=== PATIENT | female | born 1975 | race Caucasian/White ===

== ENCOUNTER 2019-11-24 16:35 | Outpatient (REF) | payer OTHER, SELFPAY ==
[2019-11-24 17:53] LABS: Anion Gap 13 (12-20); Blood Urea Nitrogen 17 mg/dL (9-16); Carbon Dioxide 22 mmol/L (22-29); Chloride 110 mmol/L (96-108); Estimated Glomerular Filt Rate 48; Potassium 3.9 mmol/l (3.3-5.1); Sodium 141 mmol/L (135-145)
== END 2019-11-24 16:36 | disposition home or self-care (01) ==
LOC: HO.LAB 16:35
PROVIDERS: PCP Internal Medicine; Visit Provider Internal Medicine Hypertension Specialist
DX: N20.0 Calculus of kidney (principal)
CPT/HCPCS: 36415; 80051; 82565; 84520

== ENCOUNTER 2019-11-30 04:43 | Emergency (ER) | payer OTHER, SELFPAY ==
--- NOTE | 2019-11-30 | XR_ITS ---
EXAMINATION: XR ABDOMEN KUB CLINICAL INDICATION: Question constipation COMPARISON: None TECHNIQUE: AP view of the abdomen. FINDINGS: Right upper quadrant surgical clips. No dilated loops of bowel. Gas and stool throughout the colon with moderate colonic stool burden. No suspicious calcification. The lung bases are clear. Mild degenerative changes of the hips. IMPRESSION: Moderate colonic stool burden.
[2019-11-30 04:47] VITALS: BP 122/83; PULSE 86; RESP 18; TEMP 37.1; O2SAT 99; BMI 27.3
--- NOTE | 2019-11-30 05:18 | PC.NURSE ---
AT BEDSIDE FOR EVALUATION.
[2019-11-30 05:22] VITALS: BP 117/80; PULSE 15; TEMP 37; O2SAT 98
--- NOTE | 2019-11-30 05:22 | ED.GENADULT ---
HPI - General Adult General Chief complaint: General Medical Stated complaint: Constipation Time Seen by Provider: 11/30/19 05:21 Source: patient Mode of arrival: ambulatory Limitations: no limitations History of Present Illness HPI narrative: This is a 44-year-old female who presents with inability to have a bowel movement for the past 4 days which she states she does not typically have an issue with. This is not been associated with fevers, chills, nausea, vomiting, urinary pain/ burning /frequency. In addition, patient has been able to continue tolerating p.o. intake and pass flatus. She states that she has not attempted any interventions over the past 4 days other than raisins. Related Data Home Medications Medication Instructions Recorded Confirmed bupropion HCl 100 mg tablet,12 hr 100 mg PO QAM 11/26/19 11/26/19 sustained-release bupropion HCl 150 mg 24 hr tablet, 0 mg PO 11/26/19 11/26/19 extended release bupropion HCl 200 mg tablet,12 hr 200 mg PO QAM 11/26/19 11/26/19 sustained-release bupropion HCl 300 mg 24 hr tablet, mg PO 11/26/19 11/26/19 extended release cephalexin 500 mg capsule 500 mg PO BID 11/26/19 11/26/19 ciprofloxacin HCl 500 mg tablet 500 mg PO BID 11/26/19 11/26/19 docusate sodium 100 mg capsule 100 mg PO DAILY 11/26/19 11/26/19 famotidine 40 mg tablet 40 mg PO BEDTIME 11/26/19 11/26/19 fexofenadine 180 mg tablet 180 mg PO DAILY 11/26/19 11/26/19 flu vacc [id number] 6mos up(PF) ml IM ONCE 11/26/19 11/26/19 fluticasone propionate 50 2 spray INTRANASAL BID 11/26/19 11/26/19 mcg/actuation nasal spray,suspension ipratropium bromide 42 mcg (0.06 2 spray INTRANASAL BID 11/26/19 11/26/19 %) nasal spray naproxen 500 mg tablet 500 mg PO Q12H PRN 11/26/19 11/26/19 naratriptan 2.5 mg tablet 2.5 mg PO DAILY PRN 11/26/19 11/26/19 nitrofurantoin macrocrystal 100 mg 100 mg PO DAILY 11/26/19 11/26/19 capsule nitrofurantoin 1 cap PO BID 11/26/19 11/26/19 monohydrate/macrocrystals 100 mg capsule omeprazole 20 mg capsule,delayed 20 mg PO DAILY 11/26/19 11/26/19 release potassium citrate 10 mEq (1,080 20 meq PO TID 11/26/19 11/26/19 mg) tablet,extended release pravastatin 20 mg tablet mg PO 11/26/19 11/26/19 pseudoephedrine HCl 30 mg tablet 0 mg PO 11/26/19 11/26/19 sumatriptan succinate 6 mg/0.5 mL mg SUBCUT 11/26/19 11/26/19 subcutaneous pen injector topiramate 100 mg tablet 0 mg PO 11/26/19 11/26/19 tramadol 50 mg tablet 0 mg PO 11/26/19 11/26/19 Allergies Allergy/AdvReac Type Severity Reaction Status Date / Time sulfamethoxazole Allergy Intermediate HIVES Unverified 11/10/19 17:26 [From BACTRIM] trimethoprim [From BACTRIM] Allergy Intermediate HIVES Unverified 11/10/19 17:26 Sulfa (Sulfonamide Allergy Unknown Heartburn Unverified 11/30/19 04:46 Antibiotics) Review of Systems Review of Systems: Pertinent positives and negatives as stated in the HPI. GEN: no fevers, chills, fatigue HEENT: no nasal congestion, sore throat, ear pain NEURO: no headache, dizziness, focal weakness PULM: no cough, shortness of breath CV: no chest pain, palpitations, LE edema ABD: no abdominal pain, nausea, vomiting, diarrhea : no dysuria, urgency, frequency SKIN: no rash ROS otherwise negative x 10 PMFSH Past Medical History Source: nursing notes reviewed Medical History Anxiety Depression Kidney stones Kidney stones Migraines Family History Family History Father Acute leukemia Mother FH: kidney cancer FH: pancreatic cancer Paternal Uncle Acute leukemia Social History Social History Alcohol intake: unknown Smoking Status: Unknown if ever smoked Use of substances other than those prescribed or required for medical reasons: Unknown Advance Directives: No Advance Directives Information Provided: No Physical Exam Vital Signs and I&O and Narrative: Vital Signs and I&O: Vital Signs Temp 98.6 F 11/30/19 05:22 Pulse 72 11/30/19 06:14 Resp 15 11/30/19 06:14 BP 119/79 11/30/19 06:14 Pulse Ox 98 11/30/19 06:14 Intake & Output 11/29/19 11/29/19 11/30/19 06:59 18:59 06:59 Weight 83.915 kg Body Mass Index 27.3 VITAL SIGNS: Reviewed. GENERAL: Well developed, well nourished, in no acute distress. HEAD: Normocephalic/atraumatic, EYES: PERRLA, EOMI intact without pain, no nystagmus/pallor/icterus noted EARS: Ext canals without abnormality, TMs non-bulging and non-erythematous NOSE: Nares patent bilateral OROPHARYNX: no oral lesions noted, posterior pharynx clear and non-erythematous without noted tonsillar enlargement/erythema/exudates NECK: Supple, no adenopathy LUNGS: Normal breath sounds. No adventitious sounds or accessory muscle use. SpO2<99%> CARDIOVASCULAR: Regular rate and rhythm without noted murmurs, no JVD or lower extremity edema. ABDOMEN: Soft, minimal tenderness to palpation at the left lower quadrant, non-distended with bowel sounds. No rigidity. No guarding. No palpable masses or hernias noted MUSCULOSKELETAL: No tenderness, deformities, or effusions noted on gross inspection. EXTREMITIES: No cyanosis, clubbing or edema. SKIN: Inspection of the skin reveals no rashes, ulcerations, jaundice, pallor, or petechiae. NEUROLOGIC: Alert and oriented x 4. Strength and sensation to light touch were grossly intact x 4. Course Course Course Narrative: This is a 44-year-old female with history and clinical presentation consistent with constipation without attempted aobb-mel-ljbaics interventions. Urine and urinalysis are negative for any acute findings of infection or . KUB significant for moderate colonic stool load. All results and findings were discussed with the patient at bedside and she was discharged to home in stable condition with a regimen that she could initiate today. Medical Decision Making Lab Data Labs: Lab Results 11/30/19 Range/Units 05:37 Urine Color YELLOW Urine Appearance CLEAR Urine pH 5.5 (5.0-8.0) Ur Specific [place] >= 1.030 H (1.005-1.025) Urine Protein NEG (NEG-TRACE) MG/DL Urine Glucose (UA) NEG (NEG) MG/DL Urine Ketones NEG (NEG) MG/DL Urine Blood NEG (NEG) Urine Nitrite NEG (NEG) Ur Leukocyte Esterase NEG (NEG) Urine Test NEGATIVE (NEGATIVE) Discharge Plan Discharge Clinical Impression: Constipation Qualifiers: Constipation type: unspecified constipation type Qualified Code(s): K59.00 - Constipation, unspecified Patient Disposition: Home, Self-Care Instructions: Constipation (ED), High Fiber Diet (ED), Fleet Enema (ED) Additional Instructions: 1. Increase your fluid intake, especially water as well as increasing fresh fruits and vegetables. 2. You may purchase MiraLax, [id number], and mix a packett with water twice a day. You should continue this until you start having bowel movements. 3. Consider using warm soapy enemas, only do this once. The patient and/or family acknowledge understanding of results (as applicable), diagnosis, treatment plan, need for follow up, and symptoms that should prompt a return to the emergency room. Prescriptions: No Action bupropion HCl 300 mg tablet extended release 24 hr PO RF: 0 naproxen 500 mg tablet 500 mg PO Q12H PRN (Reason: pain) RF: 0 tramadol 50 mg tablet 0 mg PO RF: 0 omeprazole 20 mg capsule,delayed release(DR/EC) 20 mg PO DAILY RF: 0 pseudoephedrine HCl 30 mg tablet 0 mg PO RF: 0 sumatriptan succinate 6 mg/0.5 mL pen injector subcut RF: 0 naratriptan 2.5 mg tablet 2.5 mg PO DAILY PRNRF: 0 pravastatin 20 mg tablet PO RF: 0 docusate sodium 100 mg capsule 100 mg PO DAILY RF: 0 famotidine 40 mg tablet 40 mg PO BEDTIME RF: 0 potassium citrate 10 mEq (1,080 mg) tablet extended release 20 meq PO TID RF: 0 Fluzone Quad [id number] (PF) 60 mcg (15 mcg x 4)/0.5 mL syringe IM ONCE RF: 0 nitrofurantoin macrocrystal 100 mg capsule 100 mg PO DAILY RF: 0 nitrofurantoin monohyd/m-cryst 100 mg capsule 1 cap PO BID RF: 0 bupropion HCl 150 mg tablet extended release 24 hr 0 mg PO RF: 0 fluticasone propionate 50 mcg/actuation spray,suspension 2 spray intranasal BID RF: 0 topiramate 100 mg tablet 0 mg PO RF: 0 ipratropium bromide 42 mcg (0.06 %) spray,non-aerosol 2 spray intranasal BID RF: 0 fexofenadine 180 mg tablet 180 mg PO DAILY RF: 0 bupropion HCl 200 mg tablet sustained-release 12 hr 200 mg PO QAM RF: 0 ciprofloxacin HCl 500 mg tablet 500 mg PO BID RF: 0 bupropion HCl 100 mg tablet sustained-release 12 hr 100 mg PO QAM RF: 0 cephalexin 500 mg capsule 500 mg PO BID RF: 0 Referrals: Hillary Ruiz MD [Primary Care Provider] - 2 days (For follow-up and management of constipation)
[2019-11-30 05:44] LABS: Glucose Urine UA NEG (NEG); Leukocyte Esterase Urine NEG (NEG); Nitrite Urine NEG (NEG); PH 5.5 (5.0-8.0); Specific Gravity - Urine >= 1.030 (1.005-1.025); Urine Blood NEG (NEG); Urine Ketones NEG (NEG); Urine Protein NEG (NEG-TRACE)
[2019-11-30 05:46] LABS: Appearance Urine CLEAR; Color Urine YELLOW; UACC CULT NO; UACC Culture Trigger NO; UPreg QC Valid YES; Urine Pregnancy NEGATIVE (NEGATIVE)
[2019-11-30 06:14] VITALS: BP 119/79; PULSE 72; RESP 15; O2SAT 98
== END 2019-11-30 06:46 | disposition home or self-care (01) ==
PROVIDERS: Emergency Provider Student in an Organized Health Care Education/Training Program; PCP Internal Medicine
DX: K59.00 Constipation, unspecified (principal); F41.9 Anxiety disorder, unspecified; Z87.442 Personal history of urinary calculi; Z79.899 Other long term (current) drug therapy
CPT/HCPCS: 74018; 81003; 81025; 99283; 99284

== ENCOUNTER 2020-01-17 16:14 | Emergency (ER) | payer OTHER, SELFPAY ==
[2020-01-17 16:33] VITALS: BP 136/82; PULSE 89; RESP 16; TEMP 36.9; O2SAT 99; BMI 27.3
--- NOTE | 2020-01-17 16:45 | ECG_ITS ---
Test Reason : OVERDOSE Blood Pressure : / mmHG Vent. Rate : 089 BPM Atrial Rate : 089 BPM P-R Int : 156 ms QRS Dur : 102 ms QT Int : 376 ms P-R-T Axes : 046 023 017 degrees QTc Int : 457 ms Normal sinus rhythm Nonspecific T wave abnormality Inferior leads Abnormal ECG When compared with ECG of 28-APR-2019 01:07, No significant change was found Referred By: Sun Bender Electronically Signed By:UMU ADAMS MD
--- NOTE | 2020-01-17 16:54 | ED.OVERDOSE ---
HPI - Overdose General Chief Complaint: Overdose Stated Complaint: OVERDOSE Time Seen by Provider: 01/17/20 16:44 Source: patient Mode of arrival: ambulatory Limitations: no limitations History of Present Illness complaint: accidental overdose Onset (ago): hour(s) (couple) Timing confirmed by: other (herself) Substance Ingested wellbutrin 200mg XL: Strength of Substance: 200 Number of Pills Ingested: 1 Total Dose: 200 Context: Accidental Overdose: medication error Associated symptoms: other (anxiety) Treatments Prior to Arrival: other (gave herself charcoal pills) Related Data Home Medications Medication Instructions Recorded Confirmed bupropion HCl 100 mg tablet,12 hr 100 mg PO QAM 11/26/19 11/26/19 sustained-release bupropion HCl 150 mg 24 hr tablet, 0 mg PO 11/26/19 11/26/19 extended release bupropion HCl 200 mg tablet,12 hr 200 mg PO QAM 11/26/19 11/26/19 sustained-release bupropion HCl 300 mg 24 hr tablet, mg PO 11/26/19 11/26/19 extended release cephalexin 500 mg capsule 500 mg PO BID 11/26/19 11/26/19 ciprofloxacin HCl 500 mg tablet 500 mg PO BID 11/26/19 11/26/19 docusate sodium 100 mg capsule 100 mg PO DAILY 11/26/19 11/26/19 famotidine 40 mg tablet 40 mg PO BEDTIME 11/26/19 11/26/19 fexofenadine 180 mg tablet 180 mg PO DAILY 11/26/19 11/26/19 flu vacc [id number] 6mos up(PF) ml IM ONCE 11/26/19 11/26/19 fluticasone propionate 50 2 spray INTRANASAL BID 11/26/19 11/26/19 mcg/actuation nasal spray,suspension ipratropium bromide 42 mcg (0.06 2 spray INTRANASAL BID 11/26/19 11/26/19 %) nasal spray naproxen 500 mg tablet 500 mg PO Q12H PRN 11/26/19 11/26/19 naratriptan 2.5 mg tablet 2.5 mg PO DAILY PRN 11/26/19 11/26/19 nitrofurantoin macrocrystal 100 mg 100 mg PO DAILY 11/26/19 11/26/19 capsule nitrofurantoin 1 cap PO BID 11/26/19 11/26/19 monohydrate/macrocrystals 100 mg capsule omeprazole 20 mg capsule,delayed 20 mg PO DAILY 11/26/19 11/26/19 release potassium citrate 10 mEq (1,080 20 meq PO TID 11/26/19 11/26/19 mg) tablet,extended release pravastatin 20 mg tablet mg PO 11/26/19 11/26/19 pseudoephedrine HCl 30 mg tablet 0 mg PO 11/26/19 11/26/19 sumatriptan succinate 6 mg/0.5 mL mg SUBCUT 11/26/19 11/26/19 subcutaneous pen injector topiramate 100 mg tablet 0 mg PO 11/26/19 11/26/19 tramadol 50 mg tablet 0 mg PO 11/26/19 11/26/19 Allergies Allergy/AdvReac Type Severity Reaction Status Date / Time sulfamethoxazole Allergy Intermediate HIVES Unverified 11/10/19 17:26 [From BACTRIM] trimethoprim [From BACTRIM] Allergy Intermediate HIVES Unverified 11/10/19 17:26 Sulfa (Sulfonamide Allergy Unknown Heartburn Unverified 11/30/19 04:46 Antibiotics) Review of Systems Review of Systems: Constitutional : No Weight loss, No Fever, No Chills, No Fatigue, No Malaise ENT/Mouth : No sore throat, pos nasal congestion Eyes: No Eye Pain, No Swelling, No Redness Cardiovascular : No Chest Pain, No SOB, No Dyspnea on Exertion, No Orthopnea, No Edema, No Palpitations Respiratory : No Cough, No Sputum, No Wheezing Gastrointestinal : No Nausea, No Vomiting, No Diarrhea, No Constipation, No abdominal Pain, No Hematochezia, No Melena Genitourinary : No Dysuria, No Urinary Frequency, No Hematuria, Musculoskeletal : No joint pain, No Myalgias, No Joint Swelling Skin : No Skin Lesions, No rash Neuro : No Weakness, No Numbness, No Dizziness, No Headache Psych : pos Anxiety/Panic, No Depression Heme/Lymph: No Bruising, No Bleeding,No Lymphadenopathy Endocrine : No Polyuria, No Polydipsia All other systems reviewed and are negative PMFSH Past Medical History Attestation statement: The following information was validated with the patient. Medical History Anxiety Depression Kidney stones Migraines Family History Family History Father Acute leukemia Mother FH: kidney cancer FH: pancreatic cancer Paternal Uncle Acute leukemia Social History Social History (Updated 01/17/20 @ 16:58 by Sun Bender DO) Alcohol intake: unknown Smoking Status: Never smoker Use of substances other than those prescribed or required for medical reasons: No Advance Directives: No Advance Directives Information Provided: Yes Physical Exam Vital Signs: Vital Signs: Last Vital Signs Temp 98.5 F 01/17/20 16:33 Pulse 89 01/17/20 16:33 Resp 16 01/17/20 16:33 BP 136/82 01/17/20 16:33 Pulse Ox 99 01/17/20 16:33 Body Mass Index 27.3 Appearance: Alert. Oriented X3. No acute distress. Flat affect Eyes: Pupils equal, round and reactive to light. ENT: Pharynx normal. Neck: Normal inspection. Neck supple. CVS: Normal heart rate and rhythm. Pulses normal. Respiratory: No respiratory distress. Breath sounds normal. Abdomen: Soft and nontender. Skin: Skin warm and dry. Normal skin color. Normal skin turgor. Extremities: No lower extremity edema. No calf ttp Neuro: Oriented X 3. No motor deficit. No sensory deficit. Course Course Course Narrative: if labs stable will DC home no sig ingestion at this time stable EKG MDM - Overdose MDM Narrative Medical decision making narrative: 44 yo female with PMH of mental health issues here with accidental ingestion of 200mg wellbutrin - last dose at 11pm last night, she thought this medication was an allergy pill, she denies SI, will obtain basic labs and EKG, suspect she will be fine given duration in between doses. Will discuss with poison control Lab Data Result diagrams: 01/17/20 17:15 01/17/20 17:15 ECG Data Attestation: I personally reviewed and interpreted this ECG as follows: ECG interpretation date: 01/17/20 ECG interpretation time: 17:12 Interpretation: Rate: 89 Rhythm: NSR Hyrum: normal Normal P waves. Normal JOEY. Normal QRS complex. ST T wave : nonspecific , inverted V3 qTC: normal prior studies: no change April 2019, no acute ischemia The study has been interpreted contemporaneously by me. . Discharge Plan Discharge Clinical Impression: Accidental drug ingestion Patient Disposition: Home, Self-Care Instructions: Bupropion (By mouth), Adult Overdose (ED) Additional Instructions: return to ED for any worsening symptoms or concerns DO NOT TAKE YOUR WELLBUTRIN DOSE TONIGHT Prescriptions: No Action bupropion HCl 300 mg tablet extended release 24 hr PO RF: 0 naproxen 500 mg tablet 500 mg PO Q12H PRN (Reason: pain) RF: 0 tramadol 50 mg tablet 0 mg PO RF: 0 omeprazole 20 mg capsule,delayed release(DR/EC) 20 mg PO DAILY RF: 0 pseudoephedrine HCl 30 mg tablet 0 mg PO RF: 0 sumatriptan succinate 6 mg/0.5 mL pen injector subcut RF: 0 naratriptan 2.5 mg tablet 2.5 mg PO DAILY PRNRF: 0 pravastatin 20 mg tablet PO RF: 0 docusate sodium 100 mg capsule 100 mg PO DAILY RF: 0 famotidine 40 mg tablet 40 mg PO BEDTIME RF: 0 potassium citrate 10 mEq (1,080 mg) tablet extended release 20 meq PO TID RF: 0 Fluzone Quad [id number] (PF) 60 mcg (15 mcg x 4)/0.5 mL syringe IM ONCE RF: 0 nitrofurantoin macrocrystal 100 mg capsule 100 mg PO DAILY RF: 0 nitrofurantoin monohyd/m-cryst 100 mg capsule 1 cap PO BID RF: 0 bupropion HCl 150 mg tablet extended release 24 hr 0 mg PO RF: 0 fluticasone propionate 50 mcg/actuation spray,suspension 2 spray intranasal BID RF: 0 topiramate 100 mg tablet 0 mg PO RF: 0 ipratropium bromide 42 mcg (0.06 %) spray,non-aerosol 2 spray intranasal BID RF: 0 fexofenadine 180 mg tablet 180 mg PO DAILY RF: 0 bupropion HCl 200 mg tablet sustained-release 12 hr 200 mg PO QAM RF: 0 ciprofloxacin HCl 500 mg tablet 500 mg PO BID RF: 0 bupropion HCl 100 mg tablet sustained-release 12 hr 100 mg PO QAM RF: 0 cephalexin 500 mg capsule 500 mg PO BID RF: 0 Referrals: Hillary Ruiz MD [Primary Care Provider] - 2 days (as needed)
[2020-01-17 17:20] LABS: MANUAL DIFF FLAG NO
[2020-01-17 17:21] LABS: Basophils Percent Auto 0.3 % (0-2); Eosinophils Absolute Auto 0.2 X10*3/uL (0.0-0.4); Eosinophils Percent Auto 1.7 % (0-4); Hematocrit 39.3 % (37-47); Hemoglobin 13.5 g/dl (12.0-16.0); Imm Gran Abs Auto 0.03 X10*3/uL (0.00-0.03); Imm Gran Pct Auto 0.3 % (0.0-0.4); Lymphocytes Absolute Auto 2.1 X10*3/uL (1.2-4.9); Lymphocytes Percent Auto 20.8 % (20-40); Mean Corpuscular HGB Conc 34.4 g/dl (31.0-35.0); Mean Corpuscular Volume 90.3 fL (80-98); Mean Platelet Volume 9.3 fL (9.4-12.3); Monocytes Absolute Auto 0.7 X10*3/uL (0.1-1.2); Monocytes Percent Auto 7.1 % (2-11); Neutrophils Percent Auto 69.8 % (45-73); Platelet Count 304 X10*3/uL (160-400); Red Blood Count 4.35 X10*6/uL (4.20-5.50); Red Cell Distribution Width 11.8 % (11.0-16.0); White Blood Count 10.1 X10*3/uL (4.8-10.8)
--- NOTE | 2020-01-17 17:29 | PC.NURSE ---
THIS RN SPOKE W/ POISON CONTROL, ONLY RECOMMENDATION CONSIDER MONITORING PT UNTIL 2300 D/T POTENTIAL RISK FOR DELAYED SX, DR HAMLIN AWARE. PT REFUSING REQUESTED COVID SWAB.
[2020-01-17 17:50] LABS: Ethanol < 10 mg/dL
[2020-01-17 17:57] LABS: Acetaminophen LAB < 1 mcg/mL (<30)
[2020-01-17 18:06] LABS: Alanine Aminotransferase 26 U/L (0-31); Albumin Level 4.2 g/dL (3.5-5.0); Alkaline Phosphatase 81 U/L (39-117); Anion Gap 12 (12-20); Aspartate Amino Transferase 16 U/L (5-31); Bilirubin Direct 0.2 mg/dL (0.0-0.5); Bilirubin Total 0.3 mg/dL (0.0-1.0); Blood Urea Nitrogen 16 mg/dL (9-16); Calcium 8.6 mg/dL (8.4-10.2); Carbon Dioxide 21 mmol/L (22-29); Chloride 107 mmol/L (96-108); Creatinine Clr Calc Pharmacy 73.9; Estimated Glomerular Filt Rate 53; Glucose Random 94 mg/dL (60-115); Potassium 3.4 mmol/l (3.3-5.1); Salicylate < 5.0 mg/dL (15-30); Sodium 137 mmol/L (135-145); Total Protein 7.1 g/dL (6.5-8.0)
[2020-01-17 18:36] VITALS: BP 139/89; PULSE 85; RESP 16; TEMP 36.6; O2SAT 98
== END 2020-01-17 18:52 | disposition home or self-care (01) ==
PROVIDERS: Emergency Provider Emergency Medicine; PCP Internal Medicine
DX: T43.291A Poisoning by other antidepressants, accidental (unintentional), initial encounter (principal); Y92.9 Unspecified place or not applicable; Z79.899 Other long term (current) drug therapy; F41.1 Generalized anxiety disorder; F43.0 Acute stress reaction; Z20.828 Contact with and (suspected) exposure to other viral communicable diseases
CPT/HCPCS: 36415; 80048; 80076; 80320; 85025; 93005; 99283; 99285; G0480; U0003

== ENCOUNTER → 2020-01-22 20:30 | Outpatient (REF) | payer OTHER, SELFPAY | LOC: HO.SL 20:30 | PROVIDERS: PCP Internal Medicine; Visit Provider Psychiatry & Neurology Neurology | DX: G47.33 Obstructive sleep apnea (adult) (pediatric) (principal) | CPT/HCPCS: 95810 ==

== ENCOUNTER 2020-02-25 13:04 | Emergency (ER) | payer OTHER, SELFPAY ==
[2020-02-25 14:13] VITALS: BP 129/75; PULSE 90; RESP 16; TEMP 37.1; O2SAT 98; BMI 27.3
--- NOTE | 2020-02-25 17:28 | ED_ITS ---
HPI - Abdominal Pain General Chief Complaint: Abdominal Pain Stated Complaint: blood in stool Time Seen by Provider: 02/25/20 16:43 Source: patient Mode of arrival: ambulatory History of Present Illness HPI narrative: 44-year-old female w/PMHx anxiety, migraines renal stones, depression, presenting to the ED c/o one episode of bright red blood stool this afternoon. Reports LLQ abdominal pain radiaiting to L flank yesterday, resolved today. Also admits to diarrhea and mild lightheadedness. Denies taking AC. Denies fever, chills, N/V/C, dysuria, hematuria, vaginal bleeding, suspicious food intake MD elicited complaint: abdominal pain Related Data Home Medications Medication Instructions Recorded Confirmed bupropion HCl 100 mg tablet,12 hr 100 mg PO QAM 11/26/19 11/26/19 sustained-release bupropion HCl 150 mg 24 hr tablet, 0 mg PO 11/26/19 11/26/19 extended release bupropion HCl 200 mg tablet,12 hr 200 mg PO QAM 11/26/19 11/26/19 sustained-release bupropion HCl 300 mg 24 hr tablet, mg PO 11/26/19 11/26/19 extended release cephalexin 500 mg capsule 500 mg PO BID 11/26/19 11/26/19 ciprofloxacin HCl 500 mg tablet 500 mg PO BID 11/26/19 11/26/19 docusate sodium 100 mg capsule 100 mg PO DAILY 11/26/19 11/26/19 famotidine 40 mg tablet 40 mg PO BEDTIME 11/26/19 11/26/19 fexofenadine 180 mg tablet 180 mg PO DAILY 11/26/19 11/26/19 flu vacc [id number] 6mos up(PF) ml IM ONCE 11/26/19 11/26/19 fluticasone propionate 50 2 spray INTRANASAL BID 11/26/19 11/26/19 mcg/actuation nasal spray,suspension ipratropium bromide 42 mcg (0.06 2 spray INTRANASAL BID 11/26/19 11/26/19 %) nasal spray naproxen 500 mg tablet 500 mg PO Q12H PRN 11/26/19 11/26/19 naratriptan 2.5 mg tablet 2.5 mg PO DAILY PRN 11/26/19 11/26/19 nitrofurantoin macrocrystal 100 mg 100 mg PO DAILY 11/26/19 11/26/19 capsule nitrofurantoin 1 cap PO BID 11/26/19 11/26/19 monohydrate/macrocrystals 100 mg capsule omeprazole 20 mg capsule,delayed 20 mg PO DAILY 11/26/19 11/26/19 release potassium citrate 10 mEq (1,080 20 meq PO TID 11/26/19 11/26/19 mg) tablet,extended release pravastatin 20 mg tablet mg PO 11/26/19 11/26/19 pseudoephedrine HCl 30 mg tablet 0 mg PO 11/26/19 11/26/19 sumatriptan succinate 6 mg/0.5 mL mg SUBCUT 11/26/19 11/26/19 subcutaneous pen injector topiramate 100 mg tablet 0 mg PO 11/26/19 11/26/19 tramadol 50 mg tablet 0 mg PO 11/26/19 11/26/19 Previous Rx's Medication Instructions Recorded ciprofloxacin HCl 500 mg PO Q12H 7 Days #14 tab 02/25/20 metronidazole [Flagyl] 500 mg PO Q8H 7 Days #21 tab 02/25/20 Allergies Allergy/AdvReac Type Severity Reaction Status Date / Time sulfamethoxazole Allergy Intermediate HIVES Verified 02/25/20 20:07 [From BACTRIM] trimethoprim [From BACTRIM] Allergy Intermediate HIVES Verified 02/25/20 20:07 Sulfa (Sulfonamide Allergy Unknown Heartburn Verified 02/25/20 20:07 Antibiotics) Review of Systems Review of Systems Constitutional: No Weight loss, No Fever, No Chills Cardiovascular: No Chest Pain, No SOB Respiratory: No Cough, No Sputum Gastrointestinal: No Nausea, No Vomiting, + Diarrhea, No Constipation, + Abdominal pain, +bloody stool Genitourinary: No irregular bleeding, No Dysuria, No Urinary Frequency, No Hematuria, + Flank Pain Musculoskeletal: No joint pain, No Myalgias, No Joint Swelling Skin: No Skin Lesions, No rash Neuro: No Weakness, No Numbness, +lightheadedness, No Headache Yes all other systems are reviewed and are negative Physical Exam Vital Signs: Vital Signs: Last Vital Signs Temp 97.5 F 02/25/20 17:45 Pulse 88 02/25/20 17:45 Resp 14 02/25/20 17:45 BP 132/78 02/25/20 17:45 Pulse Ox 98 02/25/20 17:45 Body Mass Index 27.3 Const: General: cooperative and healthy appearing Orientation/consciousness: patient oriented x3 Limitations: no limitations HENMT: Head: Yes normal to inspection Ears: hearing grossly normal bilate rally General nose exam: Normal external nose present Face and sinus: Yes normal facial exam Eyes: General: appearance normal, both eyes and all related structures EOM: EOMs intact bilaterally Neck: Neck: Yes normal visual inspection Resp: Effort & Inspection: normal respiratory effort Auscultation: clear to auscultation bilaterally, no rales, no rhonchi and no wheezes Cardio: Rate: regular rate Heart sounds: S1 normal heart sound present and S2 normal heart sound present GI: Inspection: Yes normal to inspection Palpation (GI): Soft to palpation, nontender, no guarding and not rigid : General: Yes no CVA tenderness Back/Spine/Pelvis: Back: no CVA tenderness Skin: Rashes: no rashes Wounds: no wounds Neuro: General: patient oriented x3 Gait exam (Neuro): Normal gait present Extrem: General: Yes normal to inspection Course Course Course Narrative: * Mild leukocytosis of 14.2, H&H stable, labs otherwise unremarkable, UA negative * Occult stool positive > will obtain CT abdomen pelvis for further evaluation * CT showing moderate descending colon diverticulitis without complication > will PO challenge and plan for outpatient tx and f/u with GI. First dose of metronidazole given in the ED. Worrisome signs and symptoms and strict return precautions discussed. Patient verbalized understanding feel safe for discharge * Patient is tolerating p.o. in the ED without difficulty MDM - Abdominal Pain MDM Narrative Medical decision making narrative: On exam VSS, NAD, well appearing, abd soft nontnender, no CVAT, no rebound or guarding. No hemorrhoids on rectal. Concern for GI bleed vs ?diverticulitis vs gastroenteritis. R/o other infectious etiology. Plan: Labs, UA, Occult stool, IVF/Sx Tx, Reassess Lab Data Result diagrams: 02/25/20 17:57 02/25/20 17:56 Labs: Lab Results 02/25/20 02/25/20 02/25/20 Range/Units 17:50 17:53 17:56 WBC (4.8-10.8) X10*3/uL RBC (4.20-5.50) X10*6/uL Hgb (12.0-16.0) g/dl Hct (37-47) % MCV (80-98) fL MCH (27.0-33.0) pg MCHC (31.0-35.0) g/dl RDW (11.0-16.0) % Plt Count (160-400) X10*3/uL MPV (9.4-12.3) fL Immature Gran % (Auto) (0.0-0.4) % Neut % (Auto) (45-73) % Lymph % (Auto) (20-40) % [place] % (Auto) (2-11) % Eos % (Auto) (0-4) % Baso % (Auto) (0-2) % Lymph # (Auto) (1.2-4.9) X10*3/uL [place] # (Auto) (0.1-1.2) X10*3/uL Eos # (Auto) (0.0-0.4) X10*3/uL Baso # (Auto) (0.0-0.2) X10*3/uL Abs Immat Gran (auto) (0.00-0.03) X10*3/uL Absolute Neuts (auto) (2.0-8.3) X10*3/uL Absolute Nucleated RBC (0.0-0.012) X10*3/uL Nucleated RBC % (auto) (0.0-0.2) /100WBC PT (10.8-13.0) SEC INR (0.9-1.1) APTT (24.1-38.0) SEC Sodium 141 (135-145) mmol/L Potassium 3.8 (3.3-5.1) mmol/l Chloride 106 (96-108) mmol/L Carbon Dioxide 25 (22-29) mmol/L Anion Gap 14 (12-20) BUN 13 (9-16) mg/dL Creatinine 1.20 (0.5-1.4) mg/dL Estim Creat Clear Calc 65.6 Estimated GFR 48 Random Glucose 92 (60-115) mg/dL Calcium 9.1 (8.4-10.2) mg/dL Magnesium 2.0 (1.6-2.6) mg/dL Total Bilirubin 0.2 (0.0-1.0) mg/dL Direct Bilirubin < 0.2 (0.0-0.5) mg/dL AST 21 (5-31) U/L ALT 28 (0-31) U/L Alkaline Phosphatase 97 (39-117) U/L Total Protein 7.4 (6.5-8.0) g/dL Albumin 4.4 (3.5-5.0) g/dL Lipase 21 (8-78) U/L Urine Color YELLOW Urine Appearance CLEAR Urine pH 8.5 H (5.0-8.0) Ur Specific [place] 1.010 (1.005-1.025) Urine Protein NEG (NEG-TRACE) MG/DL Urine Glucose (UA) NEG (NEG) MG/DL Urine Ketones NEG (NEG) MG/DL Urine Blood NEG (NEG) Urine Nitrite NEG (NEG) Ur Leukocyte Esterase NEG (NEG) Stool Occult Blood POS (NEG) 02/25/20 02/25/20 Range/Units 17:57 17:57 WBC 14.2 H (4.8-10.8) X10*3/uL RBC 4.38 (4.20-5.50) X10*6/uL Hgb 13.6 (12.0-16.0) g/dl Hct 40.6 (37-47) % MCV 92.7 (80-98) fL MCH 31.1 (27.0-33.0) pg MCHC 33.5 (31.0-35.0) g/dl RDW 11.9 (11.0-16.0) % Plt Count 337 (160-400) X10*3/uL MPV 9.5 (9.4-12.3) fL Immature Gran % (Auto) 0.4 (0.0-0.4) % Neut % (Auto) 69.9 (45-73) % Lymph % (Auto) 19.9 L (20-40) % [place] % (Auto) 7.8 (2-11) % Eos % (Auto) 1.8 (0-4) % Baso % (Auto) 0.2 (0-2) % Lymph # (Auto) 2.8 (1.2-4.9) X10*3/uL [place] # (Auto) 1.1 (0.1-1.2) X10*3/uL Eos # (Auto) 0.3 (0.0-0.4) X10*3/uL Baso # (Auto) 0.0 (0.0-0.2) X10*3/uL Abs Immat Gran (auto) 0.06 H (0.00-0.03) X10*3/uL Absolute Neuts (auto) 9.9 H (2.0-8.3) X10*3/uL Absolute Nucleated RBC 0.000 (0.0-0.012) X10*3/uL Nucleated RBC % (auto) 0.0 (0.0-0.2) /100WBC PT 12.2 (10.8-13.0) SEC INR 1.0 (0.9-1.1) APTT 34.9 (24.1-38.0) SEC Sodium (135-145) mmol/L Potassium (3.3-5.1) mmol/l Chloride (96-108) mmol/L Carbon Dioxide (22-29) mmol/L Anion Gap (12-20) BUN (9-16) mg/dL Creatinine (0.5-1.4) mg/dL Estim Creat Clear Calc Estimated GFR Random Glucose (60-115) mg/dL Calcium (8.4-10.2) mg/dL Magnesium (1.6-2.6) mg/dL Total Bilirubin (0.0-1.0) mg/dL Direct Bilirubin (0.0-0.5) mg/dL AST (5-31) U/L ALT (0-31) U/L Alkaline Phosphatase (39-117) U/L Total Protein (6.5-8.0) g/dL Albumin (3.5-5.0) g/dL Lipase (8-78) U/L Urine Color Urine Appearance Urine pH (5.0-8.0) Ur Specific [place] (1.005-1.025) Urine Protein (NEG-TRACE) MG/DL Urine Glucose (UA) (NEG) MG/DL Urine Ketones (NEG) MG/DL Urine Blood (NEG) Urine Nitrite (NEG) Ur Leukocyte Esterase (NEG) Stool Occult Blood (NEG) Discharge Plan Discharge Clinical Impression: Diverticulitis Patient Disposition: Home, Self-Care Instructions: Diverticulitis (ED) Additional Instructions: You have diverticulitis which is infection of your: Ciprofloxacin and Flagyl are antibiotics, take as prescribed Do not drink alcohol while taking Flagyl make you sick Make sure staying hydrated at home If you are unable to eat or drink, have fever, worsening persistent or unbearable abdominal pain return to the ED You should follow-up with GI and your doctor Prescriptions: New ciprofloxacin HCl 500 mg tablet 500 mg PO Q12H 7 Days Qty: 14 RF: 0 metronidazole [Flagyl] 500 mg tablet 500 mg PO Q8H 7 Days Qty: 21 RF: 0 No Action bupropion HCl 300 mg tablet extended release 24 hr PO RF: 0 naproxen 500 mg tablet 500 mg PO Q12H PRN (Reason: pain) RF: 0 tramadol 50 mg tablet 0 mg PO RF: 0 omeprazole 20 mg capsule,delayed release(DR/EC) 20 mg PO DAILY RF: 0 pseudoephedrine HCl 30 mg tablet 0 mg PO RF: 0 sumatriptan succinate 6 mg/0.5 mL pen injector subcut RF: 0 naratriptan 2.5 mg tablet 2.5 mg PO DAILY PRNRF: 0 pravastatin 20 mg tablet PO RF: 0 docusate sodium 100 mg capsule 100 mg PO DAILY RF: 0 famotidine 40 mg tablet 40 mg PO BEDTIME RF: 0 potassium citrate 10 mEq (1,080 mg) tablet extended release 20 meq PO TID RF: 0 Fluzone Quad [id number] (PF) 60 mcg (15 mcg x 4)/0.5 mL syringe IM ONCE RF: 0 nitrofurantoin macrocrystal 100 mg capsule 100 mg PO DAILY RF: 0 nitrofurantoin monohyd/m-cryst 100 mg capsule 1 cap PO BID RF: 0 bupropion HCl 150 mg tablet extended release 24 hr 0 mg PO RF: 0 fluticasone propionate 50 mcg/actuation spray,suspension 2 spray intranasal BID RF: 0 topiramate 100 mg tablet 0 mg PO RF: 0 ipratropium bromide 42 mcg (0.06 %) spray,non-aerosol 2 spray intranasal BID RF: 0 fexofenadine 180 mg tablet 180 mg PO DAILY RF: 0 bupropion HCl 200 mg tablet sustained-release 12 hr 200 mg PO QAM RF: 0 ciprofloxacin HCl 500 mg tablet 500 mg PO BID RF: 0 bupropion HCl 100 mg tablet sustained-release 12 hr 100 mg PO QAM RF: 0 cephalexin 500 mg capsule 500 mg PO BID RF: 0 Referrals: Joan Larson MD [Physician] - 1 week [facility] Past Medical History Attestation statement: The following information was validated with the patient. Medical History Anxiety Depression Kidney stones Migraines Family History Family History Father Acute leukemia Mother FH: kidney cancer FH: pancreatic cancer Paternal Uncle Acute leukemia Social History Social History (Updated 01/17/20 @ 16:58 by Sun Bender DO) Alcohol intake: never Smoking Status: Never smoker Advance Directives: No Advance Directives Information Provided: No
[2020-02-25 17:45] VITALS: BP 132/78; PULSE 88; RESP 14; TEMP 36.4; O2SAT 98
[2020-02-25 18:04] LABS: Basophils Percent Auto 0.2 % (0-2); Eosinophils Absolute Auto 0.3 X10*3/uL (0.0-0.4); Eosinophils Percent Auto 1.8 % (0-4); Hematocrit 40.6 % (37-47); Hemoglobin 13.6 g/dl (12.0-16.0); Imm Gran Abs Auto 0.06 X10*3/uL (0.00-0.03); Imm Gran Pct Auto 0.4 % (0.0-0.4); Lymphocytes Absolute Auto 2.8 X10*3/uL (1.2-4.9); Lymphocytes Percent Auto 19.9 % (20-40); Mean Corpuscular HGB Conc 33.5 g/dl (31.0-35.0); Mean Corpuscular Hemoglobin 31.1 pg (27.0-33.0); Mean Corpuscular Volume 92.7 fL (80-98); Mean Platelet Volume 9.5 fL (9.4-12.3); Monocytes Absolute Auto 1.1 X10*3/uL (0.1-1.2); Monocytes Percent Auto 7.8 % (2-11); Neutrophils Absolute Auto 9.9 X10*3/uL (2.0-8.3); Neutrophils Percent Auto 69.9 % (45-73); Platelet Count 337 X10*3/uL (160-400); Red Blood Count 4.38 X10*6/uL (4.20-5.50); Red Cell Distribution Width 11.9 % (11.0-16.0); White Blood Count 14.2 X10*3/uL (4.8-10.8)
[2020-02-25 18:06] LABS: MANUAL DIFF FLAG NO
[2020-02-25 18:17] LABS: OBS Int Ctl Valid YES; OBS1 POS (NEG)
[2020-02-25 18:19] LABS: Prothrombin Time 12.2 SEC (10.8-13.0)
[2020-02-25 18:22] LABS: Partial Thromboplastin Time 34.9 SEC (24.1-38.0)
[2020-02-25 18:23] LABS: Appearance Urine CLEAR; Color Urine YELLOW; Glucose Urine UA NEG (NEG); Leukocyte Esterase Urine NEG (NEG); Nitrite Urine NEG (NEG); PH 8.5 (5.0-8.0); Urine Blood NEG (NEG); Urine Ketones NEG (NEG); Urine Protein NEG (NEG-TRACE)
[2020-02-25 18:24] LABS: Alanine Aminotransferase 28 U/L (0-31); Albumin Level 4.4 g/dL (3.5-5.0); Alkaline Phosphatase 97 U/L (39-117); Anion Gap 14 (12-20); Aspartate Amino Transferase 21 U/L (5-31); Bilirubin Direct < 0.2 mg/dL (0.0-0.5); Bilirubin Total 0.2 mg/dL (0.0-1.0); Blood Urea Nitrogen 13 mg/dL (9-16); Calcium 9.1 mg/dL (8.4-10.2); Carbon Dioxide 25 mmol/L (22-29); Chloride 106 mmol/L (96-108); Creatinine Clr Calc Pharmacy 65.6; Estimated Glomerular Filt Rate 48; Glucose Random 92 mg/dL (60-115); Lipase 21 U/L (8-78); Potassium 3.8 mmol/l (3.3-5.1); Sodium 141 mmol/L (135-145); Total Protein 7.4 g/dL (6.5-8.0)
--- NOTE | 2020-02-25 18:34 | CT_ITS ---
EXAMINATION: CT ABDOMEN AND PELVIS WITH CONTRAST CLINICAL INFORMATION: Bloody bowel movement. Left lower quadrant abdominal pain. COMPARISON: Abdominal radiograph dated 11/30/2019. Renal ultrasound dated 09/27/2019. CT abdomen/pelvis dated 06/16/2018. TECHNIQUE: Multidetector volumetric images were obtained from the superior aspect of the liver through the pubic symphysis following administration 85 mL of Omnipaque 350 intravenous contrast. Sagittal and coronal reformatted images were obtained on the technologist's workstation. Oral contrast: No This CT examination was performed using dose optimization techniques as appropriate, variously including the following: *Automated exposure control *Adjustment of mA and/or kV according to patient size (this includes techniques or standardized protocols for targeted exams where dose is matched to indication/reason for exam; i.e. extremities or head) *Use of iterative reconstruction technique DLP: 652 mGy-cm FINDINGS: LUNG BASES: The visualized lung bases are unremarkable. LIVER, GALLBLADDER, AND BILIARY TREE: The liver is normal in size, shape, and attenuation. No focal hepatic lesion or biliary ductal dilatation is present. Status post cholecystectomy. PANCREAS: Unremarkable. SPLEEN: Unremarkable. ADRENAL GLANDS: Unremarkable. KIDNEYS AND URETERS: The kidneys are normal in size, shape, and attenuation. Previously seen right-sided renal stone is not appreciated on the current examination. Bilateral renal hypodensities, consistent with cysts. No perinephric stranding. BLADDER: Unremarkable. GASTROINTESTINAL TRACT: Descending colon diverticulosis with focal circumferential bowel wall thickening and adjacent inflammatory change centered on a large diverticulum, consistent with acute diverticulitis. No extraluminal air or organized fluid collection to suggest perforation or abscess. No small or large bowel obstruction. Unremarkable appendix. PERITONEAL CAVITY: No intra-abdominal free air or free fluid. No intra-abdominal mass or organized fluid collection/abscess. ABDOMINAL WALL: No significant hernia is appreciated. LYMPH NODES: Normal. VASCULAR: Unremarkable. PELVIC VISCERA: The uterus and adnexa are unremarkable. OSSEOUS STRUCTURES: Unremarkable. CT/CT abdomen pelvis w con IMPRESSION: 1. Moderate descending colon diverticulitis. No extraluminal air or organized fluid collection to suggest perforation or abscess. 2. Previously seen right renal stone is identified in the current examination. No hydronephrosis or hydroureter. Probable bilateral renal cysts.
[2020-02-25] MEDS: 0.9 % Sodium Chloride 1,000 ML 999 ML IVCONT (18:49)
[2020-02-25] MEDS: Magnesium Hydrox/Alum Hydrox 30 ML ORAL.SUSP PO (18:49)
[2020-02-25] MEDS: iohexoL 350 MG/ML 100 ML INFUS..BTL IV (19:29)
[2020-02-25 20:08] VITALS: BP 126/83; PULSE 81; RESP 16; O2SAT 100
[2020-02-25] MEDS: metroNIDAZOLE 500 MG TABLET PO (20:20)
== END 2020-02-25 21:20 | disposition home or self-care (01) ==
PROVIDERS: Physician Assistant; Emergency Provider Emergency Medicine; PCP Internal Medicine
DX: K57.32 Diverticulitis of large intestine without perforation or abscess without bleeding (principal)
CPT/HCPCS: 36415; 74177; 80048; 80076; 81003; 82272; 83690; 83735; 85025; 85610; 85730; 96361; 96374; 99283; 99284; Q9967

== ENCOUNTER 2020-03-06 06:55 | Emergency (ER) | payer OTHER, SELFPAY ==
[2020-03-06 08:41] VITALS: BP 120/67; PULSE 81; RESP 16; TEMP 36; O2SAT 100; BMI 27.3
--- NOTE | 2020-03-06 09:02 | CT_ITS ---
EXAMINATION: CT ABDOMEN AND PELVIS WITH CONTRAST CLINICAL INFORMATION: Left lower quadrant pain. Diverticulitis 1 week ago. Worsening pain. Evaluate for abscess. COMPARISON: CT abdomen/pelvis dated 02/24/2019. TECHNIQUE: Multidetector volumetric images were obtained from the superior aspect of the liver through the pubic symphysis following administration 85 mL of Omnipaque 350 intravenous contrast. Sagittal and coronal reformatted images were obtained on the technologist's workstation. Oral contrast: No. This CT examination was performed using dose optimization techniques as appropriate, variously including the following: *Automated exposure control. *Adjustment of mA and/or kV according to patient size (this includes techniques or standardized protocols for targeted exams where dose is matched to indication/reason for exam; i.e. extremities or head) *Use of iterative reconstruction technique. DLP: 672 mGy-cm. FINDINGS: LUNG BASES: The visualized lung bases are unremarkable. LIVER, GALLBLADDER, AND BILIARY TREE: The liver is normal in size, shape, and attenuation. No focal hepatic lesion or biliary ductal dilatation is present. Status post cholecystectomy. PANCREAS: Unremarkable. SPLEEN: Unremarkable. ADRENAL GLANDS: Unremarkable. KIDNEYS AND URETERS: The kidneys are normal in size, shape, and attenuation. No hydronephrosis, hydroureter, or calculi seen. Multiple stable bilateral renal hypodensities, likely representing cysts. No perinephric stranding. BLADDER: Nondistended and unremarkable. GASTROINTESTINAL TRACT: Redemonstration of diverticulosis with wall thickening and adjacent inflammatory change again noted associated with the descending colon. Findings have significantly decreased when compared to the prior examination. No evidence of perforation or abscess formation. No small or large bowel obstruction. Unremarkable appendix. PERITONEAL CAVITY: No intra-abdominal free air or free fluid. No intra-abdominal mass or organized fluid collection/abscess formation. ABDOMINAL WALL: No significant hernia is appreciated. LYMPH NODES: Normal. VASCULAR: Unremarkable. PELVIC VISCERA: The uterus and adnexa are unremarkable. OSSEOUS STRUCTURES: Unremarkable. CT/CT abdomen pelvis w con IMPRESSION: Redemonstration of descending colon diverticulitis. Wall thickening and adjacent inflammatory change have significantly decreased when compared to the most recent CT. No evidence of perforation or abscess formation.
--- NOTE | 2020-03-06 09:04 | ED_ITS ---
HPI - General Adult General Chief complaint: Abdominal Pain Stated complaint: back pain Time Seen by Provider: 03/06/20 08:43 Source: patient Mode of arrival: ambulatory Limitations: no limitations History of Present Illness HPI narrative: 44-year-old female who presents emergency department for evaluation of left lower quadrant abdominal pain radiating to her left flank and left buttocks. The patient was seen 1 week prior with similar pain and was diagnosed with diverticulitis. She was treated with ciprofloxacin 500 mg twice a day for 7 days and metronidazole 500 mg 3 times a day for 7 days. She states that while she was on the antibiotic she felt better however since stopping the antibiotics her pain has got worse. She states that the pain is a hard punching like sensation in her left lower quadrant area and left flank area. The pain is 8/10. She has associated chills and nausea with no vomiting. She states she has had a good appetite. She had a normal bowel movement today. She denied frequency urgency dysuria but states she gets frequent urinary tact infection and takes Macrobid for suppression of her urinary tract infection. Related Data Home Medications Medication Instructions Recorded Confirmed bupropion HCl 100 mg tablet,12 hr 100 mg PO QAM 11/26/19 11/26/19 sustained-release bupropion HCl 150 mg 24 hr tablet, 0 mg PO 11/26/19 11/26/19 extended release bupropion HCl 200 mg tablet,12 hr 200 mg PO QAM 11/26/19 11/26/19 sustained-release bupropion HCl 300 mg 24 hr tablet, mg PO 11/26/19 11/26/19 extended release cephalexin 500 mg capsule 500 mg PO BID 11/26/19 11/26/19 ciprofloxacin HCl 500 mg tablet 500 mg PO BID 11/26/19 11/26/19 docusate sodium 100 mg capsule 100 mg PO DAILY 11/26/19 11/26/19 famotidine 40 mg tablet 40 mg PO BEDTIME 11/26/19 11/26/19 fexofenadine 180 mg tablet 180 mg PO DAILY 11/26/19 11/26/19 flu vacc [id number] 6mos up(PF) ml IM ONCE 11/26/19 11/26/19 fluticasone propionate 50 2 spray INTRANASAL BID 11/26/19 11/26/19 mcg/actuation nasal spray,suspension ipratropium bromide 42 mcg (0.06 2 spray INTRANASAL BID 11/26/19 11/26/19 %) nasal spray naproxen 500 mg tablet 500 mg PO Q12H PRN 11/26/19 11/26/19 naratriptan 2.5 mg tablet 2.5 mg PO DAILY PRN 11/26/19 11/26/19 nitrofurantoin macrocrystal 100 mg 100 mg PO DAILY 11/26/19 11/26/19 capsule nitrofurantoin 1 cap PO BID 11/26/19 11/26/19 monohydrate/macrocrystals 100 mg capsule omeprazole 20 mg capsule,delayed 20 mg PO DAILY 11/26/19 11/26/19 release potassium citrate 10 mEq (1,080 20 meq PO TID 11/26/19 11/26/19 mg) tablet,extended release pravastatin 20 mg tablet mg PO 11/26/19 11/26/19 pseudoephedrine HCl 30 mg tablet 0 mg PO 11/26/19 11/26/19 sumatriptan succinate 6 mg/0.5 mL mg SUBCUT 11/26/19 11/26/19 subcutaneous pen injector topiramate 100 mg tablet 0 mg PO 11/26/19 11/26/19 tramadol 50 mg tablet 0 mg PO 11/26/19 11/26/19 Previous Rx's Medication Instructions Recorded ciprofloxacin HCl 500 mg PO Q12H 7 Days #14 tab 02/25/20 metronidazole [Flagyl] 500 mg PO Q8H 7 Days #21 tab 02/25/20 amoxicillin-pot clavulanate 1 tab PO BID 10 Days #20 tab 03/06/20 [Augmentin] Allergies Allergy/AdvReac Type Severity Reaction Status Date / Time sulfamethoxazole Allergy Intermediate HIVES Verified 02/25/20 20:07 [From BACTRIM] trimethoprim [From BACTRIM] Allergy Intermediate HIVES Verified 02/25/20 20:07 Sulfa (Sulfonamide Allergy Unknown Heartburn Verified 02/25/20 20:07 Antibiotics) Review of Systems Review of Systems: Yes all other systems are reviewed and are negative Neurologic: Reports Abnormal speech present [facility] Past Medical History Medical History Anxiety Depression Kidney stones Migraines Family History Family History Father Acute leukemia Mother FH: kidney cancer FH: pancreatic cancer Paternal Uncle Acute leukemia Social History Social History Alcohol intake: never Smoking Status: Never smoker Use of substances other than those prescribed or required for medical reasons: No Advance Directives: No Advance Directives Information Provided: Yes Physical Exam Vital Signs: Vital Signs: Last Vital Signs Temp 97.9 F 03/06/20 12:55 Pulse 75 03/06/20 12:55 Resp 15 03/06/20 12:55 BP 117/65 03/06/20 12:55 Pulse Ox 100 03/06/20 12:55 Body Mass Index 27.3 Const: General: cooperative Orientation/consciousness: oriented to person and oriented to place Limitations: no limitations HENMT: Head: Yes normal to inspection, Yes normocephalic and Yes atraumatic Ears: external ears normal General nose exam: Normal external nose present Face and sinus: Yes normal facial exam Mouth: Normal oral and palatal mucosa present Throat: Yes posterior oropharynx normal Eyes: Periorbital: periorbital findings normal Eyelids: Yes eyelids normal Conjunctivae: conjunctivae normal Sclerae: sclerae normal Corneas: corneas normal Pupils: Equal, round and reactive pupils present Direct Ophthalmoscopy: normal light reflex Neck: Neck: Yes full ROM, Yes no lymphadenopathy, Yes no meningeal signs, Yes trachea midline and Yes supple Chest: Chest palpation & inspection: normal inspection of the chest and normal palpation of entire chest wall Resp: Effort & Inspection: normal respiratory effort and able to speak in complete sentences Auscultation: clear to auscultation bilaterally Cardio: Rate: regular rate Rhythm: regular rhythm Heart sounds: S1 normal heart sound present, S2 normal heart sound present and no murmurs GI: Inspection: Yes normal to inspection Palpation (GI): Soft to palpation, Tenderness to palpation present (GI) in the LLQ (Moderate), no guarding, not rigid and No hepatosplenomegaly present : General: Yes CVA tenderness on the left (Moderate) Back/Spine/Pelvis: Cervical Spine: normal cervical lordosis Thoracic/Lumbar Spine: thoracic and lumbar spine normal to inspection Skin: Lesions: no lesions Rashes: no rashes Wounds: no wounds Neuro: General: oriented to person, oriented to place and no meningeal signs Cranial nerves: Yes CN's II-XII intact bilaterally and Yes Equal, round and reactive pupils present Cognition (Neuro): normal cognition Speech: Abnormal speech present Motor exam (neuro): 5/5 motor strength present throughout Extrem: General: Yes normal to inspection and Yes full ROM Psych: Appearance: well kempt Mental Status: mental status grossly normal Speech and movement: Normal speech and movement present Affect: normal affect Attitude: cooperative Thought process: Normal thought process present Thought content: Normal thought content present Course Course Course Narrative: 44-year-old female who was diagnosed with moderate diverticulitis 1 week prior completed a 7 day course of ciprofloxacin and Flagyl presenting with worsening left lower quadrant and left flank pain. Examination did reveal moderate tenderness in these areas. I will repeat the abdominal workup and CT scan on this patient to rule out possibility of perforation or abscess since the cause of her her pain. The patient does not want any pain medications at this time. She was ordered to get normal saline IV x1 L. 1343: The patient's pain improved with above treatment. The patient's laboratory evaluation was unremarkable. CT scan of the abdomen pelvis is consistent with right descending colon diverticulitis, slightly improved from the previous scan but the patient still has colon wall thickening with adjacent inflammatory changes. The patient will require another course of oral antibiotics, therefore she was given Augmentin 875 mg orally and started on Augmentin 875 b.i.d. times 10 days. She was given verbal and printed instructions and discharged home. Medical Decision Making Lab Data Result diagrams: 03/06/20 09:17 03/06/20 09:17 Labs: Lab Results 03/06/20 03/06/20 03/06/20 Range/Units 09:17 09:17 11:34 WBC 8.7 (4.8-10.8) X10*3/uL RBC 4.30 (4.20-5.50) X10*6/uL Hgb 13.3 (12.0-16.0) g/dl Hct 40.0 (37-47) % MCV 93.0 (80-98) fL MCH 30.9 (27.0-33.0) pg MCHC 33.3 (31.0-35.0) g/dl RDW 12.1 (11.0-16.0) % Plt Count 329 (160-400) X10*3/uL MPV 9.5 (9.4-12.3) fL Immature Gran % (Auto) 0.3 (0.0-0.4) % Neut % (Auto) 65.4 (45-73) % Lymph % (Auto) 23.8 (20-40) % [place] % (Auto) 7.7 (2-11) % Eos % (Auto) 2.5 (0-4) % Baso % (Auto) 0.3 (0-2) % Lymph # (Auto) 2.1 (1.2-4.9) X10*3/uL [place] # (Auto) 0.7 (0.1-1.2) X10*3/uL Eos # (Auto) 0.2 (0.0-0.4) X10*3/uL Baso # (Auto) 0.0 (0.0-0.2) X10*3/uL Abs Immat Gran (auto) 0.03 (0.00-0.03) X10*3/uL Absolute Neuts (auto) 5.7 (2.0-8.3) X10*3/uL Absolute Nucleated RBC 0.000 (0.0-0.012) X10*3/uL Nucleated RBC % (auto) 0.0 (0.0-0.2) /100WBC Sodium 141 (135-145) mmol/L Potassium 3.7 (3.3-5.1) mmol/l Chloride 108 (96-108) mmol/L Carbon Dioxide 24 (22-29) mmol/L Anion Gap 13 (12-20) BUN 21 H D (9-16) mg/dL Creatinine 1.34 (0.5-1.4) mg/dL Estim Creat Clear Calc 60.7 Estimated GFR 43 Random Glucose 128 H D (60-115) mg/dL Calcium 8.6 (8.4-10.2) mg/dL Total Bilirubin 0.2 (0.0-1.0) mg/dL AST 13 (5-31) U/L ALT 19 (0-31) U/L Alkaline Phosphatase 71 D (39-117) U/L Total Protein 7.0 (6.5-8.0) g/dL Albumin 4.2 (3.5-5.0) g/dL Lipase 27 (8-78) U/L Urine Color YELLOW Urine Appearance HAZY Urine pH 8.5 H (5.0-8.0) Ur Specific [place] 1.015 (1.005-1.025) Urine Protein NEG (NEG-TRACE) MG/DL Urine Glucose (UA) NEG (NEG) MG/DL Urine Ketones NEG (NEG) MG/DL Urine Blood NEG (NEG) Urine Nitrite NEG (NEG) Ur Leukocyte Esterase NEG (NEG) Discharge Plan Discharge Clinical Impression: Diverticulitis Patient Disposition: Home, Self-Care Instructions: Diverticulitis (ED) Additional Instructions: Your laboratory evaluation was normal. The CT scan did show improvement in your diverticulitis however you still have evidence of diverticulitis in the left descending colon there for and when to start you on Augmentin 875 mg twice a day for 10 days. Take ibuprofen 200 mg pills, 3 pills every 6 hours as needed for pain. Take Tylenol (acetaminophen) 500 mg pills, 2 pills every 4 to 6 hours as needed for pain. Follow-up with your doctor in 2 days. Please return to the emergency department if your symptoms get worse or if you develop any symptoms that are concerning to you. Prescriptions: New amoxicillin-pot clavulanate [Augmentin] 875-125 mg tablet 1 tab PO BID 10 Days Qty: 20 RF: 0 No Action ciprofloxacin HCl 500 mg tablet 500 mg PO Q12H 7 Days Qty: 14 RF: 0 metronidazole [Flagyl] 500 mg tablet 500 mg PO Q8H 7 Days Qty: 21 RF: 0 bupropion HCl 300 mg tablet extended release 24 hr PO RF: 0 naproxen 500 mg tablet 500 mg PO Q12H PRN (Reason: pain) RF: 0 tramadol 50 mg tablet 0 mg PO RF: 0 omeprazole 20 mg capsule,delayed release(DR/EC) 20 mg PO DAILY RF: 0 pseudoephedrine HCl 30 mg tablet 0 mg PO RF: 0 sumatriptan succinate 6 mg/0.5 mL pen injector subcut RF: 0 naratriptan 2.5 mg tablet 2.5 mg PO DAILY PRNRF: 0 pravastatin 20 mg tablet PO RF: 0 docusate sodium 100 mg capsule 100 mg PO DAILY RF: 0 famotidine 40 mg tablet 40 mg PO BEDTIME RF: 0 potassium citrate 10 mEq (1,080 mg) tablet extended release 20 meq PO TID RF: 0 Fluzone Quad [id number] (PF) 60 mcg (15 mcg x 4)/0.5 mL syringe IM ONCE RF: 0 nitrofurantoin macrocrystal 100 mg capsule 100 mg PO DAILY RF: 0 nitrofurantoin monohyd/m-cryst 100 mg capsule 1 cap PO BID RF: 0 bupropion HCl 150 mg tablet extended release 24 hr 0 mg PO RF: 0 fluticasone propionate 50 mcg/actuation spray,suspension 2 spray intranasal BID RF: 0 topiramate 100 mg tablet 0 mg PO RF: 0 ipratropium bromide 42 mcg (0.06 %) spray,non-aerosol 2 spray intranasal BID RF: 0 fexofenadine 180 mg tablet 180 mg PO DAILY RF: 0 bupropion HCl 200 mg tablet sustained-release 12 hr 200 mg PO QAM RF: 0 ciprofloxacin HCl 500 mg tablet 500 mg PO BID RF: 0 bupropion HCl 100 mg tablet sustained-release 12 hr 100 mg PO QAM RF: 0 cephalexin 500 mg capsule 500 mg PO BID RF: 0
[2020-03-06 09:21] LABS: MANUAL DIFF FLAG NO
[2020-03-06 09:23] LABS: Basophils Percent Auto 0.3 % (0-2); Eosinophils Absolute Auto 0.2 X10*3/uL (0.0-0.4); Eosinophils Percent Auto 2.5 % (0-4); Hemoglobin 13.3 g/dl (12.0-16.0); Imm Gran Abs Auto 0.03 X10*3/uL (0.00-0.03); Imm Gran Pct Auto 0.3 % (0.0-0.4); Lymphocytes Absolute Auto 2.1 X10*3/uL (1.2-4.9); Lymphocytes Percent Auto 23.8 % (20-40); Mean Corpuscular HGB Conc 33.3 g/dl (31.0-35.0); Mean Corpuscular Hemoglobin 30.9 pg (27.0-33.0); Mean Platelet Volume 9.5 fL (9.4-12.3); Monocytes Absolute Auto 0.7 X10*3/uL (0.1-1.2); Monocytes Percent Auto 7.7 % (2-11); Neutrophils Absolute Auto 5.7 X10*3/uL (2.0-8.3); Neutrophils Percent Auto 65.4 % (45-73); Platelet Count 329 X10*3/uL (160-400); Red Cell Distribution Width 12.1 % (11.0-16.0); White Blood Count 8.7 X10*3/uL (4.8-10.8)
[2020-03-06 10:08] LABS: Alanine Aminotransferase 19 U/L (0-31); Albumin Level 4.2 g/dL (3.5-5.0); Alkaline Phosphatase 71 U/L (39-117); Anion Gap 13 (12-20); Aspartate Amino Transferase 13 U/L (5-31); Bilirubin Total 0.2 mg/dL (0.0-1.0); Blood Urea Nitrogen 21 mg/dL (9-16); Calcium 8.6 mg/dL (8.4-10.2); Carbon Dioxide 24 mmol/L (22-29); Chloride 108 mmol/L (96-108); Creatinine Clr Calc Pharmacy 60.7; Estimated Glomerular Filt Rate 43; Glucose Random 128 mg/dL (60-115); Lipase 27 U/L (8-78); Potassium 3.7 mmol/l (3.3-5.1); Sodium 141 mmol/L (135-145)
[2020-03-06] MEDS: 0.9 % Sodium Chloride 1,000 ML 999 ML IV (10:34)
[2020-03-06 11:28] VITALS: BP 112/63; PULSE 78; RESP 16; O2SAT 100
[2020-03-06] MEDS: iohexoL 350 MG/ML 100 ML INFUS..BTL 85 ML IV (11:46)
[2020-03-06 11:59] LABS: Glucose Urine UA NEG (NEG); Leukocyte Esterase Urine NEG (NEG); Nitrite Urine NEG (NEG); PH 8.5 (5.0-8.0); Specific Gravity - Urine 1.015 (1.005-1.025); Urine Blood NEG (NEG); Urine Ketones NEG (NEG); Urine Protein NEG (NEG-TRACE)
[2020-03-06 12:01] LABS: Appearance Urine HAZY; Color Urine YELLOW
[2020-03-06 12:55] VITALS: BP 117/65; PULSE 75; RESP 15; TEMP 36.6; O2SAT 100
[2020-03-06 14:13] VITALS: BP 127/83; PULSE 79; RESP 16; O2SAT 100
[2020-03-06] MEDS: Amoxicillin/Potassium Clav 875 MG TABLET PO (14:15)
== END 2020-03-06 14:21 | disposition home or self-care (01) ==
PROVIDERS: Emergency Provider Emergency Medicine Emergency Medical Services; PCP Internal Medicine
DX: K57.32 Diverticulitis of large intestine without perforation or abscess without bleeding (principal); Z79.899 Other long term (current) drug therapy
CPT/HCPCS: 36415; 74177; 80053; 81003; 83690; 85025; 96360; 99284; 99285; Q9967

== ENCOUNTER 2020-03-09 19:15 | Emergency (ER) | payer OTHER, SELFPAY ==
[2020-03-09 19:29] VITALS: BP 138/85; PULSE 82; RESP 16; TEMP 36.6; O2SAT 99; BMI 27.3
--- NOTE | 2020-03-10 00:48 | ED.GENADULT ---
HPI - General Adult General Chief complaint: General Medical Stated complaint: MED REACTION Time Seen by Provider: 03/09/20 23:49 Source: patient Mode of arrival: ambulatory History of Present Illness HPI narrative: This is a 44-year-old female who presents with concerns regarding sore throat and itchy nose as a possible allergic reaction to the Augmentin that she was switched to from the Cipro/ Flagyl. A repeat CT scan at that time showed improvement. Patient denies any fevers, chills, diarrhea, urinary symptoms, rash, difficulty breathing, tongue/lip swelling. Related Data Home Medications Medication Instructions Recorded Confirmed bupropion HCl 100 mg tablet,12 hr 100 mg PO QAM 11/26/19 11/26/19 sustained-release bupropion HCl 150 mg 24 hr tablet, 0 mg PO 11/26/19 11/26/19 extended release bupropion HCl 200 mg tablet,12 hr 200 mg PO QAM 11/26/19 11/26/19 sustained-release bupropion HCl 300 mg 24 hr tablet, mg PO 11/26/19 11/26/19 extended release cephalexin 500 mg capsule 500 mg PO BID 11/26/19 11/26/19 ciprofloxacin HCl 500 mg tablet 500 mg PO BID 11/26/19 11/26/19 docusate sodium 100 mg capsule 100 mg PO DAILY 11/26/19 11/26/19 famotidine 40 mg tablet 40 mg PO BEDTIME 11/26/19 11/26/19 fexofenadine 180 mg tablet 180 mg PO DAILY 11/26/19 11/26/19 flu vacc [id number] 6mos up(PF) ml IM ONCE 11/26/19 11/26/19 fluticasone propionate 50 2 spray INTRANASAL BID 11/26/19 11/26/19 mcg/actuation nasal spray,suspension ipratropium bromide 42 mcg (0.06 2 spray INTRANASAL BID 11/26/19 11/26/19 %) nasal spray naproxen 500 mg tablet 500 mg PO Q12H PRN 11/26/19 11/26/19 naratriptan 2.5 mg tablet 2.5 mg PO DAILY PRN 11/26/19 11/26/19 nitrofurantoin macrocrystal 100 mg 100 mg PO DAILY 11/26/19 11/26/19 capsule nitrofurantoin 1 cap PO BID 11/26/19 11/26/19 monohydrate/macrocrystals 100 mg capsule omeprazole 20 mg capsule,delayed 20 mg PO DAILY 11/26/19 11/26/19 release potassium citrate 10 mEq (1,080 20 meq PO TID 11/26/19 11/26/19 mg) tablet,extended release pravastatin 20 mg tablet mg PO 11/26/19 11/26/19 pseudoephedrine HCl 30 mg tablet 0 mg PO 11/26/19 11/26/19 sumatriptan succinate 6 mg/0.5 mL mg SUBCUT 11/26/19 11/26/19 subcutaneous pen injector topiramate 100 mg tablet 0 mg PO 11/26/19 11/26/19 tramadol 50 mg tablet 0 mg PO 11/26/19 11/26/19 Previous Rx's Medication Instructions Recorded ciprofloxacin HCl 500 mg PO Q12H 7 Days #14 tab 02/25/20 metronidazole [Flagyl] 500 mg PO Q8H 7 Days #21 tab 02/25/20 amoxicillin-pot clavulanate 1 tab PO BID 10 Days #20 tab 03/06/20 [Augmentin] ciprofloxacin HCl [Cipro] 500 mg PO Q12H 10 Days #20 tab 03/10/20 metronidazole [Flagyl] 500 mg PO Q8H 10 Days #30 tab 03/10/20 Allergies Allergy/AdvReac Type Severity Reaction Status Date / Time sulfamethoxazole Allergy Intermediate HIVES Verified 03/09/20 19:28 [From BACTRIM] trimethoprim [From BACTRIM] Allergy Intermediate HIVES Verified 03/09/20 19:28 Sulfa (Sulfonamide Allergy Unknown Heartburn Verified 03/09/20 19:28 Antibiotics) Review of Systems Review of Systems: Pertinent positives and negatives as stated in HPI 10 point review systems otherwise negative. [facility] Past Medical History Source: nursing notes reviewed Medical History Anxiety Depression Kidney stones Migraines Family History Family History Father Acute leukemia Mother FH: kidney cancer FH: pancreatic cancer Paternal Uncle Acute leukemia Social History Social History Alcohol intake: never Smoking Status: Never smoker Advance Directives: No Advance Directives Information Provided: No Physical Exam Vital Signs: Vital Signs: Last Vital Signs Temp 98 F 03/09/20 19:29 Pulse 82 03/09/20 19:29 Resp 16 03/09/20 19:29 BP 138/85 03/09/20 19:29 Pulse Ox 99 03/09/20 19:29 Body Mass Index 27.3 VITAL SIGNS: Reviewed. GENERAL: Well developed, well nourished, in no acute distress. HEAD: Normocephalic/atraumatic, EYES: PERRLA, EOMI EARS: Ext canals without abnormality, TMs non-bulging and non-erythematous NOSE: Nares patent bilateral OROPHARYNX: no oral lesions noted, posterior pharynx clear NECK: Supple, no adenopathy LUNGS: Normal breath sounds. . SpO2<99> CARDIOVASCULAR: Regular rate and rhythm without noted murmurs, no JVD or lower extremity edema. ABDOMEN: Soft, non-tender, non-distended with bowel sounds. No rigidity. SKIN: Inspection of the skin reveals no rashes NEUROLOGIC: Alert and oriented x 4. Strength and sensation to light touch were grossly intact x 4. Course Course Course Narrative: This is a 44-year-old female with history and clinical presentation not suggestive of allergic reaction as there is no evidence of angioedema, anaphylaxis, urticaria, however despite being reassured patient still exhibited anxiety over continuing with the antibiotic. Patient was then reassured that we can switch back for another, longer course with the Cipro/ Flagyl but would need to follow up with her primary care provider by calling the office at her earliest convenience. Discharge Plan Discharge Clinical Impression: Medication reaction Qualifiers: Encounter type: initial encounter Qualified Code(s): T50.905A - Adverse effect of unspecified drugs, medicaments and biological substances, initial encounter Patient Disposition: Home, Self-Care Additional Instructions: 1. Your antibiotic has been switched back to the initial set of antibiotics, but the duration of this course will be lengthier. 2. Please stay well hydrated with water. 3. Please follow-up with your primary care provider by calling the office in the morning. 4. Do not hesitate to return to the emergency department should you experience any shortness of breath, rash/hives, lip/tongue swelling. Prescriptions: New ciprofloxacin HCl [Cipro] 500 mg tablet 500 mg PO Q12H 10 Days Qty: 20 RF: 0 metronidazole [Flagyl] 500 mg tablet 500 mg PO Q8H 10 Days Qty: 30 RF: 0 No Action amoxicillin-pot clavulanate [Augmentin] 875-125 mg tablet 1 tab PO BID 10 Days Qty: 20 RF: 0 ciprofloxacin HCl 500 mg tablet 500 mg PO Q12H 7 Days Qty: 14 RF: 0 metronidazole [Flagyl] 500 mg tablet 500 mg PO Q8H 7 Days Qty: 21 RF: 0 bupropion HCl 300 mg tablet extended release 24 hr PO RF: 0 naproxen 500 mg tablet 500 mg PO Q12H PRN (Reason: pain) RF: 0 tramadol 50 mg tablet 0 mg PO RF: 0 omeprazole 20 mg capsule,delayed release(DR/EC) 20 mg PO DAILY RF: 0 pseudoephedrine HCl 30 mg tablet 0 mg PO RF: 0 sumatriptan succinate 6 mg/0.5 mL pen injector subcut RF: 0 naratriptan 2.5 mg tablet 2.5 mg PO DAILY PRNRF: 0 pravastatin 20 mg tablet PO RF: 0 docusate sodium 100 mg capsule 100 mg PO DAILY RF: 0 famotidine 40 mg tablet 40 mg PO BEDTIME RF: 0 potassium citrate 10 mEq (1,080 mg) tablet extended release 20 meq PO TID RF: 0 Fluzone Quad (PF) 60 mcg (15 mcg x 4)/0.5 mL syringe IM ONCE RF: 0 nitrofurantoin macrocrystal 100 mg capsule 100 mg PO DAILY RF: 0 nitrofurantoin monohyd/m-cryst 100 mg capsule 1 cap PO BID RF: 0 bupropion HCl 150 mg tablet extended release 24 hr 0 mg PO RF: 0 fluticasone propionate 50 mcg/actuation spray,suspension 2 spray intranasal BID RF: 0 topiramate 100 mg tablet 0 mg PO RF: 0 ipratropium bromide 42 mcg (0.06 %) spray,non-aerosol 2 spray intranasal BID RF: 0 fexofenadine 180 mg tablet 180 mg PO DAILY RF: 0 bupropion HCl 200 mg tablet sustained-release 12 hr 200 mg PO QAM RF: 0 ciprofloxacin HCl 500 mg tablet 500 mg PO BID RF: 0 bupropion HCl 100 mg tablet sustained-release 12 hr 100 mg PO QAM RF: 0 cephalexin 500 mg capsule 500 mg PO BID RF: 0 Referrals: Hillary Ruiz MD [Primary Care Provider] - 2 days (Please re-evaluate this patient for resolution of her diverticulitis and assist in coordinating further follow-up with Gastroenterology.)
[2020-03-10] MEDS: levoFLOXacin 500 MG TABLET PO (01:09)
[2020-03-10] MEDS: metroNIDAZOLE 500 MG TABLET PO (01:09)
== END 2020-03-10 01:15 | disposition home or self-care (01) ==
PROVIDERS: Emergency Provider Student in an Organized Health Care Education/Training Program; PCP Internal Medicine
DX: J02.9 Acute pharyngitis, unspecified (principal); T36.0X5A Adverse effect of penicillins, initial encounter; X58.XXXA Exposure to other specified factors, initial encounter; Z79.899 Other long term (current) drug therapy
CPT/HCPCS: 99283

== ENCOUNTER 2020-03-29 20:32 | Emergency (ER) | payer OTHER, SELFPAY ==
[2020-03-29 20:39] VITALS: BP 128/72; PULSE 82; RESP 18; TEMP 36.8; O2SAT 99; BMI 26.6
[2020-03-29 21:07] LABS: Glucose Urine UA NEG (NEG); Leukocyte Esterase Urine 1+ (NEG); Nitrite Urine NEG (NEG); Specific Gravity - Urine 1.015 (1.005-1.025); Urine Blood TRACE (NEG); Urine Ketones NEG (NEG); Urine Protein NEG (NEG-TRACE)
[2020-03-29 21:08] LABS: Appearance Urine CLEAR; Color Urine YELLOW
[2020-03-29 21:13] LABS: Bacteria Urine 1+ /LPF; Squamous Epithelial Cell Urine 1+ /LPF
--- NOTE | 2020-03-29 22:11 | PC.NURSE ---
PT IS STATE SHE TAKE CIPRO A PERMANENT SCRIPT FROM HER DRDominique? PT ALSO VERY CONCERNED DO TO A CELEBRITY RECENTLY DYING OF A UTI INFECITON SHE MENTIONED IT MULTIPLE TIME WHEN SPEAKING TO NURSE. PT WAS CONCERNED THAT THE CELEBRITY HAD OF A UTI WITH OUT HAVING AND UTI SYMPTOMS AND FELT LIKE THAT COULD BE HER.
--- NOTE | 2020-03-29 22:18 | ED_ITS ---
HPI - Female Genitourinary General Chief complaint: Urogenital-Female Stated complaint: uti? Time Seen by Provider: 03/29/20 22:18 Source: patient Mode of arrival: ambulatory Limitations: no limitations History of Present Illness HPI Narrative: Patient history of recurrent UTI been on multiple antibiotics currently she is taking Cipro 500 mg daily comes here with dysuria without any urgency or frequency feels pain when she pees also complaining of low back pain no nausea no vomiting patient with vague symptoms MD elicited complaint: dysuria Pertinent past history: recurrent UTIs Severity: mild Vaginal discharge: none Related Data Home Medications Medication Instructions Recorded Confirmed bupropion HCl 100 mg tablet,12 hr 100 mg PO QAM 11/26/19 11/26/19 sustained-release bupropion HCl 150 mg 24 hr tablet, 0 mg PO 11/26/19 11/26/19 extended release bupropion HCl 200 mg tablet,12 hr 200 mg PO QAM 11/26/19 11/26/19 sustained-release bupropion HCl 300 mg 24 hr tablet, mg PO 11/26/19 11/26/19 extended release cephalexin 500 mg capsule 500 mg PO BID 11/26/19 11/26/19 ciprofloxacin HCl 500 mg tablet 500 mg PO BID 11/26/19 11/26/19 docusate sodium 100 mg capsule 100 mg PO DAILY 11/26/19 11/26/19 famotidine 40 mg tablet 40 mg PO BEDTIME 11/26/19 11/26/19 fexofenadine 180 mg tablet 180 mg PO DAILY 11/26/19 11/26/19 flu vacc [id number] 6mos up(PF) ml IM ONCE 11/26/19 11/26/19 fluticasone propionate 50 2 spray INTRANASAL BID 11/26/19 11/26/19 mcg/actuation nasal spray,suspension ipratropium bromide 42 mcg (0.06 2 spray INTRANASAL BID 11/26/19 11/26/19 %) nasal spray naproxen 500 mg tablet 500 mg PO Q12H PRN 11/26/19 11/26/19 naratriptan 2.5 mg tablet 2.5 mg PO DAILY PRN 11/26/19 11/26/19 nitrofurantoin macrocrystal 100 mg 100 mg PO DAILY 11/26/19 11/26/19 capsule nitrofurantoin 1 cap PO BID 11/26/19 11/26/19 monohydrate/macrocrystals 100 mg capsule omeprazole 20 mg capsule,delayed 20 mg PO DAILY 11/26/19 11/26/19 release potassium citrate 10 mEq (1,080 20 meq PO TID 11/26/19 11/26/19 mg) tablet,extended release pravastatin 20 mg tablet mg PO 11/26/19 11/26/19 pseudoephedrine HCl 30 mg tablet 0 mg PO 11/26/19 11/26/19 sumatriptan succinate 6 mg/0.5 mL mg SUBCUT 11/26/19 11/26/19 subcutaneous pen injector topiramate 100 mg tablet 0 mg PO 11/26/19 11/26/19 tramadol 50 mg tablet 0 mg PO 11/26/19 11/26/19 Previous Rx's Medication Instructions Recorded ciprofloxacin HCl 500 mg PO Q12H 7 Days #14 tab 02/25/20 metronidazole [Flagyl] 500 mg PO Q8H 7 Days #21 tab 02/25/20 amoxicillin-pot clavulanate 1 tab PO BID 10 Days #20 tab 03/06/20 [Augmentin] ciprofloxacin HCl [Cipro] 500 mg PO Q12H 10 Days #20 tab 03/10/20 metronidazole [Flagyl] 500 mg PO Q8H 10 Days #30 tab 03/10/20 phenazopyridine [Pyridium] 200 mg PO TID 2 Days #5 tab 03/29/20 Allergies Allergy/AdvReac Type Severity Reaction Status Date / Time sulfamethoxazole Allergy Intermediate HIVES Verified 03/29/20 20:48 [From BACTRIM] trimethoprim [From BACTRIM] Allergy Intermediate HIVES Verified 03/29/20 20:48 Sulfa (Sulfonamide Allergy Unknown Heartburn Verified 03/29/20 20:48 Antibiotics) Review of Systems Review of Systems: Constitutional : No Weight loss, No Fever, No Chills ENT/Mouth : No sore throat, No Rhinorrhea Eyes: No Eye Pain, No Swelling Cardiovascular : No Chest Pain, no palpitations Respiratory : No Cough, No Sputum, no shortness of breath Gastrointestinal : no Nausea, No Vomiting, No Diarrhea, No abdominal Pain, no black stools Genitourinary :+Dysuria, No Urinary Frequency Musculoskeletal : No joint pain, No Myalgias, No Joint Swelling Skin : No Skin Lesions, No rash Neuro : No Weakness, No Numbness, No Dizziness, No Headache Psych : No Anxiety/Panic, No Depression Heme/Lymph: No Bruising, No Lymphadenopathy Endocrine : No Polyuria, No Polydipsia All other systems reviewed and are negative [facility] Past Medical History Medical History Anxiety Depression Kidney stones Migraines Family History Family History Father Acute leukemia Mother FH: kidney cancer FH: pancreatic cancer Paternal Uncle Acute leukemia Social History Social History Alcohol intake: never Smoking Status: Never smoker Smoked in Last 30 Days: No Use of substances other than those prescribed or required for medical reasons: No Advance Directives: No Advance Directives Information Provided: No Physical Exam Vital Signs: Vital Signs: Last Vital Signs Temp 98.2 F 03/29/20 20:39 Pulse 82 03/29/20 20:39 Resp 18 03/29/20 20:39 BP 128/72 03/29/20 20:39 Pulse Ox 99 03/29/20 20:39 Body Mass Index 26.6 Appearance: Alert. Oriented X3. No acute distress. Eyes: Pupils equal, round and reactive to light. ENT: Pharynx normal. Neck: Normal inspection. Neck supple. CVS: Normal heart rate and rhythm. Pulses normal. Respiratory: No respiratory distress. Breath sounds normal. Abdomen: Soft and nontender. Bowel sounds are present, no mass palpable, no CVA tenderness Skin: Skin warm and dry. Normal skin color. Normal skin turgor. Extremities: No lower extremity edema. Neuro: Oriented X 3. No motor deficit. No sensory deficit. MDM - Female Genitourinary MDM Narrative Medical decision making narrative: Patient with mild dysuria urine showed 1+ leuko esterase with normal WBC and 1+ bacteria already on Cipro. Will give her Pyridium culture the urine at this time there is no indication to change antibiotic Differential Diagnosis Differential diagnosis: Likely urinary tract infection and cystitis Medical Records Attestation: I reviewed the patient's medical records. Lab Data Attestation: I reviewed the patient's lab results. Labs: Lab Results 03/29/20 Range/Units 20:59 Urine Color YELLOW Urine Appearance CLEAR Urine pH 6.0 (5.0-8.0) Ur Specific [place] 1.015 (1.005-1.025) Urine Protein NEG (NEG-TRACE) MG/DL Urine Glucose (UA) NEG (NEG) MG/DL Urine Ketones NEG (NEG) MG/DL Urine Blood TRACE (NEG) Urine Nitrite NEG (NEG) Ur Leukocyte Esterase 1+ H (NEG) Urine RBC 1-4 (0) /HPF Urine WBC 1-4 (0-4) /HPF Ur Squamous Epith Cells 1+ /LPF Urine Bacteria 1+ /LPF Discharge Plan Discharge Clinical Impression: Dysuria Patient Disposition: Home, Self-Care Instructions: Dysuria (ED) Additional Instructions: Drink plenty of fluids, continue medications will culture urine and follow and let you know if you have infection Prescriptions: New phenazopyridine [Pyridium] 200 mg tablet 200 mg PO TID 2 Days Qty: 5 RF: 0 No Action amoxicillin-pot clavulanate [Augmentin] 875-125 mg tablet 1 tab PO BID 10 Days Qty: 20 RF: 0 ciprofloxacin HCl 500 mg tablet 500 mg PO Q12H 7 Days Qty: 14 RF: 0 metronidazole [Flagyl] 500 mg tablet 500 mg PO Q8H 7 Days Qty: 21 RF: 0 ciprofloxacin HCl [Cipro] 500 mg tablet 500 mg PO Q12H 10 Days Qty: 20 RF: 0 metronidazole [Flagyl] 500 mg tablet 500 mg PO Q8H 10 Days Qty: 30 RF: 0 bupropion HCl 300 mg tablet extended release 24 hr PO RF: 0 naproxen 500 mg tablet 500 mg PO Q12H PRN (Reason: pain) RF: 0 tramadol 50 mg tablet 0 mg PO RF: 0 omeprazole 20 mg capsule,delayed release(DR/EC) 20 mg PO DAILY RF: 0 pseudoephedrine HCl 30 mg tablet 0 mg PO RF: 0 sumatriptan succinate 6 mg/0.5 mL pen injector subcut RF: 0 naratriptan 2.5 mg tablet 2.5 mg PO DAILY PRNRF: 0 pravastatin 20 mg tablet PO RF: 0 docusate sodium 100 mg capsule 100 mg PO DAILY RF: 0 famotidine 40 mg tablet 40 mg PO BEDTIME RF: 0 potassium citrate 10 mEq (1,080 mg) tablet extended release 20 meq PO TID RF: 0 Fluzone Quad (PF) 60 mcg (15 mcg x 4)/0.5 mL syringe IM ONCE RF: 0 nitrofurantoin macrocrystal 100 mg capsule 100 mg PO DAILY RF: 0 nitrofurantoin monohyd/m-cryst 100 mg capsule 1 cap PO BID RF: 0 bupropion HCl 150 mg tablet extended release 24 hr 0 mg PO RF: 0 fluticasone propionate 50 mcg/actuation spray,suspension 2 spray intranasal BID RF: 0 topiramate 100 mg tablet 0 mg PO RF: 0 ipratropium bromide 42 mcg (0.06 %) spray,non-aerosol 2 spray intranasal BID RF: 0 fexofenadine 180 mg tablet 180 mg PO DAILY RF: 0 bupropion HCl 200 mg tablet sustained-release 12 hr 200 mg PO QAM RF: 0 ciprofloxacin HCl 500 mg tablet 500 mg PO BID RF: 0 bupropion HCl 100 mg tablet sustained-release 12 hr 100 mg PO QAM RF: 0 cephalexin 500 mg capsule 500 mg PO BID RF: 0
[2020-03-29] MEDS: Phenazopyridine HCL 200 MG TABLET PO (23:12)
== END 2020-03-29 23:17 | disposition home or self-care (01) ==
PROVIDERS: Emergency Provider Internal Medicine; PCP Internal Medicine
DX: R30.0 Dysuria (principal); N39.0 Urinary tract infection, site not specified; Z79.899 Other long term (current) drug therapy
CPT/HCPCS: 81001; 99283; 99284

== ENCOUNTER 2020-05-28 11:58 | Outpatient (REF) | payer MEDICARE, SELFPAY ==
[2020-05-28 13:26] LABS: Estimated Average Glucose 100 mg/dL; Hemoglobin A1c % 5.1 %
[2020-05-28 13:39] LABS: Alanine Aminotransferase 17 U/L (0-31); Albumin Level 4.4 g/dL (3.5-5.0); Alkaline Phosphatase 69 U/L (39-117); Anion Gap 12 (12-20); Aspartate Amino Transferase 14 U/L (5-31); Bilirubin Total 0.3 mg/dL (0.0-1.0); Blood Urea Nitrogen 14 mg/dL (9-16); Calcium 9.1 mg/dL (8.4-10.2); Carbon Dioxide 25 mmol/L (22-29); Chloride 106 mmol/L (96-108); Estimated Glomerular Filt Rate 47; Glucose Random 94 mg/dL (60-115); Potassium 3.8 mmol/L (3.3-5.1); Sodium 139 mmol/L (135-145); Total Protein 7.3 g/dL (6.5-8.0)
== END 2020-05-28 11:59 | disposition home or self-care (01) ==
LOC: HO.LAB 11:58
PROVIDERS: PCP Internal Medicine; Visit Provider Internal Medicine
DX: H53.8 Other visual disturbances (principal); K92.1 Melena; N18.9 Chronic kidney disease, unspecified; R73.01 Impaired fasting glucose
CPT/HCPCS: 36415; 80053; 83036

== ENCOUNTER → 2020-05-30 15:59 | Outpatient (BNVA) | payer MEDICARE, MEDICAID, SELFPAY | PROVIDERS: PCP Internal Medicine; Visit Provider Surgery | DX: K62.5 Hemorrhage of anus and rectum (principal); Z87.19 Personal history of other diseases of the digestive system | CPT/HCPCS: 99202 ==

== ENCOUNTER 2020-07-03 09:41 | Outpatient (REF) | payer MEDICARE, MEDICAID, SELFPAY ==
[2020-07-03 13:19] LABS: MANUAL DIFF FLAG NO
[2020-07-03 13:32] LABS: Basophils Percent Auto 0.3 % (0-2); Eosinophils Absolute Auto 0.3 X10*3/uL (0.0-0.4); Eosinophils Percent Auto 2.7 % (0-4); Hematocrit 41.6 % (37-47); Hemoglobin 13.9 g/dl (12.0-16.0); Imm Gran Abs Auto 0.02 X10*3/uL (0.00-0.03); Imm Gran Pct Auto 0.2 % (0.0-0.4); Lymphocytes Absolute Auto 2.7 X10*3/uL (1.2-4.9); Lymphocytes Percent Auto 28.4 % (20-40); Mean Corpuscular HGB Conc 33.4 g/dl (31.0-35.0); Mean Corpuscular Volume 92.9 fL (80-98); Monocytes Absolute Auto 0.7 X10*3/uL (0.1-1.2); Monocytes Percent Auto 7.6 % (2-11); Neutrophils Absolute Auto 5.7 X10*3/uL (2.0-8.3); Neutrophils Percent Auto 60.8 % (45-73); Platelet Count 319 X10*3/uL (160-400); Red Blood Count 4.48 X10*6/uL (4.20-5.50); Red Cell Distribution Width 11.9 % (11.0-16.0); White Blood Count 9.3 X10*3/uL (4.8-10.8)
== END 2020-07-03 09:42 | disposition home or self-care (01) ==
LOC: HO.LAB 09:41
PROVIDERS: Absent Provider Internal Medicine; PCP Internal Medicine; Visit Provider Nurse Practitioner Family
DX: G47.9 Sleep disorder, unspecified (principal); Z79.899 Other long term (current) drug therapy
CPT/HCPCS: 36415; 85025; Q3014

== ENCOUNTER 2020-07-04 22:42 | Emergency (ER) | payer MEDICARE, MEDICAID, SELFPAY ==
--- NOTE | ~2020-07-04 | CT_ITS ---
EXAMINATION: CT ABDOMEN AND PELVIS WITH CONTRAST CLINICAL INFORMATION: Rectal bleeding. History of diverticulitis. COMPARISON: 03/06/2020 TECHNIQUE: Multidetector volumetric images were obtained from the superior aspect of the liver through the pubic symphysis following administration 85 mL of Omnipaque 350 intravenous contrast. Sagittal and coronal reformatted images were obtained on the technologist's workstation. Oral contrast: No This CT examination was performed using dose optimization techniques as appropriate, variously including the following: *Automated exposure control *Adjustment of mA and/or kV according to patient size (this includes techniques or standardized protocols for targeted exams where dose is matched to indication/reason for exam; i.e. extremities or head) *Use of iterative reconstruction technique DLP: 700 mGy-cm FINDINGS: LUNG BASES: The visualized lung bases are unremarkable. LIVER, GALLBLADDER, AND BILIARY TREE: The liver is normal in size, shape, and attenuation. No focal hepatic lesion or biliary ductal dilatation is present. Cholecystectomy. PANCREAS: Unremarkable. SPLEEN: Unremarkable. ADRENAL GLANDS: Unremarkable. KIDNEYS AND URETERS: The kidneys are normal in size, shape, and attenuation. No hydronephrosis, hydroureter, or calculi seen. No perinephric stranding. There are bilateral hypoattenuating renal lesions which are unchanged from prior. These measure higher than simple fluid attenuation. Left lower pole lesion measures 1.3 cm. Right lower pole lesion measures 1 cm. These are similar over multiple years, likely representing cysts. BLADDER: Unremarkable. GASTROINTESTINAL TRACT: The stomach is unremarkable. Normal caliber small bowel. No obstruction. Normal appendix. No colonic wall thickening or inflammatory change. Mild colonic stool burden. There is colonic diverticulosis. No diverticulitis. ABDOMINAL WALL: No significant hernia is appreciated. LYMPH NODES: Normal. VASCULAR: Unremarkable. PELVIC VISCERA: The uterus and adnexa are unremarkable. OSSEOUS STRUCTURES: No acute or suspicious osseous abnormality. Mild degenerative changes in the spine. CT/CT abdomen pelvis w con IMPRESSION: No acute findings in the abdomen or pelvis. Colonic diverticulosis without diverticulitis.
[2020-07-04 22:47] VITALS: BP 144/70; PULSE 83; RESP 18; TEMP 37.2; O2SAT 99; BMI 27.3
--- NOTE | 2020-07-04 23:08 | PC.NURSE ---
Labs obtained and sent. Pt unable to provide UA at this time.
[2020-07-04 23:13] LABS: MANUAL DIFF FLAG NO
[2020-07-04 23:14] LABS: Basophils Percent Auto 0.3 % (0-2); Eosinophils Absolute Auto 0.4 X10*3/uL (0.0-0.4); Eosinophils Percent Auto 3.1 % (0-4); Hematocrit 39.5 % (37-47); Hemoglobin 13.5 g/dl (12.0-16.0); Imm Gran Abs Auto 0.03 X10*3/uL (0.00-0.03); Imm Gran Pct Auto 0.3 % (0.0-0.4); Lymphocytes Absolute Auto 3.9 X10*3/uL (1.2-4.9); Mean Corpuscular HGB Conc 34.2 g/dl (31.0-35.0); Mean Corpuscular Hemoglobin 31.7 pg (27.0-33.0); Mean Corpuscular Volume 92.7 fL (80-98); Mean Platelet Volume 9.6 fL (9.4-12.3); Monocytes Percent Auto 8.1 % (2-11); Neutrophils Absolute Auto 6.5 X10*3/uL (2.0-8.3); Neutrophils Percent Auto 55.2 % (45-73); Platelet Count 315 X10*3/uL (160-400); Red Blood Count 4.26 X10*6/uL (4.20-5.50); Red Cell Distribution Width 11.9 % (11.0-16.0); White Blood Count 11.8 X10*3/uL (4.8-10.8)
[2020-07-04 23:53] LABS: Alanine Aminotransferase 23 U/L (0-31); Albumin Level 4.3 g/dL (3.5-5.0); Alkaline Phosphatase 79 U/L (39-117); Anion Gap 14 (12-20); Aspartate Amino Transferase 16 U/L (5-31); Bilirubin Total 0.2 mg/dL (0.0-1.0); Blood Urea Nitrogen 15 mg/dL (9-16); Calcium 8.6 mg/dL (8.4-10.2); Carbon Dioxide 20 mmol/L (22-29); Chloride 108 mmol/L (96-108); Creatinine Clr Calc Pharmacy 68.8; Estimated Glomerular Filt Rate 50; Glucose Random 108 mg/dL (60-115); Lipase 34 U/L (8-78); Potassium 3.3 mmol/L (3.3-5.1); Sodium 139 mmol/L (135-145); Total Protein 7.2 g/dL (6.5-8.0)
--- NOTE | 2020-07-05 00:44 | PC.NURSE ---
UA obtained and sent.
[2020-07-05 00:51] LABS: Appearance Urine CLEAR; Color Urine YELLOW; Glucose Urine UA NEG (NEG); Leukocyte Esterase Urine NEG (NEG); Nitrite Urine NEG (NEG); UACC Culture Trigger NO; UPreg QC Valid YES; Urine Blood NEG (NEG); Urine Ketones NEG (NEG); Urine Pregnancy NEGATIVE (NEGATIVE); Urine Protein NEG (NEG-TRACE)
[2020-07-05 02:02] VITALS: BP 126/79; PULSE 65; RESP 18; TEMP 36.8; O2SAT 100
--- NOTE | 2020-07-05 02:02 | ED_ITS ---
HPI - General Adult General Chief complaint: General Medical Stated complaint: Blood in Stool Time Seen by Provider: 07/05/20 01:48 Source: patient Mode of arrival: ambulatory Limitations: no limitations History of Present Illness HPI narrative: Patient comes emergency room complaining of rectal bleeding. Patient states she has been having multiple bowel movements with blood in his stool in the last 2 days. Denies abdominal pain. Patient states she has history of diverticulitis, states that the last time she had an episode of diverticulitis she had rectal bleeding 1st, and the abdominal pain started. Patient denies vomiting or diarrhea. Patient states she has been constipated for several days. Patient states she has a colonoscopy coming up in August. Related Data Home Medications Medication Instructions Recorded Confirmed docusate sodium 100 mg capsule 100 mg PO DAILY 11/26/19 07/03/20 famotidine 40 mg tablet 40 mg PO BEDTIME 11/26/19 07/03/20 fexofenadine 180 mg tablet 180 mg PO DAILY 11/26/19 05/30/20 flu vacc [id number] 6mos up(PF) ml IM ONCE 11/26/19 05/30/20 fluticasone propionate 50 2 spray INTRANASAL BID 11/26/19 07/03/20 mcg/actuation nasal spray,suspension ipratropium bromide 42 mcg (0.06 2 spray INTRANASAL BID 11/26/19 07/03/20 %) nasal spray naratriptan 2.5 mg tablet 2.5 mg PO DAILY PRN 11/26/19 07/03/20 nitrofurantoin 1 cap PO BID 11/26/19 07/03/20 monohydrate/macrocrystals 100 mg capsule omeprazole 20 mg capsule,delayed 20 mg PO DAILY 11/26/19 07/03/20 release potassium citrate 10 mEq (1,080 20 meq PO TID 11/26/19 07/03/20 mg) tablet,extended release pseudoephedrine HCl 30 mg tablet 0 mg PO 11/26/19 05/30/20 topiramate 100 mg tablet 0 mg PO 11/26/19 07/03/20 tramadol 50 mg tablet 0 mg PO 11/26/19 07/03/20 multivitamin 1 tab PO DAILY 05/30/20 07/03/20 amoxicillin 875 mg-potassium 1 tab PO BID tab 07/03/20 07/03/20 clavulanate 125 mg tablet bupropion HCl 300 mg 24 hr tablet, 300 mg PO DAILY tab 07/03/20 07/03/20 extended release pravastatin 20 mg tablet mg PO DAILY tab 07/03/20 07/03/20 sumatriptan succinate 6 mg/0.5 mL mg SUBCUT 07/03/20 07/03/20 subcutaneous pen injector Previous Rx's Medication Instructions Recorded levofloxacin 500 mg PO DAILY #9 tab 07/05/20 metronidazole [Flagyl] 500 mg PO BID #19 tab 07/05/20 Allergies Allergy/AdvReac Type Severity Reaction Status Date / Time sulfamethoxazole Allergy Intermediate HIVES Verified 05/30/20 16:05 [From BACTRIM] trimethoprim [From BACTRIM] Allergy Intermediate HIVES Verified 05/30/20 16:05 Sulfa (Sulfonamide Allergy Unknown Heartburn Verified 05/30/20 16:05 Antibiotics) Review of Systems Review of Systems: Constitutional : No Weight loss, No Fever, No Chills, No Night Sweats, No Fatigue, No Malaise ENT/Mouth : No Hearing loss, No Ear Pain, No Nasal Congestion, No Sinus Pain, No Hoarseness, No sore throat, No Rhinorrhea, No Swallowing Difficulty Eyes: No Eye Pain, No Swelling, No Redness, No Foreign Body, No Discharge, No Vision Changes Cardiovascular : No Chest Pain, No SOB, No Dyspnea on Exertion, No Orthopnea, No Edema, No Palpitations Respiratory : No Cough, No Sputum, No Wheezing, No Smoke Exposure, No Dyspnea Gastrointestinal : No Nausea, No Vomiting, No Diarrhea, No Constipation, No abdominal Pain, complaining of red blood per rectum for 2 days Genitourinary : no irregular bleeding, No Dysuria, No Urinary Frequency, No Hematuria, No Urinary Incontinence, No Urgency, No Flank Pain, No Urinary Flow Changes, No Hesitancy Musculoskeletal : No joint pain, No Myalgias, No Joint Swelling Skin : No Skin Lesions, No rash Neuro : No Weakness, No Numbness, No Paresthesias, No Loss of Consciousness, No Dizziness, No Headache Psych : No Anxiety/Panic, No Depression, No SI/HI/AH/VH, No Social Issues, Heme/Lymph: No Bruising, No Bleeding,No Lymphadenopathy Endocrine : No Polyuria, No Polydipsia, No Temperature Intolerance [facility] Past Medical History Medical History Anxiety Depression History of diverticulitis Kidney stones Migraines Rectal bleeding Family History Family History Father Acute leukemia Mother FH: kidney cancer FH: pancreatic cancer Paternal Uncle Acute leukemia Social History Social History Alcohol intake: never Smoking Status: Never smoker Advance Directives: No Advance Directives Information Provided: No Patient : No Physical Exam Vital Signs: Vital Signs: Last Vital Signs Temp 98.2 F 07/05/20 02:02 Pulse 65 07/05/20 02:02 Resp 18 07/05/20 02:02 BP 126/79 07/05/20 02:02 Pulse Ox 100 07/05/20 02:02 Body Mass Index 27.3 Appearance: Alert. Oriented X3. No acute distress. Eyes: Pupils equal, round and reactive to light. ENT: Pharynx normal. Neck: Normal inspection. Neck supple. No lymph nodes noted. No crepitus CVS: Normal heart rate and rhythm. Pulses normal. Normal S1 and S2 Respiratory: No respiratory distress. Breath sounds normal. No Wheezing. No rales Abdomen: Soft and nontender. No rigidity. No distention. good BS x4, rectal exam, anus within normal limits, CHERYL maroon colored stool Skin: Skin warm and dry. Normal skin color. Normal skin turgor. Extremities: No lower extremity edema. No lower extremity edema. No Lacerations. No Rash Neuro: Oriented X 3. No motor deficit. No sensory deficit. Moving all extermities. No slurred speech. Course Course Course Narrative: Patient does have an elevated white blood cell count which is not her baseline, given her history, we will go ahead and tried her for the diverticulitis Medical Decision Making Lab Data Result diagrams: 07/04/20 23:07 07/04/20 23:07 Labs: Lab Results 07/04/20 07/04/20 07/04/20 Range/Units 23:07 23:07 23:07 WBC 11.8 H (4.8-10.8) X10*3/uL RBC 4.26 (4.20-5.50) X10*6/uL Hgb 13.5 (12.0-16.0) g/dl Hct 39.5 (37-47) % MCV 92.7 (80-98) fL MCH 31.7 (27.0-33.0) pg MCHC 34.2 (31.0-35.0) g/dl RDW 11.9 (11.0-16.0) % Plt Count 315 (160-400) X10*3/uL MPV 9.6 (9.4-12.3) fL Immature Gran % (Auto) 0.3 (0.0-0.4) % Neut % (Auto) 55.2 (45-73) % Lymph % (Auto) 33.0 (20-40) % [place] % (Auto) 8.1 (2-11) % Eos % (Auto) 3.1 (0-4) % Baso % (Auto) 0.3 (0-2) % Lymph # (Auto) 3.9 (1.2-4.9) X10*3/uL [place] # (Auto) 1.0 (0.1-1.2) X10*3/uL Eos # (Auto) 0.4 (0.0-0.4) X10*3/uL Baso # (Auto) 0.0 (0.0-0.2) X10*3/uL Abs Immat Gran (auto) 0.03 (0.00-0.03) X10*3/uL Absolute Neuts (auto) 6.5 (2.0-8.3) X10*3/uL Absolute Nucleated RBC 0.000 (0.0-0.012) X10*3/uL Nucleated RBC % (auto) 0.0 (0.0-0.2) /100WBC Hold Blue Top SEE NOTE Sodium 139 (135-145) mmol/L Potassium 3.3 (3.3-5.1) mmol/L Chloride 108 (96-108) mmol/L Carbon Dioxide 20 L (22-29) mmol/L Anion Gap 14 (12-20) BUN 15 (9-16) mg/dL Creatinine 1.17 (0.5-1.4) mg/dL Estim Creat Clear Calc 68.8 Estimated GFR 50 Random Glucose 108 (60-115) mg/dL Calcium 8.6 (8.4-10.2) mg/dL Total Bilirubin 0.2 (0.0-1.0) mg/dL AST 16 (5-31) U/L ALT 23 (0-31) U/L Alkaline Phosphatase 79 (39-117) U/L Total Protein 7.2 (6.5-8.0) g/dL Albumin 4.3 (3.5-5.0) g/dL Lipase 34 (8-78) U/L Urine Color Urine Appearance Urine pH (5.0-8.0) Ur Specific [place] (1.005-1.025) Urine Protein (NEG-TRACE) MG/DL Urine Glucose (UA) (NEG) MG/DL Urine Ketones (NEG) MG/DL Urine Blood (NEG) Urine Nitrite (NEG) Ur Leukocyte Esterase (NEG) Urine Test (NEGATIVE) Stool Occult Blood (NEGATIVE) 07/05/20 07/05/20 07/05/20 Range/Units 00:44 00:44 02:05 WBC (4.8-10.8) X10*3/uL RBC (4.20-5.50) X10*6/uL Hgb (12.0-16.0) g/dl Hct (37-47) % MCV (80-98) fL MCH (27.0-33.0) pg MCHC (31.0-35.0) g/dl RDW (11.0-16.0) % Plt Count (160-400) X10*3/uL MPV (9.4-12.3) fL Immature Gran % (Auto) (0.0-0.4) % Neut % (Auto) (45-73) % Lymph % (Auto) (20-40) % [place] % (Auto) (2-11) % Eos % (Auto) (0-4) % Baso % (Auto) (0-2) % Lymph # (Auto) (1.2-4.9) X10*3/uL [place] # (Auto) (0.1-1.2) X10*3/uL Eos # (Auto) (0.0-0.4) X10*3/uL Baso # (Auto) (0.0-0.2) X10*3/uL Abs Immat Gran (auto) (0.00-0.03) X10*3/uL Absolute Neuts (auto) (2.0-8.3) X10*3/uL Absolute Nucleated RBC (0.0-0.012) X10*3/uL Nucleated RBC % (auto) (0.0-0.2) /100WBC Hold Blue Top Sodium (135-145) mmol/L Potassium (3.3-5.1) mmol/L Chloride (96-108) mmol/L Carbon Dioxide (22-29) mmol/L Anion Gap (12-20) BUN (9-16) mg/dL Creatinine (0.5-1.4) mg/dL Estim Creat Clear Calc Estimated GFR Random Glucose (60-115) mg/dL Calcium (8.4-10.2) mg/dL Total Bilirubin (0.0-1.0) mg/dL AST (5-31) U/L ALT (0-31) U/L Alkaline Phosphatase (39-117) U/L Total Protein (6.5-8.0) g/dL Albumin (3.5-5.0) g/dL Lipase (8-78) U/L Urine Color YELLOW Urine Appearance CLEAR Urine pH 7.0 (5.0-8.0) Ur Specific [place] 1.020 (1.005-1.025) Urine Protein NEG (NEG-TRACE) MG/DL Urine Glucose (UA) NEG (NEG) MG/DL Urine Ketones NEG (NEG) MG/DL Urine Blood NEG (NEG) Urine Nitrite NEG (NEG) Ur Leukocyte Esterase NEG (NEG) Urine Test NEGATIVE (NEGATIVE) Stool Occult Blood POSITIVE (NEGATIVE) Imaging Data CT scan - abdomen: Radiologist's impression: LUNG BASES: The visualized lung bases are unremarkable. LIVER, GALLBLADDER, AND BILIARY TREE: The liver is normal in size, shape, and attenuation. No focal hepatic lesion or biliary ductal dilatation is present. Cholecystectomy. PANCREAS: Unremarkable. SPLEEN: Unremarkable. ADRENAL GLANDS: Unremarkable. KIDNEYS AND URETERS: The kidneys are normal in size, shape, and attenuation. No hydronephrosis, hydroureter, or calculi seen. No perinephric stranding. There are bilateral hypoattenuating renal lesions which are unchanged from prior. These measure higher than simple fluid attenuation. Left lower pole lesion measures 1.3 cm. Right lower pole lesion measures 1 cm. These are similar over multiple years, likely representing cysts. BLADDER: Unremarkable. GASTROINTESTINAL TRACT: The stomach is unremarkable. Normal caliber small bowel. No obstruction. Normal appendix. No colonic wall thickening or inflammatory change. Mild colonic stool burden. There is colonic diverticulosis. No diverticulitis. ABDOMINAL WALL: No significant hernia is appreciated. LYMPH NODES: Normal. VASCULAR: Unremarkable. PELVIC VISCERA: The uterus and adnexa are unremarkable. OSSEOUS STRUCTURES: No acute or suspicious osseous abnormality. Mild degenerative changes in the spine. CT/CT abdomen pelvis w con IMPRESSION: No acute findings in the abdomen or pelvis. Colonic diverticulosis without diverticulitis. Discharge Plan Discharge Clinical Impression: Rectal bleeding Patient Disposition: Home, Self-Care Instructions: Rectal Bleeding (ED) Additional Instructions: Please follow-up with your primary care physician tomorrow. If you have any worsening or new symptoms, please return to the emergency room or call 911 Prescriptions: New levofloxacin 500 mg tablet 500 mg PO DAILY Qty: 9 RF: 0 metronidazole [Flagyl] 500 mg tablet 500 mg PO BID Qty: 19 RF: 0 No Action tramadol 50 mg tablet 0 mg PO RF: 0 omeprazole 20 mg capsule,delayed release(DR/EC) 20 mg PO DAILY RF: 0 pseudoephedrine HCl 30 mg tablet 0 mg PO RF: 0 naratriptan 2.5 mg tablet 2.5 mg PO DAILY PRNRF: 0 docusate sodium 100 mg capsule 100 mg PO DAILY RF: 0 famotidine 40 mg tablet 40 mg PO BEDTIME RF: 0 potassium citrate 10 mEq (1,080 mg) tablet extended release 20 meq PO TID RF: 0 Fluzone Quad [id number] (PF) 60 mcg (15 mcg x 4)/0.5 mL syringe IM ONCE RF: 0 nitrofurantoin monohyd/m-cryst 100 mg capsule 1 cap PO BID RF: 0 fluticasone propionate 50 mcg/actuation spray,suspension 2 spray intranasal BID RF: 0 topiramate 100 mg tablet 0 mg PO RF: 0 ipratropium bromide 42 mcg (0.06 %) spray,non-aerosol 2 spray intranasal BID RF: 0 fexofenadine 180 mg tablet 180 mg PO DAILY RF: 0 bupropion HCl 300 mg tablet extended release 24 hr 300 mg PO DAILY RF: 0 pravastatin 20 mg tablet PO DAILY RF: 0 sumatriptan succinate 6 mg/0.5 mL pen injector subcut RF: 0 multivitamin Tablet 1 tab PO DAILY RF: 0 amoxicillin-pot clavulanate [Augmentin] 875-125 mg tablet 1 tab PO BID RF: 0
[2020-07-05 02:08] LABS: OBS1 POSITIVE (NEGATIVE)
--- NOTE | 2020-07-05 02:08 | PC.NURSE ---
Pt aaox4, ambulatory with steady gait. This RN chaperoned with Dr Patel for rectal exam, occult stool sample sent to lab for processing. Pt resting on stretcher in NAD, breathing with ease on RA, VSS. Stretcher in low locked position, rail raised, call [place] within reach. Awaiting lab results.
[2020-07-05 02:09] LABS: OBS Int Ctl Valid YES
[2020-07-05] MEDS: iohexoL 350 MG/ML 100 ML INFUS..BTL 85 ML IV (03:24)
[2020-07-05 04:13] VITALS: BP 121/69; PULSE 77; RESP 18; O2SAT 100
[2020-07-05] MEDS: levoFLOXacin 500 MG TABLET PO (04:14)
[2020-07-05] MEDS: metroNIDAZOLE 500 MG TABLET PO (04:14)
== END 2020-07-05 04:24 | disposition home or self-care (01) ==
PROVIDERS: Emergency Provider Emergency Medicine; PCP Internal Medicine
DX: K62.5 Hemorrhage of anus and rectum (principal); K57.30 Diverticulosis of large intestine without perforation or abscess without bleeding
CPT/HCPCS: 36415; 74177; 80053; 81003; 81025; 82272; 83690; 85025; 99284; Q9967

== ENCOUNTER 2020-08-01 08:05 | Outpatient (REF) | payer MEDICARE, MEDICAID, SELFPAY | END 2020-08-01 08:06 | disposition home or self-care (01) | LOC: HO.MAMMO 08:05 | PROVIDERS: Visit Provider Internal Medicine | DX: Z13.89 Encounter for screening for other disorder (principal) ==

== ENCOUNTER 2020-08-02 17:17 | Outpatient (REF) | payer MEDICARE, MEDICAID, SELFPAY ==
[2020-08-02 17:41] LABS: MANUAL DIFF FLAG NO
[2020-08-02 17:51] LABS: Basophils Percent Auto 0.2 % (0-2); Eosinophils Absolute Auto 0.3 X10*3/uL (0.0-0.4); Eosinophils Percent Auto 2.3 % (0-4); Hematocrit 40.4 % (37-47); Hemoglobin 13.5 g/dl (12.0-16.0); Imm Gran Abs Auto 0.05 X10*3/uL (0.00-0.03); Imm Gran Pct Auto 0.4 % (0.0-0.4); Lymphocytes Absolute Auto 3.1 X10*3/uL (1.2-4.9); Lymphocytes Percent Auto 26.6 % (20-40); Mean Corpuscular HGB Conc 33.4 g/dl (31.0-35.0); Mean Corpuscular Volume 92.7 fL (80-98); Mean Platelet Volume 9.5 fL (9.4-12.3); Monocytes Absolute Auto 0.9 X10*3/uL (0.1-1.2); Monocytes Percent Auto 7.5 % (2-11); Neutrophils Absolute Auto 7.4 X10*3/uL (2.0-8.3); Platelet Count 349 X10*3/uL (160-400); Red Blood Count 4.36 X10*6/uL (4.20-5.50); Red Cell Distribution Width 12.4 % (11.0-16.0); White Blood Count 11.7 X10*3/uL (4.8-10.8)
== END 2020-08-02 17:18 | disposition home or self-care (01) ==
LOC: HO.LAB 17:17
PROVIDERS: PCP Internal Medicine; Visit Provider Internal Medicine
DX: N92.4 Excessive bleeding in the premenopausal period (principal); R53.83 Other fatigue
CPT/HCPCS: 36415; 85025

== ENCOUNTER 2020-08-06 07:58 | Outpatient (REF) | payer MEDICARE, MEDICAID, SELFPAY ==
--- NOTE | ~2020-08-06 | MM_ITS ---
EXAMINATION: MM SCREENING DIGITAL BREAST TOMOSYNTHESIS, BILATERAL CLINICAL INFORMATION: Screening. Asymptomatic. The lifetime risk of breast cancer based on the Tyrer-Cuzick Model is 13%. COMPARISON: Mammography: 08/05/2019, 10/11/2018, 10/08/2017 TECHNIQUE: Digital breast tomosynthesis is performed in both the craniocaudal and mediolateral oblique views along with computer-aided detection (CAD). Synthesized 2D images are generated from the tomosynthesis. FINDINGS: The breasts are heterogeneously dense, which may obscure small masses (ACR BI-RADS breast composition Category c). There are no significant masses, abnormal calcifications, or other abnormalities. Parenchymal pattern is similar to prior exams. No developing density. No significant changes. MM/MM tomosynthesis screening BI IMPRESSION: No mammographic evidence of malignancy. ASSESSMENT: BI-RADS 1: Negative RECOMMENDATION: Routine annual mammography screening. This patient's information was entered into a reminder system with a target due date for their next mammogram.
== END 2020-08-06 07:59 | disposition home or self-care (01) ==
LOC: HO.MAMMO 07:58
PROVIDERS: Visit Provider Internal Medicine
DX: Z12.31 Encounter for screening mammogram for malignant neoplasm of breast (principal)
CPT/HCPCS: 77063; 77067

== ENCOUNTER 2020-09-26 03:47 | Emergency (ER) | payer OTHER, SELFPAY ==
[2020-09-26 03:56] VITALS: BP 136/80; PULSE 71; RESP 18; TEMP 36.6; O2SAT 98; BMI 27.3
--- NOTE | 2020-09-26 04:48 | ED.SKABFB ---
HPI - Skin/Abscess/Foreign Bdy General Chief complaint: Skin/Abscess/Foreign Body Stated complaint: Bug bite Time Seen by Provider: 09/26/20 04:46 Source: patient Mode of arrival: ambulatory Limitations: no limitations History of Present Illness HPI narrative: Patient came for insect bite by horse fly on her right chest on 09/23 with small bumps at 3 location no fever no other rash Related Data Home Medications Medication Instructions Recorded Confirmed docusate sodium 100 mg capsule 100 mg PO DAILY 11/26/19 07/03/20 famotidine 40 mg tablet 40 mg PO BEDTIME 11/26/19 07/03/20 fexofenadine 180 mg tablet 180 mg PO DAILY 11/26/19 05/30/20 flu vacc [id number] 6mos up(PF) ml IM ONCE 11/26/19 05/30/20 fluticasone propionate 50 2 spray INTRANASAL BID 11/26/19 07/03/20 mcg/actuation nasal spray,suspension ipratropium bromide 42 mcg (0.06 2 spray INTRANASAL BID 11/26/19 07/03/20 %) nasal spray naratriptan 2.5 mg tablet 2.5 mg PO DAILY PRN 11/26/19 07/03/20 nitrofurantoin 1 cap PO BID 11/26/19 07/03/20 monohydrate/macrocrystals 100 mg capsule omeprazole 20 mg capsule,delayed 20 mg PO DAILY 11/26/19 07/03/20 release potassium citrate 10 mEq (1,080 20 meq PO TID 11/26/19 07/03/20 mg) tablet,extended release pseudoephedrine HCl 30 mg tablet 0 mg PO 11/26/19 05/30/20 topiramate 100 mg tablet 0 mg PO 11/26/19 07/03/20 tramadol 50 mg tablet 0 mg PO 11/26/19 07/03/20 multivitamin 1 tab PO DAILY 05/30/20 07/03/20 amoxicillin 875 mg-potassium 1 tab PO BID tab 07/03/20 07/03/20 clavulanate 125 mg tablet (Augmentin) bupropion HCl 300 mg 24 hr tablet, 300 mg PO DAILY tab 07/03/20 07/03/20 extended release pravastatin 20 mg tablet mg PO DAILY tab 07/03/20 07/03/20 sumatriptan succinate 6 mg/0.5 mL mg SUBCUT 07/03/20 07/03/20 subcutaneous pen injector Previous Rx's Medication Instructions Recorded levofloxacin 500 mg tablet 500 mg PO DAILY #9 tab 07/05/20 metronidazole 500 mg tablet 500 mg PO BID #19 tab 07/05/20 (Flagyl) diphenhydramine HCl 25 mg capsule 25 mg PO Q6H PRN #14 cap 09/26/20 (Benadryl) doxycycline hyclate 100 mg tablet 100 mg PO BID #20 tab 09/26/20 Allergies Allergy/AdvReac Type Severity Reaction Status Date / Time sulfamethoxazole Allergy Intermediate HIVES Verified 05/30/20 16:05 [From BACTRIM] trimethoprim [From BACTRIM] Allergy Intermediate HIVES Verified 05/30/20 16:05 Sulfa (Sulfonamide Allergy Unknown Heartburn Verified 05/30/20 16:05 Antibiotics) Review of Systems Review of Systems: Yes all other systems are reviewed and are negative PMFSH Past Medical History Medical History Anxiety Depression History of diverticulitis Kidney stones Migraines Rectal bleeding Family History Family History Father Acute leukemia Mother FH: kidney cancer FH: pancreatic cancer Paternal Uncle Acute leukemia Social History Social History Alcohol intake: never Advance Directives: No Advance Directives Information Provided: No Patient : No Physical Exam Vital Signs: Vital Signs: Last Vital Signs Temp 98 F 09/26/20 03:56 Pulse 71 09/26/20 03:56 Resp 18 09/26/20 03:56 BP 136/80 09/26/20 03:56 Pulse Ox 98 09/26/20 03:56 Body Mass Index 27.3 Const: General: no acute distress and well developed Orientation/consciousness: patient oriented x3 Chest: Chest/axillae images: 1. Three small areas of erythema/insect bite no abscess Neuro: General: patient oriented x3 Discharge Plan Discharge Clinical Impression: Infected insect bite of chest Qualifiers: Encounter type: initial encounter Laterality: right Qualified Code(s): S20.361A - Insect bite (nonvenomous) of right front wall of thorax, initial encounter Patient Disposition: Home, Self-Care Instructions: Insect Bite or Sting (ED) Additional Instructions: Take antibiotic as prescribed. Benadryl for itching Prescriptions: New diphenhydramine HCl [Benadryl] 25 mg capsule 25 mg PO Q6H PRN (Reason: itching) Qty: 14 RF: 0 doxycycline hyclate 100 mg tablet 100 mg PO BID Qty: 20 RF: 0 No Action levofloxacin 500 mg tablet 500 mg PO DAILY Qty: 9 RF: 0 metronidazole [Flagyl] 500 mg tablet 500 mg PO BID Qty: 19 RF: 0 tramadol 50 mg tablet 0 mg PO RF: 0 omeprazole 20 mg capsule,delayed release(DR/EC) 20 mg PO DAILY RF: 0 pseudoephedrine HCl 30 mg tablet 0 mg PO RF: 0 naratriptan 2.5 mg tablet 2.5 mg PO DAILY PRNRF: 0 docusate sodium 100 mg capsule 100 mg PO DAILY RF: 0 famotidine 40 mg tablet 40 mg PO BEDTIME RF: 0 potassium citrate 10 mEq (1,080 mg) tablet extended release 20 meq PO TID RF: 0 Fluzone Quad [id number] (PF) 60 mcg (15 mcg x 4)/0.5 mL syringe IM ONCE RF: 0 nitrofurantoin monohyd/m-cryst 100 mg capsule 1 cap PO BID RF: 0 fluticasone propionate 50 mcg/actuation spray,suspension 2 spray intranasal BID RF: 0 topiramate 100 mg tablet 0 mg PO RF: 0 ipratropium bromide 42 mcg (0.06 %) spray,non-aerosol 2 spray intranasal BID RF: 0 fexofenadine 180 mg tablet 180 mg PO DAILY RF: 0 bupropion HCl 300 mg tablet extended release 24 hr 300 mg PO DAILY RF: 0 pravastatin 20 mg tablet PO DAILY RF: 0 sumatriptan succinate 6 mg/0.5 mL pen injector subcut RF: 0 multivitamin Tablet 1 tab PO DAILY RF: 0 amoxicillin-pot clavulanate [Augmentin] 875-125 mg tablet 1 tab PO BID RF: 0 Interventions: ED Discharge Assessment Last Done: 09/26/20 05:22 Discharge Date/Time: 09/26/20 05:15
== END 2020-09-26 05:15 | disposition home or self-care (01) ==
PROVIDERS: Emergency Provider Internal Medicine; PCP Internal Medicine
DX: S20.361A Insect bite (nonvenomous) of right front wall of thorax, initial encounter (principal); W57.XXXA Bitten or stung by nonvenomous insect and other nonvenomous arthropods, initial encounter; Y93.9 Activity, unspecified; Y92.096 Garden or yard of other non-institutional residence as the place of occurrence of the external cause; Y99.9 Unspecified external cause status
CPT/HCPCS: 99283

== ENCOUNTER 2020-10-31 08:04 | Outpatient (REF) | payer OTHER, SELFPAY ==
[2020-10-31 08:39] LABS: MANUAL DIFF FLAG NO
[2020-10-31 08:43] LABS: Basophils Percent Auto 0.2 % (0-2); Eosinophils Absolute Auto 0.4 X10*3/uL (0.0-0.4); Hematocrit 43.1 % (37-47); Hemoglobin 14.3 g/dl (12.0-16.0); Imm Gran Abs Auto 0.09 X10*3/uL (0.00-0.03); Imm Gran Pct Auto 0.7 % (0.0-0.4); Lymphocytes Absolute Auto 2.2 X10*3/uL (1.2-4.9); Lymphocytes Percent Auto 17.6 % (20-40); Mean Corpuscular HGB Conc 33.2 g/dl (31.0-35.0); Mean Corpuscular Hemoglobin 30.8 pg (27.0-33.0); Mean Corpuscular Volume 92.9 fL (80-98); Mean Platelet Volume 9.5 fL (9.4-12.3); Monocytes Absolute Auto 0.8 X10*3/uL (0.1-1.2); Monocytes Percent Auto 6.5 % (2-11); Neutrophils Absolute Auto 8.9 X10*3/uL (2.0-8.3); Platelet Count 345 X10*3/uL (160-400); Red Blood Count 4.64 X10*6/uL (4.20-5.50); Red Cell Distribution Width 12.4 % (11.0-16.0); White Blood Count 12.4 X10*3/uL (4.8-10.8)
[2020-10-31 09:09] LABS: Alanine Aminotransferase 22 U/L (0-31); Albumin Level 4.6 g/dL (3.5-5.0); Alkaline Phosphatase 78 U/L (39-117); Anion Gap 12 (12-20); Aspartate Amino Transferase 17 U/L (5-31); Bilirubin Total 0.5 mg/dL (0.0-1.0); Blood Urea Nitrogen 14 mg/dL (9-16); Calcium 9.6 mg/dL (8.4-10.2); Carbon Dioxide 21 mmol/L (22-29); Chloride 111 mmol/L (96-108); Cholesterol 187 mg/dL; Estimated Glomerular Filt Rate 51; Glucose Random 108 mg/dL (60-115); HDL Cholesterol 48 mg/dL; LDL Cholesterol Calculated 101 mg/dl; Sodium 140 mmol/L (135-145); Total Protein 7.8 g/dL (6.5-8.0); Triglycerides 192 mg/dL
== END 2020-10-31 08:05 | disposition home or self-care (01) ==
LOC: HO.LAB 08:04
PROVIDERS: PCP Internal Medicine; Visit Provider Internal Medicine
DX: Z00.00 Encounter for general adult medical examination without abnormal findings (principal); E78.00 Pure hypercholesterolemia, unspecified; F25.9 Schizoaffective disorder, unspecified; F45.21 Hypochondriasis; N18.30 Chronic kidney disease, stage 3 unspecified
CPT/HCPCS: 36415; 80053; 80061; 85025

== ENCOUNTER 2020-11-16 09:34 | Outpatient (REF) | payer OTHER, SELFPAY | END 2020-11-16 09:35 | disposition home or self-care (01) | LOC: HO.LAB 09:34 | PROVIDERS: PCP Internal Medicine | DX: N39.0 Urinary tract infection, site not specified (principal) | CPT/HCPCS: 81002; 87086; 87088; 87186; 99212 ==

== ENCOUNTER 2020-12-11 22:17 | Emergency (ER) | payer OTHER, SELFPAY ==
[2020-12-11 22:19] VITALS: BP 136/95; PULSE 82; RESP 17; TEMP 36.8; O2SAT 100; BMI 28.0
[2020-12-11 22:42] LABS: Appearance Urine HAZY; Color Urine YELLOW; Glucose Urine UA NEG (NEG); Leukocyte Esterase Urine 2+ (NEG); Nitrite Urine NEG (NEG); Specific Gravity - Urine 1.025 (1.005-1.025); UACC Culture Trigger YES; Urine Blood 1+ (NEG); Urine Ketones NEG (NEG); Urine Protein NEG (NEG-TRACE)
[2020-12-11 23:05] LABS: WBC Urine 30-49 /HPF (0-4)
[2020-12-11 23:06] LABS: Squamous Epithelial Cell Urine TRACE /LPF
[2020-12-11 23:07] LABS: Bacteria Urine TRACE /LPF
--- NOTE | 2020-12-11 23:13 | ED_ITS ---
HPI - Female Genitourinary General Chief complaint: Urogenital-Female Stated complaint: Uti Time Seen by Provider: 12/11/20 22:45 Source: patient Mode of arrival: ambulatory History of Present Illness HPI Narrative: 45-year-old female with a past medical history of anxiety, depression, diverticulitis, renal stones, migraines, recurrent UTIs on prophylactic Macrobid presenting to the ED complaining of dysuria, urinary urgency, frequency, and suprapubic abdominal pain x today. Reports associated nausea. Admits was recently treated for UTI, unclear if patient was compliant with antibiotics, patient is poor historian, also reports ran out of Macrobid a few days ago. Denies fever, chills, vomiting, flank pain MD elicited complaint: dysuria and UTI Related Data Home Medications Medication Instructions Recorded Confirmed docusate sodium 100 mg capsule 100 mg PO DAILY 11/26/19 07/03/20 famotidine 40 mg tablet 40 mg PO BEDTIME 11/26/19 07/03/20 fexofenadine 180 mg tablet 180 mg PO DAILY 11/26/19 05/30/20 flu vacc [id number] 6mos up(PF) ml IM ONCE 11/26/19 05/30/20 fluticasone propionate 50 2 spray INTRANASAL BID 11/26/19 07/03/20 mcg/actuation nasal spray,suspension ipratropium bromide 42 mcg (0.06 2 spray INTRANASAL BID 11/26/19 07/03/20 %) nasal spray naratriptan 2.5 mg tablet 2.5 mg PO DAILY PRN 11/26/19 07/03/20 nitrofurantoin 1 cap PO BID 11/26/19 07/03/20 monohydrate/macrocrystals 100 mg capsule omeprazole 20 mg capsule,delayed 20 mg PO DAILY 11/26/19 07/03/20 release potassium citrate 10 mEq (1,080 20 meq PO TID 11/26/19 07/03/20 mg) tablet,extended release pseudoephedrine HCl 30 mg tablet 0 mg PO 11/26/19 05/30/20 topiramate 100 mg tablet 0 mg PO 11/26/19 07/03/20 tramadol 50 mg tablet 0 mg PO 11/26/19 07/03/20 multivitamin 1 tab PO DAILY 05/30/20 07/03/20 amoxicillin 875 mg-potassium 1 tab PO BID tab 07/03/20 07/03/20 clavulanate 125 mg tablet (Augmentin) bupropion HCl 300 mg 24 hr tablet, 300 mg PO DAILY tab 07/03/20 07/03/20 extended release pravastatin 20 mg tablet mg PO DAILY tab 07/03/20 07/03/20 sumatriptan succinate 6 mg/0.5 mL mg SUBCUT 07/03/20 07/03/20 subcutaneous pen injector Previous Rx's Medication Instructions Recorded levofloxacin 500 mg tablet 500 mg PO DAILY #9 tab 07/05/20 metronidazole 500 mg tablet 500 mg PO BID #19 tab 07/05/20 (Flagyl) diphenhydramine HCl 25 mg capsule 25 mg PO Q6H PRN #14 cap 09/26/20 (Benadryl) doxycycline hyclate 100 mg tablet 100 mg PO BID #20 tab 09/26/20 levofloxacin 500 mg tablet 500 mg PO Q24H 5 Days #5 tab 11/22/20 cefuroxime axetil 250 mg tablet 250 mg PO BID 7 Days #14 tab 12/11/20 Allergies Allergy/AdvReac Type Severity Reaction Status Date / Time sulfamethoxazole Allergy Intermediate HIVES Verified 12/11/20 22:19 [From BACTRIM] trimethoprim [From BACTRIM] Allergy Intermediate HIVES Verified 12/11/20 22:19 Sulfa (Sulfonamide Allergy Unknown Heartburn Verified 12/11/20 22:19 Antibiotics) Review of Systems Review of Systems: Constitutional: No Fever, No Chills ENT/Mouth: No Ear Pain, No Nasal Congestion, No Hoarseness, No sore throat, No Rhinorrhea Cardiovascular: No Chest Pain, No SOB Respiratory: No Cough, No Sputum, No Wheezing Gastrointestinal: No Nausea, No Vomiting, No Diarrhea, No Constipation, + Abdominal pain Genitourinary:+ Dysuria, + Urinary Frequency, No Hematuria, No Urinary Incontinence, + Urgency, No Flank Pain Musculoskeletal: No joint pain, No Myalgias, No Joint Swelling Skin: No Skin Lesions, No rash Neuro: No Weakness, No Numbness, No Paresthesias Yes all other systems are reviewed and are negative [facility] Past Medical History Attestation statement: The following information was validated with the patient. Medical History Anxiety Depression History of diverticulitis Kidney stones Migraines Rectal bleeding UTI (urinary tract infection) Family History Family History Father Acute leukemia Mother FH: kidney cancer FH: pancreatic cancer Paternal Uncle Acute leukemia Social History Social History Alcohol intake: never Advance Directives: No Advance Directives Information Provided: No Patient : No Physical Exam Vital Signs: Vital Signs: Last Vital Signs Temp 98.3 F 12/11/20 22:19 Pulse 82 12/11/20 22:19 Resp 17 12/11/20 22:19 BP 136/95 H 12/11/20 22:19 Pulse Ox 100 12/11/20 22:19 Body Mass Index 28.0 Const: General: cooperative, healthy appearing and no acute distress Orientation/consciousness: patient oriented x3 Limitations: no limitations HENMT: Head: Yes normal to inspection Ears: hearing grossly normal bilaterally General nose exam: Normal external nose present Face and sinus: Yes normal facial exam Eyes: General: appearance normal, both eyes and all related structures EOM: EOMs intact bilaterally Neck: Neck: Yes normal visual inspection and Yes no meningeal signs Resp: Effort & Inspection: normal respiratory effort and no respiratory distress Cardio: Rate: regular rate GI: Inspection: Yes normal to inspection Palpation (GI): Soft to palpation, nontender, no guarding and not rigid : General: Yes no CVA tenderness Back/Spine/Pelvis: Back: no CVA tenderness Skin: Rashes: no rashes Wounds: no wounds Neuro: General: patient oriented x3 and no meningeal signs Gait exam (Neuro): Normal gait present Extrem: General: Yes normal to inspection Course Course Course Narrative: -UA infected with 30-49 wbc's and 2+ leuk esterase > based on prior urine cultures will treat with Ceftin 250 b.i.d. MDM - Female Genitourinary MDM Narrative Medical decision making narrative: 45-year-old female with a past medical history of anxiety, depression, diverticulitis, renal stones, migraines, recurrent UTIs on prophylactic Macrobid presenting to the ED complaining of dysuria, urinary urgency, frequency, and suprapubic abdominal pain x today. On exam vital signs stable, NAD/well-appearing, abdomen soft/nontender, no CVAT. Concern for UTI. Lower concern for pyelo, renal stone Plan: UA Medical Records Attestation: I reviewed the patient's medical records. Lab Data Attestation: I reviewed the patient's lab results. Labs: Lab Results 12/11/20 Range/Units 22:30 Urine Color YELLOW Urine Appearance HAZY Urine pH 6.0 (5.0-8.0) Ur Specific [place] 1.025 (1.005-1.025) Urine Protein NEG (NEG-TRACE) MG/DL Urine Glucose (UA) NEG (NEG) MG/DL Urine Ketones NEG (NEG) MG/DL Urine Blood 1+ H (NEG) Urine Nitrite NEG (NEG) Ur Leukocyte Esterase 2+ H (NEG) Urine RBC 1-4 (0) /HPF Urine WBC 30-49 H (0-4) /HPF Ur Squamous Epith Cells TRACE /LPF Urine Bacteria TRACE /LPF Discharge Plan Discharge Clinical Impression: UTI (urinary tract infection) Qualifiers: Urinary tract infection type: acute cystitis Hematuria presence: without hematuria Qualified Code(s): N30.00 - Acute cystitis without hematuria Patient Disposition: Home, Self-Care Instructions: Urinary Tract Infection in Women (ED) Additional Instructions: You have a urinary tract infection. Ceftin as an antibiotic, please take as prescribed Please follow-up with your urologist. Continue to take your daily Macrobid as prophylaxis for UTIs If her symptoms persist or worsen, you have fever, back pain, nausea or vomiting return to the ED Prescriptions: New cefuroxime axetil 250 mg tablet 250 mg PO BID 7 Days Qty: 14 RF: 0 No Action levofloxacin 500 mg tablet 500 mg PO Q24H 5 Days Qty: 5 RF: 0 levofloxacin 500 mg tablet 500 mg PO DAILY Qty: 9 RF: 0 metronidazole [Flagyl] 500 mg tablet 500 mg PO BID Qty: 19 RF: 0 diphenhydramine HCl [Benadryl] 25 mg capsule 25 mg PO Q6H PRN (Reason: itching) Qty: 14 RF: 0 doxycycline hyclate 100 mg tablet 100 mg PO BID Qty: 20 RF: 0 tramadol 50 mg tablet 0 mg PO RF: 0 omeprazole 20 mg capsule,delayed release(DR/EC) 20 mg PO DAILY RF: 0 pseudoephedrine HCl 30 mg tablet 0 mg PO RF: 0 naratriptan 2.5 mg tablet 2.5 mg PO DAILY PRNRF: 0 docusate sodium 100 mg capsule 100 mg PO DAILY RF: 0 famotidine 40 mg tablet 40 mg PO BEDTIME RF: 0 potassium citrate 10 mEq (1,080 mg) tablet extended release 20 meq PO TID RF: 0 Fluzone Quad (PF) 60 mcg (15 mcg x 4)/0.5 mL syringe IM ONCE RF: 0 nitrofurantoin monohyd/m-cryst 100 mg capsule 1 cap PO BID RF: 0 fluticasone propionate 50 mcg/actuation spray,suspension 2 spray intranasal BID RF: 0 topiramate 100 mg tablet 0 mg PO RF: 0 ipratropium bromide 42 mcg (0.06 %) spray,non-aerosol 2 spray intranasal BID RF: 0 fexofenadine 180 mg tablet 180 mg PO DAILY RF: 0 bupropion HCl 300 mg tablet extended release 24 hr 300 mg PO DAILY RF: 0 pravastatin 20 mg tablet PO DAILY RF: 0 sumatriptan succinate 6 mg/0.5 mL pen injector subcut RF: 0 multivitamin Tablet 1 tab PO DAILY RF: 0 amoxicillin-pot clavulanate [Augmentin] 875-125 mg tablet 1 tab PO BID RF: 0 Referrals: Hillary Ruiz MD [Primary Care Provider] - 2 days Arabella Moise FNP [Nurse Practitioner] - 2 days
== END 2020-12-11 23:28 | disposition home or self-care (01) ==
PROVIDERS: Emergency Provider Emergency Medicine; PCP Internal Medicine
DX: N30.00 Acute cystitis without hematuria (principal)
CPT/HCPCS: 81001; 87086; 99283; 99284

== ENCOUNTER 2020-12-14 05:48 | Emergency (ER) | payer OTHER, SELFPAY ==
[2020-12-14 05:51] VITALS: BP 129/83; PULSE 82; RESP 16; TEMP 37; O2SAT 98; BMI 28.0
--- NOTE | 2020-12-14 06:35 | ED.FEMALEGU ---
HPI - Female Genitourinary General Chief complaint: Urogenital-Female Stated complaint: UTI Time Seen by Provider: 12/14/20 06:35 Source: patient Mode of arrival: ambulatory Limitations: no limitations History of Present Illness HPI Narrative: patient with a long history of UTI. Seen the other day given abx but was told by pharmacist that there was a concern over a drug interaction. Patient has not been taking her prophylactic macrobid or the ceftin that she was prescribed Patient states that her urine is dark MD elicited complaint: UTI Pertinent past history: recurrent UTIs Onset (ago): day(s) Severity: mild Related Data Home Medications Medication Instructions Recorded Confirmed docusate sodium 100 mg capsule 100 mg PO DAILY 11/26/19 07/03/20 famotidine 40 mg tablet 40 mg PO BEDTIME 11/26/19 07/03/20 fexofenadine 180 mg tablet 180 mg PO DAILY 11/26/19 05/30/20 flu vacc [id number] 6mos up(PF) ml IM ONCE 11/26/19 05/30/20 fluticasone propionate 50 2 spray INTRANASAL BID 11/26/19 07/03/20 mcg/actuation nasal spray,suspension ipratropium bromide 42 mcg (0.06 2 spray INTRANASAL BID 11/26/19 07/03/20 %) nasal spray naratriptan 2.5 mg tablet 2.5 mg PO DAILY PRN 11/26/19 07/03/20 nitrofurantoin 1 cap PO BID 11/26/19 07/03/20 monohydrate/macrocrystals 100 mg capsule omeprazole 20 mg capsule,delayed 20 mg PO DAILY 11/26/19 07/03/20 release potassium citrate 10 mEq (1,080 20 meq PO TID 11/26/19 07/03/20 mg) tablet,extended release pseudoephedrine HCl 30 mg tablet 0 mg PO 11/26/19 05/30/20 topiramate 100 mg tablet 0 mg PO 11/26/19 07/03/20 tramadol 50 mg tablet 0 mg PO 11/26/19 07/03/20 multivitamin 1 tab PO DAILY 05/30/20 07/03/20 amoxicillin 875 mg-potassium 1 tab PO BID tab 07/03/20 07/03/20 clavulanate 125 mg tablet (Augmentin) bupropion HCl 300 mg 24 hr tablet, 300 mg PO DAILY tab 07/03/20 07/03/20 extended release pravastatin 20 mg tablet mg PO DAILY tab 07/03/20 07/03/20 sumatriptan succinate 6 mg/0.5 mL mg SUBCUT 07/03/20 07/03/20 subcutaneous pen injector Previous Rx's Medication Instructions Recorded levofloxacin 500 mg tablet 500 mg PO DAILY #9 tab 07/05/20 metronidazole 500 mg tablet 500 mg PO BID #19 tab 07/05/20 (Flagyl) diphenhydramine HCl 25 mg capsule 25 mg PO Q6H PRN #14 cap 09/26/20 (Benadryl) doxycycline hyclate 100 mg tablet 100 mg PO BID #20 tab 09/26/20 levofloxacin 500 mg tablet 500 mg PO Q24H 5 Days #5 tab 11/22/20 cefuroxime axetil 250 mg tablet 250 mg PO BID 7 Days #14 tab 12/11/20 Allergies Allergy/AdvReac Type Severity Reaction Status Date / Time sulfamethoxazole Allergy Intermediate HIVES Verified 12/11/20 22:19 [From BACTRIM] trimethoprim [From BACTRIM] Allergy Intermediate HIVES Verified 12/11/20 22:19 Sulfa (Sulfonamide Allergy Unknown Heartburn Verified 12/11/20 22:19 Antibiotics) Review of Systems Constitutional: Constitutional: Reports no additional constitutional complaints Eyes: Eyes: Reports no additional eye complaints ENT: Denies dizziness Cardiovascular: Cardiovascular: Reports no additional cardiovascular complaints Respiratory: Respiratory: Reports as per HPI Gastrointestinal: Gastrointestinal: Reports no additional gastrointestinal complaints Genitourinary: Genitourinary: Reports no additional female genitourinary complaints Musculoskeletal: Musculoskeletal: Reports no additional musculoskeletal complaints Integumentary/Breasts: Skin/Breast: Denies rash Neurologic: Reports system reviewed and no additional complaints, except as documented, Denies dizziness and Denies Sensory deficit (Neuro) Psychiatric: Psychiatric: Denies anxiety PMFSH Past Medical History Medical History Anxiety Depression History of diverticulitis Kidney stones Migraines Rectal bleeding UTI (urinary tract infection) Family History Family History Father Acute leukemia Mother FH: kidney cancer FH: pancreatic cancer Paternal Uncle Acute leukemia Social History Social History Alcohol intake: never Patient Tobacco Use Status: Never used Tobacco Use of substances other than those prescribed or required for medical reasons: No Advance Directives: No Patient : No Physical Exam Vital Signs: Vital Signs: Last Vital Signs Temp 98.6 F 12/14/20 05:51 Pulse 82 12/14/20 05:51 Resp 16 12/14/20 05:51 BP 129/83 12/14/20 05:51 Pulse Ox 98 12/14/20 05:51 Body Mass Index 28.0 Const: General: healthy appearing Nutritional Appearance: average body habitus Orientation/consciousness: oriented to person and patient oriented x3 Limitations: no limitations HENMT: Head: Yes normal to inspection Ears: external ears normal General nose exam: Normal external nose present Mouth: Normal oral and palatal mucosa present and oropharynx normal Throat: Yes posterior oropharynx normal Eyes: General: appearance normal, both eyes and all related structures Neck: Other: supple Neck: Yes normal visual inspection Chest: Chest palpation & inspection: normal inspection of the chest Resp: Auscultation: clear to auscultation bilaterally Cardio: Jugular venous distension: no JVD Rate: regular rate Rhythm: regular rhythm Heart sounds: S1 normal heart sound present and S2 normal heart sound present GI: Inspection: Yes normal to inspection Palpation (GI): Soft to palpation, nontender and No hepatosplenomegaly present Auscultation: normal bowel sounds : General: Yes no CVA tenderness Back/Spine/Pelvis: Back: no CVA tenderness Skin: General skin exam: no rashes or lesions noted Neuro: General: oriented to person and patient oriented x3 Cranial nerves: Yes CN's II-XII intact bilaterally Motor exam (neuro): 5/5 motor strength present throughout Sensory Exam: No Sensory deficit (Neuro) Extrem: General: Yes normal to inspection Psych: Appearance: grossly normal Course Reevaluation(s) Reevaluation #1: Patient with no UTI, will start on prophylaxis macrobid daily for 10 days which will allow her to follow up with pmd Time: 07:15 MDM - Female Genitourinary Lab Data Labs: Lab Results 12/14/20 Range/Units 06:39 Urine Color [place] YELLOW Urine Appearance HAZY Urine pH 6.0 (5.0-8.0) Ur Specific [place] 1.025 (1.005-1.025) Urine Protein NEG (NEG-TRACE) MG/DL Urine Glucose (UA) NEG (NEG) MG/DL Urine Ketones 5 (NEG) MG/DL Urine Blood NEG (NEG) Urine Nitrite NEG (NEG) Ur Leukocyte Esterase NEG (NEG) Urine RBC 1-4 (0) /HPF Urine WBC 1-4 (0-4) /HPF Ur Squamous Epith Cells 2+ /LPF Calcium Oxalate Crystal 3+ /LPF Urine Bacteria NONE /LPF Hyaline Casts 0-2 /LPF Urine Mucus 3+ /LPF Discharge Plan Discharge Clinical Impression: Dysuria Patient Disposition: Home, Self-Care Prescriptions: No Action levofloxacin 500 mg tablet 500 mg PO Q24H 5 Days Qty: 5 RF: 0 levofloxacin 500 mg tablet 500 mg PO DAILY Qty: 9 RF: 0 metronidazole [Flagyl] 500 mg tablet 500 mg PO BID Qty: 19 RF: 0 diphenhydramine HCl [Benadryl] 25 mg capsule 25 mg PO Q6H PRN (Reason: itching) Qty: 14 RF: 0 doxycycline hyclate 100 mg tablet 100 mg PO BID Qty: 20 RF: 0 cefuroxime axetil 250 mg tablet 250 mg PO BID 7 Days Qty: 14 RF: 0 tramadol 50 mg tablet 0 mg PO RF: 0 omeprazole 20 mg capsule,delayed release(DR/EC) 20 mg PO DAILY RF: 0 pseudoephedrine HCl 30 mg tablet 0 mg PO RF: 0 naratriptan 2.5 mg tablet 2.5 mg PO DAILY PRNRF: 0 docusate sodium 100 mg capsule 100 mg PO DAILY RF: 0 famotidine 40 mg tablet 40 mg PO BEDTIME RF: 0 potassium citrate 10 mEq (1,080 mg) tablet extended release 20 meq PO TID RF: 0 Fluzone Quad [id number] (PF) 60 mcg (15 mcg x 4)/0.5 mL syringe IM ONCE RF: 0 nitrofurantoin monohyd/m-cryst 100 mg capsule 1 cap PO BID RF: 0 fluticasone propionate 50 mcg/actuation spray,suspension 2 spray intranasal BID RF: 0 topiramate 100 mg tablet 0 mg PO RF: 0 ipratropium bromide 42 mcg (0.06 %) spray,non-aerosol 2 spray intranasal BID RF: 0 fexofenadine 180 mg tablet 180 mg PO DAILY RF: 0 bupropion HCl 300 mg tablet extended release 24 hr 300 mg PO DAILY RF: 0 pravastatin 20 mg tablet PO DAILY RF: 0 sumatriptan succinate 6 mg/0.5 mL pen injector subcut RF: 0 multivitamin Tablet 1 tab PO DAILY RF: 0 amoxicillin-pot clavulanate [Augmentin] 875-125 mg tablet 1 tab PO BID RF: 0 Referrals: Hillary Ruiz MD [Primary Care Provider] - 5 days
--- NOTE | 2020-12-14 06:39 | PC.NURSE ---
pt a&O, no sob or chest pain, pt been seen here last week for similar symptoms. provider in to assess , UA collected and sent.
[2020-12-14 06:44] LABS: Appearance Urine HAZY; Color Urine DK YELLOW; Glucose Urine UA NEG (NEG); Leukocyte Esterase Urine NEG (NEG); Nitrite Urine NEG (NEG); Specific Gravity - Urine 1.025 (1.005-1.025); Urine Blood NEG (NEG); Urine Ketones 5 MG/DL (NEG); Urine Protein NEG (NEG-TRACE)
[2020-12-14 06:53] LABS: Calcium Oxalate Crystals Urine 3+ /LPF; Hyaline Casts Urine 0-2 /LPF; Mucus Urine 3+ /LPF; Squamous Epithelial Cell Urine 2+ /LPF
== END 2020-12-14 07:47 | disposition home or self-care (01) ==
PROVIDERS: Emergency Provider Emergency Medicine; PCP Internal Medicine
DX: R30.0 Dysuria (principal); Z79.899 Other long term (current) drug therapy
CPT/HCPCS: 81001; 99283; 99284

== ENCOUNTER → 2020-12-28 08:43 | Outpatient (BNVA) | payer OTHER, SELFPAY | PROVIDERS: PCP Internal Medicine ==

== ENCOUNTER 2021-01-03 21:04 | Emergency (ER) | payer OTHER, SELFPAY ==
--- NOTE | ~2021-01-03 | XR_ITS ---
EXAMINATION: XR ABDOMEN KUB CLINICAL INDICATION: Bloating. Discomfort. COMPARISON: CT abdomen/pelvis dated from 07/05/2020. TECHNIQUE: AP view of the abdomen. FINDINGS: The bowel gas pattern is normal with no evidence of ileus or obstruction. No unusual soft tissue calcifications are noted. The bones are unremarkable. Right upper quadrant surgical clips. XR/XR KUB IMPRESSION: Nonobstructive bowel gas pattern. Mild stool burden.
[2021-01-03 21:09] VITALS: BP 147/68; PULSE 61; RESP 19; TEMP 36.6; O2SAT 97; BMI 27.3
--- NOTE | 2021-01-03 23:35 | ED_ITS ---
HPI - General Adult General Chief complaint: General Medical Stated complaint: multiple complaints Time Seen by Provider: 01/03/21 23:30 Source: patient Mode of arrival: ambulatory History of Present Illness HPI narrative: 45-year-old female with history depression and recent change in medications to Luvox who presents with mild headache without dizziness, denies fevers but states having some mild chills as well as nausea but otherwise denies shortness of breath/chest pain/palpitations in states she has had ?floating stools that are light in color? with some associated abdominal distension and she feels she may have constipation. She is also chronically on antibiotics for UTI prophylaxis. Related Data Home Medications Medication Instructions Recorded Confirmed docusate sodium 100 mg capsule 100 mg PO DAILY 11/26/19 07/03/20 famotidine 40 mg tablet 40 mg PO BEDTIME 11/26/19 07/03/20 fexofenadine 180 mg tablet 180 mg PO DAILY 11/26/19 05/30/20 flu vacc [id number] 6mos up(PF) ml IM ONCE 11/26/19 05/30/20 fluticasone propionate 50 2 spray INTRANASAL BID 11/26/19 07/03/20 mcg/actuation nasal spray,suspension ipratropium bromide 42 mcg (0.06 2 spray INTRANASAL BID 11/26/19 07/03/20 %) nasal spray naratriptan 2.5 mg tablet 2.5 mg PO DAILY PRN 11/26/19 07/03/20 nitrofurantoin 1 cap PO BID 11/26/19 07/03/20 monohydrate/macrocrystals 100 mg capsule omeprazole 20 mg capsule,delayed 20 mg PO DAILY 11/26/19 07/03/20 release potassium citrate 10 mEq (1,080 20 meq PO TID 11/26/19 07/03/20 mg) tablet,extended release pseudoephedrine HCl 30 mg tablet 0 mg PO 11/26/19 05/30/20 topiramate 100 mg tablet 0 mg PO 11/26/19 07/03/20 tramadol 50 mg tablet 0 mg PO 11/26/19 07/03/20 multivitamin 1 tab PO DAILY 05/30/20 07/03/20 amoxicillin 875 mg-potassium 1 tab PO BID tab 07/03/20 07/03/20 clavulanate 125 mg tablet (Augmentin) bupropion HCl 300 mg 24 hr tablet, 300 mg PO DAILY tab 07/03/20 07/03/20 extended release pravastatin 20 mg tablet mg PO DAILY tab 07/03/20 07/03/20 sumatriptan succinate 6 mg/0.5 mL mg SUBCUT 07/03/20 07/03/20 subcutaneous pen injector Previous Rx's Medication Instructions Recorded levofloxacin 500 mg tablet 500 mg PO DAILY #9 tab 07/05/20 metronidazole 500 mg tablet 500 mg PO BID #19 tab 07/05/20 (Flagyl) diphenhydramine HCl 25 mg capsule 25 mg PO Q6H PRN #14 cap 09/26/20 (Benadryl) doxycycline hyclate 100 mg tablet 100 mg PO BID #20 tab 09/26/20 levofloxacin 500 mg tablet 500 mg PO Q24H 5 Days #5 tab 11/22/20 cefuroxime axetil 250 mg tablet 250 mg PO BID 7 Days #14 tab 12/11/20 nitrofurantoin 100 mg PO DAILY #10 cap 12/14/20 monohydrate/macrocrystals 100 mg capsule (Macrobid) nitrofurantoin macrocrystal 100 mg 100 mg PO DAILY 90 Days #90 cap 12/28/20 capsule Allergies Allergy/AdvReac Type Severity Reaction Status Date / Time sulfamethoxazole Allergy Intermediate HIVES Verified 01/03/21 21:09 [From BACTRIM] trimethoprim [From BACTRIM] Allergy Intermediate HIVES Verified 01/03/21 21:09 Sulfa (Sulfonamide Allergy Unknown Heartburn Verified 01/03/21 21:09 Antibiotics) Review of Systems Review of Systems: Pertinent positives and negatives as stated in HPI and 10 point review of systems is otherwise negative. [facility]LY [facility] Past Medical History Source: nursing notes reviewed Medical History Anxiety Depression History of diverticulitis Kidney stones Migraines Rectal bleeding UTI (urinary tract infection) Family History Family History Father Acute leukemia Mother FH: kidney cancer FH: pancreatic cancer Paternal Uncle Acute leukemia Social History Social History Alcohol intake: never Patient Tobacco Use Status: Never used Tobacco Advance Directives: No Advance Directives Information Provided: Yes Patient : No Physical Exam Vital Signs: Vital Signs: Last Vital Signs Temp 97.9 F 01/03/21 21:09 Pulse 61 01/03/21 21:09 Resp 19 01/03/21 21:09 BP 147/68 H 01/03/21 21:09 Pulse Ox 97 01/03/21 21:09 Body Mass Index 27.3 VITAL SIGNS: Reviewed. GENERAL: Well developed, well nourished, in no acute distress. HEAD: Normocephalic/atraumatic EYES: PERRLA, EOMI OROPHARYNX: no oral lesions noted, posterior pharynx clear NECK: Supple, no adenopathy LUNGS: Normal breath sounds. No adventitious sounds or accessory muscle use. SpO2<97> CARDIOVASCULAR: Regular rate and rhythm without noted murmurs ABDOMEN: Soft, non-tender, non-distended with bowel sounds. SKIN: Inspection of the skin reveals no rashes NEUROLOGIC: Alert and oriented x 4. Strength and sensation to light touch were grossly intact x 4. PSYCH: flat affect, logical thought process. Course Course Course Narrative: 45-year-old female history and clinical presentation suspicious for medication side effect, however will rule out less likely diverticulitis and provide Tylenol for headache as well as obtaining a urinalysis. Review of all investigations negative for acute findings and on re-evaluation patient states her headache has completely resolved. All results findings discussed her bedside and she was discharged in stable condition. Medical Decision Making Lab Data Result diagrams: 01/04/21 00:13 01/04/21 00:13 Labs: Lab Results 01/04/21 01/04/21 01/04/21 Range/Units 00:04 00:05 00:13 WBC 10.5 (4.8-10.8) X10*3/uL RBC 4.41 (4.20-5.50) X10*6/uL Hgb 13.8 (12.0-16.0) g/dl Hct 40.2 (37.0-47.0) % MCV 91.2 (80.0-98.0) fL MCH 31.3 (27.0-33.0) pg MCHC 34.3 (31.0-35.0) g/dl RDW 12.0 (11.0-16.0) % Plt Count 336 (160-400) X10*3/uL MPV 9.4 (9.4-12.3) fL Immature Gran % (Auto) 0.3 (0.0-0.4) % Neut % (Auto) 56.6 (45-73) % Lymph % (Auto) 32.5 (20-40) % [place] % (Auto) 7.5 (2-11) % Eos % (Auto) 2.7 (0-4) % Baso % (Auto) 0.4 (0-2) % Lymph # (Auto) 3.4 (1.2-4.9) X10*3/uL [place] # (Auto) 0.8 (0.1-1.2) X10*3/uL Eos # (Auto) 0.3 (0.0-0.4) X10*3/uL Baso # (Auto) 0.0 (0.0-0.2) X10*3/uL Abs Immat Gran (auto) 0.03 (0.00-0.03) X10*3/uL Absolute Neuts (auto) 6.0 (2.0-8.3) x10*3/uL Absolute Nucleated RBC 0.000 (0.0-0.012) X10*3/uL Nucleated RBC % (auto) 0.0 (0.0-0.2) /100WBC Sodium (135-145) mmol/L Potassium (3.3-5.1) mmol/L Chloride (96-108) mmol/L Carbon Dioxide (22-29) mmol/L Anion Gap (12-20) BUN (9-16) mg/dL Creatinine (0.5-1.4) mg/dL Estim Creat Clear Calc Estimated GFR Random Glucose (60-115) mg/dL Calcium (8.4-10.2) mg/dL Total Bilirubin (0.0-1.0) mg/dL AST (5-31) U/L ALT (0-31) U/L Alkaline Phosphatase (39-117) U/L Total Protein (6.5-8.0) g/dL Albumin (3.5-5.0) g/dL Urine Color YELLOW Urine Appearance CLEAR Urine pH 7.0 (5.0-8.0) Ur Specific [place] 1.010 (1.005-1.025) Urine Protein NEG (NEG-TRACE) MG/DL Urine Glucose (UA) NEG (NEG) MG/DL Urine Ketones NEG (NEG) MG/DL Urine Blood NEG (NEG) Urine Nitrite NEG (NEG) Ur Leukocyte Esterase NEG (NEG) Urine Test NEGATIVE (NEGATIVE) 01/04/21 Range/Units 00:13 WBC (4.8-10.8) X10*3/uL RBC (4.20-5.50) X10*6/uL Hgb (12.0-16.0) g/dl Hct (37.0-47.0) % MCV (80.0-98.0) fL MCH (27.0-33.0) pg MCHC (31.0-35.0) g/dl RDW (11.0-16.0) % Plt Count (160-400) X10*3/uL MPV (9.4-12.3) fL Immature Gran % (Auto) (0.0-0.4) % Neut % (Auto) (45-73) % Lymph % (Auto) (20-40) % [place] % (Auto) (2-11) % Eos % (Auto) (0-4) % Baso % (Auto) (0-2) % Lymph # (Auto) (1.2-4.9) X10*3/uL [place] # (Auto) (0.1-1.2) X10*3/uL Eos # (Auto) (0.0-0.4) X10*3/uL Baso # (Auto) (0.0-0.2) X10*3/uL Abs Immat Gran (auto) (0.00-0.03) X10*3/uL Absolute Neuts (auto) (2.0-8.3) x10*3/uL Absolute Nucleated RBC (0.0-0.012) X10*3/uL Nucleated RBC % (auto) (0.0-0.2) /100WBC Sodium 138 (135-145) mmol/L Potassium 3.6 (3.3-5.1) mmol/L Chloride 110 H (96-108) mmol/L Carbon Dioxide 19 L (22-29) mmol/L Anion Gap 13 (12-20) BUN 11 (9-16) mg/dL Creatinine 1.23 (0.5-1.4) mg/dL Estim Creat Clear Calc 65.4 Estimated GFR 47 Random Glucose 109 (60-115) mg/dL Calcium 8.9 D (8.4-10.2) mg/dL Total Bilirubin 0.4 (0.0-1.0) mg/dL AST 27 D (5-31) U/L ALT 34 H (0-31) U/L Alkaline Phosphatase 72 (39-117) U/L Total Protein 7.1 (6.5-8.0) g/dL Albumin 4.2 (3.5-5.0) g/dL Urine Color Urine Appearance Urine pH (5.0-8.0) Ur Specific [place] (1.005-1.025) Urine Protein (NEG-TRACE) MG/DL Urine Glucose (UA) (NEG) MG/DL Urine Ketones (NEG) MG/DL Urine Blood (NEG) Urine Nitrite (NEG) Ur Leukocyte Esterase (NEG) Urine Test (NEGATIVE) Discharge Plan Discharge Clinical Impression: Medication side effects Patient Disposition: Home, Self-Care Additional Instructions: 1. Recommend you discuss these side effects with your prescribing physician. 2. For concerns regarding constipation recommendations are for increased fluid hydration especially with water and the use of [id number] MiraLax. 3. Follow-up with your primary care provider for re-evaluation in 2-3 days. Return to the ER for acute worsening of symptoms. Prescriptions: No Action levofloxacin 500 mg tablet 500 mg PO Q24H 5 Days Qty: 5 RF: 0 levofloxacin 500 mg tablet 500 mg PO DAILY Qty: 9 RF: 0 metronidazole [Flagyl] 500 mg tablet 500 mg PO BID Qty: 19 RF: 0 diphenhydramine HCl [Benadryl] 25 mg capsule 25 mg PO Q6H PRN (Reason: itching) Qty: 14 RF: 0 doxycycline hyclate 100 mg tablet 100 mg PO BID Qty: 20 RF: 0 cefuroxime axetil 250 mg tablet 250 mg PO BID 7 Days Qty: 14 RF: 0 nitrofurantoin monohyd/m-cryst [Macrobid] 100 mg capsule 100 mg PO DAILY Qty: 10 RF: 0 tramadol 50 mg tablet 0 mg PO RF: 0 omeprazole 20 mg capsule,delayed release(DR/EC) 20 mg PO DAILY RF: 0 pseudoephedrine HCl 30 mg tablet 0 mg PO RF: 0 naratriptan 2.5 mg tablet 2.5 mg PO DAILY PRNRF: 0 docusate sodium 100 mg capsule 100 mg PO DAILY RF: 0 famotidine 40 mg tablet 40 mg PO BEDTIME RF: 0 potassium citrate 10 mEq (1,080 mg) tablet extended release 20 meq PO TID RF: 0 Fluzone Quad (PF) 60 mcg (15 mcg x 4)/0.5 mL syringe IM ONCE RF: 0 nitrofurantoin monohyd/m-cryst 100 mg capsule 1 cap PO BID RF: 0 fluticasone propionate 50 mcg/actuation spray,suspension 2 spray intranasal BID RF: 0 topiramate 100 mg tablet 0 mg PO RF: 0 ipratropium bromide 42 mcg (0.06 %) spray,non-aerosol 2 spray intranasal BID RF: 0 fexofenadine 180 mg tablet 180 mg PO DAILY RF: 0 bupropion HCl 300 mg tablet extended release 24 hr 300 mg PO DAILY RF: 0 pravastatin 20 mg tablet PO DAILY RF: 0 sumatriptan succinate 6 mg/0.5 mL pen injector subcut RF: 0 multivitamin Tablet 1 tab PO DAILY RF: 0 amoxicillin-pot clavulanate [Augmentin] 875-125 mg tablet 1 tab PO BID RF: 0 nitrofurantoin macrocrystal 100 mg capsule 100 mg PO DAILY 90 Days Qty: 90 RF: 0 Referrals: Hillary Ruiz MD [Primary Care Provider] - 2 days Stand Alone Forms: Work/School Release
[2021-01-04 00:19] LABS: Basophils Percent Auto 0.4 % (0-2); Eosinophils Absolute Auto 0.3 X10*3/uL (0.0-0.4); Eosinophils Percent Auto 2.7 % (0-4); Hematocrit 40.2 % (37.0-47.0); Hemoglobin 13.8 g/dl (12.0-16.0); Imm Gran Abs Auto 0.03 X10*3/uL (0.00-0.03); Imm Gran Pct Auto 0.3 % (0.0-0.4); Lymphocytes Absolute Auto 3.4 X10*3/uL (1.2-4.9); Lymphocytes Percent Auto 32.5 % (20-40); MANUAL DIFF FLAG NO; Mean Corpuscular HGB Conc 34.3 g/dl (31.0-35.0); Mean Corpuscular Hemoglobin 31.3 pg (27.0-33.0); Mean Corpuscular Volume 91.2 fL (80.0-98.0); Mean Platelet Volume 9.4 fL (9.4-12.3); Monocytes Absolute Auto 0.8 X10*3/uL (0.1-1.2); Monocytes Percent Auto 7.5 % (2-11); Neutrophils Percent Auto 56.6 % (45-73); Platelet Count 336 X10*3/uL (160-400); Red Blood Count 4.41 X10*6/uL (4.20-5.50); White Blood Count 10.5 X10*3/uL (4.8-10.8)
[2021-01-04 00:19] LABS: Appearance Urine CLEAR; Color Urine YELLOW; Glucose Urine UA NEG (NEG); Leukocyte Esterase Urine NEG (NEG); Nitrite Urine NEG (NEG); Urine Blood NEG (NEG); Urine Ketones NEG (NEG); Urine Protein NEG (NEG-TRACE)
[2021-01-04 00:23] LABS: UPreg QC Valid YES; Urine Pregnancy NEGATIVE (NEGATIVE)
[2021-01-04 00:38] LABS: Alanine Aminotransferase 34 U/L (0-31); Albumin Level 4.2 g/dL (3.5-5.0); Alkaline Phosphatase 72 U/L (39-117); Anion Gap 13 (12-20); Aspartate Amino Transferase 27 U/L (5-31); Bilirubin Total 0.4 mg/dL (0.0-1.0); Blood Urea Nitrogen 11 mg/dL (9-16); Calcium 8.9 mg/dL (8.4-10.2); Chloride 110 mmol/L (96-108); Creatinine Clr Calc Pharmacy 65.4; Estimated Glomerular Filt Rate 47; Glucose Random 109 mg/dL (60-115); Potassium 3.6 mmol/L (3.3-5.1); Sodium 138 mmol/L (135-145); Total Protein 7.1 g/dL (6.5-8.0)
[2021-01-04 00:44] LABS: Carbon Dioxide 19 mmol/L (22-29)
== END 2021-01-04 02:07 | disposition home or self-care (01) ==
PROVIDERS: Emergency Provider Student in an Organized Health Care Education/Training Program; PCP Internal Medicine
DX: G44.40 Drug-induced headache, not elsewhere classified, not intractable (principal); T43.225A Adverse effect of selective serotonin reuptake inhibitors, initial encounter; Y92.9 Unspecified place or not applicable
CPT/HCPCS: 36415; 74018; 80053; 81003; 81025; 85025; 99283

== ENCOUNTER → 2021-01-28 10:36 | Outpatient (BNVA) | payer OTHER, SELFPAY | PROVIDERS: PCP Internal Medicine | DX: N30.00 Acute cystitis without hematuria (principal) | CPT/HCPCS: 99212 ==

== ENCOUNTER 2021-02-20 14:58 | Outpatient (REF) | payer OTHER, SELFPAY ==
[2021-02-20 15:57] LABS: Alanine Aminotransferase 25 U/L (0-31); Albumin Level 4.4 g/dL (3.5-5.0); Alkaline Phosphatase 73 U/L (39-117); Anion Gap 11 (12-20); Aspartate Amino Transferase 22 U/L (5-31); Bilirubin Total 0.4 mg/dL (0.0-1.0); Blood Urea Nitrogen 11 mg/dL (9-16); Calcium 9.9 mg/dL (8.4-10.2); Carbon Dioxide 22 mmol/L (22-29); Chloride 109 mmol/L (96-108); Estimated Glomerular Filt Rate 58; Glucose Random 103 mg/dL (60-115); Potassium 4.2 mmol/L (3.3-5.1); Sodium 138 mmol/L (135-145); Total Protein 7.9 g/dL (6.5-8.0)
== END 2021-02-20 14:59 | disposition home or self-care (01) ==
LOC: HO.LAB 14:58
PROVIDERS: PCP Internal Medicine; Visit Provider Internal Medicine
DX: E78.00 Pure hypercholesterolemia, unspecified (principal); N18.30 Chronic kidney disease, stage 3 unspecified; R21 Rash and other nonspecific skin eruption
CPT/HCPCS: 36415; 80053

== ENCOUNTER 2021-03-12 14:02 | Outpatient (REF) | payer MEDICARE, SELFPAY ==
[2021-03-12 14:50] LABS: Appearance Urine CLEAR; Color Urine YELLOW; Glucose Urine UA NEG (NEG); Leukocyte Esterase Urine NEG (NEG); Nitrite Urine NEG (NEG); Specific Gravity - Urine 1.015 (1.005-1.025); Urine Blood NEG (NEG); Urine Ketones NEG (NEG); Urine Protein NEG (NEG-TRACE)
[2021-03-12 15:02] LABS: Amorphous Sediment Urine 1+ /LPF; RBC Urine 0 /HPF (0); Squamous Epithelial Cell Urine TRACE /LPF; WBC Urine 0 /HPF (0-4)
== END 2021-03-12 14:03 | disposition home or self-care (01) ==
LOC: HO.LAB 14:02
PROVIDERS: PCP Internal Medicine
DX: N30.00 Acute cystitis without hematuria (principal)
CPT/HCPCS: 81001; 87086

== ENCOUNTER → 2021-06-04 13:58 | Outpatient (BNVA) | payer MEDICARE, MEDICAID, SELFPAY | PROVIDERS: PCP Internal Medicine | DX: N30.00 Acute cystitis without hematuria (principal) | CPT/HCPCS: 99212 ==

== ENCOUNTER 2021-06-14 08:08 | Emergency (ER) | payer MEDICARE, MEDICAID, SELFPAY ==
--- NOTE | ~2021-06-14 | XR_ITS ---
EXAMINATION: XR CHEST CLINICAL INFORMATION: Chest pain, shortness of breath. COMPARISON: 04/28/2019 chest radiograph. TECHNIQUE: 2 views of the chest were obtained. FINDINGS: No significant abnormality is noted involving the heart, lungs, mediastinum, bony thorax or soft tissues. XR/XR chest 2V IMPRESSION: No acute cardiopulmonary process.
--- NOTE | ~2021-06-14 | CT_ITS ---
EXAMINATION: CT HEAD WITHOUT CONTRAST CLINICAL INFORMATION: Right facial numbness, headache. COMPARISON: PET/CT scan dated 04/29/2019. TECHNIQUE: Contiguous axial imaging was performed from the skull base to vertex without intravenous administration of contrast. Coronal and sagittal reformatted images were obtained. This CT examination was performed using dose optimization techniques as appropriate, variously including the following: *Automated exposure control *Adjustment of mA and/or kV according to patient size (this includes techniques or standardized protocols for targeted exams where dose is matched to indication/reason for exam; i.e. extremities or head) *Use of iterative reconstruction technique DLP: 652 mGy-cm FINDINGS: There is no evidence of acute intracranial hemorrhage or territorial infarction. No abnormal mass effect or midline shift is seen. Montes to white matter differentiation is well preserved. No extra-axial fluid collections are identified. The ventricles are normal in size. There is no abnormal attenuation within the brain parenchyma. The osseous structures and soft tissues are normal. The mastoid air cells and visualized portions of the paranasal sinuses are well aerated. CT/CT head/brain wo con IMPRESSION: No acute intracranial pathology.
[2021-06-14 08:11] VITALS: BP 112/75; PULSE 68; RESP 16; TEMP 36.2; O2SAT 98; BMI 27.3
[2021-06-14 08:26] LABS: MANUAL DIFF FLAG NO
[2021-06-14 08:49] LABS: Basophils Percent Auto 0.3 % (0-2); Eosinophils Absolute Auto 0.3 X10*3/uL (0.0-0.4); Eosinophils Percent Auto 2.5 % (0-4); Hematocrit 44.6 % (37.0-47.0); Hemoglobin 15.2 g/dl (12.0-16.0); Imm Gran Abs Auto 0.05 X10*3/uL (0.00-0.03); Imm Gran Pct Auto 0.5 % (0.0-0.4); Lymphocytes Absolute Auto 2.8 X10*3/uL (1.2-4.9); Lymphocytes Percent Auto 24.8 % (20-40); Mean Corpuscular HGB Conc 34.1 g/dl (31.0-35.0); Mean Corpuscular Hemoglobin 31.1 pg (27.0-33.0); Mean Corpuscular Volume 91.2 fL (80.0-98.0); Mean Platelet Volume 10.1 fL (9.4-12.3); Monocytes Absolute Auto 0.8 X10*3/uL (0.1-1.2); Monocytes Percent Auto 7.2 % (2-11); Neutrophils Absolute Auto 7.2 x10*3/uL (2.0-8.3); Neutrophils Percent Auto 64.7 % (45-73); Platelet Count 278 X10*3/uL (160-400); Red Blood Count 4.89 X10*6/uL (4.20-5.50); Red Cell Distribution Width 12.9 % (11.0-16.0); White Blood Count 11.1 X10*3/uL (4.8-10.8)
[2021-06-14 08:51] LABS: Alanine Aminotransferase 22 U/L (0-31); Albumin Level 4.4 g/dL (3.5-5.0); Alkaline Phosphatase 79 U/L (39-117); Anion Gap 12 (12-20); Aspartate Amino Transferase 15 U/L (5-31); Bilirubin Total 0.4 mg/dL (0.0-1.0); Blood Urea Nitrogen 16 mg/dL (9-16); Calcium 9.4 mg/dL (8.4-10.2); Carbon Dioxide 21 mmol/L (22-29); Chloride 110 mmol/L (96-108); Creatinine Clr Calc Pharmacy 67.6; Estimated Glomerular Filt Rate 49; Glucose Random 113 mg/dL (60-115); Potassium 3.9 mmol/L (3.3-5.1); Sodium 139 mmol/L (135-145); Total Protein 7.5 g/dL (6.5-8.0)
[2021-06-14 08:58] VITALS: BP 120/78; PULSE 67; RESP 14; TEMP 36.7; O2SAT 98
--- NOTE | 2021-06-14 10:44 | ED_ITS ---
HPI - General Adult General Chief complaint: General Medical Stated complaint: Face numbness/Eye twitching Time Seen by Provider: 06/14/21 10:44 Source: patient Mode of arrival: ambulatory Limitations: no limitations History of Present Illness HPI narrative: 45-year-old female who presents emergency department for evaluation of headache, chest pain, right-sided facial numbness, burn to right middle finger. The p atient states that she has been having symptoms for approximately 3 days. She states the symptoms started after she accidentally burned her right middle finger on a hot stove. She states that the right side of her face feels numb. This is intermittent and goes away completely. She is vague in describing how long the numbness last. She states that when her face feels numb her right eye twitches. She is also complaining of a headache. The headache is located diffusely throughout her head, the headache is intermittent, throbbing and [id number] in intensity. She states that she feels short of breath but denies dyspnea on exertion, cough, fever or chills. She states that several mo nths ago a glass object fell on her head and since then she has been having intermittent headaches. She told me that cancer runs in her family and she is concerned the chin and had cancer. Related Data Home Medications Medication Instructions Recorded Confirmed docusate sodium 100 mg capsule 100 mg PO DAILY 11/26/19 01/28/21 famotidine 40 mg tablet 40 mg PO BEDTIME 11/26/19 01/28/21 fexofenadine 180 mg tablet 180 mg PO DAILY 11/26/19 01/28/21 flu vacc [id number] 6mos up(PF) ml IM ONCE 11/26/19 01/28/21 fluticasone propionate 50 2 spray INTRANASAL BID 11/26/19 01/28/21 mcg/actuation nasal spray,suspension ipratropium bromide 42 mcg (0.06 2 spray INTRANASAL BID 11/26/19 01/28/21 %) nasal spray naratriptan 2.5 mg tablet 2.5 mg PO DAILY PRN 11/26/19 01/28/21 nitrofurantoin 1 cap PO BID 11/26/19 01/28/21 monohydrate/macrocrystals 100 mg capsule omeprazole 20 mg capsule,delayed 20 mg PO DAILY 11/26/19 01/28/21 release potassium citrate 10 mEq (1,080 20 meq PO TID 11/26/19 01/28/21 mg) tablet,extended release pseudoephedrine HCl 30 mg tablet 0 mg PO 11/26/19 01/28/21 topiramate 100 mg tablet 0 mg PO 11/26/19 01/28/21 tramadol 50 mg tablet 0 mg PO 11/26/19 01/28/21 multivitamin 1 tab PO DAILY 05/30/20 01/28/21 bupropion HCl 300 mg 24 hr tablet, 300 mg PO DAILY tab 07/03/20 01/28/21 extended release pravastatin 20 mg tablet mg PO DAILY tab 07/03/20 01/28/21 sumatriptan succinate 6 mg/0.5 mL mg SUBCUT 07/03/20 01/28/21 subcutaneous pen injector fluoride (sodium) 1.1 % dental appl PO 01/28/21 01/28/21 cream (Denta 5000 Plus) fluoride (sodium) 1.1 % dental PO 01/28/21 01/28/21 paste fluvoxamine 50 mg tablet 50 mg PO BEDTIME 01/28/21 01/28/21 loratadine 10 mg tablet 10 mg PO DAILY 01/28/21 01/28/21 omega-3 fatty acids 1,000 mg 0 mg PO BEDTIME 01/28/21 01/28/21 capsule omega-3 fatty acids-fish oil 300 0 cap PO BEDTIME 01/28/21 01/28/21 mg-1,000 mg capsule albuterol sulfate 90 mcg/actuation 2 puff INHALATION Q2-4H PRN 06/04/21 aerosol inhaler calcium polycarbophil 625 mg 625 mg PO BID 06/04/21 tablet (Fiber Laxative (calcium polycarbophil)) fluvoxamine 100 mg tablet 100 mg PO DAILY 06/04/21 montelukast 10 mg tablet 10 mg PO BEDTIME 06/04/21 Previous Rx's Medication Instructions Recorded diphenhydramine HCl 25 mg capsule 25 mg PO Q6H PRN #14 cap 09/26/20 (Benadryl) doxycycline hyclate 100 mg tablet 100 mg PO BID #20 tab 09/26/20 cefuroxime axetil 250 mg tablet 250 mg PO BID 7 Days #14 tab 12/11/20 ciprofloxacin HCl 500 mg tablet 500 mg PO Q12H 5 Days #10 tab 01/28/21 (Cipro) estradiol 0.25 appful VAGINAL DAILY #42.5 g 05/27/21 nitrofurantoin macrocrystal 100 mg 100 mg PO DAILY 90 Days #90 cap 06/04/21 capsule solifenacin 10 mg tablet (Vesicare) 10 mg PO DAILY 30 Days #30 tab 06/04/21 Allergies Allergy/AdvReac Type Severity Reaction Status Date / Time sulfamethoxazole Allergy Intermediate HIVES Verified 06/04/21 14:05 [From BACTRIM] trimethoprim [From BACTRIM] Allergy Intermediate HIVES Verified 06/04/21 14:05 Sulfa (Sulfonamide Allergy Unknown Heartburn Verified 06/04/21 14:05 Antibiotics) Review of Systems Review of Systems: Yes all other systems are reviewed and are negative [facility]LY [facility] Past Medical History [facility] Narrative: Social history: She denies tobacco, alcohol and drug use. Medical History Anxiety Depression History of diverticulitis Kidney stones Migraines Rectal bleeding UTI (urinary tract infection) Family History Family History Father Acute leukemia Mother FH: kidney cancer FH: pancreatic cancer Paternal Uncle Acute leukemia Social History Social History Alcohol intake: never Patient Tobacco Use Status: Never used Tobacco Advance Directives: No Advance Directives Information Provided: No Patient : Yes Physical Exam ED Vital Signs: Vital Signs - 24 hr 06/14/21 08:11 06/14/21 08:58 06/14/21 11:31 Temperature 97.2 F 98.1 F Pulse Rate 68 67 71 Respiratory Rate 16 14 16 Blood Pressure 112/75 120/78 118/75 Pulse Oximetry 98 98 98 BMI result Body Mass Index 27.3 Const Other: Awake, alert, female patient, she does appear to be anxious, she does not appear to be in distress. Orientation/consciousness: oriented to person and oriented to place [facility] Head: Yes normal to inspection, Yes normocephalic and Yes atraumatic Ears: external ears normal General nose exam: Normal external nose present Face and sinus: Yes normal facial exam Mouth: Normal oral and palatal mucosa present Throat: Yes posterior oropharynx normal Eyes General: appearance normal, both eyes and all related structures Pupils: Equal, round and reactive pupils present Neck Neck: Yes normal visual inspection, Yes no lymphadenopathy, Yes trachea midline and Yes supple Chest Chest palpation & inspection: normal inspection of the chest and normal palpation of entire chest wall Resp Effort & Inspection: normal respiratory effort and able to speak in complete sentences Auscultation: clear to auscultation bilaterally Cardio Rate: regular rate Rhythm: regular rhythm Heart sounds: S1 normal heart sound present, S2 normal heart sound present and no murmurs GI Inspection: Yes normal to inspection Palpation (GI): Soft to palpation, nontender and no guarding Auscultation: normal bowel sounds General: Yes no CVA tenderness Back/Spine/Pelvis Back: no CVA tenderness Skin General skin exam: no rashes or lesions noted Neuro Other: Patient has normal light touch to both sides her face and neck, both arms and legs. General: oriented to person and oriented to place Cranial nerves: Yes CN's II-XII intact bilaterally and Yes Equal, round and reactive pupils present Cognition (Neuro): normal cognition Motor exam (neuro): 5/5 motor strength present throughout Coordination: [id number] test normal and [id number] test normal Extrem General: Yes normal to inspection Psych Appearance: grossly normal Speech and movement: Normal speech and movement present Affect: normal affect Attitude: cooperative Thought process: Normal thought process present Thought content: Normal thought content present Course Course Course Narrative: 45-year-old female who presents emergency department for evaluation of headache, intermittent right-sided facial numbness, right eye twitching, burn to her right middle finger. Patient's vital signs were normal patient's examination was unremarkable except for a small burn to her right middle finger. I did order laboratory evaluation CT scan of the head and chest x-ray 1428: Patient's laboratory evaluation was unremarkable. Chest x-ray revealed no acute disease. Head CT revealed no acute disease. This time I do not have a clear etiology for the patient's symptoms. I did discuss this with her. She was advised to follow-up with her PCP for re-evaluation. Medical Decision Making Lab Data Result diagrams: 06/14/21 08:21 06/14/21 08:21 Labs: Lab Results 06/14/21 06/14/21 Range/Units 08:21 08:21 WBC 11.1 H (4.8-10.8) X10*3/uL RBC 4.89 (4.20-5.50) X10*6/uL Hgb 15.2 (12.0-16.0) g/dl Hct 44.6 (37.0-47.0) % MCV 91.2 (80.0-98.0) fL MCH 31.1 (27.0-33.0) pg MCHC 34.1 (31.0-35.0) g/dl RDW 12.9 (11.0-16.0) % Plt Count 278 (160-400) X10*3/uL MPV 10.1 (9.4-12.3) fL Immature Gran % (Auto) 0.5 H (0.0-0.4) % Neut % (Auto) 64.7 (45-73) % Lymph % (Auto) 24.8 (20-40) % [place] % (Auto) 7.2 (2-11) % Eos % (Auto) 2.5 (0-4) % Baso % (Auto) 0.3 (0-2) % Lymph # (Auto) 2.8 (1.2-4.9) X10*3/uL [place] # (Auto) 0.8 (0.1-1.2) X10*3/uL Eos # (Auto) 0.3 (0.0-0.4) X10*3/uL Baso # (Auto) 0.0 (0.0-0.2) X10*3/uL Abs Immat Gran (auto) 0.05 H (0.00-0.03) X10*3/uL Absolute Neuts (auto) 7.2 (2.0-8.3) x10*3/uL Absolute Nucleated RBC 0.000 (0.0-0.012) X10*3/uL Nucleated RBC % (auto) 0.0 (0.0-0.2) /100WBC Sodium 139 (135-145) mmol/L Potassium 3.9 (3.3-5.1) mmol/L Chloride 110 H (96-108) mmol/L Carbon Dioxide 21 L (22-29) mmol/L Anion Gap 12 (12-20) BUN 16 (9-16) mg/dL Creatinine 1.19 (0.5-1.4) mg/dL Estim Creat Clear Calc 67.6 Estimated GFR 49 Random Glucose 113 (60-115) mg/dL Calcium 9.4 (8.4-10.2) mg/dL Total Bilirubin 0.4 (0.0-1.0) mg/dL AST 15 (5-31) U/L ALT 22 (0-31) U/L Alkaline Phosphatase 79 (39-117) U/L Total Protein 7.5 (6.5-8.0) g/dL Albumin 4.4 (3.5-5.0) g/dL Discharge Plan Discharge Clinical Impression: Facial numbness Patient Disposition: Home, Self-Care Instructions: Paresthesia (ED) Additional Instructions: Your blood work was normal. The CT scan of your brain was normal as well. Your chest x-ray was unremarkable. At this time, I do not have a clear cause for the numbness that your experiencing however I do not think that this is caused by anything bad such as stroke. Follow-up with your doctor in 2 days. Please return to the emergency department if your symptoms get worse or if you develop any symptoms that are concerning to you. Prescriptions: No Action estradiol 0.01 % (0.1 mg/gram) cream 0.25 appful vaginal DAILY Qty: 42.5 2RF Rx Instructions: Pea size amount on urethra diphenhydramine HCl [Benadryl] 25 mg capsule 25 mg PO Q6H PRN (Reason: itching) Qty: 14 0RF doxycycline hyclate 100 mg tablet 100 mg PO BID Qty: 20 0RF cefuroxime axetil 250 mg tablet 250 mg PO BID 7 Days Qty: 14 0RF tramadol 50 mg tablet 0 mg PO 0RF omeprazole 20 mg capsule,delayed release(DR/EC) 20 mg PO DAILY 0RF pseudoephedrine HCl 30 mg tablet 0 mg PO 0RF naratriptan 2.5 mg tablet 2.5 mg PO DAILY PRN0RF docusate sodium 100 mg capsule 100 mg PO DAILY 0RF famotidine 40 mg tablet 40 mg PO BEDTIME 0RF potassium citrate 10 mEq (1,080 mg) tablet extended release 20 meq PO TID 0RF Fluzone Quad [id number] (PF) 60 mcg (15 mcg x 4)/0.5 mL syringe IM ONCE 0RF nitrofurantoin monohyd/m-cryst 100 mg capsule 1 cap PO BID 0RF fluticasone propionate 50 mcg/actuation spray,suspension 2 spray intranasal BID 0RF topiramate 100 mg tablet 0 mg PO 0RF ipratropium bromide 42 mcg (0.06 %) spray,non-aerosol 2 spray intranasal BID 0RF fexofenadine 180 mg tablet 180 mg PO DAILY 0RF bupropion HCl 300 mg tablet extended release 24 hr 300 mg PO DAILY 0RF pravastatin 20 mg tablet PO DAILY 0RF sumatriptan succinate 6 mg/0.5 mL pen injector subcut 0RF multivitamin Tablet 1 tab PO DAILY 0RF montelukast 10 mg tablet 10 mg PO BEDTIME 0RF albuterol sulfate 90 mcg/actuation HFA aerosol inhaler 2 puff inhalation Q2-4H PRN0RF calcium polycarbophil [Fiber Laxative (ca polycarbo)] 625 mg tablet 625 mg PO BID 0RF fluvoxamine 100 mg tablet 100 mg PO DAILY 0RF nitrofurantoin macrocrystal 100 mg capsule 100 mg PO DAILY 90 Days Qty: 90 2RF Rx Instructions: must administer with a meal/food solifenacin [Vesicare] 10 mg tablet 10 mg PO DAILY 30 Days Qty: 30 3RF fluoride (sodium) 1.1 % paste PO 0RF fluvoxamine 50 mg tablet 50 mg PO BEDTIME 0RF omega-3 fatty acids-fish oil 300-1,000 mg capsule 0 cap PO BEDTIME 0RF loratadine 10 mg tablet 10 mg PO DAILY 0RF fluoride (sodium) [Denta 5000 Plus] 1.1 % cream PO 0RF omega-3 fatty acids 1,000 mg capsule 0 mg PO BEDTIME 0RF ciprofloxacin HCl [Cipro] 500 mg tablet 500 mg PO Q12H 5 Days Qty: 10 0RF
[2021-06-14 11:31] VITALS: BP 118/75; PULSE 71; RESP 16; O2SAT 98
== END 2021-06-14 14:50 | disposition home or self-care (01) ==
PROVIDERS: Emergency Provider Emergency Medicine Emergency Medical Services; PCP Internal Medicine
DX: R20.0 Anesthesia of skin (principal); R25.3 Fasciculation; R51.9 Headache, unspecified; R07.89 Other chest pain; Z79.899 Other long term (current) drug therapy
CPT/HCPCS: 36415; 70450; 71046; 80053; 85025; 99284

== ENCOUNTER 2021-07-15 09:14 | Outpatient (REF) | payer OTHER, SELFPAY | END 2021-07-15 09:15 | disposition home or self-care (01) | LOC: HO.LAB 09:14 | PROVIDERS: PCP Internal Medicine; Visit Provider Internal Medicine Hypertension Specialist | DX: Z13.89 Encounter for screening for other disorder (principal) ==

== ENCOUNTER 2021-07-16 15:35 | Outpatient (REF) | payer OTHER, SELFPAY ==
[2021-07-16 16:47] LABS: Estimated Glomerular Filt Rate 48
[2021-07-16 17:26] LABS: Creatinine, mg/dL 72.74
[2021-07-16 17:34] LABS: Creatinine Clearance 71.5 mL/min (85-125); Creatinine, 24Hr Urine 1.2 G/Day (1.0-2.0); Total Volume 24 Hour Urine 1700 mL
[2021-07-21 00:21] LABS: 24hr Urine Total Volume 1700 mL/24 h; Oxalic Acid 24 Urine 20.4 mg/24 h (3.6-38.0)
== END 2021-07-16 15:36 | disposition home or self-care (01) ==
LOC: HO.LAB 15:35
PROVIDERS: PCP Internal Medicine; Visit Provider Internal Medicine Hypertension Specialist
DX: N20.0 Calculus of kidney (principal)
CPT/HCPCS: 36415; 82565; 82575; 83945

== ENCOUNTER 2021-08-09 08:21 | Outpatient (REF) | payer OTHER, SELFPAY ==
--- NOTE | ~2021-08-09 | MM_ITS ---
EXAMINATION: MM SCREENING DIGITAL BREAST TOMOSYNTHESIS, BILATERAL CLINICAL INFORMATION: Screening. Asymptomatic. The lifetime risk of breast cancer based on the Tyrer-Cuzick Model is 13%. COMPARISON: Mammography: 08/06/2020, 08/05/2019, 10/11/2018 TECHNIQUE: Digital breast tomosynthesis is performed in both the craniocaudal and mediolateral oblique views along with computer-aided detection (CAD). Synthesized 2D images are generated from the tomosynthesis. FINDINGS: There are scattered areas of fibroglandular density (ACR BI-RADS breast composition Category b). There are no significant masses, abnormal calcifications, or other abnormalities. Breast tissue composition borders on heterogeneously dense. No developing density or architectural changes from prior studies. MM/MM tomosynthesis screening BI IMPRESSION: No mammographic evidence of malignancy. ASSESSMENT: BI-RADS 1: Negative RECOMMENDATION: Routine annual mammography screening. This patient's information was entered into a reminder system with a target due date for their next mammogram.
== END 2021-08-09 08:22 | disposition home or self-care (01) ==
LOC: HO.MAMMO 08:21
PROVIDERS: PCP Internal Medicine; Visit Provider Internal Medicine
DX: Z12.31 Encounter for screening mammogram for malignant neoplasm of breast (principal)
CPT/HCPCS: 77063; 77067

== ENCOUNTER 2021-10-17 09:28 | Outpatient (REF) | payer OTHER, SELFPAY ==
[2021-10-17 09:43] LABS: MANUAL DIFF FLAG NO
[2021-10-17 10:16] LABS: Basophils Absolute Auto 0.1 X10*3/uL (0.0-0.2); Basophils Percent Auto 0.6 % (0-2); Eosinophils Absolute Auto 0.5 X10*3/uL (0.0-0.4); Eosinophils Percent Auto 5.1 % (0-4); Hematocrit 42.1 % (37.0-47.0); Hemoglobin 14.3 g/dl (12.0-16.0); Imm Gran Abs Auto 0.03 X10*3/uL (0.00-0.03); Imm Gran Pct Auto 0.3 % (0.0-0.4); Lymphocytes Absolute Auto 2.4 X10*3/uL (1.2-4.9); Lymphocytes Percent Auto 27.3 % (20-40); Mean Corpuscular Hemoglobin 30.8 pg (27.0-33.0); Mean Corpuscular Volume 90.5 fL (80.0-98.0); Monocytes Absolute Auto 0.8 X10*3/uL (0.1-1.2); Monocytes Percent Auto 9.3 % (2-11); Neutrophils Absolute Auto 5.1 x10*3/uL (2.0-8.3); Neutrophils Percent Auto 57.4 % (45-73); Platelet Count 302 X10*3/uL (160-400); Red Blood Count 4.65 X10*6/uL (4.20-5.50); Red Cell Distribution Width 12.2 % (11.0-16.0)
[2021-10-17 10:48] LABS: Alanine Aminotransferase 25 U/L (0-31); Albumin Level 4.3 g/dL (3.5-5.0); Alkaline Phosphatase 82 U/L (39-117); Anion Gap 14 (12-20); Aspartate Amino Transferase 22 U/L (5-31); Bilirubin Total 0.4 mg/dL (0.0-1.0); Blood Urea Nitrogen 17 mg/dL (9-16); Calcium 9.2 mg/dL (8.4-10.2); Carbon Dioxide 19 mmol/L (22-29); Chloride 110 mmol/L (96-108); Cholesterol 150 mg/dL; Estimated Glomerular Filt Rate 56; Glucose Random 104 mg/dL (60-115); HDL Cholesterol 38 mg/dL; LDL Cholesterol Calculated 89 mg/dl; Sodium 139 mmol/L (135-145); Total Protein 9.1 g/dL (6.5-8.0); Triglycerides 115 mg/dL
[2021-10-17 10:57] LABS: Thyroid Stimulating Hormone 1.85 uIU/mL (0.32-4.0)
== END 2021-10-17 09:29 | disposition home or self-care (01) ==
LOC: HO.LAB 09:28
PROVIDERS: Visit Provider Internal Medicine
DX: E78.00 Pure hypercholesterolemia, unspecified (principal); F25.9 Schizoaffective disorder, unspecified; G43.909 Migraine, unspecified, not intractable, without status migrainosus; N18.30 Chronic kidney disease, stage 3 unspecified
CPT/HCPCS: 36415; 80053; 80061; 84443; 85025

== ENCOUNTER 2022-01-15 13:48 | Outpatient (REF) | payer OTHER, SELFPAY ==
[2022-01-15 17:17] LABS: Urine Cytology See Pathology rpt
== END 2022-01-15 13:49 | disposition home or self-care (01) ==
LOC: HO.LAB 13:48
PROVIDERS: PCP Internal Medicine; Visit Provider Urology
DX: N30.00 Acute cystitis without hematuria (principal); R35.0 Frequency of micturition
CPT/HCPCS: 51798; 87086; 88112; 99212

== ENCOUNTER 2022-03-01 21:55 | Emergency (ER) | payer OTHER, SELFPAY ==
--- NOTE | ~2022-03-01 | CT_ITS ---
EXAMINATION: CT ABDOMEN AND PELVIS WITHOUT CONTRAST CLINICAL INFORMATION: Abdominal pain COMPARISON: 07/23/2020 TECHNIQUE: Multidetector volumetric imaging was performed from the superior aspect of the liver through the pubic symphysis. Sagittal and coronal reformatted images were obtained on the technologist's workstation. This CT examination was performed using dose optimization techniques as appropriate, variously including the following: *Automated exposure control *Adjustment of mA and/or kV according to patient size (this includes techniques or standardized protocols for targeted exams where dose is matched to indication/reason for exam; i.e. extremities or head) *Use of iterative reconstruction technique DLP: 706 mGy-cm FINDINGS: LUNG BASES: The visualized lung bases are unremarkable. LIVER, GALLBLADDER, AND BILIARY TREE: The liver is normal in size, shape, and attenuation. No focal hepatic lesion or biliary ductal dilatation is present. Cholecystectomy. PANCREAS: Unremarkable. SPLEEN: Unremarkable. ADRENAL GLANDS: Unremarkable. KIDNEYS AND URETERS: The kidneys are normal in size, shape, and attenuation. No hydronephrosis, hydroureter, or calculi seen. No perinephric stranding. BLADDER: Unremarkable. GASTROINTESTINAL TRACT: Scattered colonic diverticula most concentrated within the left colon. There is focal wall thickening in pericolic fat stranding associated with an inflamed diverticulum within the distal descending/proximal sigmoid colon. No evidence of abscess or intraperitoneal free air. Normal appendix. Stomach and small bowel unremarkable. ABDOMINAL WALL: No significant hernia is appreciated. LYMPH NODES: Normal. VASCULAR: Unremarkable. PELVIC VISCERA: Uterus and ovaries unremarkable. OSSEOUS STRUCTURES: Unremarkable. CT/CT abdomen pelvis wo IV con IMPRESSION: Acute uncomplicated distal descending/proximal sigmoid diverticulitis.
[2022-03-01 22:02] VITALS: BP 155/86; PULSE 73; RESP 20; TEMP 36.4; O2SAT 97; BMI 27.3
[2022-03-01 22:41] LABS: MANUAL DIFF FLAG NO
[2022-03-01 22:50] LABS: Basophils Absolute Auto 0.1 X10*3/uL (0.0-0.2); Basophils Percent Auto 0.4 % (0-2); Eosinophils Absolute Auto 0.3 X10*3/uL (0.0-0.4); Hematocrit 43.6 % (37.0-47.0); Hemoglobin 14.9 g/dl (12.0-16.0); Imm Gran Abs Auto 0.03 X10*3/uL (0.00-0.03); Imm Gran Pct Auto 0.3 % (0.0-0.4); Lymphocytes Absolute Auto 4.1 X10*3/uL (1.2-4.9); Mean Corpuscular HGB Conc 34.2 g/dl (31.0-35.0); Mean Corpuscular Hemoglobin 30.7 pg (27.0-33.0); Mean Corpuscular Volume 89.9 fL (80.0-98.0); Mean Platelet Volume 9.4 fL (9.4-12.3); Monocytes Absolute Auto 0.9 X10*3/uL (0.1-1.2); Monocytes Percent Auto 7.8 % (2-11); Neutrophils Absolute Auto 5.8 x10*3/uL (2.0-8.3); Neutrophils Percent Auto 51.5 % (45-73); Platelet Count 342 X10*3/uL (160-400); Red Blood Count 4.85 X10*6/uL (4.20-5.50); Red Cell Distribution Width 12.3 % (11.0-16.0); White Blood Count 11.2 X10*3/uL (4.8-10.8)
[2022-03-01 22:52] LABS: Appearance Urine Clear; Color Urine Yellow; Glucose Urine UA Negative (Negative); Leukocyte Esterase Urine Negative (Negative); Nitrite Urine Negative (Negative); Specific Gravity - Urine 1.015 (1.005-1.025); Urine Blood Negative (Negative); Urine Ketones Negative (Negative); Urine Protein Negative (Neg-Trace)
[2022-03-01 22:55] LABS: Anion Gap 15 (12-20); Blood Urea Nitrogen 21 mg/dL (9-16); Calcium 9.5 mg/dL (8.4-10.2); Carbon Dioxide 21 mmol/L (22-29); Chloride 110 mmol/L (96-108); Estimated Glomerular Filt Rate 49; Glucose Random 112 mg/dL (60-115); Sodium 142 mmol/L (135-145)
[2022-03-01 22:57] LABS: Bacteria Urine None Seen (None Seen); Hyaline Casts Urine 0-2 /LPF (0-2); RBC Urine 0-2 /HPF (0-2); Squamous Epithelial Cell Urine 0-2 /HPF (0-2); WBC Urine 0-5 /HPF (0-5)
[2022-03-01 23:59] VITALS: BP 132/84; PULSE 67; RESP 16; TEMP 36.8; O2SAT 96
--- NOTE | 2022-03-02 00:09 | ED.ABDPAIN ---
HPI - Abdominal Pain General Chief Complaint: Abdominal Pain Stated Complaint: lefted lower abd pain, acid reflux Time Seen by Provider: 03/01/22 23:51 Source: patient Mode of arrival: ambulatory Limitations: no limitations History of Present Illness HPI narrative: 46-year-old female came in for evaluation of multiple symptoms started about a week ago with sore throat and coughing then followed by left lower abdominal pain, no nausea, no vomiting, normal bowel movement with no diarrhea. No fever, no chills. No sick contact. Past surgical history significant for cholecystectomy. Related Data Home Medications Medication Instructions Recorded Confirmed docusate sodium 100 mg capsule 100 mg PO DAILY 11/26/19 01/28/21 famotidine 40 mg tablet 40 mg PO BEDTIME 11/26/19 01/28/21 fexofenadine 180 mg tablet 180 mg PO DAILY 11/26/19 01/28/21 flu vacc [id number] 6mos up(PF) 60 ml IM ONCE 11/26/19 01/28/21 mcg(15 mcgx4)/0.5 mL IM syringe fluticasone propionate 50 2 spray intranasal BID 11/26/19 01/28/21 mcg/actuation nasal spray,suspension ipratropium bromide 42 mcg (0.06 2 spray intranasal BID 11/26/19 01/28/21 %) nasal spray naratriptan 2.5 mg tablet 2.5 mg PO DAILY PRN 11/26/19 01/28/21 nitrofurantoin 1 cap PO BID 11/26/19 01/28/21 monohydrate/macrocrystals 100 mg capsule omeprazole 20 mg capsule,delayed 20 mg PO DAILY 11/26/19 01/28/21 release potassium citrate 10 mEq (1,080 20 meq PO TID 11/26/19 01/28/21 mg) tablet,extended release pseudoephedrine HCl 30 mg tablet 0 mg PO 11/26/19 01/28/21 topiramate 100 mg tablet 0 mg PO 11/26/19 01/28/21 tramadol 50 mg tablet 0 mg PO 11/26/19 01/28/21 multivitamin 1 tab PO DAILY 05/30/20 01/28/21 bupropion HCl 300 mg 24 hr tablet, 300 mg PO DAILY 07/03/20 01/28/21 extended release pravastatin 20 mg tablet mg PO DAILY 07/03/20 01/28/21 sumatriptan succinate 6 mg/0.5 mL mg subcut 07/03/20 01/28/21 subcutaneous pen injector fluoride (sodium) 1.1 % dental appl PO 01/28/21 01/28/21 cream (Denta 5000 Plus) fluoride (sodium) 1.1 % dental PO 01/28/21 01/28/21 paste fluvoxamine 50 mg tablet 50 mg PO BEDTIME 01/28/21 01/28/21 loratadine 10 mg tablet 10 mg PO DAILY 01/28/21 01/28/21 omega-3 fatty acids 1,000 mg 0 mg PO BEDTIME 01/28/21 01/28/21 capsule omega-3 fatty acids-fish oil 300 0 cap PO BEDTIME 01/28/21 01/28/21 mg-1,000 mg capsule albuterol sulfate 90 mcg/actuation 2 puff inhalation Q2-4H PRN 06/04/21 aerosol inhaler calcium polycarbophil 625 mg 625 mg PO BID 06/04/21 tablet (Fiber Laxative (calcium polycarbophil)) fluvoxamine 100 mg tablet 100 mg PO DAILY 06/04/21 montelukast 10 mg tablet 10 mg PO BEDTIME 06/04/21 Previous Rx's Medication Instructions Recorded diphenhydramine HCl 25 mg capsule 25 mg PO Q6H PRN itching #14 caps 09/26/20 (Benadryl) doxycycline hyclate 100 mg tablet 100 mg PO BID #20 tabs 09/26/20 cefuroxime axetil 250 mg tablet 250 mg PO BID 7 days #14 tabs 12/11/20 ciprofloxacin HCl 500 mg tablet 500 mg PO Q12H Patient to start 01/28/21 (Cipro) medication if she is symptomatic 5 days #10 tabs estradiol 0.01% (0.1 mg/gram) 0.25 appful vaginal DAILY #42.5 05/27/21 vaginal cream grams nitrofurantoin macrocrystal 100 mg 100 mg PO DAILY 90 days #90 caps 06/04/21 capsule solifenacin 10 mg tablet (Vesicare) 10 mg PO DAILY OAB 30 days #90 tabs 06/25/21 ciprofloxacin HCl 500 mg tablet 500 mg PO BID #20 tabs 03/02/22 (Cipro) ibuprofen 400 mg tablet 400 mg PO TID PRN pain #20 tabs 03/02/22 metronidazole 500 mg tablet 500 mg PO BID 14 days #28 tabs 03/02/22 Allergies Allergy/AdvReac Type Severity Reaction Status Date / Time sulfamethoxazole Allergy Intermediate HIVES Verified 03/01/22 22:07 [From BACTRIM] trimethoprim [From BACTRIM] Allergy Intermediate HIVES Verified 03/01/22 22:07 Sulfa (Sulfonamide Allergy Unknown Heartburn Verified 03/01/22 22:07 Antibiotics) Review of Systems Review of Systems All other systems are reviewed and are negative Constitutional: Reports as per HPI and Reports no additional constitutional complaints Eyes: Reports as per HPI and Reports no additional eye complaints Reports system reviewed and no additional complaints, except as documented Cardiovascular: Reports as per HPI and Reports no additional cardiovascular complaints Respiratory: Reports as per HPI and Reports no additional respiratory complaints Gastrointestinal: Reports as per HPI and Reports no additional gastrointestinal complaints Genitourinary: Reports no additional female genitourinary complaints Musculoskeletal: Reports no additional musculoskeletal complaints Skin/Breast: Reports system reviewed and no additional complaints, except as docu Psychiatric: Reports no additional psychiatric complaints Endocrine: Reports no additional endocrine complaints Hematologic/Lymphatic: Reports no additional hematologic/lymphatic complaints Allergic/Immunologic: Reports no additional allergic/immunologic complaints Reports system reviewed and no additional complaints, except as documented and Reports Abnormal speech present [facility] Past Medical History Medical History Anxiety Depression History of diverticulitis Kidney stones Migraines Rectal bleeding UTI (urinary tract infection) Family History Family History Father Acute leukemia Mother FH: kidney cancer FH: pancreatic cancer Paternal Uncle Acute leukemia Social History Social History Alcohol intake: never Patient Tobacco Use Status: Never used Tobacco Advance Directives: No Physical Exam ED Vital Signs: Vital Signs - 24 hr 03/01/22 22:02 03/01/22 23:59 Temperature 97.6 F 98.2 F Pulse Rate 73 67 Respiratory Rate 20 16 Blood Pressure 155/86 H 132/84 Pulse Oximetry 97 96 Oxygen Delivery Method Room Air Room Air BMI result Body Mass Index 27.3 Vital signs have been reviewed as appeared to be correct. Blood pressure normal. Heart rate normal. Respiration rate normal. Temperature normal. Oxygen saturation normal. Appearance: Alert. Oriented X3. No acute distress. Head: Normal external exam. Normocephalic. Atraumatic. No Lester signs noted. No raccoon eyes noted Eyes: PERRLA. EOMI. Conjunctiva and sclera normal. Eyelids normal. ENT: TM's Normal. Pharynx normal. Uvula midline. Moist mucous membranes. No trismus noted. No drooling noted. No muffled voice noted. Neck: Normal inspection. Neck supple. FROM. No adenopathy. Thyroid Normal. No meningeal signs. No neck mass noted. CVS: Normal heart rate and rhythm. Heart sound normal. No murmurs noted. Pulses normal throughout. Respiratory: No respiratory distress. Painless inspiration. Breath sounds normal. No wheezes/rales/rhonchi noted. Chest nontender. No accessory muscle usage noted or decreased air movement noted. Abdomen: Soft, left lower quadrant tenderness, no rebound tenderness, no guarding. Bowel sounds normal in all 4 quadrants. No distention noted. No organomegaly noted. No visible injury noted. Back: No CVA tenderness. Full range of motion noted. Skin: Skin warm and dry. Normal skin color. Normal skin turgor. No rashes/lesions/lacerations noted. Extremities: No lower extremity edema. Extremities exhibit normal range of motion. Extremities nontender. Neuro: Oriented X 3. Cranial nerve exam: II-XII are grossly intact No motor deficit. No sensory deficit. Reflexes normal. Course Course Course Narrative: 46-year-old female came in for evaluation of left-sided abdominal pain. Slight leukocytosis with mild left abdominal tenderness with no guarding or rebound tenderness consider CT for rule out diverticular versus colitis disease Medical Decision Making Differential Diagnosis Differential Diagnoses: The differential diagnosis associated with the presentation includes (Diverticulitis, UTI, colitis, kidney stones, UTI, pyelonephritis.) Lab Data MDM Lab Attestation statement: I reviewed the patient's lab results. 03/01/22 22:36 03/01/22 22:36 Labs: Lab Results 03/01/22 03/01/22 03/01/22 Range/Units 22:36 22:36 22:36 WBC 11.2 H (4.8-10.8) X10*3/uL RBC 4.85 (4.20-5.50) X10*6/uL Hgb 14.9 (12.0-16.0) g/dl Hct 43.6 (37.0-47.0) % MCV 89.9 (80.0-98.0) fL MCH 30.7 (27.0-33.0) pg MCHC 34.2 (31.0-35.0) g/dl RDW 12.3 (11.0-16.0) % Plt Count 342 (160-400) X10*3/uL MPV 9.4 (9.4-12.3) fL Immature Gran % (Auto) 0.3 (0.0-0.4) % Neut % (Auto) 51.5 (45-73) % Lymph % (Auto) 37.0 (20-40) % [place] % (Auto) 7.8 (2-11) % Eos % (Auto) 3.0 (0-4) % Baso % (Auto) 0.4 (0-2) % Lymph # (Auto) 4.1 (1.2-4.9) X10*3/uL [place] # (Auto) 0.9 (0.1-1.2) X10*3/uL Eos # (Auto) 0.3 (0.0-0.4) X10*3/uL Baso # (Auto) 0.1 (0.0-0.2) X10*3/uL Abs Immat Gran (auto) 0.03 (0.00-0.03) X10*3/uL Absolute Neuts (auto) 5.8 (2.0-8.3) x10*3/uL Absolute Nucleated RBC 0.000 (0.0-0.012) X10*3/uL Nucleated RBC % (auto) 0.0 (0.0-0.2) /100WBC Sodium 142 (135-145) mmol/L Potassium 4.0 (3.3-5.1) mmol/L Chloride 110 H (96-108) mmol/L Carbon Dioxide 21 L (22-29) mmol/L Anion Gap 15 (12-20) BUN 21 H (9-16) mg/dL Creatinine 1.17 (0.5-1.4) mg/dL Estim Creat Clear Calc 68.0 Estimated GFR 49 Random Glucose 112 (60-115) mg/dL Calcium 9.5 (8.4-10.2) mg/dL Total Bilirubin 0.2 (0.0-1.0) mg/dL Direct Bilirubin < 0.2 (0.0-0.5) mg/dL AST 20 (5-31) U/L ALT 23 (0-31) U/L Alkaline Phosphatase 87 (39-117) U/L Total Protein 7.8 (6.5-8.0) g/dL Albumin 4.5 (3.5-5.0) g/dL Lipase 47 (8-78) U/L Beta HCG, Quant < 2 mIU/mL Urine Color Yellow Urine Appearance Clear Urine pH 7.0 (5.0-9.0) Ur Specific [place] 1.015 (1.005-1.025) Urine Protein Negative (Neg-Trace) mg/dL Urine Glucose (UA) Negative (Negative) mg/dL Urine Ketones Negative (Negative) mg/dL Urine Blood Negative (Negative) Urine Nitrite Negative (Negative) Ur Leukocyte Esterase Negative (Negative) Urine RBC 0-2 (0-2) /HPF Urine WBC 0-5 (0-5) /HPF Ur Squamous Epith Cells 0-2 (0-2) /HPF Urine Bacteria None Seen (None Seen) Hyaline Casts 0-2 (0-2) /LPF Influenza Type A (PCR) (Negative) Influenza Type B (PCR) (Negative) RSV RNA Qual (PCR) (Negative) SARS-CoV-2 RNA (RT-PCR) (Negative) 03/02/22 Range/Units 00:18 WBC (4.8-10.8) X10*3/uL RBC (4.20-5.50) X10*6/uL Hgb (12.0-16.0) g/dl Hct (37.0-47.0) % MCV (80.0-98.0) fL MCH (27.0-33.0) pg MCHC (31.0-35.0) g/dl RDW (11.0-16.0) % Plt Count (160-400) X10*3/uL MPV (9.4-12.3) fL Immature Gran % (Auto) (0.0-0.4) % Neut % (Auto) (45-73) % Lymph % (Auto) (20-40) % [place] % (Auto) (2-11) % Eos % (Auto) (0-4) % Baso % (Auto) (0-2) % Lymph # (Auto) (1.2-4.9) X10*3/uL [place] # (Auto) (0.1-1.2) X10*3/uL Eos # (Auto) (0.0-0.4) X10*3/uL Baso # (Auto) (0.0-0.2) X10*3/uL Abs Immat Gran (auto) (0.00-0.03) X10*3/uL Absolute Neuts (auto) (2.0-8.3) x10*3/uL Absolute Nucleated RBC (0.0-0.012) X10*3/uL Nucleated RBC % (auto) (0.0-0.2) /100WBC Sodium (135-145) mmol/L Potassium (3.3-5.1) mmol/L Chloride (96-108) mmol/L Carbon Dioxide (22-29) mmol/L Anion Gap (12-20) BUN (9-16) mg/dL Creatinine (0.5-1.4) mg/dL Estim Creat Clear Calc Estimated GFR Random Glucose (60-115) mg/dL Calcium (8.4-10.2) mg/dL Total Bilirubin (0.0-1.0) mg/dL Direct Bilirubin (0.0-0.5) mg/dL AST (5-31) U/L ALT (0-31) U/L Alkaline Phosphatase (39-117) U/L Total Protein (6.5-8.0) g/dL Albumin (3.5-5.0) g/dL Lipase (8-78) U/L Beta HCG, Quant mIU/mL Urine Color Urine Appearance Urine pH (5.0-9.0) Ur Specific [place] (1.005-1.025) Urine Protein (Neg-Trace) mg/dL Urine Glucose (UA) (Negative) mg/dL Urine Ketones (Negative) mg/dL Urine Blood (Negative) Urine Nitrite (Negative) Ur Leukocyte Esterase (Negative) Urine RBC (0-2) /HPF Urine WBC (0-5) /HPF Ur Squamous Epith Cells (0-2) /HPF Urine Bacteria (None Seen) Hyaline Casts (0-2) /LPF Influenza Type A (PCR) NEGATIVE (Negative) Influenza Type B (PCR) NEGATIVE (Negative) RSV RNA Qual (PCR) NEGATIVE (Negative) SARS-CoV-2 RNA (RT-PCR) NEGATIVE (Negative) Independent Interpretation I performed an independent interpretation of an: CT Scan (Acute uncomplicated distal descending/proximal sigmoid diverticulitis. ) Radiology Impression Discussion of test interpretation with radiology: I have reviewed the radiologist's reading. (Acute uncomplicated distal descending/proximal sigmoid diverticulitis. ) Discharge Plan Discharge Clinical Impression: Diverticulitis, Abdominal pain Patient Disposition: Home, Self-Care Instructions: Diverticulitis (ED), Diverticulitis Diet (ED) Prescriptions: New metronidazole 500 mg tablet 500 mg PO BID 14 Days Qty: 28 0RF ciprofloxacin HCl [Cipro] 500 mg tablet 500 mg PO BID Qty: 20 0RF ibuprofen 400 mg tablet 400 mg PO TID PRN (Reason: pain) Qty: 20 0RF No Action estradiol 0.01 % (0.1 mg/gram) cream 0.25 appful vaginal DAILY Qty: 42.5 2RF Rx Instructions: Pea size amount on urethra solifenacin [Vesicare] 10 mg tablet 10 mg PO DAILY 30 Days Qty: 90 1RF diphenhydramine HCl [Benadryl] 25 mg capsule 25 mg PO Q6H PRN (Reason: itching) Qty: 14 0RF doxycycline hyclate 100 mg tablet 100 mg PO BID Qty: 20 0RF cefuroxime axetil 250 mg tablet 250 mg PO BID 7 Days Qty: 14 0RF tramadol 50 mg tablet 0 mg PO omeprazole 20 mg capsule,delayed release(DR/EC) 20 mg PO DAILY pseudoephedrine HCl 30 mg tablet 0 mg PO naratriptan 2.5 mg tablet 2.5 mg PO DAILY PRN docusate sodium 100 mg capsule 100 mg PO DAILY famotidine 40 mg tablet 40 mg PO BEDTIME potassium citrate 10 mEq (1,080 mg) tablet extended release 20 meq PO TID Fluzone Quad (PF) 60 mcg (15 mcg x 4)/0.5 mL syringe IM ONCE nitrofurantoin monohyd/m-cryst 100 mg capsule 1 cap PO BID fluticasone propionate 50 mcg/actuation spray,suspension 2 spray intranasal BID topiramate 100 mg tablet 0 mg PO ipratropium bromide 42 mcg (0.06 %) spray,non-aerosol 2 spray intranasal BID fexofenadine 180 mg tablet 180 mg PO DAILY bupropion HCl 300 mg tablet extended release 24 hr 300 mg PO DAILY pravastatin 20 mg tablet PO DAILY sumatriptan succinate 6 mg/0.5 mL pen injector subcut multivitamin Tablet 1 tab PO DAILY montelukast 10 mg tablet 10 mg PO BEDTIME albuterol sulfate 90 mcg/actuation HFA aerosol inhaler 2 puff inhalation Q2-4H PRN calcium polycarbophil [Fiber Laxative (ca polycarbo)] 625 mg tablet 625 mg PO BID fluvoxamine 100 mg tablet 100 mg PO DAILY nitrofurantoin macrocrystal 100 mg capsule 100 mg PO DAILY 90 Days Qty: 90 2RF Rx Instructions: must administer with a meal/food fluoride (sodium) 1.1 % paste PO fluvoxamine 50 mg tablet 50 mg PO BEDTIME omega-3 fatty acids-fish oil 300-1,000 mg capsule 0 cap PO BEDTIME loratadine 10 mg tablet 10 mg PO DAILY fluoride (sodium) [Denta 5000 Plus] 1.1 % cream PO omega-3 fatty acids 1,000 mg capsule 0 mg PO BEDTIME ciprofloxacin HCl [Cipro] 500 mg tablet 500 mg PO Q12H 5 Days Qty: 10 0RF Referrals: Jarad Richey MD [Physician] - Carolyne Marie MD [Primary Care Provider] -
[2022-03-02 00:15] LABS: Alanine Aminotransferase 23 U/L (0-31); Albumin Level 4.5 g/dL (3.5-5.0); Alkaline Phosphatase 87 U/L (39-117); Aspartate Amino Transferase 20 U/L (5-31); Bilirubin Direct < 0.2 mg/dL (0.0-0.5); Bilirubin Total 0.2 mg/dL (0.0-1.0); HCG Quantitative < 2 mIU/mL; Lipase 47 U/L (8-78); Total Protein 7.8 g/dL (6.5-8.0)
--- NOTE | 2022-03-02 00:45 | PC.NURSE ---
Pt returned from CT. Pt resting quietly..
[2022-03-02 01:02] LABS: Influenza A PCR NEGATIVE (Negative); Influenza B PCR NEGATIVE (Negative); Resp Syncy Virus RNA Qual PCR NEGATIVE (Negative); SARS COV2 PCR INHOUSE NEGATIVE (Negative)
[2022-03-02] MEDS: levoFLOXacin 750 MG TABLET PO (01:40)
[2022-03-02] MEDS: metroNIDAZOLE 500 MG TABLET PO (01:40)
== END 2022-03-02 01:53 | disposition home or self-care (01) ==
PROVIDERS: Emergency Provider Emergency Medicine; PCP Family Medicine
DX: K57.32 Diverticulitis of large intestine without perforation or abscess without bleeding (principal); R10.32 Left lower quadrant pain; Z20.822 Contact with and (suspected) exposure to COVID-19; Z20.828 Contact with and (suspected) exposure to other viral communicable diseases
CPT/HCPCS: 0241U; 36415; 74176; 80048; 80076; 81001; 83690; 84702; 85025; 99283; 99284

== ENCOUNTER 2022-03-18 21:00 | Emergency (ER) | payer OTHER, SELFPAY ==
--- NOTE | ~2022-03-18 | CT_ITS ---
EXAMINATION: CT ABDOMEN AND PELVIS WITH CONTRAST CLINICAL INFORMATION: Left lower quadrant pain with diverticulitis, question abscess COMPARISON: 03/02/2022 TECHNIQUE: Multidetector volumetric images were obtained from the superior aspect of the liver through the pubic symphysis following administration 85 mL of Omnipaque 350 intravenous contrast. Sagittal and coronal reformatted images were obtained on the technologist's workstation. Oral contrast: No This CT examination was performed using dose optimization techniques as appropriate, variously including the following: *Automated exposure control *Adjustment of mA and/or kV according to patient size (this includes techniques or standardized protocols for targeted exams where dose is matched to indication/reason for exam; i.e. extremities or head) *Use of iterative reconstruction technique DLP: 686 mGy-cm FINDINGS: LUNG BASES: The visualized lung bases are unremarkable. LIVER, GALLBLADDER, AND BILIARY TREE: The liver is normal in size, shape, and attenuation. No focal hepatic lesion or biliary ductal dilatation is present. Status post cholecystectomy. PANCREAS: Unremarkable. SPLEEN: Unremarkable. ADRENAL GLANDS: Unremarkable. KIDNEYS AND URETERS: Bilateral nephrograms are symmetric. No hydronephrosis or obstructing calculus identified. There is redemonstration of a few scattered small hypodense renal lesions bilaterally favoring cysts; no follow-up recommended. BLADDER: Unremarkable. GASTROINTESTINAL TRACT: No evidence of bowel obstruction. Interval decrease in inflammation at the junction of the descending and sigmoid colon compared to 03/02/2022, consistent with improving diverticulitis. No evidence of abscess. The appendix is unremarkable. No free fluid or free air is seen. ABDOMINAL WALL: No significant hernia is appreciated. LYMPH NODES: Normal. VASCULAR: Unremarkable. PELVIC VISCERA: Unremarkable. OSSEOUS STRUCTURES: Scattered degenerative changes noted in the spine. CT/CT abdomen pelvis w IV con IMPRESSION: Interval decrease in inflammation at the junction of the descending and sigmoid colon compared to 03/02/2022, consistent with improved diverticulitis. No evidence of abscess.
--- NOTE | ~2022-03-18 | XR_ITS ---
EXAMINATION: XR CHEST CLINICAL INFORMATION: Cough COMPARISON: 06/14/2021 TECHNIQUE: Frontal view of the chest was obtained. FINDINGS: The lungs are clear with no focal consolidation. No evidence of pneumothorax, pulmonary edema, or pleural effusions. The cardiomediastinal silhouette is unremarkable. No acute osseous findings. XR/XR chest 1V IMPRESSION: No acute cardiopulmonary findings.
[2022-03-18 21:14] VITALS: BP 132/90; PULSE 58; RESP 18; TEMP 36.7; O2SAT 98; BMI 27.3
[2022-03-19 00:03] LABS: MANUAL DIFF FLAG NO
[2022-03-19 00:06] LABS: Basophils Percent Auto 0.2 % (0-2); Eosinophils Absolute Auto 0.4 X10*3/uL (0.0-0.4); Eosinophils Percent Auto 3.1 % (0-4); Hematocrit 43.1 % (37.0-47.0); Hemoglobin 14.7 g/dl (12.0-16.0); Imm Gran Abs Auto 0.04 X10*3/uL (0.00-0.03); Imm Gran Pct Auto 0.3 % (0.0-0.4); Lymphocytes Absolute Auto 3.9 X10*3/uL (1.2-4.9); Lymphocytes Percent Auto 32.5 % (20-40); Mean Corpuscular HGB Conc 34.1 g/dl (31.0-35.0); Mean Corpuscular Volume 90.9 fL (80.0-98.0); Mean Platelet Volume 9.3 fL (9.4-12.3); Monocytes Absolute Auto 0.9 X10*3/uL (0.1-1.2); Monocytes Percent Auto 7.3 % (2-11); Neutrophils Absolute Auto 6.9 x10*3/uL (2.0-8.3); Neutrophils Percent Auto 56.6 % (45-73); Platelet Count 298 X10*3/uL (160-400); Red Blood Count 4.74 X10*6/uL (4.20-5.50); Red Cell Distribution Width 12.4 % (11.0-16.0); White Blood Count 12.1 X10*3/uL (4.8-10.8)
[2022-03-19 00:07] LABS: Appearance Urine Clear; Color Urine Yellow; Glucose Urine UA Negative (Negative); Leukocyte Esterase Urine Negative (Negative); Nitrite Urine Negative (Negative); Specific Gravity - Urine 1.015 (1.005-1.025); Urine Blood Negative (Negative); Urine Ketones Negative (Negative); Urine Protein Negative (Neg-Trace)
[2022-03-19 00:10] LABS: UPreg QC Valid YES; Urine Pregnancy NEGATIVE (NEGATIVE)
[2022-03-19 00:20] LABS: Anion Gap 12 (12-20); Blood Urea Nitrogen 20 mg/dL (9-16); Calcium 9.5 mg/dL (8.4-10.2); Carbon Dioxide 25 mmol/L (22-29); Chloride 106 mmol/L (96-108); Creatinine Clr Calc Pharmacy 72.3; Estimated Glomerular Filt Rate 53; Glucose Random 93 mg/dL (60-115); Lipase 30 U/L (8-78); Potassium 3.9 mmol/L (3.3-5.1); Sodium 139 mmol/L (135-145)
--- NOTE | 2022-03-19 00:52 | ED_ITS ---
HPI - Abdominal Pain General Chief Complaint: Abdominal Pain Stated Complaint: Abdominal pain Time Seen by Provider: 03/19/22 00:48 Source: patient Mode of arrival: ambulatory Limitations: no limitations History of Present Illness HPI narrative: Patient diagnosed with uncomplicated diverticulitis on 03/01 discharged on Cipro and Flagyl patient initially felt better after finished his course of antibiotics started having the pain again for last 2 days no fever no chills slight nausea no diarrhea no blood in the stool slightly decreased appetite Related Data Home Medications Medication Instructions Recorded Confirmed docusate sodium 100 mg capsule 100 mg PO DAILY 11/26/19 01/28/21 famotidine 40 mg tablet 40 mg PO BEDTIME 11/26/19 01/28/21 fexofenadine 180 mg tablet 180 mg PO DAILY 11/26/19 01/28/21 flu vacc [id number] 6mos up(PF) 60 ml IM ONCE 11/26/19 01/28/21 mcg(15 mcgx4)/0.5 mL IM syringe fluticasone propionate 50 2 spray intranasal BID 11/26/19 01/28/21 mcg/actuation nasal spray,suspension ipratropium bromide 42 mcg (0.06 2 spray intranasal BID 11/26/19 01/28/21 %) nasal spray naratriptan 2.5 mg tablet 2.5 mg PO DAILY PRN 11/26/19 01/28/21 nitrofurantoin 1 cap PO BID 11/26/19 01/28/21 monohydrate/macrocrystals 100 mg capsule omeprazole 20 mg capsule,delayed 20 mg PO DAILY 11/26/19 01/28/21 release potassium citrate 10 mEq (1,080 20 meq PO TID 11/26/19 01/28/21 mg) tablet,extended release pseudoephedrine HCl 30 mg tablet 0 mg PO 11/26/19 01/28/21 topiramate 100 mg tablet 0 mg PO 11/26/19 01/28/21 tramadol 50 mg tablet 0 mg PO 11/26/19 01/28/21 multivitamin 1 tab PO DAILY 05/30/20 01/28/21 bupropion HCl 300 mg 24 hr tablet, 300 mg PO DAILY 07/03/20 01/28/21 extended release pravastatin 20 mg tablet mg PO DAILY 07/03/20 01/28/21 sumatriptan succinate 6 mg/0.5 mL mg subcut 07/03/20 01/28/21 subcutaneous pen injector fluoride (sodium) 1.1 % dental appl PO 01/28/21 01/28/21 cream (Denta 5000 Plus) fluoride (sodium) 1.1 % dental PO 01/28/21 01/28/21 paste fluvoxamine 50 mg tablet 50 mg PO BEDTIME 01/28/21 01/28/21 loratadine 10 mg tablet 10 mg PO DAILY 01/28/21 01/28/21 omega-3 fatty acids 1,000 mg 0 mg PO BEDTIME 01/28/21 01/28/21 capsule omega-3 fatty acids-fish oil 300 0 cap PO BEDTIME 01/28/21 01/28/21 mg-1,000 mg capsule albuterol sulfate 90 mcg/actuation 2 puff inhalation Q2-4H PRN 06/04/21 aerosol inhaler calcium polycarbophil 625 mg 625 mg PO BID 06/04/21 tablet (Fiber Laxative (calcium polycarbophil)) fluvoxamine 100 mg tablet 100 mg PO DAILY 06/04/21 montelukast 10 mg tablet 10 mg PO BEDTIME 06/04/21 Previous Rx's Medication Instructions Recorded diphenhydramine HCl 25 mg capsule 25 mg PO Q6H PRN itching #14 caps 09/26/20 (Benadryl) doxycycline hyclate 100 mg tablet 100 mg PO BID #20 tabs 09/26/20 cefuroxime axetil 250 mg tablet 250 mg PO BID 7 days #14 tabs 12/11/20 ciprofloxacin HCl 500 mg tablet 500 mg PO Q12H Patient to start 01/28/21 (Cipro) medication if she is symptomatic 5 days #10 tabs estradiol 0.01% (0.1 mg/gram) 0.25 appful vaginal DAILY #42.5 05/27/21 vaginal cream grams nitrofurantoin macrocrystal 100 mg 100 mg PO DAILY 90 days #90 caps 06/04/21 capsule solifenacin 10 mg tablet (Vesicare) 10 mg PO DAILY OAB 30 days #90 tabs 06/25/21 ciprofloxacin HCl 500 mg tablet 500 mg PO BID #20 tabs 03/02/22 (Cipro) ibuprofen 400 mg tablet 400 mg PO TID PRN pain #20 tabs 03/02/22 metronidazole 500 mg tablet 500 mg PO BID 14 days #28 tabs 03/02/22 amoxicillin 875 mg-potassium 1 tab PO BID #20 tabs 03/19/22 clavulanate 125 mg tablet dicyclomine 20 mg tablet 20 mg PO QID PRN abdominal pain 03/19/22 #20 tabs Allergies Allergy/AdvReac Type Severity Reaction Status Date / Time sulfamethoxazole Allergy Intermediate HIVES Verified 03/01/22 22:07 [From BACTRIM] trimethoprim [From BACTRIM] Allergy Intermediate HIVES Verified 03/01/22 22:07 Sulfa (Sulfonamide Allergy Unknown Heartburn Verified 03/01/22 22:07 Antibiotics) Review of Systems Review of Systems Yes all other systems are reviewed and are negative [facility] Past Medical History Medical History Anxiety Depression History of diverticulitis Kidney stones Migraines Rectal bleeding UTI (urinary tract infection) Family History Family History Father Acute leukemia Mother FH: kidney cancer FH: pancreatic cancer Paternal Uncle Acute leukemia Social History Social History Alcohol intake: never Patient Tobacco Use Status: Never used Tobacco Smoked in Last 30 Days: No Use of substances other than those prescribed or required for medical reasons: No Advance Directives: No Advance Directives Information Provided: Yes Patient : No Physical Exam ED Vital Signs: Vital Signs - 24 hr 03/18/22 21:14 03/19/22 01:11 Temperature 98.1 F 98.7 F Pulse Rate 58 65 Respiratory Rate 18 16 Blood Pressure 132/90 H 129/85 Pulse Oximetry 98 97 Oxygen Delivery Method Room Air Room Air BMI result Body Mass Index 27.3 Appearance: Alert. Oriented X3. No acute distress. Eyes: PERRLA, No Nystagmus ENT: Pharynx normal. Oral Mucosa moist Neck: Normal inspection. Neck supple. CVS: Normal heart rate and rhythm. Pulses normal. Respiratory: No respiratory distress. Equal air entry bilateral, no wheezing/rales/rhonchi Abdomen: Soft deep tenderness left lower quadrant slight guarding no rebound tenderness Bowel sounds are present, no mass palpable, no CVA tenderness Skin: Skin warm and dry. Normal skin color. Normal skin turgor. Extremities: No lower extremity edema. No calf tenderness Neuro: Oriented X 3. No motor deficit. No sensory deficit.No cerebellar signs , cranial nerves II-XII intact Medical Decision Making Medical Decision Making [facility] Narrative: CT scan showed improvement diverticulitis will discharge patient home on Augmentin for another 10 days Lab Data [facility] Lab Attestation statement: I reviewed the patient's lab results. 03/18/22 23:54 03/18/22 23:54 Labs: Lab Results 03/18/22 03/18/22 03/18/22 Range/Units 23:54 23:54 23:54 WBC 12.1 H (4.8-10.8) X10*3/uL RBC 4.74 (4.20-5.50) X10*6/uL Hgb 14.7 (12.0-16.0) g/dl Hct 43.1 (37.0-47.0) % MCV 90.9 (80.0-98.0) fL MCH 31.0 (27.0-33.0) pg MCHC 34.1 (31.0-35.0) g/dl RDW 12.4 (11.0-16.0) % Plt Count 298 (160-400) X10*3/uL MPV 9.3 L (9.4-12.3) fL Immature Gran % (Auto) 0.3 (0.0-0.4) % Neut % (Auto) 56.6 (45-73) % Lymph % (Auto) 32.5 (20-40) % [place] % (Auto) 7.3 (2-11) % Eos % (Auto) 3.1 (0-4) % Baso % (Auto) 0.2 (0-2) % Lymph # (Auto) 3.9 (1.2-4.9) X10*3/uL [place] # (Auto) 0.9 (0.1-1.2) X10*3/uL Eos # (Auto) 0.4 (0.0-0.4) X10*3/uL Baso # (Auto) 0.0 (0.0-0.2) X10*3/uL Abs Immat Gran (auto) 0.04 H (0.00-0.03) X10*3/uL Absolute Neuts (auto) 6.9 (2.0-8.3) x10*3/uL Absolute Nucleated RBC 0.000 (0.0-0.012) X10*3/uL Nucleated RBC % (auto) 0.0 (0.0-0.2) /100WBC Sodium 139 (135-145) mmol/L Potassium 3.9 (3.3-5.1) mmol/L Chloride 106 (96-108) mmol/L Carbon Dioxide 25 (22-29) mmol/L Anion Gap 12 (12-20) BUN 20 H (9-16) mg/dL Creatinine 1.10 (0.5-1.4) mg/dL Estim Creat Clear Calc 72.3 Estimated GFR 53 Random Glucose 93 (60-115) mg/dL Lactic Acid (0.5-2.0) mmol/L Calcium 9.5 (8.4-10.2) mg/dL Lipase 30 (8-78) U/L Urine Color Yellow Urine Appearance Clear Urine pH 6.0 (5.0-9.0) Ur Specific [place] 1.015 (1.005-1.025) Urine Protein Negative (Neg-Trace) mg/dL Urine Glucose (UA) Negative (Negative) mg/dL Urine Ketones Negative (Negative) mg/dL Urine Blood Negative (Negative) Urine Nitrite Negative (Negative) Ur Leukocyte Esterase Negative (Negative) Urine Test (NEGATIVE) 03/18/22 03/19/22 Range/Units 23:54 01:24 WBC (4.8-10.8) X10*3/uL RBC (4.20-5.50) X10*6/uL Hgb (12.0-16.0) g/dl Hct (37.0-47.0) % MCV (80.0-98.0) fL MCH (27.0-33.0) pg MCHC (31.0-35.0) g/dl RDW (11.0-16.0) % Plt Count (160-400) X10*3/uL MPV (9.4-12.3) fL Immature Gran % (Auto) (0.0-0.4) % Neut % (Auto) (45-73) % Lymph % (Auto) (20-40) % [place] % (Auto) (2-11) % Eos % (Auto) (0-4) % Baso % (Auto) (0-2) % Lymph # (Auto) (1.2-4.9) X10*3/uL [place] # (Auto) (0.1-1.2) X10*3/uL Eos # (Auto) (0.0-0.4) X10*3/uL Baso # (Auto) (0.0-0.2) X10*3/uL Abs Immat Gran (auto) (0.00-0.03) X10*3/uL Absolute Neuts (auto) (2.0-8.3) x10*3/uL Absolute Nucleated RBC (0.0-0.012) X10*3/uL Nucleated RBC % (auto) (0.0-0.2) /100WBC Sodium (135-145) mmol/L Potassium (3.3-5.1) mmol/L Chloride (96-108) mmol/L Carbon Dioxide (22-29) mmol/L Anion Gap (12-20) BUN (9-16) mg/dL Creatinine (0.5-1.4) mg/dL Estim Creat Clear Calc Estimated GFR Random Glucose (60-115) mg/dL Lactic Acid 1.4 (0.5-2.0) mmol/L Calcium (8.4-10.2) mg/dL Lipase (8-78) U/L Urine Color Urine Appearance Urine pH (5.0-9.0) Ur Specific [place] (1.005-1.025) Urine Protein (Neg-Trace) mg/dL Urine Glucose (UA) (Negative) mg/dL Urine Ketones (Negative) mg/dL Urine Blood (Negative) Urine Nitrite (Negative) Ur Leukocyte Esterase (Negative) Urine Test NEGATIVE (NEGATIVE) Medications Administered Discontinued Medications Generic Name Dose Route Start Last Admin Trade Name Freq PRN Reason Stop Dose Admin Sodium Chloride 1,000 mls @ 999 mls/hr 03/19/22 00:55 03/19/22 02:36 Ns IV 03/19/22 01:55 Infused .Q1H1M ONE Infusion Piperacillin Sod/Tazobactam 50 mls @ 100 mls/hr 03/19/22 02:56 03/19/22 03:06 Sod 3.375 gm/ Sodium Chloride IV 03/19/22 03:25 100 mls/hr ONCE ONE Administration Iohexol 85 ml 03/19/22 01:27 03/19/22 01:28 Iohexol 350 Mg/Ml 100 Ml Infus..Btl IV 03/19/22 01:28 85 ml ONCE ONE Administration Morphine Sulfate 4 mg 03/19/22 00:57 03/19/22 01:35 Morphine Sulfate 4 Mg/Ml Cartridge IVPUSH 03/19/22 00:58 Not Given ONCE ONE Protocol Ondansetron HCl 4 mg 03/19/22 00:57 03/19/22 01:36 Ondansetron Hcl 4 Mg/2 Ml Vial IVPUSH 03/19/22 00:58 Not Given ONCE ONE Discharge Plan Discharge Clinical Impression: Diverticulitis Patient Disposition: Home, Self-Care Instructions: Diverticulitis (ED) Additional Instructions: Clear liquids advanced as tolerated Antibiotic as prescribed Report to the ER if worsening of the pain Prescriptions: New amoxicillin-pot clavulanate 875-125 mg tablet 1 tab PO BID Qty: 20 0RF dicyclomine 20 mg tablet 20 mg PO QID PRN (Reason: abdominal pain) Qty: 20 0RF No Action estradiol 0.01 % (0.1 mg/gram) cream 0.25 appful vaginal DAILY Qty: 42.5 2RF Rx Instructions: Pea size amount on urethra solifenacin [Vesicare] 10 mg tablet 10 mg PO DAILY 30 Days Qty: 90 1RF diphenhydramine HCl [Benadryl] 25 mg capsule 25 mg PO Q6H PRN (Reason: itching) Qty: 14 0RF doxycycline hyclate 100 mg tablet 100 mg PO BID Qty: 20 0RF cefuroxime axetil 250 mg tablet 250 mg PO BID 7 Days Qty: 14 0RF metronidazole 500 mg tablet 500 mg PO BID 14 Days Qty: 28 0RF ciprofloxacin HCl [Cipro] 500 mg tablet 500 mg PO BID Qty: 20 0RF ibuprofen 400 mg tablet 400 mg PO TID PRN (Reason: pain) Qty: 20 0RF tramadol 50 mg tablet 0 mg PO omeprazole 20 mg capsule,delayed release(DR/EC) 20 mg PO DAILY pseudoephedrine HCl 30 mg tablet 0 mg PO naratriptan 2.5 mg tablet 2.5 mg PO DAILY PRN docusate sodium 100 mg capsule 100 mg PO DAILY famotidine 40 mg tablet 40 mg PO BEDTIME potassium citrate 10 mEq (1,080 mg) tablet extended release 20 meq PO TID Fluzone Quad [id number] (PF) 60 mcg (15 mcg x 4)/0.5 mL syringe IM ONCE nitrofurantoin monohyd/m-cryst 100 mg capsule 1 cap PO BID fluticasone propionate 50 mcg/actuation spray,suspension 2 spray intranasal BID topiramate 100 mg tablet 0 mg PO ipratropium bromide 42 mcg (0.06 %) spray,non-aerosol 2 spray intranasal BID fexofenadine 180 mg tablet 180 mg PO DAILY bupropion HCl 300 mg tablet extended release 24 hr 300 mg PO DAILY pravastatin 20 mg tablet PO DAILY sumatriptan succinate 6 mg/0.5 mL pen injector subcut multivitamin Tablet 1 tab PO DAILY montelukast 10 mg tablet 10 mg PO BEDTIME albuterol sulfate 90 mcg/actuation HFA aerosol inhaler 2 puff inhalation Q2-4H PRN calcium polycarbophil [Fiber Laxative (ca polycarbo)] 625 mg tablet 625 mg PO BID fluvoxamine 100 mg tablet 100 mg PO DAILY nitrofurantoin macrocrystal 100 mg capsule 100 mg PO DAILY 90 Days Qty: 90 2RF Rx Instructions: must administer with a meal/food fluoride (sodium) 1.1 % paste PO fluvoxamine 50 mg tablet 50 mg PO BEDTIME omega-3 fatty acids-fish oil 300-1,000 mg capsule 0 cap PO BEDTIME loratadine 10 mg tablet 10 mg PO DAILY fluoride (sodium) [Denta 5000 Plus] 1.1 % cream PO omega-3 fatty acids 1,000 mg capsule 0 mg PO BEDTIME ciprofloxacin HCl [Cipro] 500 mg tablet 500 mg PO Q12H 5 Days Qty: 10 0RF Interventions: ED Discharge Assessment Last Done: 03/19/22 03:36 Discharge Date/Time: 03/19/22 03:38
[2022-03-19 01:11] VITALS: BP 129/85; PULSE 65; RESP 16; TEMP 37.1; O2SAT 97
[2022-03-19] MEDS: iohexoL 350 MG/ML 100 ML INFUS..BTL 85 ML IV (01:28)
[2022-03-19] MEDS: 0.9 % Sodium Chloride 1,000 ML 999 ML IV (01:35)
[2022-03-19 01:45] LABS: Lactic Acid 1.4 mmol/L (0.5-2.0)
[2022-03-19] MEDS: Piperacillin Sodium/Tazobactam 3.375 GM in 0.9 % Sodium Chloride 50 ML IV (03:06)
== END 2022-03-19 03:38 | disposition home or self-care (01) ==
PROVIDERS: Emergency Provider Internal Medicine; PCP Internal Medicine
DX: K57.32 Diverticulitis of large intestine without perforation or abscess without bleeding (principal); R10.9 Unspecified abdominal pain; Z79.899 Other long term (current) drug therapy
CPT/HCPCS: 36415; 71045; 74177; 80048; 81003; 81025; 83605; 83690; 85025; 87040; 96361; 96374; 99284; J2543; Q9967

== ENCOUNTER 2022-05-05 10:19 | Day surgery (SDC) | payer OTHER, SELFPAY ==
--- NOTE | 2022-05-02 10:47 | P.CONAN_ITS ---
Documented by User: Bel Lu NP 05/02/22 10:48 HPI - Anesthesia Eval Consult details Narrative: 46yo F for Upper Endoscopy PMFSH Active Problems Active Problems: All Active Problems (Updated 03/20/22 @ 00:01 by Mike Ramos) Urinary frequency (Acute) Recurrent UTI (Acute) UTI (urinary tract infection) (Acute) Sleep disorder, unspecified (Acute) History of diverticulitis (Acute) Rectal bleeding (Acute) Past Medical History Medical History Anxiety Depression History of diverticulitis Kidney stones Migraines Rectal bleeding UTI (urinary tract infection) Family History Family History Father Acute leukemia Mother FH: kidney cancer FH: pancreatic cancer Paternal Uncle Acute leukemia Social History Social History Alcohol intake: never Patient Tobacco Use Status: Never used Tobacco Use of substances other than those prescribed or required for medical reasons: No Advance Directives: No Advance Directives Information Provided: Yes Meds Allergies Allergy/AdvReac Type Severity Reaction Status Date / Time sulfamethoxazole Allergy Intermediate HIVES Verified 03/01/22 22:07 [From BACTRIM] trimethoprim [From BACTRIM] Allergy Intermediate HIVES Verified 03/01/22 22:07 Sulfa (Sulfonamide Allergy Unknown Heartburn Verified 03/01/22 22:07 Antibiotics) Home Medications Medication Instructions Recorded Confirmed Last Taken Type docusate sodium 100 mg capsule 100 mg PO DAILY 11/26/19 01/28/21 Unknown History famotidine 40 mg tablet 40 mg PO BEDTIME 11/26/19 01/28/21 Unknown History fexofenadine 180 mg tablet 180 mg PO DAILY 11/26/19 01/28/21 Unknown History flu vacc [id number] 6mos up(PF) 60 ml IM ONCE 11/26/19 01/28/21 Unknown History mcg(15 mcgx4)/0.5 mL IM syringe fluticasone propionate 50 2 spray intranasal BID 11/26/19 01/28/21 Unknown History mcg/actuation nasal spray,suspension ipratropium bromide 42 mcg (0.06 2 spray intranasal BID 11/26/19 01/28/21 Unknown History %) nasal spray naratriptan 2.5 mg tablet 2.5 mg PO DAILY PRN 11/26/19 01/28/21 Unknown History omeprazole 20 mg capsule,delayed 20 mg PO DAILY 11/26/19 01/28/21 Unknown History release potassium citrate 10 mEq (1,080 20 meq PO TID 11/26/19 01/28/21 Unknown History mg) tablet,extended release pseudoephedrine HCl 30 mg tablet 0 mg PO 11/26/19 01/28/21 Unknown History topiramate 100 mg tablet 0 mg PO 11/26/19 01/28/21 Unknown History tramadol 50 mg tablet 0 mg PO 11/26/19 01/28/21 Unknown History multivitamin 1 tab PO DAILY 05/30/20 01/28/21 Unknown History bupropion HCl 300 mg 24 hr tablet, 300 mg PO DAILY 07/03/20 01/28/21 Unknown History extended release pravastatin 20 mg tablet mg PO DAILY 07/03/20 01/28/21 Unknown History sumatriptan succinate 6 mg/0.5 mL mg subcut 07/03/20 01/28/21 Unknown History subcutaneous pen injector fluoride (sodium) 1.1 % dental appl PO 01/28/21 01/28/21 Unknown History cream (Denta 5000 Plus) fluoride (sodium) 1.1 % dental PO 01/28/21 01/28/21 Unknown History paste fluvoxamine 50 mg tablet 50 mg PO BEDTIME 01/28/21 01/28/21 Unknown History loratadine 10 mg tablet 10 mg PO DAILY 01/28/21 01/28/21 Unknown History omega-3 fatty acids 1,000 mg 0 mg PO BEDTIME 01/28/21 01/28/21 Unknown History capsule omega-3 fatty acids-fish oil 300 0 cap PO BEDTIME 01/28/21 01/28/21 Unknown History mg-1,000 mg capsule albuterol sulfate 90 mcg/actuation 2 puff inhalation Q2-4H PRN 06/04/21 Unknown History aerosol inhaler calcium polycarbophil 625 mg 625 mg PO BID 06/04/21 Unknown History tablet (Fiber Laxative (calcium polycarbophil)) fluvoxamine 100 mg tablet 100 mg PO DAILY 06/04/21 Unknown History montelukast 10 mg tablet 10 mg PO BEDTIME 06/04/21 Unknown History Exam Exam Date and Time: May 02, 2022 1047 Assessment and Plan Assessment Anesthesia Assessment: Chart Reviewed Documented by User: Isaiah Dumont MD 05/05/22 11:32 PMF Past Medical History Medical History Anxiety Depression History of diverticulitis Kidney stones Migraines Rectal bleeding UTI (urinary tract infection) Family History Family History Father Acute leukemia Mother FH: kidney cancer FH: pancreatic cancer Paternal Uncle Acute leukemia Family history of problems with anesthesia: No Surgical History History of Problems with Anesthesia: No Social History Social History Alcohol intake: never Patient Tobacco Use Status: Never used Tobacco Use of substances other than those prescribed or required for medical reasons: No Advance Directives: No Advance Directives Information Provided: Yes Meds Allergies Allergy/AdvReac Type Severity Reaction Status Date / Time sulfamethoxazole Allergy Intermediate HIVES Verified 03/01/22 22:07 [From BACTRIM] trimethoprim [From BACTRIM] Allergy Intermediate HIVES Verified 03/01/22 22:07 Sulfa (Sulfonamide Allergy Unknown Heartburn Verified 03/01/22 22:07 Antibiotics) Home Medications Medication Instructions Recorded Confirmed Last Taken Type docusate sodium 100 mg capsule 100 mg PO DAILY 11/26/19 01/28/21 Unknown History famotidine 40 mg tablet 40 mg PO BEDTIME 11/26/19 01/28/21 Unknown History fexofenadine 180 mg tablet 180 mg PO DAILY 11/26/19 01/28/21 Unknown History flu vacc [id number] 6mos up(PF) 60 ml IM ONCE 11/26/19 01/28/21 Unknown History mcg(15 mcgx4)/0.5 mL IM syringe fluticasone propionate 50 2 spray intranasal BID 11/26/19 01/28/21 Unknown History mcg/actuation nasal spray,suspension ipratropium bromide 42 mcg (0.06 2 spray intranasal BID 11/26/19 01/28/21 Unknown History %) nasal spray naratriptan 2.5 mg tablet 2.5 mg PO DAILY PRN 11/26/19 01/28/21 Unknown History omeprazole 20 mg capsule,delayed 20 mg PO DAILY 11/26/19 01/28/21 Unknown History release potassium citrate 10 mEq (1,080 20 meq PO TID 11/26/19 01/28/21 Unknown History mg) tablet,extended release pseudoephedrine HCl 30 mg tablet 0 mg PO 11/26/19 01/28/21 Unknown History topiramate 100 mg tablet 0 mg PO 11/26/19 01/28/21 Unknown History tramadol 50 mg tablet 0 mg PO 11/26/19 01/28/21 Unknown History multivitamin 1 tab PO DAILY 05/30/20 01/28/21 Unknown History bupropion HCl 300 mg 24 hr tablet, 300 mg PO DAILY 07/03/20 01/28/21 Unknown History extended release pravastatin 20 mg tablet mg PO DAILY 07/03/20 01/28/21 Unknown History sumatriptan succinate 6 mg/0.5 mL mg subcut 07/03/20 01/28/21 Unknown History subcutaneous pen injector fluoride (sodium) 1.1 % dental appl PO 01/28/21 01/28/21 Unknown History cream (Denta 5000 Plus) fluoride (sodium) 1.1 % dental PO 01/28/21 01/28/21 Unknown History paste fluvoxamine 50 mg tablet 50 mg PO BEDTIME 01/28/21 01/28/21 Unknown History loratadine 10 mg tablet 10 mg PO DAILY 01/28/21 01/28/21 Unknown History omega-3 fatty acids 1,000 mg 0 mg PO BEDTIME 01/28/21 01/28/21 Unknown History capsule omega-3 fatty acids-fish oil 300 0 cap PO BEDTIME 01/28/21 01/28/21 Unknown Hist ory mg-1,000 mg capsule albuterol sulfate 90 mcg/actuation 2 puff inhalation Q2-4H PRN 06/04/21 Unknown History aerosol inhaler calcium polycarbophil 625 mg 625 mg PO BID 06/04/21 Unknown History tablet (Fiber Laxative (calcium polycarbophil)) fluvoxamine 100 mg tablet 100 mg PO DAILY 06/04/21 Unknown History montelukast 10 mg tablet 10 mg PO BEDTIME 06/04/21 Unknown History Exam Airway Mallampati Class: II TM Dist: >3cm Neck ROM: Full Heart: rrr Lungs: cta Assessment and Plan Assessment Anesthesia Assessment: Anesthesia Plan Discussed Final Anesthetic Review Family History of Problems with Anesthesia: No History of Problems with Anesthesia: No NPO: Yes ASA Class: II Final Preanesthetic Review: No Changes in Pt Med Stat, Meds/Allgs Chart Reviewed, Consent Obtained/Reviewed and Anes Risks/Benef Reviewed Patient Risk: Low Procedure Risk: Low Anesthetic Plan Disposition: Standard PACU
[2022-05-05 10:57] LABS: UPreg QC Valid YES; Urine Pregnancy NEGATIVE (NEGATIVE)
[2022-05-05 11:10] VITALS: BP 122/77; PULSE 73; RESP 16; TEMP 36.5; O2SAT 96; BMI 28.0
[2022-05-05 12:23] VITALS: BP 106/71; PULSE 80; RESP 20; TEMP 36.5; O2SAT 98
--- NOTE | 2022-05-05 12:25 | P.BOP_ITS ---
Brief Operative Note Date of Service: 05/05/22 Pre-op diagnosis: GERD, Coburn's Post-op diagnosis: other (Same, Hiatal hernia) Procedure: EGD with biopsies Surgeon: Hieu Nascimento Anesthesia: MAC Was an Communications Billing Analyst used for this Procedure?: No Estimated blood loss (mL): 2.0 Pathology: other (A. EG Junction at 36cm) Condition: stable Disposition: PACU
[2022-05-05 12:38] VITALS: BP 114/73; PULSE 64; RESP 20; O2SAT 96
[2022-05-05 12:53] VITALS: BP 105/73; PULSE 60; RESP 20; TEMP 36.6; O2SAT 97
[2022-05-05 12:57] VITALS: BP 112/68; PULSE 60; RESP 20; TEMP 36.6; O2SAT 97
--- NOTE | 2022-05-05 13:16 | OP_ITS ---
SURGEON: Hieu Nascimento MD INDICATIONS: The patient presents for evaluation of chronic gastroesophageal reflux and history of Coburn's esophagus. Full consent has been obtained from her for this, including risks of bleeding and perforation. PREOPERATIVE DIAGNOSIS: POSTOPERATIVE DIAGNOSIS: PROCEDURE PERFORMED: Esophagogastroduodenoscopy with biopsies. ESTIMATED BLOOD LOSS: COMPLICATIONS: ANESTHESIA: Monitored anesthesia care. ASSISTANTS: SPECIMENS: PREOPERATIVE DIAGNOSES: Gastroesophageal reflux and history of Coburn's esophagus. POSTOPERATIVE DIAGNOSES: Gastroesophageal reflux and history of Coburn's esophagus, hiatal hernia. DESCRIPTION OF PROCEDURE: The patient was placed in the left lateral decubitus position. The Olympus video gastroscope was passed into the posterior oropharynx and upper esophagus under direct vision. The scope was passed slowly to the distal esophagus. The gastroesophageal junction appeared at 36 cm. There was no sign of any esophagitis. There was evidence of some irregularity of the mucosa at the EG junction and some edema. There is no sign of any stricture or no mass. The scope entered into the stomach. There was a [id number] size hiatal hernia. The hiatal hernia mucosa appeared normal. The scope was advanced to the pylorus, and the duodenum was cannulated to the descending portion. The duodenum including the bulb appeared normal without any sign of mass or ulceration. The scope was withdrawn back in the stomach. The gastric antrum and body appeared normal with good peristalsis. The scope was retroflexed visualizing the proximal stomach carefully, which appeared normal, without any sign of mass or ulceration. The scope was straightened and withdrawn back in the esophagus. Biopsies were obtained at the EG junction at 36 cm. Proximal to this, the esophageal mucosa appeared normal. The scope was withdrawn from the patient. She tolerated the procedure well and was returned to the recovery area in stable condition. IMPRESSION: 1. Hiatal hernia. 2. Gastroesophageal reflux, rule out Coburn's esophagus. PLAN: The results of the biopsies will be checked. If this is negative for Coburn's esophagus, I do not think she would need any further upper endoscopies. If there is Coburn esophagus without dysplasia, I would then recommend a repeat upper endoscopy in 3 years. She was advised to continue her daily omeprazole for relief of her reflux. She will otherwise see me on a p.r.n. basis. MD EFRAÍN Barrientos/SMILEY / [id number] DARON
== END 2022-05-05 13:20 | disposition home or self-care (01) ==
PROVIDERS: Nurse Practitioner; PCP Internal Medicine; Visit Provider Internal Medicine
PROC: 0DJ08ZZ Inspection of Upper Intestinal Tract, Via Natural or Artificial Opening Endoscopic (ICD-10-PCS; CPT 43235; principal; 2022-05-05 11:30)
DX: K21.9 Gastro-esophageal reflux disease without esophagitis (principal); Z87.19 Personal history of other diseases of the digestive system; K44.9 Diaphragmatic hernia without obstruction or gangrene; J45.909 Unspecified asthma, uncomplicated; G43.909 Migraine, unspecified, not intractable, without status migrainosus; F41.8 Other specified anxiety disorders; Z79.899 Other long term (current) drug therapy; Z88.1 Allergy status to other antibiotic agents; Z88.2 Allergy status to sulfonamides; Z87.442 Personal history of urinary calculi
CPT/HCPCS: 43239; 81025; 88305

== ENCOUNTER → 2022-05-08 09:36 | Outpatient (BNVA) | payer OTHER, SELFPAY | PROVIDERS: PCP Internal Medicine; Visit Provider Urology | DX: N39.0 Urinary tract infection, site not specified (principal); N30.90 Cystitis, unspecified without hematuria | CPT/HCPCS: 51798; 99212 ==

== ENCOUNTER 2022-06-25 11:16 | Outpatient (REF) | payer OTHER, SELFPAY ==
[2022-06-25 14:24] LABS: Alanine Aminotransferase 23 U/L (0-31); Albumin Level 4.4 g/dL (3.5-5.0); Alkaline Phosphatase 87 U/L (39-117); Anion Gap 11 (12-20); Aspartate Amino Transferase 14 U/L (5-31); Bilirubin Total 0.4 mg/dL (0.0-1.0); Blood Urea Nitrogen 15 mg/dL (9-16); Calcium 9.1 mg/dL (8.4-10.2); Carbon Dioxide 23 mmol/L (22-29); Chloride 110 mmol/L (96-108); Cholesterol 192 mg/dL; Estimated Glomerular Filt Rate 49; Glucose Random 99 mg/dL (60-115); HDL Cholesterol 36 mg/dL; LDL Cholesterol Calculated 130 mg/dl; Potassium 4.4 mmol/L (3.3-5.1); Sodium 140 mmol/L (135-145); Total Protein 7.2 g/dL (6.5-8.0); Triglycerides 132 mg/dL
[2022-06-25 14:27] LABS: Thyroid Stimulating Hormone 2.76 uIU/mL (0.32-4.0)
== END 2022-06-25 11:17 | disposition home or self-care (01) ==
LOC: HO.10HDL 11:16
PROVIDERS: Visit Provider Internal Medicine
DX: E78.00 Pure hypercholesterolemia, unspecified (principal); N18.30 Chronic kidney disease, stage 3 unspecified; R19.7 Diarrhea, unspecified
CPT/HCPCS: 36415; 80053; 80061; 84443

== ENCOUNTER 2022-08-11 07:38 | Outpatient (REF) | payer OTHER, SELFPAY ==
--- NOTE | ~2022-08-11 | MM_ITS ---
EXAMINATION: MM SCREENING DIGITAL BREAST TOMOSYNTHESIS, BILATERAL CLINICAL INFORMATION: Screening. Asymptomatic. The lifetime risk of breast cancer based on the Tyrer-Cuzick Model is 18%. COMPARISON: Mammography: 08/09/2021, 08/06/2020, 08/05/2019, 10/11/2018, 10/08/2017 TECHNIQUE: Digital breast tomosynthesis is performed in both the craniocaudal and mediolateral oblique views along with computer-aided detection (CAD). Synthesized 2D images are generated from the tomosynthesis. FINDINGS: The breasts are heterogeneously dense, which may obscure small masses (ACR BI-RADS breast composition Category c). There is a similar fibronodular parenchymal pattern. Left breast shows no significant mass and no developing density. Neither breast shows architectural abnormality or abnormal calcifications. The axilla and skin contours are unremarkable. Right CC view has 0.7 cm nodular asymmetric density just medial to midline 7 cm from nipple mid tomographic stack without MLO correlate. Patient will be recalled to further characterize. This may represent summation artifact or incompletely compressed glandular tissue. MM/MM tomosynthesis screening BI IMPRESSION: Right: -Nodular asymmetric density limited to CC view just medial to midline 7 cm from nipple, possibly summation artifact or incompletely compressed glandular tissue. Left: -No mammographic evidence of malignancy. ASSESSMENT: BI-RADS 0: Incomplete - Need Additional Imaging Evaluation RECOMMENDATION: 1. Additional views right breast: Spot CC, rolled CC x2. 2. Targeted ultrasound if warranted after review of the additional views. 3. Radiology department staff will contact the patient for additional imaging. This patient's information was entered into a reminder system with a target due date for their next mammogram.
== END 2022-08-11 07:39 | disposition home or self-care (01) ==
LOC: HO.MAMMO 07:38
PROVIDERS: PCP Internal Medicine; Visit Provider Internal Medicine
DX: Z12.31 Encounter for screening mammogram for malignant neoplasm of breast (principal)
CPT/HCPCS: 77063; 77067

== ENCOUNTER 2022-08-20 07:45 | Outpatient (REF) | payer OTHER, SELFPAY ==
--- NOTE | ~2022-08-20 | MM_ITS ---
EXAMINATION: MM DIAGNOSTIC DIGITAL BREAST TOMOSYNTHESIS, RIGHT US DIAGNOSTIC ULTRASOUND BREAST, RIGHT CLINICAL INFORMATION: Recall from screening for question of 0.7 cm nodular asymmetric density mid breast. COMPARISON: Prior mammography exams including most recent 08/11/2022. TECHNIQUE: Digital breast tomosynthesis is performed. 2D images are generated from the tomosynthesis. The following views are obtained: Rolled CC, spot CC, spot LM. Ultrasound right breast is targeted to the central breast interrogated from the upper breast and lower breast. Patient is imaged with right arm elevated and down and also semiupright and supine. Grayscale imaging and color Doppler are performed without and with harmonics. FINDINGS: The breasts are heterogeneously dense, which may obscure small masses (ACR BI-RADS breast composition Category c). The additional views demonstrate scattered fibroglandular densities without clearly discernible three-dimensional mass. No architectural abnormality. Ultrasound demonstrates a macrolobulated simple cyst central right breast best visualized from below with patient supine and right arm elevated. The cyst is circumscribed and measures approximately 0.8 x 0.5 cm. There is increased through-transmission of sound. No solid mass or architectural abnormality. Finding is believed to correspond to the area for recall on recent screening mammography. Results are discussed with the patient at time of visit. MM/MM tomosynthesis added views R IMPRESSION: -Simple cyst central right breast 0.8 cm corresponding to recent mammography. ASSESSMENT: BI-RADS 2: Benign RECOMMENDATION: Routine annual mammography screening. This patient's information was entered into a reminder system with a target due date for their next mammogram.
== END 2022-08-20 07:46 | disposition home or self-care (01) ==
LOC: HO.MAMMO 07:45
PROVIDERS: Visit Provider Internal Medicine
DX: R92.2 Inconclusive mammogram (principal)
CPT/HCPCS: 76642; 77061; 77065

== ENCOUNTER 2022-08-30 17:45 | Emergency (ER) | payer OTHER, SELFPAY ==
[2022-08-30 17:48] VITALS: BP 153/95; PULSE 90; RESP 16; TEMP 36.6; O2SAT 98; BMI 28.1
--- NOTE | 2022-08-30 17:48 | ED.HEATRA ---
HPI - Head Injury General Chief complaint: Head Injury Stated complaint: head inj,bump Time Seen by Provider: 08/30/22 18:27 Source: patient Mode of arrival: ambulatory Limitations: no limitations History of Present Illness HPI Narrative: 47-year-old female with a PMH of anxiety, depression, diverticulitis, renal stones, migraines, c/o acute on chronic migraine NICOLE s/p jewelry box falling on her head around lunchtime today. She denies LOC at the time. She has had a headache since a few hours afterward. She states the headache starts at the top of her head where the jewelry box fell onto her and extends posteriorly down her neck. She has been getting migraines the last few days. She follows w/ Neurology here and has an appointment in a couple of weeks. She has been taking her naratriptan without much improvement in her migraines. No vision changes, weakness, numbness or tingling. MD Complaint: head injury and head pain Onset (ago): hour(s) (4) Mechanism of Injury: other (jewelry box fell on head) Place: home Loss of Consciousness: no Location of injury: occipital Severity: moderate Severity scale (1-10): 7 Quality: aching Radiation: neck Other Injuries: none Associated symptoms: denies other symptoms Related Data Home Medications Medication Instructions Recorded Confirmed docusate sodium 100 mg capsule 100 mg PO DAILY 11/26/19 01/28/21 famotidine 40 mg tablet 40 mg PO BEDTIME 11/26/19 01/28/21 fexofenadine 180 mg tablet 180 mg PO DAILY 11/26/19 01/28/21 flu vacc [id number] 6mos up(PF) 60 ml IM ONCE 11/26/19 01/28/21 mcg(15 mcgx4)/0.5 mL IM syringe fluticasone propionate 50 2 spray intranasal BID 11/26/19 01/28/21 mcg/actuation nasal spray,suspension ipratropium bromide 42 mcg (0.06 2 spray intranasal BID 11/26/19 01/28/21 %) nasal spray naratriptan 2.5 mg tablet 2.5 mg PO DAILY PRN 11/26/19 01/28/21 omeprazole 20 mg capsule,delayed 20 mg PO DAILY 11/26/19 01/28/21 release potassium citrate 10 mEq (1,080 20 meq PO TID 11/26/19 01/28/21 mg) tablet,extended release pseudoephedrine HCl 30 mg tablet 0 mg PO 11/26/19 01/28/21 topiramate 100 mg tablet 0 mg PO 11/26/19 01/28/21 tramadol 50 mg tablet 0 mg PO 11/26/19 01/28/21 multivitamin 1 tab PO DAILY 05/30/20 01/28/21 bupropion HCl 300 mg 24 hr tablet, 300 mg PO DAILY 07/03/20 01/28/21 extended release pravastatin 20 mg tablet mg PO DAILY 07/03/20 01/28/21 sumatriptan succinate 6 mg/0.5 mL mg subcut 07/03/20 01/28/21 subcutaneous pen injector fluoride (sodium) 1.1 % dental appl PO 01/28/21 01/28/21 cream (Denta 5000 Plus) fluoride (sodium) 1.1 % dental PO 01/28/21 01/28/21 paste fluvoxamine 50 mg tablet 50 mg PO BEDTIME 01/28/21 01/28/21 loratadine 10 mg tablet 10 mg PO DAILY 01/28/21 01/28/21 omega-3 fatty acids 1,000 mg 0 mg PO BEDTIME 01/28/21 01/28/21 capsule omega-3 fatty acids-fish oil 300 0 cap PO BEDTIME 01/28/21 01/28/21 mg-1,000 mg capsule albuterol sulfate 90 mcg/actuation 2 puff inhalation Q2-4H PRN 06/04/21 aerosol inhaler calcium polycarbophil 625 mg 625 mg PO BID 06/04/21 tablet (Fiber Laxative (calcium polycarbophil)) fluvoxamine 100 mg tablet 100 mg PO DAILY 06/04/21 montelukast 10 mg tablet 10 mg PO BEDTIME 06/04/21 Previous Rx's Medication Instructions Recorded diphenhydramine HCl 25 mg capsule 25 mg PO Q6H PRN itching #14 caps 09/26/20 (Benadryl) doxycycline hyclate 100 mg tablet 100 mg PO BID #20 tabs 09/26/20 estradiol 0.01% (0.1 mg/gram) 0.25 appful vaginal DAILY #42.5 05/27/21 vaginal cream grams solifenacin 10 mg tablet (Vesicare) 10 mg PO DAILY OAB 30 days #90 tabs 06/25/21 ibuprofen 400 mg tablet 400 mg PO TID PRN pain #20 tabs 03/02/22 metronidazole 500 mg tablet 500 mg PO BID 14 days #28 tabs 03/02/22 dicyclomine 20 mg tablet 20 mg PO QID PRN abdominal pain 03/19/22 #20 tabs nitrofurantoin macrocrystal 100 mg 100 mg PO DAILY 30 days #30 caps 04/15/22 capsule itqrrkjnct-zkgrhddvweuyc-ktntrfxz 1 cap PO TID PRN pain #20 caps 08/30/22 50 mg-300 mg-40 mg capsule (Fioricet) Allergies Allergy/AdvReac Type Severity Reaction Status Date / Time sulfamethoxazole Allergy Intermediate HIVES Verified 05/08/22 09:41 [From BACTRIM] trimethoprim [From BACTRIM] Allergy Intermediate HIVES Verified 05/08/22 09:41 Sulfa (Sulfonamide Allergy Unknown Heartburn Verified 05/08/22 09:41 Antibiotics) Review of Systems Review of Systems: Yes all other systems are reviewed and are negative [facility] Past Medical History Medical History Anxiety Depression History of diverticulitis Kidney stones Migraines Rectal bleeding UTI (urinary tract infection) Family History Family History Father Acute leukemia Mother FH: kidney cancer FH: pancreatic cancer Paternal Uncle Acute leukemia Social History Social History Alcohol intake: never Patient Tobacco Use Status: Never used Tobacco Advance Directives: No Advance Directives Information Provided: No Physical Exam Vital Signs: Vital Signs: Last Vital Signs Temp 97.9 F 08/30/22 17:48 Pulse 90 08/30/22 17:48 Resp 16 08/30/22 17:48 BP 153/95 H 08/30/22 17:48 Pulse Ox 98 08/30/22 17:48 O2 Del Method Room Air 08/30/22 17:48 BMI result Body Mass Index 28.1 Appearance: Alert. Oriented X3. No acute distress. Head: normocephalic, atraumatic. no palpable swelling or hematoma. Eyes: Pupils equal, round and reactive to light. ENT: Pharynx normal. No tonsillar swelling or exudate. Neck: Normal inspection. Neck supple. NO midline tenderness, normal ROM CVS: Normal heart rate and rhythm. Pulses normal. Respiratory: No respiratory distress. Breath sounds normal. Abdomen: Soft and nontender. +BS x4 Skin: Skin warm and dry. Normal skin color. Normal skin turgor. No rashes. Extremities: No lower extremity edema. No joint swelling. Neuro/psych: Oriented X 3. No motor deficit. No sensory deficit. CN II-XII intact. Normal speech and cognition. Course Course Course Narrative: RME: 47-year-old female with a past medical history of anxiety, depression, diverticulitis, renal stones, migraines, c/o acute on chronic migraine NICOLE s/p jewelry box falling on her head around lunchtime today. Admits to taking her prescribed migraine medications with some relief. Denies LOC, vision change/loss, nausea/vomiting or taking anticoagulation. Patient states she is worried about internal bleeding as well as the COVID-19 vaccine which she obtained in January causing increasing migraine headaches. Has follow-up with her neurologist next week Small erythema noted to top of head with out hematoma or palpable step-off. No focal neuro deficits Discussed with patient based on [place] head CT rule does not require head CT, however patient states she would like to further workup. Migraine medications offered and refused Full HPI, ROS and PE to be performed by primary ED provider. Medications Administered Discontinued Medications Generic Name Dose Route Start Last Admin Trade Name Dimitryq PRN Reason Stop Dose Admin Diphenhydramine HCl 50 mg 08/30/22 18:54 08/30/22 19:16 Diphenhydramine Hcl 50 Mg/Ml Vial IVPUSH 08/30/22 18:55 50 mg ONCE ONE Administration Ketorolac Tromethamine 30 mg 08/30/22 18:54 08/30/22 19:16 Ketorolac Tromethamine 30 Mg/Ml Vial IVPUSH 08/30/22 18:55 30 mg ONCE ONE Administration Metoclopramide HCl 10 mg 08/30/22 18:54 08/30/22 19:16 Metoclopramide Hcl 10 Mg/2 Ml Vial IVPUSH 08/30/22 18:55 10 mg ONCE ONE Administration Medical Decision Making Medical Decision Making MDM Narrative: 47 y/o female with history of migraines presents to the ER for evaluation of migraine s/p minor head trauma today. Exam is unremarkable. No LOC or concerning symptoms. No need for CT head today. She was given IV reglan, benadryl and toradol with significant improvement in her symptoms. She would like to try new PO med PRN if able, will try PRN fiorcet. She will f/u with Neurology as scheduled in 2 weeks. Differential Diagnosis Differential Diagnoses: The differential diagnosis associated with the presentation includes migraine headache, cluster headache, tension headache, doubt ICH/SAH, epidural hematoma External Record Review External record reviewed: Outpatient record, Prior outpatient labs and Prior outpatient radiology Tests considered The following testing was considered but not selected: CT head considered Prescription Management I considered prescription management with: Pain Medication Chronic Conditions Patient?s care impacted by: Other (migraines) Critical Care Time Critical Care Time Critical Care Time: No Discharge Plan Discharge Clinical Impression: Closed head injury, Migraine Patient Disposition: Home, Self-Care Instructions: Migraine Headache (ED), Head Injury (ED) Additional Instructions: Take the prescribed mediation as needed for headache. Rest and drink plenty of fluid. Follow up with your Neurologist as scheduled. If you develop new or worsening symptoms call 911 or come back to the ER for further evaluation. Prescriptions: New zfwuyyozyg-jdekiqeorlbvf-pklg [Fioricet] 50-300-40 mg capsule 1 cap PO TID PRN (Reason: pain) Qty: 20 0RF No Action estradiol 0.01 % (0.1 mg/gram) cream 0.25 appful vaginal DAILY Qty: 42.5 2RF Rx Instructions: Pea size amount on urethra solifenacin [Vesicare] 10 mg tablet 10 mg PO DAILY 30 Days Qty: 90 1RF nitrofurantoin macrocrystal 100 mg capsule 100 mg PO DAILY 30 Days Qty: 30 0RF Rx Instructions: must administer with a meal/food diphenhydramine HCl [Benadryl] 25 mg capsule 25 mg PO Q6H PRN (Reason: itching) Qty: 14 0RF doxycycline hyclate 100 mg tablet 100 mg PO BID Qty: 20 0RF metronidazole 500 mg tablet 500 mg PO BID 14 Days Qty: 28 0RF ibuprofen 400 mg tablet 400 mg PO TID PRN (Reason: pain) Qty: 20 0RF dicyclomine 20 mg tablet 20 mg PO QID PRN (Reason: abdominal pain) Qty: 20 0RF tramadol 50 mg tablet 0 mg PO omeprazole 20 mg capsule,delayed release(DR/EC) 20 mg PO DAILY pseudoephedrine HCl 30 mg tablet 0 mg PO naratriptan 2.5 mg tablet 2.5 mg PO DAILY PRN docusate sodium 100 mg capsule 100 mg PO DAILY famotidine 40 mg tablet 40 mg PO BEDTIME potassium citrate 10 mEq (1,080 mg) tablet extended release 20 meq PO TID Fluzone Quad [id number] (PF) 60 mcg (15 mcg x 4)/0.5 mL syringe IM ONCE fluticasone propionate 50 mcg/actuation spray,suspension 2 spray intranasal BID topiramate 100 mg tablet 0 mg PO ipratropium bromide 42 mcg (0.06 %) spray,non-aerosol 2 spray intranasal BID fexofenadine 180 mg tablet 180 mg PO DAILY bupropion HCl 300 mg tablet extended release 24 hr 300 mg PO DAILY pravastatin 20 mg tablet PO DAILY sumatriptan succinate 6 mg/0.5 mL pen injector subcut multivitamin Tablet 1 tab PO DAILY montelukast 10 mg tablet 10 mg PO BEDTIME albuterol sulfate 90 mcg/actuation HFA aerosol inhaler 2 puff inhalation Q2-4H PRN calcium polycarbophil [Fiber Laxative (ca polycarbo)] 625 mg tablet 625 mg PO BID fluvoxamine 100 mg tablet 100 mg PO DAILY fluoride (sodium) 1.1 % paste PO fluvoxamine 50 mg tablet 50 mg PO BEDTIME omega-3 fatty acids-fish oil 300-1,000 mg capsule 0 cap PO BEDTIME loratadine 10 mg tablet 10 mg PO DAILY fluoride (sodium) [Denta 5000 Plus] 1.1 % cream PO omega-3 fatty acids 1,000 mg capsule 0 mg PO BEDTIME
[2022-08-30 21:16] VITALS: BP 147/87; PULSE 89; RESP 18; O2SAT 98
== END 2022-08-30 21:18 | disposition home or self-care (01) ==
PROVIDERS: Emergency Provider Internal Medicine; PCP Internal Medicine
DX: S09.90XA Unspecified injury of head, initial encounter (principal); W20.8XXA Other cause of strike by thrown, projected or falling object, initial encounter; G43.909 Migraine, unspecified, not intractable, without status migrainosus; Y93.9 Activity, unspecified; Y92.019 Unspecified place in single-family (private) house as the place of occurrence of the external cause; Y99.9 Unspecified external cause status; Z79.899 Other long term (current) drug therapy
CPT/HCPCS: 96374; 96375; 99284; 99285; J1200; J1885; J2765

== ENCOUNTER 2022-09-23 13:57 | Outpatient (REF) | payer OTHER, SELFPAY ==
[2022-09-23 14:20] LABS: MANUAL DIFF FLAG NO
[2022-09-23 14:55] LABS: Basophils Percent Auto 0.5 % (0-2); Eosinophils Absolute Auto 0.2 X10*3/uL (0.0-0.4); Eosinophils Percent Auto 2.6 % (0-4); Hematocrit 42.1 % (37.0-47.0); Hemoglobin 14.3 g/dl (12.0-16.0); Imm Gran Abs Auto 0.02 X10*3/uL (0.00-0.03); Imm Gran Pct Auto 0.2 % (0.0-0.4); Lymphocytes Absolute Auto 2.7 X10*3/uL (1.2-4.9); Lymphocytes Percent Auto 32.5 % (20-40); Mean Corpuscular Hemoglobin 31.7 pg (27.0-33.0); Mean Corpuscular Volume 93.3 fL (80.0-98.0); Mean Platelet Volume 9.8 fL (9.4-12.3); Monocytes Absolute Auto 0.6 X10*3/uL (0.1-1.2); Monocytes Percent Auto 6.9 % (2-11); Neutrophils Absolute Auto 4.7 x10*3/uL (2.0-8.3); Neutrophils Percent Auto 57.3 % (45-73); Platelet Count 298 X10*3/uL (160-400); Red Blood Count 4.51 X10*6/uL (4.20-5.50); Red Cell Distribution Width 12.2 % (11.0-16.0); White Blood Count 8.2 X10*3/uL (4.8-10.8)
[2022-09-23 15:34] LABS: Alanine Aminotransferase 24 U/L (0-31); Albumin Level 4.3 g/dL (3.5-5.0); Alkaline Phosphatase 77 U/L (39-117); Anion Gap 12 (12-20); Aspartate Amino Transferase 18 U/L (5-31); Bilirubin Total 0.3 mg/dL (0.0-1.0); Blood Urea Nitrogen 13 mg/dL (9-16); Calcium 8.9 mg/dL (8.4-10.2); Carbon Dioxide 20 mmol/L (22-29); Chloride 111 mmol/L (96-108); Cholesterol 205 mg/dL; Estimated Glomerular Filt Rate 43; Glucose Random 93 mg/dL (60-115); HDL Cholesterol 36 mg/dL; LDL Cholesterol Calculated 114 mg/dl; Potassium 3.8 mmol/L (3.3-5.1); Sodium 139 mmol/L (135-145); Total Protein 7.6 g/dL (6.5-8.0); Triglycerides 279 mg/dL
== END 2022-09-23 13:58 | disposition home or self-care (01) ==
LOC: HO.LAB 13:57
PROVIDERS: PCP Internal Medicine; Visit Provider Internal Medicine
DX: E78.00 Pure hypercholesterolemia, unspecified (principal); N18.30 Chronic kidney disease, stage 3 unspecified; R19.5 Other fecal abnormalities
CPT/HCPCS: 36415; 80053; 80061; 85025

== ENCOUNTER 2022-11-12 15:54 | Outpatient (REF) | payer OTHER, SELFPAY | END 2022-11-12 15:55 | disposition home or self-care (01) | LOC: HO.LAB 15:54 | PROVIDERS: PCP Internal Medicine; Visit Provider Internal Medicine | DX: R82.90 Unspecified abnormal findings in urine (principal) | CPT/HCPCS: 87086 ==

== ENCOUNTER 2022-12-23 15:03 | Outpatient (REF) | payer OTHER, SELFPAY ==
[2022-12-23 17:12] LABS: Alanine Aminotransferase 24 U/L (0-31); Albumin Level 4.4 g/dL (3.5-5.0); Alkaline Phosphatase 72 U/L (39-117); Anion Gap 16 (12-20); Aspartate Amino Transferase 20 U/L (5-31); Bilirubin Total 0.4 mg/dL (0.0-1.0); Blood Urea Nitrogen 10 mg/dL (9-16); Calcium 9.4 mg/dL (8.4-10.2); Carbon Dioxide 20 mmol/L (22-29); Chloride 109 mmol/L (96-108); Cholesterol 160 mg/dL (<200); Estimated Glomerular Filt Rate 53; Glucose Random 92 mg/dL (60-115); HDL Cholesterol 38 mg/dL (>40); LDL Cholesterol Calculated 97 mg/dL (<100); Potassium 3.8 mmol/L (3.3-5.1); Sodium 141 mmol/L (135-145); Total Protein 7.5 g/dL (6.5-8.0); Triglycerides 128 mg/dL (<150)
== END 2022-12-23 15:04 | disposition home or self-care (01) ==
LOC: HO.LAB 15:03
PROVIDERS: PCP Internal Medicine; Visit Provider Internal Medicine
DX: Z00.00 Encounter for general adult medical examination without abnormal findings (principal); E78.2 Mixed hyperlipidemia; N18.9 Chronic kidney disease, unspecified
CPT/HCPCS: 36415; 80053; 80061

== ENCOUNTER 2023-02-11 11:09 | Outpatient (REF) | payer OTHER, SELFPAY ==
[2023-02-11 13:41] LABS: Alanine Aminotransferase 19 U/L (0-31); Albumin Level 4.3 g/dL (3.5-5.0); Alkaline Phosphatase 79 U/L (39-117); Anion Gap 13 (12-20); Aspartate Amino Transferase 16 U/L (5-31); Bilirubin Total 0.3 mg/dL (0.0-1.0); Blood Urea Nitrogen 21 mg/dL (9-16); Carbon Dioxide 20 mmol/L (22-29); Chloride 112 mmol/L (96-108); Cholesterol 160 mg/dL (<200); Estimated Glomerular Filt Rate 49; Glucose Random 96 mg/dL (60-115); HDL Cholesterol 34 mg/dL (>40); LDL Cholesterol Calculated 92 mg/dL (<100); Potassium 3.6 mmol/L (3.3-5.1); Sodium 141 mmol/L (135-145); Total Protein 7.5 g/dL (6.5-8.0); Triglycerides 170 mg/dL (<150)
== END 2023-02-11 11:10 | disposition home or self-care (01) ==
LOC: HO.LAB 11:09
PROVIDERS: PCP Internal Medicine; Visit Provider Internal Medicine
DX: E78.00 Pure hypercholesterolemia, unspecified (principal); F25.9 Schizoaffective disorder, unspecified; F40.8 Other phobic anxiety disorders; N18.9 Chronic kidney disease, unspecified
CPT/HCPCS: 36415; 80053; 80061

== ENCOUNTER 2023-02-19 14:34 | Outpatient (REF) | payer OTHER, SELFPAY ==
[2023-02-19 16:31] LABS: Folate 14.8 ng/mL (> or = 4.0); Vitamin B12 813 pg/mL (200-900)
== END 2023-02-19 14:35 | disposition home or self-care (01) ==
LOC: HO.LAB 14:34
PROVIDERS: PCP Internal Medicine; Visit Provider Internal Medicine
DX: F40.8 Other phobic anxiety disorders (principal); G62.9 Polyneuropathy, unspecified; M54.50 Low back pain, unspecified; N18.9 Chronic kidney disease, unspecified
CPT/HCPCS: 36415; 82607; 82746

== ENCOUNTER 2023-03-24 12:17 | Outpatient (REF) | payer MEDICARE, SELFPAY ==
[2023-03-24 12:49] LABS: MANUAL DIFF FLAG NO
[2023-03-24 13:46] LABS: Basophils Absolute Auto 0.1 X10*3/uL (0.0-0.2); Basophils Percent Auto 0.5 % (0-2); Eosinophils Absolute Auto 0.3 X10*3/uL (0.0-0.4); Eosinophils Percent Auto 2.9 % (0-4); Hematocrit 41.6 % (37.0-47.0); Hemoglobin 14.1 g/dl (12.0-16.0); Imm Gran Abs Auto 0.04 X10*3/uL (0.00-0.03); Imm Gran Pct Auto 0.4 % (0.0-0.4); Lymphocytes Absolute Auto 2.2 X10*3/uL (1.2-4.9); Mean Corpuscular HGB Conc 33.9 g/dl (31.0-35.0); Mean Corpuscular Hemoglobin 30.9 pg (27.0-33.0); Mean Corpuscular Volume 91.2 fL (80.0-98.0); Mean Platelet Volume 10.1 fL (9.4-12.3); Monocytes Absolute Auto 0.7 X10*3/uL (0.1-1.2); Monocytes Percent Auto 6.4 % (2-11); Neutrophils Absolute Auto 6.9 x10*3/uL (2.0-8.3); Neutrophils Percent Auto 67.8 % (45-73); Platelet Count 313 X10*3/uL (160-400); Red Blood Count 4.56 X10*6/uL (4.20-5.50); Red Cell Distribution Width 12.6 % (11.0-16.0); White Blood Count 10.2 X10*3/uL (4.8-10.8)
== END 2023-03-24 12:18 | disposition home or self-care (01) ==
LOC: HO.LAB 12:17
PROVIDERS: PCP Internal Medicine; Visit Provider Internal Medicine
DX: D64.89 Other specified anemias (principal); F40.8 Other phobic anxiety disorders; R35.0 Frequency of micturition
CPT/HCPCS: 36415; 85025; 87086

== ENCOUNTER 2023-05-19 15:41 | Outpatient (REF) | payer OTHER, SELFPAY ==
[2023-05-19 16:41] LABS: Alanine Aminotransferase 21 U/L (0-31); Albumin Level 4.5 g/dL (3.5-5.0); Alkaline Phosphatase 78 U/L (39-117); Anion Gap 13 (12-20); Aspartate Amino Transferase 18 U/L (5-31); Bilirubin Total 0.2 mg/dL (0.0-1.0); Blood Urea Nitrogen 16 mg/dL (9-16); Calcium 9.1 mg/dL (8.4-10.2); Carbon Dioxide 21 mmol/L (22-29); Chloride 111 mmol/L (96-108); Estimated Glomerular Filt Rate 46; Glucose Random 100 mg/dL (60-115); Potassium 3.9 mmol/L (3.3-5.1); Sodium 141 mmol/L (135-145); Total Protein 7.6 g/dL (6.5-8.0)
[2023-05-19 16:52] LABS: Thyroid Stimulating Hormone 1.84 uIU/mL (0.32-4.0)
== END 2023-05-19 15:42 | disposition home or self-care (01) ==
LOC: HO.LAB 15:41
PROVIDERS: PCP Internal Medicine; Visit Provider Internal Medicine
DX: F45.21 Hypochondriasis (principal); M25.551 Pain in right hip; M51.16 Intervertebral disc disorders with radiculopathy, lumbar region; R63.5 Abnormal weight gain
CPT/HCPCS: 36415; 80053; 84443

== ENCOUNTER 2023-06-11 09:30 | Outpatient (REF) | payer OTHER, SELFPAY ==
[2023-06-11 10:56] LABS: MANUAL DIFF FLAG NO
[2023-06-11 10:57] LABS: Basophils Percent Auto 0.2 % (0-2); Eosinophils Absolute Auto 0.6 X10*3/uL (0.0-0.4); Eosinophils Percent Auto 6.9 % (0-4); Hematocrit 39.4 % (37.0-47.0); Imm Gran Abs Auto 0.03 X10*3/uL (0.00-0.03); Imm Gran Pct Auto 0.3 % (0.0-0.4); Lymphocytes Absolute Auto 2.7 X10*3/uL (1.2-4.9); Lymphocytes Percent Auto 31.2 % (20-40); Mean Corpuscular Hemoglobin 31.1 pg (27.0-33.0); Mean Corpuscular Volume 94.3 fL (80.0-98.0); Mean Platelet Volume 9.7 fL (9.4-12.3); Monocytes Absolute Auto 0.8 X10*3/uL (0.1-1.2); Monocytes Percent Auto 9.4 % (2-11); Neutrophils Absolute Auto 4.5 x10*3/uL (2.0-8.3); Platelet Count 294 X10*3/uL (160-400); Red Blood Count 4.18 X10*6/uL (4.20-5.50); Red Cell Distribution Width 12.8 % (11.0-16.0); White Blood Count 8.6 X10*3/uL (4.8-10.8)
[2023-06-11 11:37] LABS: Alanine Aminotransferase 27 U/L (0-31); Albumin Level 4.1 g/dL (3.5-5.0); Alkaline Phosphatase 76 U/L (39-117); Anion Gap 10 (12-20); Aspartate Amino Transferase 17 U/L (5-31); Bilirubin Total 0.2 mg/dL (0.0-1.0); Blood Urea Nitrogen 16 mg/dL (9-16); Calcium 9.2 mg/dL (8.4-10.2); Carbon Dioxide 24 mmol/L (22-29); Chloride 112 mmol/L (96-108); Estimated Glomerular Filt Rate 49; Glucose Random 107 mg/dL (60-115); Potassium 4.1 mmol/L (3.3-5.1); Sodium 142 mmol/L (135-145); Total Protein 7.2 g/dL (6.5-8.0)
== END 2023-06-11 09:31 | disposition home or self-care (01) ==
LOC: HO.10HDL 09:30
PROVIDERS: Visit Provider Internal Medicine
DX: F40.8 Other phobic anxiety disorders (principal); R21 Rash and other nonspecific skin eruption
CPT/HCPCS: 36415; 80053; 85025

== ENCOUNTER 2023-08-03 16:13 | Outpatient (REF) | payer OTHER, SELFPAY ==
[2023-08-03 16:27] LABS: MANUAL DIFF FLAG NO
[2023-08-03 17:36] LABS: Basophils Percent Auto 0.3 % (0-2); Eosinophils Absolute Auto 0.4 X10*3/uL (0.0-0.4); Eosinophils Percent Auto 2.8 % (0-4); Hemoglobin 14.3 g/dl (12.0-16.0); Imm Gran Abs Auto 0.05 X10*3/uL (0.00-0.03); Imm Gran Pct Auto 0.4 % (0.0-0.4); Lymphocytes Absolute Auto 2.9 X10*3/uL (1.2-4.9); Lymphocytes Percent Auto 20.4 % (20-40); Mean Corpuscular Volume 90.9 fL (80.0-98.0); Mean Platelet Volume 10.1 fL (9.4-12.3); Monocytes Percent Auto 7.4 % (2-11); Neutrophils Absolute Auto 9.7 x10*3/uL (2.0-8.3); Neutrophils Percent Auto 68.7 % (45-73); Platelet Count 283 X10*3/uL (160-400); Red Blood Count 4.62 X10*6/uL (4.20-5.50); Red Cell Distribution Width 12.7 % (11.0-16.0); White Blood Count 14.1 X10*3/uL (4.8-10.8)
[2023-08-03 18:10] LABS: Alanine Aminotransferase 22 U/L (0-31); Albumin Level 4.4 g/dL (3.5-5.0); Alkaline Phosphatase 88 U/L (39-117); Anion Gap 10 (12-20); Aspartate Amino Transferase 16 U/L (5-31); Bilirubin Total 0.3 mg/dL (0.0-1.0); Blood Urea Nitrogen 10 mg/dL (9-16); Calcium 8.8 mg/dL (8.4-10.2); Carbon Dioxide 22 mmol/L (22-29); Chloride 110 mmol/L (96-108); Cholesterol 142 mg/dL (<200); Estimated Glomerular Filt Rate 54; Glucose Random 108 mg/dL (60-115); HDL Cholesterol 38 mg/dL (>40); LDL Cholesterol Calculated 61 mg/dL (<100); Potassium 3.5 mmol/L (3.3-5.1); Sodium 138 mmol/L (135-145); Total Protein 7.6 g/dL (6.5-8.0); Triglycerides 215 mg/dL (<150)
== END 2023-08-03 16:14 | disposition home or self-care (01) ==
LOC: HO.LAB 16:13
PROVIDERS: PCP Internal Medicine; Visit Provider Internal Medicine
DX: E78.00 Pure hypercholesterolemia, unspecified (principal); F40.8 Other phobic anxiety disorders; N30.00 Acute cystitis without hematuria; R19.7 Diarrhea, unspecified
CPT/HCPCS: 36415; 80053; 80061; 85025; 87086

== ENCOUNTER 2023-08-17 07:52 | Outpatient (REF) | payer OTHER, SELFPAY | END 2023-08-17 07:53 | disposition home or self-care (01) | LOC: HO.MAMMO 07:52 | PROVIDERS: PCP Internal Medicine; Visit Provider Internal Medicine | DX: Z12.31 Encounter for screening mammogram for malignant neoplasm of breast (principal) | CPT/HCPCS: 77063; 77067 ==

== ENCOUNTER → 2023-08-17 08:00 | Outpatient (BNV) | payer OTHER, SELFPAY | PROVIDERS: PCP Internal Medicine; Visit Provider Radiology Diagnostic Radiology | DX: Z12.31 Encounter for screening mammogram for malignant neoplasm of breast (principal) | CPT/HCPCS: 77063; 77067 ==

== ENCOUNTER 2023-12-25 11:10 | Outpatient (REF) | payer OTHER, SELFPAY ==
[2023-12-25 12:55] LABS: Alanine Aminotransferase 40 U/L (0-31); Albumin Level 4.4 g/dL (3.5-5.0); Alkaline Phosphatase 93 U/L (39-117); Anion Gap 11 (12-20); Aspartate Amino Transferase 29 U/L (5-31); Bilirubin Total 0.2 mg/dL (0.0-1.0); Blood Urea Nitrogen 17 mg/dL (9-16); Calcium 9.6 mg/dL (8.4-10.2); Carbon Dioxide 20 mmol/L (22-29); Chloride 114 mmol/L (96-108); Cholesterol 161 mg/dL (<200); Estimated Glomerular Filt Rate 51; Glucose Random 114 mg/dL (60-115); HDL Cholesterol 43 mg/dL (>40); LDL Cholesterol Calculated 78 mg/dL (<100); Potassium 4.1 mmol/L (3.3-5.1); Sodium 141 mmol/L (135-145); Total Protein 7.6 g/dL (6.5-8.0); Triglycerides 200 mg/dL (<150)
== END 2023-12-25 11:11 | disposition home or self-care (01) ==
LOC: HO.LAB 11:10
PROVIDERS: PCP Internal Medicine; Visit Provider Internal Medicine
DX: E78.2 Mixed hyperlipidemia (principal); F25.9 Schizoaffective disorder, unspecified; I10 Essential (primary) hypertension; M25.511 Pain in right shoulder
CPT/HCPCS: 36415; 80053; 80061

== ENCOUNTER 2024-01-27 12:10 | Outpatient (REF) | payer OTHER, SELFPAY ==
[2024-01-27 14:15] LABS: Alanine Aminotransferase 32 U/L (0-31); Albumin Level 4.5 g/dL (3.5-5.0); Alkaline Phosphatase 82 U/L (39-117); Anion Gap 12 (12-20); Aspartate Amino Transferase 25 U/L (5-31); Bilirubin Total 0.2 mg/dL (0.0-1.0); Blood Urea Nitrogen 18 mg/dL (9-16); Calcium 9.3 mg/dL (8.4-10.2); Carbon Dioxide 21 mmol/L (22-29); Chloride 112 mmol/L (96-108); Cholesterol 201 mg/dL (<200); Estimated Glomerular Filt Rate 49; Glucose Random 89 mg/dL (60-115); HDL Cholesterol 41 mg/dL (>40); LDL Cholesterol Calculated 133 mg/dL (<100); Potassium 3.9 mmol/L (3.3-5.1); Sodium 141 mmol/L (135-145); Total Protein 7.9 g/dL (6.5-8.0); Triglycerides 139 mg/dL (<150)
== END 2024-01-27 12:11 | disposition home or self-care (01) ==
LOC: HO.LAB 12:10
PROVIDERS: PCP Internal Medicine; Visit Provider Internal Medicine
DX: E78.2 Mixed hyperlipidemia (principal); F25.9 Schizoaffective disorder, unspecified; I10 Essential (primary) hypertension; M25.511 Pain in right shoulder
CPT/HCPCS: 36415; 80053; 80061

== ENCOUNTER 2024-02-12 09:38 | Outpatient (AMB) | payer OTHER, SELFPAY ==
--- NOTE | 2024-02-12 09:53 | HO.SPINEOV ---
Vital Signs 02/12/24 10:07 Height 5 ft 9 in Weight 190 lb BMI 28.1 Intake Visit Reasons: R neck & shoulder pain Intake Note: Ms. Johnson is here today c/o right neck and shoulder pain. Residential Driver Required: No Allergies sulfamethoxazole [From BACTRIM] Allergy (Intermediate, Verified 02/12/24 10:08) HIVES trimethoprim [From BACTRIM] Allergy (Intermediate, Verified 02/12/24 10:08) HIVES Sulfa (Sulfonamide Antibiotics) Allergy (Unknown, Verified 02/12/24 10:08) Heartburn Physical Exam Vital Signs: BMI result Body Mass Index 28.1 Assessment & Plan Assessment & Plan (1) Cervical radiculopathy due to degenerative joint disease of spine: Code(s): M47.22 - Other spondylosis with radiculopathy, cervical region Category: Medical Plan Dear colleague Thank you for referring Dilcia Johnson to the office today with a chief complaint of right neck and arm pain. HPI: This 48-year-old female suffering from right neck pain radiating down her right arm into her hand and thumb and index finger. The symptoms have been going on for couple of years but increased since a couple of months. The pain gets worse when she washes dishes or shaves her legs. She denies numbness or weakness. The following conservative treatment options were tried without success antiinflammatories, tylenol, physical therapy, chiropractic therapy, massage there, acupuncture Medical history: Hypercholesterolemia, GERD, depression anxiety, migraines, mild asthma, cholecystectomy, kidney stones removal, low back surgery Allergies: Bactrim Social history: Unemployed. Nonsmoker Physical Exam: Height 5'9 weight 190 lb. Spurling test produces pain on the right side of her neck. No motor or sensory deficits. Reflexes are symmetrically intact. No pathological reflexes. Gait is undisturbed. Radiological Studies: MRI done at [facility] on 01/25/2024 shows cervical degenerative disc disease C6-7 with a disc osteophyte compressing the right C7 nerve root Impression/Plan: This patient is suffering from a cervical radiculopathy due to right C7 nerve compression. The patient failed all forms of conservative treatment and therefore I offered her an anterior diskectomy and fusion C6-7. She scheduled for 03/24/2024. Thank you for allowing me to participate in your patients care. total time spent was 50 minutes in counseling ,coordination of plan, personal review of imaging, surgical decision making and subsequent plan Ras Meeks MD, PhD Spine Fellowship Trained Neurosurgeon Director, [facility] Coding Level of Care Code New Pt Level 4 (87251) Diagnoses Cervical radiculopathy due to degenerative joint disease of spine M47.22
[2024-02-12 10:07] VITALS: BMI 28.1
== END 2024-02-12 10:40 | disposition home or self-care (01) ==
PROVIDERS: PCP Internal Medicine; Referring Provider Internal Medicine; Visit Provider Neurological Surgery
DX: M47.22 Other spondylosis with radiculopathy, cervical region (principal)
CPT/HCPCS: 99204

== ENCOUNTER → 2024-02-12 09:38 | Outpatient (BNVA) | payer OTHER, SELFPAY | PROVIDERS: PCP Internal Medicine; Referring Provider Internal Medicine; Visit Provider Neurological Surgery | DX: M47.22 Other spondylosis with radiculopathy, cervical region (principal) | CPT/HCPCS: 99202 ==

== ENCOUNTER → 2024-03-09 11:09 | Outpatient (BNV) | payer OTHER, SELFPAY | PROVIDERS: PCP Internal Medicine; Visit Provider Internal Medicine Cardiovascular Disease | DX: I49.3 Ventricular premature depolarization (principal) | CPT/HCPCS: 93010 ==

== ENCOUNTER → 2024-03-24 08:01 | Outpatient (BNV) | payer OTHER, SELFPAY | PROVIDERS: PCP Internal Medicine; Visit Provider Neurological Surgery | DX: M50.323 Other cervical disc degeneration at C6-C7 level (principal); M50.123 Cervical disc disorder at C6-C7 level with radiculopathy | CPT/HCPCS: 20936; 22551; 22845; 22853; 99499 ==

== ENCOUNTER 2024-04-14 10:51 | Outpatient (AMB) | payer OTHER, SELFPAY ==
--- NOTE | 2024-04-14 10:58 | HO.SPINEOV ---
Intake Visit Reasons: 1st post op Intake Note: Ms. Johnson is here today for her 1st post op. Bilingual Secretary Required: No Allergies Sulfa (Sulfonamide Antibiotics) Allergy (Intermediate, Verified 04/14/24 11:00) Hives sulfamethoxazole [From BACTRIM] Allergy (Intermediate, Verified 04/14/24 11:00) HIVES trimethoprim [From BACTRIM] Allergy (Intermediate, Verified 04/14/24 11:00) HIVES Assessment & Plan Assessment & Plan (1) S/P cervical spinal fusion: Code(s): Z98.1 - Arthrodesis status Category: Surgical Plan Procedure: C6-7 ACDF Dilcia is a pleasant 48-year-old female who comes in today for her 1st postoperative visit after having a C6-[address] Meeks a few weeks ago. To recap she was initially evaluated in clinic for a right cervical radiculopathy. She states that the bulk of her pre-surgical pain has resolved since surgery. She is completing her ADLS without much issue, and states that she only really seems to have some persistent R shoulder pain, which she attributes in part to her increased activity. She has been going to the gym using the eliptical machine, and having massages / cupping performed. We discussed the postoperative healing course and I answered all questions she had to the best of my ability. No new neurological deficits. The patient ambulates well that rises from a seated position without difficulty. Her anterior incision site is closed and well healing. I would like to follow up with Dilcia again in 6 weeks and obtain a set of x-rays. Harvinder Meeks MD,PhD [facility] Coding Level of Care Code Global (13698) Diagnoses S/P cervical spinal fusion Z98.1
--- OUTSIDE RECORDS SUMMARY | 2024-04-14 12:03 | XMS_ITS | Clinical Summary ---
Author Organization [facility] Address [address] [place] [address] Care Team Providers Care Delivery Recruiter Name Role Phone Charmaine Somers LUZ Primary Care Provider [phone] Surgical History Surgery Date Site/Laterality Comments OTHER SURGICAL HISTORY PROCEDURE: [facility] LAPS SURG CHOLECYSTECTOMY W/CHOLANGIOGRAPHY OTHER SURGICAL HISTORY 2010 Right PROCEDURE: [facility] CYSTO W/INSERT URETERAL STENT BACK SURGERY PROCEDURE: HISTORICAL BACK SURGERY OTHER SURGICAL HISTORY PROCEDURE: HISTORY OTHER; COMMENT: sinus surgery ESOPHAGOGASTRODUODENOSCOPY 08/03/2018 PROCEDURE: VA ESOPHAGOGASTRODUODENOSCOPY TRANSORAL DIAGNOSTIC; COMMENT: small hiatal hernia reflux esophagitis, gastritis; no report ESOPHAGOGASTRODUODENOSCOPY 03/11/2017 PROCEDURE: VA ESOPHAGOGASTRODUODENOSCOPY TRANSORAL DIAGNOSTIC; COMMENT: intestinal metaplasia sugg of Coburn's, no dysplasia; irritation gastritis; no report Medical History Medical History Date Comments Schizoaffective disorder, bi polar type (CMS/HCC) 04/07/2019 DX:Schizoaffective disorder, bipolar type (HCC) GERD (gastroesophageal reflux disease) 04/07/2019 DX:GERD (gastroesophageal reflux disease) Hypothyroidism 04/07/2019 DX:Hypothyroidis m Nephrolithiasis 03/19/2018 DX:Nephrolithias is Stress incontinence of urine 04/21/2019 DX: Stress incontinence of urine Migraine headache 04/21/2019 DX:Migraine he adache Degenerative joint disease (DJD) of hip 0 DX:Degenerative joint disease (DJD) of hip; COMMENT: bilateral Patellofemoral disorder, right 04/21/2019 D X:Patellofemoral disorder, right Essential hypertension 11/21/2020 DX:Essent ial hypertension Anxiety 11/21/2020 DX:Anxiety Coburn's esophagus 11/21/2020 DX:Coburn's esophagus Family History Medical History Relation Name Comments Kidney cancer Mother anxiety Other cancer Uncle paternal AML Relation Name Status Comments Mother Uncle paternal Alive Social History Tobacco Use Types Packs/Day Years Used Date Smoking Tobacco: Never Smokeless Tobacco: Never Alcohol Use Standard Drinks/Week Comments No 0 (1 standard drink = 0.6 oz pur e alcohol) Comments Unknown Sex and Gender Information Value Date Recorded Sex Assigned at Not on file Legal Sex Female 9:37 AM EST Gender Identity Not on file Sexual Orientation Not on file Obstetrics History Plan of Treatment Health Maintenance Due Date Last Done Comments Breast Cancer Screening 1975 Hepatitis B Vaccines (1 of 3 - 19+ 3-dose series) 1992 Cervical Cancer Screening: P ap Smear 1994 Cholesterol Screening (Lipid Panel) 02/02/2022 Colorectal Cancer Screening: Colonoscopy 02/02/2022 Depression Screening 02/02/2022 HIV Screening 02/02/2022 Hepatitis C Screening 02/02/2022 Social Influencers of Health Screening 02/02/2022 Hypertension/CHF/CAD Annual BMP Blood Test 02/07/2022 Pneumococcal Vaccine: 50+ Years (1 of 1 - PCV) 06/18/2023 Zoster Vaccines (1 of 2) 06/18/2023 COVID-19 Vaccine (1 - 2023-2 5 season) 2023 Influenza Vaccine (#1) 2023 9, 10/17/2017 DTaP,Tdap,and Td Vaccines (3 - Td or Tdap) 05/07/2026 05/07/2016, 06/10/2012 HIB Vaccines Aged Out No longer eligi ble based on patient's age to complete this topic HPV Vaccines Aged Out No longer eligi ble based on patient's age to complete this topic Hepatitis A Vaccines Aged Out No long er eligible based on patient's age to complete this topic IPV Vaccines Aged Out No longer eligi ble based on patient's age to complete this topic MMR Vaccines Aged Out No longer eligi ble based on patient's age to complete this topic Meningococcal ACWY Vaccine Aged Out N o longer eligible based on patient's age to complete this topic Meningococcal B Vacine Aged Out No lo nger eligible based on patient's age to complete this topic Pneumococcal Vaccine: Pediatrics (0 to 5 Years) and At-Risk Patients (6 to 64 Years) Aged Out No longer eligible b ased on patient's age to complete this topic RSV Immunization Patients Under 20 months Aged Out No longer eligible b ased on patient's age to complete this topic Varicella Vaccines Aged Out No longer eligible based on patient's age to complete this topic Care Teams Delivery Recruiter Relationship Specialty Start Date End Date Charmaine Somers NP [address] [facility] [place] [address] PCP - General Internal Medicine 02/01/18
--- OUTSIDE RECORDS SUMMARY | 2024-04-14 12:03 | XMS_ITS | Patient Health Record ---
Author Organization Hieu Simmons III, MD Address [address] [facility] [place] [address] Care Team Providers Care Aerospace Engineer Name Role Phone Joseph CROOK, Hillary Primary Care Provider Hieu Mora Unavailable [phone] Allergies Allergen (clinical drug ingredient) Drug/Non Drug Allergy documented on EMR Reaction Allergy Type Onset Date Status No Known Drug Allergy Unknown Drug Allergy Active Reason For Referral No Information Medications Medication SIG (Take, Route, Frequency, Duration) [...] Problem Status W/U Status Risk Notes Problem 33609452 Cervical radiculopathy due to degenerative joint disease of spine (M47.22) Active confirmed She had no complications from the surgery. The wound in the neck is well healed and requires no additional treatment at this time. Problem 989887037 Moderate obesity (E66.9) Active confirmed We reviewed her weight loss strategy today. We made a plan to lose wweight at a rate of one half of a pound per week. Problem 379251087 Mild intermittent asthma, unspecified whether complicated (J45.20) Active confirmed There was no wheezing today. She was continued on her usual regimen. Vital Signs Heart Rate 80 /min 04/06/2024 Temperature 97.9 degrees Fahrenheit 04/06/2024 Blood pressure diastolic 74 mm Hg 04/06/2024 Height 5'9 in 04/06/2024 Blood pressure systolic 123 mm Hg 04/06/2024 Weight 205 lbs 04/06/2024 BMI 30.27 kg/m2 04/06/2024 Encounters Encounter Location Date Provider Diagnosis Hieu Simmons III, MD [address] [place] [address] [place] [address] 04/06/2024 Hieu Simmons Cervical radiculopat hy due [...] on her usual regimen. Plan Of Treatment No Information Insurance Providers Payer Name Payer Address Payer Phone Subscriber Number Group Number Insured Name Patient Relationship to Insured Coverage Start Date Coverage End Date [facility] [address] ATTN CLAIMS JENI MULLER [id number] Dilcia Johnson Self - patient is the insured Medical (General) History Medical History History ICD Code Degenerative disc disease cervical spine Asthma Obesity Surgical History Surgery Date(Month/Year) 03/24/2024 C6-7 anterior discectomy
--- OUTSIDE RECORDS SUMMARY | 2024-04-14 12:03 | XMS_ITS | Clinical Summary ---
Author Organization [employer] Address [address] [place] [address] 7 [place] [address] Care Team Providers Care Dredge Mechanic Name Role Phone Unavailable Primary Care Provider Unavailabl e Allergies Active Allergy Reactions Criticality Noted Date Comments Sulfamethoxazole Hives 09/17/2012 Sulfamethoxazole-Trimethoprim 2020 Other reaction(s): Unknown Trimethoprim 09/17/2012 Other reaction(s): Hives/Skin Rash Medications fluvoxaMINE (Luvox) 100 MG tablet Take 100 mg by mouth in the morning. 3 Active omeprazole OTC (PriLOSEC OTC) 20 MG EC tablet Take 20 mg by mouth. 9 Active potassium citrate CR (Urocit-K-10) 10 mEq ER tablet TAKE 2 TABLET BY MOUTH THREE TIMES A DAY 2 Active naratriptan (Amerge) 1 MG tablet take 1 tablet (1MG) by oral route once may repeat after 4 hours Active famotidine (Pepcid) 40 MG tablet Take 40 mg by mouth in the morning. 3 Active albuterol 108 (90 Base) MCG/ACT inhaler USE 2 PUFFS EVERY 2 4 HOURS NEEDED 9 Active fluticasone (Flonase) 50 MCG/ACT nasal spray Administer 2 sprays into each nostril in the morning. 3 Active montelukast (Singulair) 10 MG tablet Active omega-3 1000 MG capsule capsule ONE ORAL DAILY Active topiramate (Topamax) 100 MG tablet Take 100 mg by mouth in the morning. 2 Active Sodium Fluoride 5000 PPM 1.1 % paste APPLY PEA SIZE AMOUNT ON BRUSH EVERY NIGHT BEFORE BEDTIME. BRUSH FOR 2 MINUTES SPIT,DO NOT RINSE 100 g 4 3 Active Social History Tobacco Use Types Packs/Day Years Used Date Smoking Tobacco: Never Smokeless Tobacco: Never Tobacco Cessation:Counseling Given: Not Answered Comments Unknown Sex and Gender Information Value Date Recorded Sex Assigned at Female 12/23/2021 10:23 AM EDT Legal Sex Female 10:23 AM EDT Gender Identity Female 12/23/2021 10:23 AM EDT Sexual Orientation Straight 12/23/2021 10 :23 AM EDT Last Filed Vital Signs Vital Sign Reading Time Taken Comments Blood Pressure 120/78 12/31/2023 8:04 AM EST Pulse 59 06/25/2023 9:48 AM EDT Temperature - - Respiratory Rate - - Oxygen Saturation - - Inhaled Oxygen Concentration - - Weight - - Height - - Body Mass Index - - Plan of Treatment Health Maintenance Due Date Last Done Comments CT Colonography 1973 Colonoscopy 1973 Colorectal Cancer Screening 1973 Dental X-Ray: Full Mouth 1973 Depression Screening 1973 FIT DNA/Cologuard 1973 FIT 1973 FOBT 1973 HIV Screening 1973 Lipid Panel 1973 SDOH Screening 1973 Sigmoidoscopy 1973 Pneumococcal Vaccine: Pediatrics (0 to 5 Years) and At-Risk Patients (6 to 49) Years) (1 of 2 - PCV) 06/18/1979 Alcohol/Substance Use Screening 1985 Family Planning (PISQ) 1988 Hepatitis C Screening 06/18/1991 Hepatitis B Vaccines (1 of 3 - 19+ 3-dose series) 1992 Pneumococcal Vaccine: 50+ Years (1 of 2 - PCV) 1992 Pap Smear 1994 Cervical Cancer Screening 06/18/2003 HPV/Cotest 06/18/2003 Mammogram 2013 Zoster Vaccines (1 of 2) 06/18/2023 COVID-19 Vaccine ( season) 2023 02/07/2022, 07/03/2020, 06/13/2020, Additional history exists Dental X-Ray: Bitewings 06/25/2024 06/25/2023, 04/22 Dental Oral Exam 06/30/2024 12/31/2023, , 10/22/2022 Dental Prophylaxis 06/30/2024 12/31/2023, 0 06/25/2023, 10/22/2022, Additional history exists Tobacco Screening 12/30/2024 12/31/2023 DTaP/Tdap/Td Vaccines (3 - Td or Tdap) 05/07/2026 05/07/2016, 06/10/2012 RSV Patients and Patients Aged 60 years or older (1 - 1-dose 75+ series) 2048 Influenza Vaccine Completed 10/29/2023, , 12/11/2021, Additional history exists HIB Vaccines Aged Out No longer eligi [...] patient's age to complete this topic Meningococcal Vaccine Aged Out No dolores arabella eligible based on patient's age to complete this topic RSV under 20 months Aged Out No longe r eligible based on patient's age to complete this topic Rotavirus Vaccines Aged Out No longer eligible based on patient's age to complete this topic Procedures Procedure Name Priority Date/Time Associated Diagnosis Comments PROPHYLAXIS - ADULT Routine 12/31/2023 8 :00 AM EST PERIODIC ORAL EVALUATION - ESTABLISHED PATIENT Routine 12/31/2023 8:00 AM EST BITEWINGS - 4 RADIOGRAPHIC IMAGES Routine 06/25/2023 10:00 AM EDT from Last 3 Months or Most Recently Relevant to Health Maintenance Insurance [facility] - [facility]
--- OUTSIDE RECORDS SUMMARY | 2024-04-14 12:03 | XMS_ITS | Clinical Summary ---
Author Organization [facility] Address [address] [place] [phone] Phone Care Team Providers Care Insole Presser Name Role Phone Hillary Ruiz MD Primary Care Provider [phone] Allergies Active Allergy Reactions Criticality Noted Date Comments Sulfamethoxazole-Trimethopri m 03/13/2020 Trimethoprim 09/17/2012 Other reaction(s): Hives/Skin Rash Medications albuterol HFA (PROVENTIL HFA;VENTOLIN HFA) 108 (90 Base) MCG/ACT inhaler USE 2 PUFFS EVERY 2 4 HOURS NEEDED 05/23/2019 Active fluticasone (FLONASE) 50 MCG/ACT nasal spray 04/13/2019 Active naratriptan (AMERGE) 2.5 MG tablet 06/18/2019 Active omeprazole (PriLOSEC) [address] capsule Take 20 mg by mouth 1 (one) time each day 05/21/2019 Active potassium citrate (UROCIT-K) 10 MEQ (1080 MG) CR tablet 20 mEq in the morning and 20 mEq in the evening. Take with meals. 04/26/2019 Active topiramate (TOPAMAX) 100 MG tablet Take 100 mg by mouth 2 (two) times a day 03/31/2019 Active Multiple Vitamin (MULTIVITAMIN ADULT PO) Take 1 tablet by mouth 1 (one) time each day Active [place] 3 1200 MG capsule Take 1 capsule by mouth 1 (one) time each day Active [facility] Fiber Laxative 625 MG tablet Take 1 tablet by mouth 12/09/2022 Active fluvoxaMINE (LUVOX) 100 MG tablet Take 100 mg by mouth 1 (one) time each day 10/13/2022 Active famotidine (PEPCID) 40 MG tablet Take 40 mg by mouth in the morning. 04/16/2022 Active Active Problems Problem Noted Date Diagnosed Date Renal mass 03/04/2022 Vitamin D deficiency 07/15/2021 Chronic kidney disease stage 2 04/11/2020 Hypokalemia 04/11/2020 Renal stone 04/11/2020 Nephrolithiasis 06/20/2019 Hypertensive disorder 06/20/2019 Resolved Problems Problem Noted Date Diagnosed Date Resolved Date Anxiety 07/15/2021 07/15/2021 Constipation 07/15/2021 07/15/2021 Cyst of ovary 07/15/2021 07/15/2021 Depressive disorder 07/15/2021 07/16/19 Gastroesophageal reflux disease 07/15/2021 07/15/2021 Undifferentiated schizophrenia 07/15/2021 07/15/2021 Immunizations Name Administration Dates Next Due Influenza TIV (IM) 11/23/2018,10/12/2017 Influenza, Quadrivalent, Preservative Free 10/20,10/14/2018 Family History Relation Status Comments Father Alive Mother Alive Social History Tobacco Use Types Packs/Day Years Used Date Smoking Tobacco: Never Smokeless Tobacco: Never Alcohol Use Standard Drinks/Week Comments No 0 (1 standard drink = 0.6 oz pur e alcohol) AUDIT-C Answer Date Recorded Q1: How often do you have a drink containing alc ohol? Never 06/20/2019 Average Number of Drinks Not on file 020 Frequency of Binge Drinking Not on file 05/25 Comments Unknown Sex and Gender Information Value Date Recorded Sex Assigned at Not on file Legal Sex Female 5:18 PM EST Gender Identity Not on file Sexual Orientation Not on file Last Filed Vital Signs Vital Sign Reading Time Taken Comments Blood Pressure 142/96 12/31/2023 9:04 AM EST Pulse 70 12/31/2023 9:04 AM EST Temperature - - Respiratory Rate - - Oxygen Saturation 98% 12/31/2023 9:04 AM EST Inhaled Oxygen Concentration - - Weight 89.9 kg (198 lb 3.2 oz) 12/31/2023 9:04 A M EST Height 175.3 cm (5' 9 ) 12/31/2023 9:04 AM EST Body Mass Index 29.27 12/31/2023 9:04 AM EST Plan of Treatment Upcoming Encounters Date Type Department Care Team (Late st Contact Info) Description 01/02/2025 8:00 AM EST Office Visit [facility] [address] [phone] Yousuf Galeano MD [address] [phone] Health Maintenance Due Date Last Done Comments Breast Cancer Screening 1973 Pneumococcal Vaccine: Pediat rics (0 to 5 Years) and At-Risk Patients (6 to 64 Years) (1 of 2 - PCV) 06/18/1979 Hepatitis B Vaccine (1 of 3 - 19+ 3-dose series) 1992 Colorectal Cancer Screening: Annual FOBT 2022 Colorectal Cancer Screening: Colonoscopy 2022 Colorectal Cancer Screening: Sigmoidoscopy 2022 Influenza Vaccine (#1) 2023 0, 11/23/2018, 10/14/2018, Additional history exists Insurance [facility] ([id number]) [facility] ([id number]) [facility] ([id number]) Care Teams Insole Presser Relationship Specialty Start Date End Date Hillary Ruiz MD [facility] PCP - General Internal Medicine 07/09/20
--- OUTSIDE RECORDS SUMMARY | 2024-04-14 12:04 | XMS_ITS ---
Author Organization Hieu Simmons III, MD Address [address] [facility] [place] [address] Care Team Providers Care Caterpillar Mechanic Name Role Phone Joseph CROOK, Hillary Primary Care Provider Hieu Mora Unavailable [phone] Allergies Allergen (clinical drug ingredient) Drug/Non Drug [...] Problem Status W/U Status Risk Notes Problem 13312222 Cervical radiculopathy due to degenerative joint disease of spine (M47.22) Active confirmed She had no complications from the surgery. The wound in the neck is well healed and requires no additional treatment at this time. Problem 799528183 Moderate obesity (E66.9) Active confirmed We reviewed her weight loss strategy today. We made a plan to lose wweight at a rate of one half of a pound per week. Problem 218450215 Mild intermittent asthma, unspecified whether complicated (J45.20) [...] Date Provider Diagnosis Hieu Simmons III, MD [address] [place] [address] [address] [facility] [place] [address] 04/06/2024 Hieu Simmons Cervical radiculopat hy due [...] * Dilcia LORDDOB:1975 (3 0 yo F)Acc No.[id number]:04/06/2024 Progress Notes Patient:?Dilcia LORD Provider:?Hieu Simmons MD :1975???Age:48 Y???Sex:Female D ate:04/06/2024 Address:[id number] Pcp:Hillary Ruiz MD Subjective: * Chief Complaints: * ???03/24/2024 C6-7 anterior discectomyWound checkrecent UTI * HPI: ???COVID-19 Screening:? She comes to the office today because she had a recent discectomy in her cervical spine.? She had a recent urinary tract infection which was treated with an antibiotic.? This is now resolved.? We are covering for her primary care physician today.? The wound is healing well with no signs of infection.? The surgical discomfort is rapidly resolving.? Range of motion of her neck is normal.? There was no sign of an infection today.? No change was necessary in her regimen.? She will see her primary care physician when available. ?Questions?Have you had any new onset fever, chills, cough, congestion, sore throat, shortness of breath, muscle aches??No * ROS:?General/Constitutional:?pain?Mild pain surgical incision anterior neck, otherwise only normal aches and pains.?Chills?denies.?Fatigue?admits.?Fever?denies.?ENT:?Decreased hearing?denies.?Respiratory:?Cough?denies.?Cardiovascular:?Chest pain with exertion?denies.?Dyspnea on exertion?denies.?Shortness of breath?denies.?Gastrointestinal:?Constipation?occasional.?Decreased appetite?denies.?Diarrhea?denies.?Heartburn?denies.?Nausea?denies.?Rectal bleeding?denies.?Vomiting?denies.?Hematology:?bruising?denies.?petechiae?denies.?Swollen glands?none have been noted.?Genitourinary:?Frequent urination?denies.?Musculoskeletal:?Muscle aches?denies.?Painful joints?denies.?Sciatica?denies.?Weakness?denies.?Skin:?Itching?denies.?Rash?denies.?Skin lesion(s)?denies.?Neurologic:?Difficulty speaking?denies.?Dizziness?denies.?Headache?denies.?Low back pain?denies.?Psychiatric:?Depressed mood?denies.? * Medical History:? * Surgical History:?03/24/2024 C6-7 anterior discectomy * Hospitalization/Major Diagno stic Procedure:?Denies Past Hospitalization * Family History:?Non-Contribu tory.? * Social History:?Tobacco Use:?Tobacco Control (Standard)?Tobacco use:?Nonsmoker ???Drugs/Alcohol:?Drugs?Have you used drugs other than those for medical reasons in the past 12 months??No ???Drug/Alcohol:?AUDIT-C (Standard)?Did you have a drink containing alcohol in the past year??No ?Points?0 ?Interpretation?Negative * Medications:?TakingAlbuterol Sulfate HFA 108 (90 Base) MCG/ACT Aerosol [...] reviewed and reconciled with the patient * Allergies:?No Known Drug All ergyno[Allergies Verified] Objective: * Vitals:?Ht: 5'9 , Wt: 205, B CT:30.27, BP: 123/74, HR: 80, Temp: 97.9, Ht-cm: 175.26, Wt-k.99. * Examination: ???General Examination: ?GENERAL APPEARANCE:?pleasant, well nourished, well developed, in no acute distress, calm and relaxed, obese, woman.?HEAD:?atraumatic, normocephalic.?EYES:?eomi, perrla, anicteric, conjugate.?EARS:?normal.?NOSE:?septum intact.?ORAL CAVITY:?normal, unremarkable.?NECK/THYROID:?no jugular venous distention, no carotid bruit, thyroid normal, Well healed surgical incision anterior midline to left.?LYMPH NODES:?no enlarged lymph nodes,spleen normal.?SKIN:?no suspicious lesions, anicteric.?HEART:?no clicks, gallops, murmurs, or rubs, regular rhythm, S1, S2 normal, no s3, or vascular bruits.?LUNGS:?clear to auscultation, no wheezes, rales, rhonchi.?BREASTS:?Not examined.?ABDOMEN:?bowel sounds normal, no ascites, no organomegaly, no mass, centripital obesity.?RECTAL EXAM:?not examined.?MUSCULOSKELETAL:?extremities unremarkable, no clubbing, cyanosis or edema.?PERIPHERAL PULSES:?normal.?NEUROLOGIC:?alert and oriented, cranial nerves 2-12 grossly intact, deep tendon reflexes 2+ symmetrical, motor strength normal upper and lower extremities, sensory exam intact.?PSYCH:?alert, oriented.? Assessment: * Assessment: 1.?Cervical radiculopathy du e to degenerative joint disease of spine - M47.22 (Primary)???Notes :She had no complications from the surgery.? The wound in the neck is well healed and requires no additional treatment at this time.???2.?Moderate obesity - E66.9???Notes :We reviewed her weight loss strategy today.? We made a plan to lose wweight at a rate of one half of a pound per week.???3.?Mild intermittent asthma, unspecified whether complicated - J45.20???Notes :There was no wheezing today.? She was continued on her usual regimen.??? Plan: * Treatment: * Procedure Codes:? * Preventive Medicine:? ??Counseling:?Care goal follow-up plan:?Counseling for abnormal BMI given?Yes ?Above Normal BMI Follow-up?Dietary management education, guidance, and counseling, Dietary needs education, Exercise promotion: strength training, Exercise promotion: stretching, Feeding regime, Giving encouragement to exercise, Lifestyle education regarding diet, Nutrition / feeding management, Nutrition therapy, Prescribed activity/exercise education, Prescribed diet education, Prescribed dietary intake, Special diet education, Weight monitoring , Intervention, Order not done: Medical or Other reason not done * Follow Up:?If necessary ([place] son: Office visit) * Images: * Sign off status: Completed true * Provider:?Hieu Simmons MD Date:?03/26 Generated for Dyllan mackenzie/Adam/Galileaitting on:?04/14/2024 12:03 PM EST History and Physical Notes * [...]
--- OUTSIDE RECORDS SUMMARY | 2024-04-14 12:04 | XMS_ITS | Encounter Summary ---
Author Organization [facility], Address [address] [place] [address] Phone Care Team Providers Care Ship Wirer Name Role Phone Hillary Ruiz MD Primary Care Provider [phone] Encounter Details Date Type Department Care Team (Late Contact Info) Description 01/01/2022 Documentation Only [facility], [address] [facility] [place] [phone] Shiva Paez MD [address] [facility] [place] [phone] Social History Tobacco Use Types Packs/Day Years [...] on file Sexual Orientation Not on file documented as of this encounter Plan of Treatment Upcoming Encounters Date Type Department Care Team (Late st Contact Info) Description 01/02/2025 8:00 AM EST Office [facility] [address] [phone] Yousuf Galeano MD [address] [address] documented as of this encounter Visit Diagnoses Not on filedocumented in this encounter Care Teams Ship Wirer Relationship Specialty Start Date End Date Hillary Ruiz MD [address] [facility] [address] [place], [place] PCP - General Internal Medicine 07/09/20 documented as of this encounter
--- OUTSIDE RECORDS SUMMARY | 2024-04-14 12:04 | XMS_ITS | Encounter Summary ---
Author Organization [facility] Address [address] [facility] [address] [place] [address] Phone Care Team Providers Care Surgery Aide Name Role Phone Hillary Ruiz MD Primary Care Provider [phone] Reason for Visit * Reason Comments Med Refill Encounter Details Date Type Department Care Team (Late Contact Info) Description 07/20/2020 Refill [facility] [address] [facility] [address] [place] [phone] Yousuf Galeano MD [address] [facility] [address] [place] [phone] Social History Tobacco Use Types Packs/Day Years [...] Encounters Date Type Department Care Team (Late Contact Info) Description 01/02/2025 8:00 AM EST Office Visit [facility] [address] [facility] [address] [place] [phone] Yousuf Galeano MD [address] [facility] [address] [place] [address] documented as of this encounter Visit Diagnoses Not on filedocumented in this encounter Care Teams Surgery Aide Relationship Specialty Start Date End Date Hillary Ruiz MD [address] [facility] [address] [place], [place] PCP - General Internal Medicine 07/09/20 documented as of this encounter
--- OUTSIDE RECORDS SUMMARY | 2024-04-14 12:04 | XMS_ITS | Encounter Summary ---
Author Organization [employer] Address [address] [place] [address] [address] [place] [address] Care Team Providers Care Automotive Collision Repair Instructor Name Role Phone Unavailable Primary Care Provider Unavailabl e Encounter Details Date Type Department Care Team (Latest Contact Info) Description 10/14/2021 Abstract [facility] Dental, Provider, DDS Social History Tobacco Use Types Packs/Day Years Used Date Smoking Tobacco: Never Assessed Comments Unknown Sex and Gender Information Value Date Recorded Sex Assigned at Female 12/23/2021 10:23 AM EDT Legal Sex Female 10:23 AM EDT Gender Identity Female 12/23/2021 10:23 AM EDT Sexual Orientation Straight 12/23/2021 10 :23 AM EDT documented as of this encounter Plan of Treatment Not on file documented as of this encounter Visit Diagnoses Not on filedocumented in this encounter
--- OUTSIDE RECORDS SUMMARY | 2024-04-14 12:04 | XMS_ITS | Encounter Summary ---
Author Organization [employer] Address [address] [place] [address] [address] [place] [address] Care Team Providers Care Vocational Childcare Teacher Name Role Phone Unavailable Primary Care Provider Unavailabl e Encounter Details Date Type Department Care Team (Latest Contact Info) Description 07/08/2018 Abstract [facility] Dental, Provider, DDS Social [...]
--- OUTSIDE RECORDS SUMMARY | 2024-04-14 12:04 | XMS_ITS | Patient Health Record ---
Author Organization [facility] Address [address] [place] [address] Care Team Providers Care Patient Representative Name Role Phone Hillary Ruiz Primary Care Provider UnavailHieu De Santiago Unavailable [phone] ALLERGIES Allergen (clinical drug ingredient) Drug/Non Drug Allergy documented on EMR Reaction Allergy Type Onset Date Status sulfamethoxazole / trimethoprim Bactrim Unknown Drug Allergy Active REASON FOR REFERRAL No Information MEDICATIONS Medication SIG (Take, Route, Frequency, Duration) Notes Start Date End Date Status Famotidine Active Naratriptan HCl Acti ve Pravastatin Sodium A ctive Docusate Sodium Acti ve Apple Cider Vinegar Tablets Active Fiber Capsules Active Vitamin B 12 Active Omeprazole Active buPROPion HCl ER (XL) Active Potassium Citrate ER Active Topamax Active fluvoxaMINE Maleate 50 MG Oral for 90 Active Wellbutrin Active Nitrofurantoin Macrocrystal 100 MG TAKE 1 CAPSULE BY MOUTH DAILY. MUST ADMINISTER WITH A MEAL/FOOD Oral for 90 Active Montelukast Sodium 10 MG Oral for 90 Active Amoxicillin 875 MG 1 tablet Orally Twic e a day for 5 day(s) 03/21/2022 Active Dicyclomine HCl 20 MG 1 tablet Orally Th ree times a day for 30 day(s) 03/21/2022 Active Omeprazole Active Vitamin D Active Multivitamin Active Fish Oil Active Loratadine 10 MG ORAL TAKE (1) TABLET BY MOUTH DAILY. Oral for 90 Active potassium Active [place]-3 1000 MG ONE ORAL DAILY Oral for 90 Active SUMAtriptan injections Active Topiramate 100 MG TAKE 1 TABLET BY EMILY TH EVERY DAY Oral for 90 Active Amerge Active Solifenacin Succinate 10 MG TAKE 1 TABLE T BY MOUTH DAILY FOR OAB Oral for 90 Active IMMUNIZATIONS Vaccine Route Administration Date Status Comme nts Influenza Unknown 12/06/2019 Administered Influenza Unknown 12/11/2021 Administered SOCIAL HISTORY Tobacco Use: Social History Observation Description Date Details (start date - stop date) Never Smoker NA - NA Sex Assigned At : Social History Observation Description Sex Assigned At Unknown Tobacco Use/Smoking Question Answer Notes Patient is a nonsmoker Alcohol Screen Question Answer Notes Did you have a drink containing alcohol in the p ast year? No Points 0 Interpretation Negative PROBLEMS Problem Type ICD Code Onset Dates Problem Status W/U Status Risk SNOMED Code Notes Problem Gastroesophageal reflux disease, esophagitis presence not specified (K21.9) Active confirmed 961485929 Problem Heartburn (R12) Active confirmed 543431 00 Problem Coburn''s esophagus without dysplasia (K22.70) Active confirmed Coburn's esophagus (505678022) Problem Reflux esophagitis (K21.0) Active confirmed Reflux esophagi tis (345826624) Problem Hiatal hernia (K44.9) Active confirmed Hiatal hernia (42367980) Problem Gastroesophageal reflux disease with esophagitis without hemorrhage (K21.00) Active confirmed 276591867 Problem Coburn's esophagus without dysplasia (K22.70) Active confirmed 634977843 Problem Diverticulitis of large intestine without perforation or abscess without bleeding (K57.32) Active confirmed 4626307 Problem Gastroesophageal reflux disease (K21.9) Active confirmed Gastroesophagea l reflux disease (667461037) Problem Coburn esophagus (K22.70) Active confirmed Coburn esophag us (640421986) PLAN OF TREATMENT Pending Test Test Name Order Date Pathology 05/05/2022 Future Test Test Name Order Date UPPER GI ENDOSCOPY 03/05/2017 UPPER GI ENDOSCOPY 03/21/2022 Insurance Providers Payer Name Payer Address Payer Phone Subscriber Number Group Number Insured Name Patient Relationship to Insured Coverage Start Date Coverage End Date [facility] [address] [place] [phone] [id number] CLARISSA LORD Self - patient is the insured MEDICAL (GENERAL) HISTORY Medical History History ICD Code Migraine headaches Asthma brought on by bronchitis Denies ME,DM,CVA,,renal disease GERD--EGD 02/2017 with small to mod-sized HH, mild esophagitis, and small areas of Barretts; gastric bx neg for Hpylori. She underwent an upper endoscopy in July of [address] Montejo at [facility] with the finding of a slightly irregular EG junction but biopsies were negative for any sign of Coburn's esophagus at that time--there was no esophagitis Kidney stones-[facility] Schizophrenia/Depresssion/Anxiety Diverticulitis in 2021 and 2 023 involving the junction of the distal descending colon and sigmoid colon. She reports a negative colonoscopy with Dr. Montejo in approximately 2021 Surgical History Surgery Date(Month/Year) CCY 1996 Lower back surgery for sciatica 2006 Hospitalization History Reason Date(Month/Year)
== END 2024-04-14 11:19 | disposition home or self-care (01) ==
PROVIDERS: PCP Internal Medicine; Visit Provider Physician Assistant
DX: Z98.1 Arthrodesis status (principal)
CPT/HCPCS: 99024

== ENCOUNTER 2024-04-14 10:51 | Outpatient (REF) | payer OTHER, SELFPAY ==
--- OUTSIDE RECORDS SUMMARY | 2024-04-14 12:36 | XMS_ITS | Clinical Summary ---
Author Organization [facility] Address [address] [place] [address] Care Team Providers Care Tile Finisher Name Role Phone Charmaine Somers LUZ Primary Care Provider [phone] Surgical History Surgery Date Site/Laterality Comments OTHER SURGICAL HISTORY PROCEDURE: PA LAPS SURG CHOLECYSTECTOMY W/CHOLANGIOGRAPHY OTHER SURGICAL HISTORY 2010 Right PROCEDURE: PA CYSTO W/INSERT URETERAL STENT BACK SURGERY PROCEDURE: HISTORICAL BACK SURGERY OTHER SURGICAL HISTORY PROCEDURE: HISTORY OTHER; COMMENT: sinus surgery ESOPHAGOGASTRODUODENOSCOPY 08/03/2018 PROCEDURE: PA ESOPHAGOGASTRODUODENOSCOPY TRANSORAL DIAGNOSTIC; COMMENT: small hiatal hernia reflux esophagitis, gastritis; no report ESOPHAGOGASTRODUODENOSCOPY 03/11/2017 PROCEDURE: PA ESOPHAGOGASTRODUODENOSCOPY TRANSORAL DIAGNOSTIC; COMMENT: intestinal metaplasia sugg [...] age to complete this topic Care Teams Tile Finisher Relationship Specialty Start Date End Date Charmaine Somers NP [address] [facility] [place] [address] PCP - General Internal Medicine 02/01/18
--- OUTSIDE RECORDS SUMMARY | 2024-04-14 12:36 | XMS_ITS | Clinical Summary ---
Author Organization [facility] Address [address] [place] [address] Phone Care Team Providers Care Hotel Front Office Manager Name Role Phone Hillary Ruiz MD Primary Care Provider [phone] Allergies Active Allergy Reactions Criticality Noted Date [...] mouth 1 (one) time each day Active [place] 3 1200 MG capsule Take 1 capsule [...] Office Visit [facility] [address] [phone] Yousuf Galeano MD [address] [address] Health Maintenance Due Date Last [...] 0, 11/23/2018, 10/14/2018, Additional history exists Insurance [facility] ([id number]) [facility] ([id number]) [facility] ([id number]) Care Teams Hotel Front Office Manager Relationship Specialty Start Date End Date Hillary Ruiz MD [facility] PCP - General Internal Medicine 07/09/20
--- OUTSIDE RECORDS SUMMARY | 2024-04-14 12:36 | XMS_ITS | Encounter Summary ---
Author Organization [facility], Address [address] [place] [address] Phone Care Team Providers Care Ict Support Technicians Name Role Phone Hillary Ruiz MD Primary Care Provider [phone] Encounter Details Date Type Department Care Team (Late Contact Info) Description 01/01/2022 Documentation Only [facility], [address] [facility] [place] [phone] Shiva Paez MD [address] [facility] [place] [phone] Social History Tobacco Use Types Packs/Day Years [...] Visit [facility] [address] [address] Yousuf Galeano MD [address] [address] documented as of this encounter Visit Diagnoses Not on filedocumented in this encounter Care Teams Ict Support Technicians Relationship Specialty Start Date End Date Hillary Ruiz MD 1221 [facility] 216 [place], [place] PCP - General Internal Medicine 07/09/20 documented as of this encounter
--- OUTSIDE RECORDS SUMMARY | 2024-04-14 12:36 | XMS_ITS | Encounter Summary ---
Author Organization [facility] Address [address] [facility] 200 [place] [address] Phone Care Team Providers Care Gauntlet Pairer Name Role Phone Hillary Ruiz MD Primary Care Provider [phone] Reason for Visit * Reason Comments Med Refill Encounter Details Date Type Department Care Team (Late Contact Info) Description 07/20/2020 Refill [facility] [address] [facility] 200 [place] [phone] Yousuf Galeano MD [address] [facility] 204 [place] [phone] Social History Tobacco Use Types Packs/Day Years [...] Visit [facility] 35[address] [facility] 204 [place] [phone] Yousuf Galeano MD 3550 [facility] 204 [place] [address] documented as of this encounter Visit Diagnoses Not on filedocumented in this encounter Care Teams Gauntlet Pairer Relationship Specialty Start Date End Date Hillary Ruiz MD 1221 [facility] 216 [place], [place] PCP - General Internal Medicine 07/09/20 documented as of this encounter
--- OUTSIDE RECORDS SUMMARY | 2024-04-14 12:36 | XMS_ITS | Encounter Summary ---
Author Organization [employer] Address [address] [place] [address] 7t [place] [address] Care Team Providers Care Rail Gang Supervisor Name Role Phone Unavailable Primary Care Provider [...]
--- OUTSIDE RECORDS SUMMARY | 2024-04-14 12:36 | XMS_ITS | Clinical Summary ---
Author Organization [employer] Address [address] [place] [address] 7 [place] [address] Care Team Providers Care Vacuum Cleaner Operator Name Role Phone Unavailable Primary Care Provider [...] Relevant to Health Maintenance Insurance DENTAL - [facility]
--- OUTSIDE RECORDS SUMMARY | 2024-04-14 12:36 | XMS_ITS | Encounter Summary ---
Author Organization [employer] Address [address] [place] [address] 7t [place] [address] Care Team Providers Care Aerial Gunner Name Role Phone Unavailable Primary Care Provider [...]
== END 2024-04-14 10:52 | disposition home or self-care (01) ==
LOC: HO.HOSX 10:51
PROVIDERS: PCP Internal Medicine; Visit Provider Physician Assistant
DX: Z98.1 Arthrodesis status (principal)
CPT/HCPCS: 99212

== ENCOUNTER 2024-04-28 14:09 | Outpatient (REF) | payer OTHER, SELFPAY ==
[2024-04-28 15:27] LABS: Alanine Aminotransferase 37 U/L (0-31); Albumin Level 4.3 g/dL (3.5-5.0); Alkaline Phosphatase 96 U/L (39-117); Anion Gap 12 (12-20); Aspartate Amino Transferase 26 U/L (5-31); Bilirubin Total 0.3 mg/dL (0.0-1.0); Blood Urea Nitrogen 20 mg/dL (9-16); Calcium 9.4 mg/dL (8.4-10.2); Carbon Dioxide 24 mmol/L (22-29); Chloride 111 mmol/L (96-108); Cholesterol 139 mg/dL (<200); Estimated Glomerular Filt Rate 45; Glucose Random 99 mg/dL (60-115); HDL Cholesterol 41 mg/dL (>40); LDL Cholesterol Calculated 62 mg/dL (<100); Sodium 143 mmol/L (135-145); Total Protein 7.8 g/dL (6.5-8.0); Triglycerides 184 mg/dL (<150)
--- OUTSIDE RECORDS SUMMARY | 2024-04-28 17:21 | XMS_ITS | Clinical Summary ---
Author Organization [facility] Address [address] [place] [address] Phone Care Team Providers Care Director Global Sales Name Role Phone Hillary Ruiz MD Primary Care Provider [phone] Allergies Active Allergy Reactions Criticality Noted Date [...] 1 (one) time each day Active [place] 3 1200 MG capsule Take 1 capsule [...] Office Visit [facility] [address] [phone] Yousuf Galeano MD [address] [address] Health Maintenance Due Date Last [...] 0, 11/23/2018, 10/14/2018, Additional history exists Insurance [facility] ([id number]) [facility] ([id number]) [facility] ([id number]) Care Teams Director Global Sales Relationship Specialty Start Date End Date Hillary Ruiz MD [facility] PCP - General Internal Medicine 07/09/20
--- OUTSIDE RECORDS SUMMARY | 2024-04-28 17:21 | XMS_ITS ---
Author Organization Hieu Simmons III, MD Address [address] [facility] [place] [address] Care Team Providers Care Nurse Navigator Name Role Phone Joseph CROOK, Hillary Primary Care Provider Hieu Mora Unavailable [phone] Allergies Allergen (clinical drug ingredient) Drug/Non Drug [...] Problem Status W/U Status Risk Notes Problem 98627143 Cervical radiculopathy due to degenerative joint disease of spine (M47.22) Active confirmed She had no complications from the surgery. The wound in the neck is well healed and requires no additional treatment at this time. Problem 654023912 Moderate obesity (E66.9) Active confirmed We reviewed her weight loss strategy today. We made a plan to lose wweight at a rate of one half of a pound per week. Problem 823222520 Mild intermittent asthma, unspecified whether complicated (J45.20) [...] Date Provider Diagnosis Hieu Simmons III, MD [address] [place] [address] [place] [facility] [address] 04/06/2024 Hieu Simmons Cervical radiculopat hy due [...] * Dilcia LORDDOB:1975 (3 0 yo F)Acc No.[id number]:04/06/2024 Progress Notes Patient:?Dilcia LORD Provider:?Hieu Simmons MD [...] * Vitals:?Ht: 5'9 , Wt: 205, B KY:30.27, BP: 123/74, HR: 80, Temp: 97.9, Ht-cm: [...] reason not done * Follow Up:?If necessary (Yoder son: Office visit) * Images: * Sign off status: Completed true * Provider:?Hieu Simmons MD Date:?03/26 Generated for Dyllan mackenzie/Adam/Galileaitting on:?04/28/2024 05:21 PM EST History and Physical Notes * [...]
--- OUTSIDE RECORDS SUMMARY | 2024-04-28 17:21 | XMS_ITS | Encounter Summary ---
Author Organization [facility], Address [address] [place] [address] Phone Care Team Providers Care Engineering Group Manager Name Role Phone Hillary Ruiz MD Primary Care Provider [phone] Encounter Details Date Type Department Care Team (Late Contact Info) Description 01/01/2022 Documentation Only [facility], [address] [facility] [place] [phone] Shiva Paez MD [address] [facility] [place] [phone] Social History Tobacco Use Types Packs/Day Years [...] Visit [facility] [address] [phone] Yousuf Galeano MD [address] [address] documented as of this encounter Visit Diagnoses Not on filedocumented in this encounter Care Teams Engineering Group Manager Relationship Specialty Start Date End Date Hillary Ruiz MD 1221 [facility] 216 [place], [place] PCP - General Internal Medicine 07/09/20 documented as of this encounter
--- OUTSIDE RECORDS SUMMARY | 2024-04-28 17:21 | XMS_ITS | Clinical Summary ---
Author Organization [employer] Address [address] [place] [address] 7 [place] [address] Care Team Providers Care Drywall Carrier Name Role Phone Unavailable Primary Care Provider [...] Mass Index - - Plan of Treatment Upcoming Encounters Date Type Department Care Team (Late st Contact Info) Description 07/05/2024 10:00 AM EDT Office Visit [facility] [address] [place], [place] [phone] Kimi Mae [address] [place], [place] [phone] Health Maintenance Due Date Last Done Comments CT Colonography 1973 Colonoscopy 1973 Colorectal Cancer Screening 1973 Dental X-Ray: Full Mouth 1973 Depression Screening 1973 FIT DNA/Cologuard 1973 FIT 1973 FOBT 1973 HIV Screening 1973 Lipid Panel 1973 SDOH Screening 1973 Sigmoidoscopy 1973 Alcohol/Substance Use Screening 1985 Family Planning (PISQ) [...] Recently Relevant to Health Maintenance Insurance D[facility]AL [facility]
--- OUTSIDE RECORDS SUMMARY | 2024-04-28 17:21 | XMS_ITS | Clinical Summary ---
Author Organization [facility] Address [address] [place] [address] Care Team Providers Care Medical Transport Specialist Name Role Phone Charmaine Somers LUZ Primary Care Provider [phone] Surgical History Surgery Date Site/Laterality Comments OTHER SURGICAL HISTORY PROCEDURE: [place] LAPS SURG CHOLECYSTECTOMY W/CHOLANGIOGRAPHY OTHER SURGICAL HISTORY 2010 Right PROCEDURE: [place] CYSTO W/INSERT URETERAL STENT BACK SURGERY PROCEDURE: HISTORICAL BACK SURGERY OTHER SURGICAL HISTORY PROCEDURE: HISTORY OTHER; COMMENT: sinus surgery ESOPHAGOGASTRODUODENOSCOPY 08/03/2018 PROCEDURE: GA ESOPHAGOGASTRODUODENOSCOPY TRANSORAL DIAGNOSTIC; COMMENT: small hiatal hernia reflux esophagitis, gastritis; no report ESOPHAGOGASTRODUODENOSCOPY 03/11/2017 PROCEDURE: GA ESOPHAGOGASTRODUODENOSCOPY TRANSORAL DIAGNOSTIC; COMMENT: intestinal metaplasia sugg [...] age to complete this topic Care Teams Medical Transport Specialist Relationship Specialty Start Date End Date Charmaine Somers NP [address] [facility] [place] [address] PCP - General Internal Medicine 02/01/18
--- OUTSIDE RECORDS SUMMARY | 2024-04-28 17:21 | XMS_ITS | Patient Health Record ---
Author Organization Hieu Simmons III, MD Address [address] [place] [address] Care Team Providers Care Storage And Backup Administrator Name Role Phone Joseph CROOK, Hillary Primary Care Provider Hieu Mora Unavailable [phone] Allergies Allergen (clinical drug ingredient) Drug/Non Drug [...] Problem Status W/U Status Risk Notes Problem 21359344 Cervical radiculopathy due to degenerative joint disease of spine (M47.22) Active confirmed She had no complications from the surgery. The wound in the neck is well healed and requires no additional treatment at this time. Problem 527397071 Moderate obesity (E66.9) Active confirmed We reviewed her weight loss strategy today. We made a plan to lose wweight at a rate of one half of a pound per week. Problem 644588221 Mild intermittent asthma, unspecified whether complicated (J45.20) [...] Date Provider Diagnosis Hieu Simmons III, MD [address] [place] [address] [place] [address] 04/06/2024 Hieu Simmons Cervical radiculopat hy due [...] Insured Coverage Start Date Coverage End Date [facility] [address] ATTN CLAIMS JENI MULLER [id number] Dilcia Johnson Self - patient is the insured Medical (General) History Medical History History ICD Code Degenerative disc disease cervical spine Asthma Obesity Surgical History Surgery Date(Month/Year) 03/24/2024 C6-7 anterior discectomy
--- OUTSIDE RECORDS SUMMARY | 2024-04-28 17:22 | XMS_ITS | Encounter Summary ---
Author Organization [facility] Address [address] [facility] 200 [place] [address] Phone Care Team Providers Care Regional Property Manager Name Role Phone Hillary Ruiz MD Primary Care Provider [phone] Reason for Visit * Reason Comments Med Refill Encounter Details Date Type Department Care Team (Late Contact Info) Description 07/20/2020 Refill [facility] [address] [facility] 200 [place] [phone] Yousuf Galeano MD 8727 [facility] 204 [place] [phone] Social History Tobacco Use Types Packs/Day Years [...] Visit [facility] 3550 [facility] 204 [place] [phone] Yousuf Galeano MD 3550 [facility] 204 [place] [address] documented as of this encounter Visit Diagnoses Not on filedocumented in this encounter Care Teams Regional Property Manager Relationship Specialty Start Date End Date Hillary Ruiz MD 1221 [facility] 216 [place], [place] PCP - General Internal Medicine 07/09/20 documented as of this encounter
--- OUTSIDE RECORDS SUMMARY | 2024-04-28 17:22 | XMS_ITS | Encounter Summary ---
Author Organization [employer] Address [address] [place] [address] 7t [place] [address] Care Team Providers Care Lens Gauger Name Role Phone Unavailable Primary Care Provider Unavailabl e Encounter Details Date Type Department Care Team (Latest Contact Info) Description 07/08/2018 Abstract [facility] CONVERSIONS Dental, Provider, DDS Social History Tobacco [...] Description 07/05/2024 10:00 AM EDT Office Visit [facility] 91 [place], [place] [phone] Kimi Mae 91 [place], [place] [phone] documented as of this encounter Visit Diagnoses Not on filedocumented in this encounter
--- OUTSIDE RECORDS SUMMARY | 2024-04-28 17:22 | XMS_ITS | Patient Health Record ---
Author Organization [facility] Address [address] [place] [address] Care Team Providers Care Web Marketing Intern Name Role Phone Hillary Ruiz Primary Care Provider UnavailHieu De Santiago Unavailable [phone] Allergies Allergen (clinical drug ingredient) Drug/Non Drug Allergy documented on EMR Reaction Allergy Type Onset Date Status Bactrim Unknown Drug Allergy Active Reason For Referral [...] DAILY. Oral for 90 Active potassium Active [place]-3 1000 MG ONE ORAL DAILY Oral for 90 Active SUMAtriptan injections Active Topiramate 100 MG TAKE 1 TABLET BY EMILY TH EVERY DAY Oral for 90 Active Amerge Active Solifenacin Succinate 10 MG TAKE 1 TABLE T BY MOUTH DAILY FOR OAB Oral for 90 Active Immunizations Vaccine Route Administration Date Status Comme nts Influenza Unknown 12/06/2019 Administered Influenza Unknown 12/11/2021 Administered Social History Tobacco Use: Social History Observation Description Date Details (start date - stop date) Never Smoker NA - NA Tobacco Use/Smoking Question Answer Notes Patient is a nonsmoker Alcohol Screen Question Answer Notes Did you have a drink containing alcohol in the p ast year? No Points 0 Interpretation Negative Section Notes: Nonsmoker; no alcohol Nonsmoker; no alcohol Nonsmoker; no alcohol Problems Problem Type SNOMED Code ICD Code Onset Dates Problem Status W/U Status Risk Notes Problem 1077252 Diverticulitis o f large intestine without perforation or abscess without bleeding (K57.32) Active confirmed Problem 358605933 Coburn's esophagus without dysplasia (K22.70) Active confirmed Problem 18960931 Heartburn (R12) Active confirmed Problem Gastroesophageal reflux disease (477731265) Gastroesophageal reflux disease (K21.9) Active confirmed Problem 128674696 Gastroesophageal reflux disease, esophagitis presence not specified (K21.9) Active confirmed Problem Hiatal hernia (59550887) Hiatal hernia (K44.9) Active confirmed Problem Reflux esophagitis (301343874) Reflux esophagitis (K21.0) Active confirmed Problem Coburn esophagus (186072351) Coburn esophagus (K22.70) Active confirmed Problem Coburn's esophagus (877587055) Coburn''s esophagus without dysplasia (K22.70) Active confirmed Problem 703283792 Gastroesophageal reflux disease with esophagitis without hemorrhage (K21.00) Active confirmed Plan Of Treatment Pending Test Test Name Order Date Pathology 05/05/2022 Future Test Test Name Order Date UPPER GI ENDOSCOPY 03/05/2017 UPPER GI ENDOSCOPY 03/21/2022 Insurance Providers Payer Name Payer Address Payer Phone Subscriber Number Group Number Insured Name Patient Relationship to Insured Coverage Start Date Coverage End Date [facility] [address] [place] [address] [id number] CLARISSA LORD Self - patient is the insured Medical (General) History Medical History History ICD Code Migraine headaches Asthma brought on by bronchitis Denies CO,DM,CVA,,renal disease GERD--EGD 02/2017 with small to mod-sized HH, mild esophagitis, and small areas of Barretts; gastric bx neg for Hpylori. She underwent an upper endoscopy in July of [address] Montejo at [facility] with the finding of a slightly irregular [...]
--- OUTSIDE RECORDS SUMMARY | 2024-04-28 17:22 | XMS_ITS | Encounter Summary ---
Author Organization [employer] Address [address] [place] [address] 7t [place] [address] Care Team Providers Care Silver Cleaner Name Role Phone Unavailable Primary Care Provider Unavailabl e Encounter Details Date Type Department Care Team (Latest Contact Info) Description 10/14/2021 Abstract [facility] CONVERSIONS Dental, Provider, DDS Social History Tobacco [...] Description 07/05/2024 10:00 AM EDT Office Visit [facility] [address] [place], [place] [phone] Kimi Mae 91 [place], [place] [phone] documented as of this encounter Visit Diagnoses Not on filedocumented in this encounter
== END 2024-04-28 14:10 | disposition home or self-care (01) ==
LOC: HO.LAB 14:09
PROVIDERS: PCP Internal Medicine; Visit Provider Internal Medicine
DX: Z00.00 Encounter for general adult medical examination without abnormal findings (principal); E78.00 Pure hypercholesterolemia, unspecified; H93.11 Tinnitus, right ear; M47.22 Other spondylosis with radiculopathy, cervical region; R74.01 Elevation of levels of liver transaminase levels
CPT/HCPCS: 36415; 80053; 80061

== ENCOUNTER 2024-05-26 11:00 | Outpatient (AMB) | payer OTHER, SELFPAY ==
--- NOTE | 2024-05-26 11:16 | HO.SPINEOV ---
Intake Visit Reasons: 2nd post op with Xrays Intake Note: Ms. Johnson is here today for her 2nd post op with x-rays. Certified Athletic Trainer Required: No Allergies Sulfa (Sulfonamide Antibiotics) Allergy (Intermediate, Verified 04/25/24 15:22) Hives sulfamethoxazole [From BACTRIM] Allergy (Intermediate, Verified 04/25/24 15:22) HIVES trimethoprim [From BACTRIM] Allergy (Intermediate, Verified 04/25/24 15:22) HIVES Assessment & Plan Assessment & Plan (1) S/P cervical spinal fusion: Code(s): Z98.1 - Arthrodesis status Category: Surgical Plan: Pleasant 48 year old female who underwent C6-[address] Meeks a couple of months ago. During her last visit she still reported some residual shoulder pain, but was doing much better than she was prior to surgery. Today she seems to report much of the same. However shoulder pain has reduced quite a bit. She has been going to massage therapy at [facility] and feels this has been extremely helpful for her. She requested a subsequent referral so she could continue going. She attempted to go to regular physical therapy however felt this caused her too much pain. I reviewed her x-ray imaging completed during this visit which shows stable placement of the surgical instrumentation with no notable changes from fluoroscopy. No new neurological deficits. The patient ambulates well and rises from seated position without difficulty. Her anterior incision site is closed and well healing. There is no need for continued routine follow up with Dilcia. She may follow up with us on an as-needed basis. Harvinder Meeks MD,PhD [facility] Orders: Referrals Massage Therapy Referral Z98.1 - Arthrodesis status Coding Level of Care Code Global (14655) Diagnoses S/P cervical spinal fusion Z98.1
--- OUTSIDE RECORDS SUMMARY | 2024-05-26 12:22 | XMS_ITS | Clinical Summary ---
Author Organization [facility] Address [address] [place] [phone] Phone Care Team Providers Care Cfa Name Role Phone Hillary Ruiz MD Primary Care Provider +[phone]- [phone] Allergies Active Allergy Reactions Criticality Noted Date [...] mouth 1 (one) time each day Active [place] 3 1200 MG capsule Take 1 capsule [...] Office Visit [facility] [address] [phone] Yousuf Galeano MD [address] [address] Health Maintenance Due Date Last [...] 0, 11/23/2018, 10/14/2018, Additional history exists Insurance [facility] ([id number]) [facility] ([id number]) [facility] ([id number]) Care Teams Cfa Relationship Specialty Start Date End Date Hillary Ruiz MD [facility] PCP - General Internal Medicine 07/09/20
--- OUTSIDE RECORDS SUMMARY | 2024-05-26 12:22 | XMS_ITS | Clinical Summary ---
Author Organization [employer] Address [address] [place] [address] 7 [place] [address] Care Team Providers Care Duplicator Punch Operator Name Role Phone Unavailable Primary Care [...] Description 07/05/2024 10:00 AM EDT Office Visit [facility] D[facility] 91 [place], [place] [phone] Kimi Mae 91 [place], [place] [phone] Health Maintenance Due Date Last Done Comments [...] Recently Relevant to Health Maintenance Insurance [facility]
--- OUTSIDE RECORDS SUMMARY | 2024-05-26 12:22 | XMS_ITS | Encounter Summary ---
Author Organization [facility], Address [address] [place] [address] Phone Care Team Providers Care Bat Boy/Girl Name Role Phone Hillary Ruiz MD Primary Care Provider +1 [phone] Encounter Details Date Type Department Care Team (Late Contact Info) Description 01/01/2022 Documentation Only [facility], [address] [facility] [phone] Shiva Paez MD [address] [facility] [place] [phone] Social History Tobacco Use Types Packs/Day Years [...] [facility] [address] [address] Yousuf Galeano MD [address] [address] documented as of this encounter Visit Diagnoses Not on filedocumented in this encounter Care Teams Bat Boy/Girl Relationship Specialty Start Date End Date Hillary Ruiz MD 1221 [facility] 216 [place], [place] PCP - General Internal Medicine 07/09/20 documented as of this encounter
--- OUTSIDE RECORDS SUMMARY | 2024-05-26 12:22 | XMS_ITS | Clinical Summary ---
Author Organization [facility] Address [address] [place] [address] Care Team Providers Care Flat Sorting Machine Clerk Name Role Phone Charmaine Somers LUZ Primary Care Provider [phone] Surgical History Surgery Date Site/Laterality Comments OTHER SURGICAL HISTORY PROCEDURE: KS LAPS SURG CHOLECYSTECTOMY W/CHOLANGIOGRAPHY OTHER SURGICAL HISTORY 2010 Right PROCEDURE: KS CYSTO W/INSERT URETERAL STENT BACK SURGERY PROCEDURE: HISTORICAL BACK SURGERY OTHER SURGICAL HISTORY PROCEDURE: HISTORY OTHER; COMMENT: sinus surgery ESOPHAGOGASTRODUODENOSCOPY 08/03/2018 PROCEDURE: KS ESOPHAGOGASTRODUODENOSCOPY TRANSORAL DIAGNOSTIC; COMMENT: small hiatal hernia reflux esophagitis, gastritis; no report ESOPHAGOGASTRODUODENOSCOPY 03/11/2017 PROCEDURE: KS ESOPHAGOGASTRODUODENOSCOPY TRANSORAL DIAGNOSTIC; COMMENT: intestinal metaplasia sugg [...] age to complete this topic Care Teams Flat Sorting Machine Clerk Relationship Specialty Start Date End Date Charmaine Somers NP [address] [facility] [place] [address] PCP - General Internal Medicine 02/01/18
--- OUTSIDE RECORDS SUMMARY | 2024-05-26 12:22 | XMS_ITS | Patient Health Record ---
Author Organization Hieu Simmons III, MD Address [address] [facility] [place] [address] Care Team Providers Care Filter Tip Catcher Name Role Phone Joseph CROOK, Hillary Primary Care Provider Hieu Mora Unavailable [phone] Allergies Allergen (clinical drug ingredient) Drug/Non Drug [...] Problem Status W/U Status Risk Notes Problem 24953891 Cervical radiculopathy due to degenerative joint disease of spine (M47.22) Active confirmed She had no complications from the surgery. The wound in the neck is well healed and requires no additional treatment at this time. Problem 427798805 Moderate obesity (E66.9) Active confirmed We reviewed her weight loss strategy today. We made a plan to lose wweight at a rate of one half of a pound per week. Problem 204195666 Mild intermittent asthma, unspecified whether complicated (J45.20) [...] Date Provider Diagnosis Hieu Simmons III, MD [address] [place] [address] [place] [address] 04/06/2024 Hieu Simmons Cervical radiculopat hy due [...] Insured Coverage Start Date Coverage End Date [facility] [address] ATTN CLAIMS JENI MULLER [id number] Dilcia Johnson Self - patient is the insured Medical (General) History Medical History History ICD Code Degenerative disc disease cervical spine Asthma Obesity Surgical History Surgery Date(Month/Year) 03/24/2024 C6-7 anterior discectomy
--- OUTSIDE RECORDS SUMMARY | 2024-05-26 12:22 | XMS_ITS ---
Author Organization Hieu Simmons III, MD Address [address] [facility] [address] Care Team Providers Care Mud Analysis Supervisor Name Role Phone Joseph CROOK, Hillary Primary Care Provider Hieu Mora Unavailable [phone] Allergies Allergen (clinical drug ingredient) Drug/Non Drug [...] Problem Status W/U Status Risk Notes Problem 89608129 Cervical radiculopathy due to degenerative joint disease of spine (M47.22) Active confirmed She had no complications from the surgery. The wound in the neck is well healed and requires no additional treatment at this time. Problem 210665461 Moderate obesity (E66.9) Active confirmed We reviewed her weight loss strategy today. We made a plan to lose wweight at a rate of one half of a pound per week. Problem 735828257 Mild intermittent asthma, unspecified whether complicated (J45.20) [...] Date Provider Diagnosis Hieu Simmons III, MD [address] [place] [address] [place] [address] 04/06/2024 Hieu Simmons Cervical radiculopat hy due [...] * Dilcia LORDDOB:1975 (3 0 yo F)Acc No.[id number]:04/06/2024 Progress Notes Patient:?Dilcia LORD Provider:?Hieu Simmons MD [...] * Vitals:?Ht: 5'9 , Wt: 205, B [place]:30.27, BP: 123/74, HR: 80, Temp: 97.9, Ht-cm: [...] reason not done * Follow Up:?If necessary ([place] son: Office visit) * Images: * Sign off status: Completed true * Provider:?Hieu Simmons MD Date:?03/26 Generated for Dyllan mackenzie/Adam/Renettasmitting on:?05/26/2024 12:22 PM EDT History and Physical Notes * [...]
--- OUTSIDE RECORDS SUMMARY | 2024-05-26 12:23 | XMS_ITS | Patient Health Record ---
Author Organization [facility] Address [address] [place] [address] Care Team Providers Care School Clerk Name Role Phone Hillary Ruiz Primary Care Provider UnavailHieu De Santiago Unavailable [phone] Allergies Allergen (clinical drug ingredient) Drug/Non Drug Allergy documented on EMR Reaction Allergy Type Onset Date Status sulfamethoxazole / trimethoprim Bactrim Unknown Drug Allergy Active Reason For [...] DAILY. Oral for 90 Active potassium Active [place]-3 1000 MG ONE ORAL DAILY Oral for [...] Problem Status W/U Status Risk Notes Problem 7237449 Diverticulitis o f large intestine without perforation or abscess without bleeding (K57.32) Active confirmed Problem 615041837 Coburn's esophagus without dysplasia (K22.70) Active confirmed Problem 80573924 Heartburn (R12) Active confirmed Problem Gastroesophageal reflux disease (380878584) Gastroesophageal reflux disease (K21.9) Active confirmed Problem 515496883 Gastroesophageal reflux disease, esophagitis presence not specified (K21.9) Active confirmed Problem Hiatal hernia (59758889) Hiatal hernia (K44.9) Active confirmed Problem Reflux esophagitis (793735788) Reflux esophagitis (K21.0) Active confirmed Problem Coburn esophagus (136890926) Coburn esophagus (K22.70) Active confirmed Problem Coburn's esophagus (548857228) Coburn''s esophagus without dysplasia (K22.70) Active confirmed Problem 200391875 Gastroesophageal reflux disease with esophagitis without hemorrhage (K21.00) Active confirmed Plan Of Treatment Pending Test Test Name Order Date Pathology 05/05/2022 Future Test Test Name Order Date UPPER GI ENDOSCOPY 03/05/2017 UPPER GI ENDOSCOPY 03/21/2022 Insurance Providers Payer Name Payer Address Payer Phone Subscriber Number Group Number Insured Name Patient Relationship to Insured Coverage Start Date Coverage End Date [facility] [address] [place] [address] [id number] CLARISSA LORD Self - patient is the insured Medical (General) History Medical History History ICD Code Migraine headaches Asthma brought on by bronchitis Denies [place],DM,CVA,,renal disease GERD--EGD 02/2017 with small to mod-sized HH, mild esophagitis, and small areas of Barretts; gastric bx neg for Hpylori. She underwent an upper endoscopy in July of [address] Montejo at [facility] with the finding of a slightly irregular [...]
--- OUTSIDE RECORDS SUMMARY | 2024-05-26 12:23 | XMS_ITS | Encounter Summary ---
Author Organization [facility] Address [address] [facility] [address] [place] [address] Phone Care Team Providers Care Neuro Psych Sales Specialist Name Role Phone Hillary Ruiz MD Primary Care Provider [phone] Reason for Visit * Reason Comments Med Refill Encounter Details Date Type Department Care Team (Late Contact Info) Description 07/20/2020 Refill [facility] [address] [facility] [facility] [address] [place] [phone] Yousuf Galeano MD [address] [facility] [address] [place] [phone] Social History Tobacco Use Types Packs/Day Years [...] Visit [facility] [address] [facility] [address] [place] [address] Yousuf Galeano MD [address] [facility] [address] [place] [address] documented as of this encounter Visit Diagnoses Not on filedocumented in this encounter Care Teams Neuro Psych Sales Specialist Relationship Specialty Start Date End Date Hillary Ruiz MD [address] [place] [address] [place], [place] PCP - General Internal Medicine 07/09/20 documented as of this encounter
--- OUTSIDE RECORDS SUMMARY | 2024-05-26 12:23 | XMS_ITS | Encounter Summary ---
Author Organization [employer] Address [address] [place] [address] 7t [place] [address] Care Team Providers Care Art Glass Designer Name Role Phone Unavailable Primary Care Provider Unavailabl e Encounter Details Date Type Department Care Team (Latest Contact Info) Description 07/08/2018 Abstract [facility] CONVERSIONS Dental, Provider, DDS Social History Tobacco [...] Description 07/05/2024 10:00 AM EDT Office Visit [facility] [address] [place], [place] [phone] Kimi Mae [address] [place], [place] [phone] documented as of this encounter Visit Diagnoses Not on filedocumented in this encounter
--- OUTSIDE RECORDS SUMMARY | 2024-05-26 12:23 | XMS_ITS | Encounter Summary ---
Author Organization [employer] Address [address] [place] [address] 7t [place] [address] Care Team Providers Care Director Perioperative Name Role Phone Unavailable Primary Care Provider Unavailabl e Encounter Details Date Type Department Care Team (Latest Contact Info) Description 10/14/2021 Abstract [facility] CONVERSIONS Dental, Provider, DDS Social History [...] Description 07/05/2024 10:00 AM EDT Office Visit [facility] [address] [place], [place] [phone] Kimi Mae [address] [place], [place] [phone] documented as of this encounter Visit Diagnoses Not on filedocumented in this encounter
== END 2024-05-26 11:51 | disposition home or self-care (01) ==
LOC: HO.HNS 11:00
PROVIDERS: PCP Internal Medicine; Visit Provider Physician Assistant
DX: Z98.1 Arthrodesis status (principal)
CPT/HCPCS: 99024

== ENCOUNTER → 2024-05-26 11:00 | Outpatient (BNVA) | payer OTHER, SELFPAY | PROVIDERS: PCP Internal Medicine; Visit Provider Physician Assistant ==

== ENCOUNTER 2024-05-26 11:01 | Outpatient (REF) | payer OTHER, SELFPAY ==
--- NOTE | ~2024-05-26 | XR_ITS ---
CLINICAL HISTORY: Z98.1 - Arthrodesis status 4 views cervical spine Comparison: None Findings: Normal vertebral body alignment. Alignment is maintained with flexion and extension positioning. No acute fractures or dislocation. No significant degenerative change. Iatrogenic findings with surgical materials at C6-C7. No prevertebral soft tissue swelling. IMPRESSION: No acute findings. This document has been electronically signed by: Anthony Conrad MD on 05/28/2024 07:53:08
== END 2024-05-26 11:02 | disposition home or self-care (01) ==
LOC: HO.HOSX 11:01
PROVIDERS: Visit Provider Physician Assistant
DX: Z98.1 Arthrodesis status (principal)
CPT/HCPCS: 72050; 99212

== ENCOUNTER → 2024-05-26 11:07 | Outpatient (BNV) | payer OTHER, SELFPAY | PROVIDERS: Visit Provider Specialist | DX: Z98.1 Arthrodesis status (principal) | CPT/HCPCS: 72050 ==

== ENCOUNTER 2024-06-10 10:31 | Outpatient (REF) | payer OTHER, SELFPAY ==
--- OUTSIDE RECORDS SUMMARY | 2024-06-10 11:28 | XMS_ITS | Clinical Summary ---
Author Organization [employer] Address [address] [place] [address] 7 [place] [address] Care Team Providers Care Vehicle Body Sander Name Role Phone Unavailable Primary Care Provider [...] Description 07/05/2024 10:00 AM EDT Office Visit [facility] [address] [place], [place] [phone] Kimi Mae [address] [place], [place] [phone] Health Maintenance Due Date Last Done Comments [...] Recently Relevant to Health Maintenance Insurance [facility]
--- OUTSIDE RECORDS SUMMARY | 2024-06-10 11:28 | XMS_ITS | Patient Health Record ---
Author Organization Hieu Simmons III, MD Address [address] [facility] [place] [address] Care Team Providers Care Compliance Reviewer Name Role Phone Joseph CROOK, Hillary Primary Care Provider Hieu Mora Unavailable [phone] Allergies Allergen (clinical drug ingredient) Drug/Non Drug [...] Problem Status W/U Status Risk Notes Problem 66660950 Cervical radiculopathy due to degenerative joint disease of spine (M47.22) Active confirmed She had no complications from the surgery. The wound in the neck is well healed and requires no additional treatment at this time. Problem 379776181 Moderate obesity (E66.9) Active confirmed We reviewed her weight loss strategy today. We made a plan to lose wweight at a rate of one half of a pound per week. Problem 595792214 Mild intermittent asthma, unspecified whether complicated (J45.20) [...] Date Provider Diagnosis Hieu Simmons III, MD [address] [place] [address] [place] [address] 04/06/2024 Hieu Simmons Cervical radiculopat hy due [...] Insured Coverage Start Date Coverage End Date [facility] [address] ATTN CLAIMS JENI MULLER [id number] Dilcia Johnson Self - patient is the insured Medical (General) History Medical History History ICD Code Degenerative disc disease cervical spine Asthma Obesity Surgical History Surgery Date(Month/Year) 03/24/2024 C6-7 anterior discectomy
--- OUTSIDE RECORDS SUMMARY | 2024-06-10 11:28 | XMS_ITS | Clinical Summary ---
Author Organization [facility] Address [address] [place] [address] Phone Care Team Providers Care Linux Support Engineer Name Role Phone Hillary Ruiz MD Primary Care Provider [phone] Allergies Active Allergy Reactions Criticality Noted Date [...] mouth 1 (one) time each day Active [place] 3 1200 MG capsule Take 1 capsule [...] 07/15/2021 07/15/2021 Undifferentiated schizophrenia 07/15/2021 07/15/2021 Immunizations Immunization Administration Dates Next Due Influenza TIV (IM) [...] [facility] [address] [address] Yousuf Galeano MD [address] [address] Health Maintenance Due Date Last Done Comments Breast Cancer Screening 1975 Hepatitis B Vaccine (1 of 3 - 19+ 3-dose series) 1992 Pneumococcal Vaccine: 50+ Ye ars (1 of 2 - PCV) 1992 Colorectal Cancer Screening: Annual FOBT 2022 Colorectal Cancer Screening: Colonoscopy 2022 Colorectal Cancer Screening: Sigmoidoscopy 2022 Influenza Vaccine (Season Ended) 2024 10/21/2019, 11/23/2018, 10/14/2018, Additional history exists Insurance * Guarantor: Dilcia Johnson Account Type Relation to Patient Date of Phone Billing Address Personal/Family Self 1975 [address] [id number] [facility] ([id number]) JENI MULLER [phone] [facility] ([id number]) [facility] ([id number]) Care Teams Linux Support Engineer Relationship Specialty Start Date End Date Hillary Ruiz MD [address] PCP - General Internal Medicine 07/09/20
--- OUTSIDE RECORDS SUMMARY | 2024-06-10 11:28 | XMS_ITS | Clinical Summary ---
Author Organization [facility] Address [address] [place] [address] Care Team Providers Care Isotope Technologist Name Role Phone Charmaine Somers LUZ Primary Care Provider [phone] Surgical History Surgery Date Site/Laterality Comments OTHER [...] Date Comments Schizoaffective disorder, bi polar type (CMS/HCC V24, CMS/HCC V28) 04/07/2019 DX:Schizoaffective disorder , bipolar type (HCC) GERD (gastroesophageal reflux disease) [...] (1 of 2) 06/18/2023 COVID-19 Vaccine ( - 2023-2 5 season) 2023 Influenza Vaccine (Season Ended) 2024 10/14/2018, 10/17/2017 DTaP,Tdap,and Td Vaccines (3 - Td [...] age to complete this topic Meningococcal B Vaccine Aged Out No l onger eligible based on patient's age to complete [...] age to complete this topic Care Teams Isotope Technologist Relationship Specialty Start Date End Date Charmaine Somers NP [address] [facility] [place] [address] PCP - General Internal Medicine 02/01/18
--- OUTSIDE RECORDS SUMMARY | 2024-06-10 11:29 | XMS_ITS | Patient Health Record ---
Author Organization [facility] Address [address] [place] [address] Care Team Providers Care Copy Chaser Name Role Phone Hillary Ruiz Primary Care Provider UnavailHieu De Santiago Unavailable [phone] Allergies Allergen (clinical drug ingredient) Drug/Non Drug [...] DAILY. Oral for 90 Active potassium Active [place]-3 1000 MG ONE ORAL DAILY Oral for [...] Problem Status W/U Status Risk Notes Problem 4034727 Diverticulitis o f large intestine without perforation or abscess without bleeding (K57.32) Active confirmed Problem 344316085 Coburn's esophagus without dysplasia (K22.70) Active confirmed Problem 72791742 Heartburn (R12) Active confirmed Problem Gastroesophageal reflux disease (387592523) Gastroesophageal reflux disease (K21.9) Active confirmed Problem 098306480 Gastroesophageal reflux disease, esophagitis presence not specified (K21.9) Active confirmed Problem Hiatal hernia (92395249) Hiatal hernia (K44.9) Active confirmed Problem Reflux esophagitis (793498741) Reflux esophagitis (K21.0) Active confirmed Problem Coburn esophagus (336594589) Coburn esophagus (K22.70) Active confirmed Problem Coburn's esophagus (659623318) Coburn''s esophagus without dysplasia (K22.70) Active confirmed Problem 577274869 Gastroesophageal reflux disease with esophagitis without hemorrhage (K21.00) Active confirmed Plan Of Treatment Pending Test Test Name Order Date Pathology 05/05/2022 Future Test Test Name Order Date UPPER GI ENDOSCOPY 03/05/2017 UPPER GI ENDOSCOPY 03/21/2022 Insurance Providers Payer Name Payer Address Payer Phone Subscriber Number Group Number Insured Name Patient Relationship to Insured Coverage Start Date Coverage End Date [facility] [address] [place] [address] [id number] CLARISSA LORD Self - patient is the insured Medical (General) History Medical History History ICD Code Migraine headaches Asthma brought on by bronchitis Denies [place],DM,CVA,,renal disease GERD--EGD 02/2017 with small to mod-sized HH, mild esophagitis, and small areas of Barretts; gastric bx neg for Hpylori. She underwent an upper endoscopy in July of [address] Montejo at [facility] with the finding of a slightly irregular [...]
--- OUTSIDE RECORDS SUMMARY | 2024-06-10 11:29 | XMS_ITS | Encounter Summary ---
Author Organization [employer] Address [address] [place] [address] 7t [place] [address] Care Team Providers Care Underwater Welder Name Role Phone Unavailable Primary Care Provider Unavailabl e Encounter Details Date Type Department Care Team (Latest Contact Info) Description 10/14/2021 Abstract [facility] CONVERSIONS Dental, Provider, DDS Social [...] Description 07/05/2024 10:00 AM EDT Office Visit [facility] [address] [place], [place] [phone] iKmi Mae [address] [place], [place] [phone] documented as of this encounter Visit Diagnoses Not on filedocumented in this encounter
--- OUTSIDE RECORDS SUMMARY | 2024-06-10 11:29 | XMS_ITS | Encounter Summary ---
Author Organization [facility], Address [address] [place] [address] Phone Care Team Providers Care Resolution Agent Name Role Phone Hillary Ruiz MD Primary Care Provider [phone] Encounter Details Date Type Department Care Team (Late Contact Info) Description 01/01/2022 Documentation Only [facility], [address] [facility] [place] [phone] Shiva Paez MD [address] [facility] [place] [phone] Social History Tobacco Use Types Packs/Day Years [...] Visit [facility] [address] [address] Yousuf Galeano MD [address] [address] documented as of this encounter Visit Diagnoses Not on filedocumented in this encounter Care Teams Resolution Agent Relationship Specialty Start Date End Date Hillary Ruiz MD 12[address] [facility] [address] [place], [place] PCP - General Internal Medicine 07/09/20 documented as of this encounter
--- OUTSIDE RECORDS SUMMARY | 2024-06-10 11:29 | XMS_ITS ---
Author Organization Hieu Simmons III, MD Address [address] [facility] [place] [address] Care Team Providers Care Supervisor Salvage Name Role Phone Joseph CROOK, Hillary Primary Care Provider Hieu Mora Unavailable [phone] Allergies Allergen (clinical drug ingredient) Drug/Non Drug [...] Problem Status W/U Status Risk Notes Problem 05397966 Cervical radiculopathy due to degenerative joint disease of spine (M47.22) Active confirmed She had no complications from the surgery. The wound in the neck is well healed and requires no additional treatment at this time. Problem 700708496 Moderate obesity (E66.9) Active confirmed We reviewed her weight loss strategy today. We made a plan to lose wweight at a rate of one half of a pound per week. Problem 007481975 Mild intermittent asthma, unspecified whether complicated (J45.20) [...] Date Provider Diagnosis Hieu Simmons III, MD [address] [place] [address] [place] [address] 04/06/2024 Hieu Simmons Cervical radiculopat hy due [...] * Dilcia LORDDOB:1975 (3 0 yo F)Acc No.[id number]:04/06/2024 Progress Notes Patient:?Dilcia LORD Provider:?Hieu Simmons MD [...] * Vitals:?Ht: 5'9 , Wt: 205, B SD:30.27, BP: 123/74, HR: 80, Temp: 97.9, Ht-cm: [...] reason not done * Follow Up:?If necessary ([place] son: Office visit) * Images: * Sign off status: Completed true * Provider:?Hieu Simmons MD Date:?03/26 Generated for Dyllan mackenzie/Adam/Renettasmitting on:?06/10/2024 11:28 AM EDT History and Physical Notes * HPI [...]
--- OUTSIDE RECORDS SUMMARY | 2024-06-10 11:29 | XMS_ITS | Encounter Summary ---
Author Organization [employer] Address [address] [place] [address] 7t [place] [address] Care Team Providers Care Ruling Technician Name Role Phone Unavailable Primary Care Provider Unavailabl e Encounter Details Date Type Department Care Team (Latest Contact Info) Description 07/08/2018 Abstract [facility] CONVERSIONS Dental, Provider, DDS Social [...] Description 07/05/2024 10:00 AM EDT Office Visit [facility] [address] [place], [place] [phone] Kimi Mae 91 [place], [place] [phone] documented as of this encounter Visit Diagnoses Not on filedocumented in this encounter
--- OUTSIDE RECORDS SUMMARY | 2024-06-10 11:29 | XMS_ITS | Encounter Summary ---
Author Organization [facility] Address [address] [facility] [address] [place] [address] Phone Care Team Providers Care Enterprise Resource Planning Consultant Name Role Phone Hillary Ruiz MD Primary Care Provider [phone] Reason for Visit * Reason Comments Med Refill Encounter Details Date Type Department Care Team (Late Contact Info) Description 07/20/2020 Refill [facility] [address] [facility] [address] [place] [phone] Yousuf Galeano MD [address] [facility] [address] [place] [phone] Social History Tobacco Use Types Packs/Day Years [...] Visit [facility] [address] [facility] [address] [place] [phone] Yousuf Galeano MD [address] [facility] [address] [place] [address] documented as of this encounter Visit Diagnoses Not on filedocumented in this encounter Care Teams Enterprise Resource Planning Consultant Relationship Specialty Start Date End Date Hillary Ruiz MD 12[address] [facility] [address] [place], [place] PCP - General Internal Medicine 07/09/20 documented as of this encounter
[2024-06-10 13:23] LABS: MANUAL DIFF FLAG NO
[2024-06-10 13:30] LABS: Basophils Percent Auto 0.2 % (0-2); Hematocrit 42.8 % (37.0-47.0); Hemoglobin 13.9 g/dl (12.0-16.0); Imm Gran Pct Auto 0.6 % (0.0-0.4); Lymphocytes Absolute Auto 1.5 X10*3/uL (1.2-4.9); Lymphocytes Percent Auto 9.6 % (20-40); Mean Corpuscular HGB Conc 32.5 g/dl (31.0-35.0); Mean Corpuscular Hemoglobin 29.7 pg (27.0-33.0); Mean Corpuscular Volume 91.5 fL (80.0-98.0); Monocytes Absolute Auto 0.4 X10*3/uL (0.1-1.2); Monocytes Percent Auto 2.4 % (2-11); Neutrophils Absolute Auto 13.5 x10*3/uL (2.0-8.3); Neutrophils Percent Auto 87.2 % (45-73); Platelet Count 302 X10*3/uL (160-400); Red Blood Count 4.68 X10*6/uL (4.20-5.50); Red Cell Distribution Width 13.8 % (11.0-16.0); White Blood Count 15.5 X10*3/uL (4.8-10.8)
[2024-06-10 14:06] LABS: Thyroid Stimulating Hormone 1.05 uIU/mL (0.32-4.0)
== END 2024-06-10 10:32 | disposition home or self-care (01) ==
LOC: HO.10HDL 10:31
PROVIDERS: Visit Provider Internal Medicine
DX: H02.841 Edema of right upper eyelid (principal); H10.11 Acute atopic conjunctivitis, right eye; R53.83 Other fatigue; T78.3XXS Angioneurotic edema, sequela
CPT/HCPCS: 36415; 84443; 85025

== ENCOUNTER 2024-08-22 07:57 | Outpatient (REF) | payer OTHER, SELFPAY ==
--- OUTSIDE RECORDS SUMMARY | 2024-08-22 08:00 | XMS_ITS | Patient Health Record ---
Author Organization Hieu Simmons III, MD Address [address] [place] [address] Care Team Providers Care Entertainment & Media Correspondent Name Role Phone Joseph CROOK, Hillary Primary Care Provider Hieu Mora Unavailable [phone] Allergies Allergen (clinical drug ingredient) Drug/Non Drug [...] Problem Status W/U Status Risk Notes Problem 12084808 Cervical radiculopathy due to degenerative joint disease of spine (M47.22) Active confirmed She had no complications from the surgery. The wound in the neck is well healed and requires no additional treatment at this time. Problem 953622661 Moderate obesity (E66.9) Active confirmed We reviewed her weight loss strategy today. We made a plan to lose wweight at a rate of one half of a pound per week. Problem 569586354 Mild intermittent asthma, unspecified whether complicated (J45.20) [...] Date Provider Diagnosis Hieu Simmons III, MD [address] [place] [address] [place] [address] 04/06/2024 Hieu Simmons Cervical radiculopat hy due [...] Insured Coverage Start Date Coverage End Date [facility] [address] ATTN CLAIMS JENI MULLER [id number] Dilcia Johnson Self - patient is the insured Medical (General) History Medical History History ICD Code Degenerative disc disease cervical spine Asthma Obesity Surgical History Surgery Date(Month/Year) 03/24/2024 C6-7 anterior discectomy
== END 2024-08-22 07:58 | disposition home or self-care (01) ==
LOC: HO.MAMMO 07:57
PROVIDERS: PCP Internal Medicine; Visit Provider Internal Medicine
DX: Z12.31 Encounter for screening mammogram for malignant neoplasm of breast (principal)
CPT/HCPCS: 77063; 77067

== ENCOUNTER → 2024-08-22 08:00 | Outpatient (BNV) | payer OTHER, SELFPAY | PROVIDERS: PCP Internal Medicine; Visit Provider Internal Medicine | DX: Z12.31 Encounter for screening mammogram for malignant neoplasm of breast (principal) | CPT/HCPCS: 77063; 77067 ==

== ENCOUNTER 2024-08-29 16:12 | Outpatient (REF) | payer OTHER, SELFPAY ==
--- OUTSIDE RECORDS SUMMARY | 2024-08-29 16:15 | XMS_ITS | Clinical Summary ---
Author Organization [facility] Address [address] [place] [address] Care Team Providers Care Plastic Surgery Manager Name Role Phone Charmaine Somers LUZ Primary Care Provider [phone] Surgical History Surgery Date Site/Laterality Comments OTHER SURGICAL HISTORY PROCEDURE: ME LAPS SURG CHOLECYSTECTOMY W/CHOLANGIOGRAPHY OTHER SURGICAL HISTORY 2010 Right PROCEDURE: ME CYSTO W/INSERT URETERAL STENT BACK SURGERY PROCEDURE: HISTORICAL BACK SURGERY OTHER SURGICAL HISTORY PROCEDURE: HISTORY OTHER; COMMENT: sinus surgery ESOPHAGOGASTRODUODENOSCOPY 08/03/2018 PROCEDURE: ME ESOPHAGOGASTRODUODENOSCOPY TRANSORAL DIAGNOSTIC; COMMENT: small hiatal hernia reflux esophagitis, gastritis; no report ESOPHAGOGASTRODUODENOSCOPY 03/11/2017 PROCEDURE: ME ESOPHAGOGASTRODUODENOSCOPY TRANSORAL DIAGNOSTIC; COMMENT: intestinal metaplasia sugg [...] 2023-2 5 season) 2023 Influenza Vaccine (#1) 2024 9, 10/17/2017 DTaP,Tdap,and Td Vaccines (3 - [...] 5 Years) and At-Risk Patients (6 to 49 Years) Aged Out No longer eligible b ased on patient's age to complete this topic RSV Immunization Patients Under 20 months Aged Out No longer eligible b ased on patient's age to complete this topic Varicella Vaccines Aged Out No longer eligible based on patient's age to complete this topic Care Teams Plastic Surgery Manager Relationship Specialty Start Date End Date Charmaine Somers NP [address] [place] [address] PCP - General Internal Medicine 02/01/18
--- OUTSIDE RECORDS SUMMARY | 2024-08-29 16:15 | XMS_ITS | Patient Health Record ---
Author Organization [facility] Address [address] [place] [address] Care Team Providers Care Marine Engine Machinist Apprentice Name Role Phone Hillary Ruiz Primary Care Provider UnavailHieu De Santiago Unavailable [phone] Allergies Allergen (clinical drug ingredient) Drug/Non Drug [...] DAILY. Oral for 90 Active potassium Active Crete-3 1000 MG ONE ORAL DAILY Oral for [...] Problem Status W/U Status Risk Notes Problem 4231793 Diverticulitis o f large intestine without perforation or abscess without bleeding (K57.32) Active confirmed Problem 203749745 Coburn's esophagus without dysplasia (K22.70) Active confirmed Problem 98935471 Heartburn (R12) Active confirmed Problem Gastroesophageal reflux disease (444226864) Gastroesophageal reflux disease (K21.9) Active confirmed Problem 032171731 Gastroesophageal reflux disease, esophagitis presence not specified (K21.9) Active confirmed Problem Hiatal hernia (87775812) Hiatal hernia (K44.9) Active confirmed Problem Reflux esophagitis (230607639) Reflux esophagitis (K21.0) Active confirmed Problem Coburn esophagus (191489345) Coburn esophagus (K22.70) Active confirmed Problem Coburn's esophagus (033072182) Coburn''s esophagus without dysplasia (K22.70) Active confirmed Problem 334912222 Gastroesophageal reflux disease with esophagitis without hemorrhage (K21.00) Active confirmed Plan Of Treatment Pending Test Test Name Order Date Pathology 05/05/2022 Future Test Test Name Order Date UPPER GI ENDOSCOPY 03/05/2017 UPPER GI ENDOSCOPY 03/21/2022 Insurance Providers Payer Name Payer Address Payer Phone Subscriber Number Group Number Insured Name Patient Relationship to Insured Coverage Start Date Coverage End Date [facility] [address] [place] [address] [id number] CLARISSA LORD Self - patient is the insured Medical (General) History Medical History History ICD Code Migraine headaches Asthma brought on by bronchitis Denies GA,DM,CVA,,renal disease GERD--EGD 02/2017 with small to mod-sized HH, mild esophagitis, and small areas of Barretts; gastric bx neg for Hpylori. She underwent an upper endoscopy in July of [address] Montejo at [facility] with the finding of a slightly [...]
--- OUTSIDE RECORDS SUMMARY | 2024-08-29 16:15 | XMS_ITS | Clinical Summary ---
Author Organization [facility] Address [address] [place] [phone] Phone Care Team Providers Care Art Objects Supervisor Name Role Phone Hillary Ruiz MD Primary Care Provider [phone] Allergies Active Allergy Reactions Criticality Noted Date [...] mouth 1 (one) time each day Active Shawnee 3 1200 MG capsule Take 1 capsule [...] [facility] [address] [address] Yousuf Galeano MD [address] [address] Health Maintenance Due Date Last Done Comments Breast Cancer Screening 1973 Hepatitis B Vaccine (1 of 3 - 19+ 3-dose series) 1992 Pneumococcal Vaccine: 50+ Ye ars (1 of 2 - PCV) 1992 Colorectal Cancer Screening: Annual FOBT 2022 Colorectal Cancer Screening: Colonoscopy 2022 Colorectal Cancer Screening: Sigmoidoscopy 2022 Influenza Vaccine (#1) 2024 0, 11/23/2018, 10/14/2018, Additional history exists Insurance [facility] ([id number]) JENI MULLER [id number] [facility] ([id number]) [facility] ([id number]) Care Teams Art Objects Supervisor Relationship Specialty Start Date End Date Hillary Ruiz MD [facility] [address] PCP - General Internal Medicine 07/09/20
--- OUTSIDE RECORDS SUMMARY | 2024-08-29 16:15 | XMS_ITS | Clinical Summary ---
Author Organization [employer] Address [address] [facility] 7t [place] [address] Care Team Providers Care Housekeeping Supervisor Hotel Name Role Phone Unavailable Primary Care Provider Unavailabl e Allergies Active Allergy Reactions Criticality Noted Date Comments Sulfamethoxazole Hives 09/17/2012 Sulfamethoxazole-Trimethoprim 2020 Other reaction(s): Unknown Trimethoprim 09/17/2012 Other reaction(s): Hives/Skin Rash Medications omeprazole OTC (PriLOSEC OTC) 20 MG EC [...] NOT RINSE 100 g 4 3 Active buPROPion XL (Wellbutrin XL) 300 MG 24 hr tablet Take 300 mg by mouth Once per day. Active fluvoxaMINE (Luvox) 25 MG tablet TAKE 1 TAB BY MOUTH ONCE A DAY FOR 14 DAYS & THEN STOP 5 Active Encounters Date Type Department Care Team Description 07/05/2024 10:00 AM EDT Office Visit [facility] [address] [place] [address] Kimi Mae from Last 3 Months Social History Tobacco Use Types Packs/Day Years [...] Sign Reading Time Taken Comments Blood Pressure 114/82 07/05/2024 10:15 AM EDT Pulse 94 07/05/2024 10:15 AM EDT Temperature - - Respiratory Rate - - Oxygen Saturation - - Inhaled Oxygen Concentration - - Weight - - Height - - Body Mass Index - - Plan of Treatment Upcoming Encounters Date Type Department Care Team (Late st Contact Info) Description 01/10/2025 8:00 AM EST Office Visit [address] [address] Kimi Mae [address] [place] [address] Health Maintenance Due Date Last Done Comments CT Colonography 1973 Colonoscopy 1973 Colorectal Cancer Screening 1973 Dental X-Ray: Full Mouth 1973 Depression Screening 1973 FIT DNA/Cologuard 1973 FIT 1973 FOBT 1973 HIV Screening 1973 Lipid Panel 1973 SDOH Screening 1973 Sigmoidoscopy 1973 Disability Screening 1973 Alcohol/Substance Use Screening 1985 Family Planning (PISQ) 1988 Hepatitis C Screening 06/18/1991 Hepatitis B Vaccines (1 of 3 - 19+ 3-dose series) 1992 Pneumococcal Vaccine: 50+ Years (1 of 2 - PCV) 1992 Pap Smear 1994 Cervical Cancer Screening 06/18/2003 HPV/Cotest 06/18/2003 Mammogram 2013 Zoster Vaccines (1 of 2) 06/18/2023 COVID-19 Vaccine ( - season) 2023 02/07/2022, 07/03/2020, 06/13/2020, Additional history exists Dental X-Ray: Bitewings 06/25/2024 06/25/2023, 04/22 Influenza Vaccine (#1) 2024 , 10/15/2022, 12/11/2021, Additional history exists Dental Oral Exam 01/06/2025 07/05/2024, 08/2023, 10/22/2022, Additional history exists Dental Prophylaxis 01/06/2025 07/05/2024, 1 03/01/2023, 06/25/2023, Additional history exists Tobacco Screening 07/05/2025 07/05/2024 DTaP/Tdap/Td Vaccines (3 - Td or Tdap) 05/07/2026 05/07/2016, 06/10/2012 RSV Patients and Patients Aged 60 years or older (1 - 1-dose 75+ series) 2048 HIB Vaccines Aged Out No longer eligi [...] Procedure Name Priority Date/Time Associated Diagnosis Comments PERIODIC ORAL EVALUATION - ESTABLISHED PATIENT Routine 07/05/2024 10:00 AM EDT CASE PRESENTATION, DETAILED AND EXTENSIVE TREATMENT PLANNING Routine 07/05/2024 10:00 AM EDT PROPHYLAXIS - ADULT Routine 07/05/2024 1 0:00 AM EDT TOPICAL APPLICATION OF FLUORIDE - EXCLUDING VARNISH Routine 07/05/2024 10:00 AM EDT BITEWINGS - 4 RADIOGRAPHIC IMAGES Routine 06/25/2023 10:00 AM EDT from Last 3 Months or Most Recently Relevant to Health Maintenance Insurance [facility] - [facility]
--- OUTSIDE RECORDS SUMMARY | 2024-08-29 16:15 | XMS_ITS | Patient Health Record ---
Author Organization Hieu Simmons III, MD Address [address] [facility] [place] [address] Care Team Providers Care Piano Builder Name Role Phone Joseph RCOOK, Hillary Primary Care Provider Hieu Mora Unavailable [phone] Allergies Allergen (clinical drug ingredient) Drug/Non Drug [...] Problem Status W/U Status Risk Notes Problem 74926283 Cervical radiculopathy due to degenerative joint disease of spine (M47.22) Active confirmed She had no complications from the surgery. The wound in the neck is well healed and requires no additional treatment at this time. Problem 980547663 Moderate obesity (E66.9) Active confirmed We reviewed her weight loss strategy today. We made a plan to lose wweight at a rate of one half of a pound per week. Problem 905410146 Mild intermittent asthma, unspecified whether complicated (J45.20) [...] Date Provider Diagnosis Hieu Simmons III, MD [address] [place] [address] [place] [address] 04/06/2024 Hieu Simmons Cervical radiculopat hy due [...] Insured Coverage Start Date Coverage End Date [facility] [address] ATTN CLAIMS JENI MULLER [id number] Dilcia Johnson Self - patient is the insured Medical (General) History Medical History History ICD Code Degenerative disc disease cervical spine Asthma Obesity Surgical History Surgery Date(Month/Year) 03/24/2024 C6-7 anterior discectomy
[2024-08-29 16:20] LABS: MANUAL DIFF FLAG NO
[2024-08-29 17:23] LABS: Hematocrit 43.1 % (37.0-47.0); Hemoglobin 14.6 g/dl (12.0-16.0); Imm Gran Abs Auto 0.03 X10*3/uL (0.00-0.03); Imm Gran Pct Auto 0.3 % (0.0-0.4); Lymphocytes Absolute Auto 2.8 X10*3/uL (1.2-4.9); Mean Corpuscular HGB Conc 33.9 g/dl (31.0-35.0); Mean Corpuscular Hemoglobin 30.4 pg (27.0-33.0); Mean Corpuscular Volume 89.6 fL (80.0-98.0); NRBC Abs Auto 0.000 X10*3/uL (0.0-0.012); NRBC Pct Auto 0.0 /100WBC (0.0-0.2); Platelet Count 324 X10*3/uL (160-400); Red Blood Count 4.81 X10*6/uL (4.20-5.50); White Blood Count 10.3 X10*3/uL (4.8-10.8)
== END 2024-08-29 16:13 | disposition home or self-care (01) ==
LOC: HO.LAB 16:12
PROVIDERS: PCP Internal Medicine; Visit Provider Internal Medicine
DX: N30.01 Acute cystitis with hematuria (principal); G56.01 Carpal tunnel syndrome, right upper limb; R19.5 Other fecal abnormalities
CPT/HCPCS: 36415; 85025

== ENCOUNTER 2024-09-12 13:36 | Outpatient (REF) | payer OTHER, SELFPAY ==
--- NOTE | ~2024-09-12 | XR_ITS ---
EXAMINATION: XR CERVICAL SPINE 4-5 VIEWS HISTORY: M54.2 - Cervicalgia COMPARISON: Comparison is made with the prior examination dated 05/26/2024. FINDINGS: AP, and neutral, flexion, and extension lateral views of the cervical spine are submitted. Osseous mineralization is normal. The patient is again noted to be status post anterior cervical disc fusion at C6-7. The fusion hardware is intact. The vertebral bodies maintain normal height. There is slight anterolisthesis of C4 on C5 measuring 3 mm in neutral position and in flexion. This reduces with extension. The remaining intervertebral disc spaces are preserved. There is no prevertebral soft tissue swelling. XR/XR cervical spine 4V IMPRESSION: Status post anterior cervical disc fusion at C6-7. Slight anterolisthesis of C3 on C4 measuring 3 mm in the neutral position and in flexion, which reduces in extension. Electronically signed by: Hieu Horne MD 09/12/2024 03:38 PM EDT
== END 2024-09-12 13:37 | disposition home or self-care (01) ==
LOC: HO.HOSX 13:36
PROVIDERS: PCP Internal Medicine; Visit Provider Physician Assistant
DX: M54.2 Cervicalgia (principal); R20.0 Anesthesia of skin; Z98.1 Arthrodesis status; M25.512 Pain in left shoulder
CPT/HCPCS: 72050; 99212

== ENCOUNTER 2024-09-12 13:36 | Outpatient (AMB) | payer OTHER, SELFPAY ==
--- OUTSIDE RECORDS SUMMARY | 2024-09-12 14:22 | XMS_ITS | Clinical Summary ---
Author Organization [employer] Address [address] [facility] 7t [place] [address] Care Team Providers Care Fruit And Vegetable Inspector Name Role Phone Unavailable Primary Care Provider [...] Description 07/05/2024 10:00 AM EDT [facility] [address] [place] [address] Kimi Mae from Last 3 Months Social [...] Description 01/10/2025 8:00 AM EST Office Visit [address] [address] Kimi Mae [address] [place] [address] Health Maintenance Due Date Last Done Comments [...] [facility]
--- OUTSIDE RECORDS SUMMARY | 2024-09-12 14:22 | XMS_ITS | Patient Health Record ---
Author Organization Hieu Simmons III, MD Address [address] [facility] [place] [address] Care Team Providers Care Test Center Administrator Name Role Phone Joseph CROOK, Hillary Primary Care Provider Hieu Mora Unavailable [phone] Allergies Allergen (clinical drug ingredient) Drug/Non Drug [...] Problem Status W/U Status Risk Notes Problem 98722588 Cervical radiculopathy due to degenerative joint disease of spine (M47.22) Active confirmed She had no complications from the surgery. The wound in the neck is well healed and requires no additional treatment at this time. Problem 531553651 Moderate obesity (E66.9) Active confirmed We reviewed her weight loss strategy today. We made a plan to lose wweight at a rate of one half of a pound per week. Problem 546255763 Mild intermittent asthma, unspecified whether complicated (J45.20) [...] Date Provider Diagnosis Hieu Simmons III, MD [address] [place] [address] [place] [address] 04/06/2024 Hieu Simmons Cervical radiculopat hy due [...] Insured Coverage Start Date Coverage End Date [facility] [address] ATTN CLAIMS JENI MULLER [id number] Dilcia Johnson Self - patient is the insured Medical (General) History Medical History History ICD Code Degenerative disc disease cervical spine Asthma Obesity Surgical History Surgery Date(Month/Year) 03/24/2024 C6-7 anterior discectomy
--- OUTSIDE RECORDS SUMMARY | 2024-09-12 14:23 | XMS_ITS | Clinical Summary ---
Author Organization [facility] Address [facility] [employer] [address] [address] Phone Care Team Providers Care Rn Infusion Name Role Phone Hillary Ruiz MD Primary Care Provider Allergies Active Allergy Reactions Criticality Noted Date Comments Sulfamethoxazole-Trimethoprim 2020 Social History Tobacco Use Types Packs/Day Years Used Date Smoking Tobacco: Never Smokeless Tobacco: Never Alcohol Use Standard Drinks/Week Comments Not Currently 0 (1 standard drink = 0.6 oz pur e alcohol) Education Answer Date Recorded Are you interested in more education? Not on awa e 06/20/2022 Are you concerned about learning? Not on file 06/20/2022 No 06/20/2022 No 06/20/2022 Digital Access Answer Date Recorded No 07/21/2022 No 07/21/2022 No 07/21/2022 Reliable internet access at home? Not on file 07/21/2022 Device with a working camera? Not on file Comments Unknown Sex and Gender Information Value Date Recorded Sex Assigned at Female 03/13/2020 1:27 PM EST Legal Sex Female 9:31 PM EDT Gender Identity Female 03/13/2020 1:27 PM EST Sexual Orientation Choose not to disclose 2020 1:27 PM EST Last Filed Vital Signs Vital Sign Reading Time Taken Comments Blood Pressure 117/70 03/13/2020 6:00 PM EST Pulse 78 03/13/2020 6:00 PM EST Temperature 37 C (98.6 F) 03/13/2020 1:27 PM EST Respiratory Rate 15 03/13/2020 6:00 PM EST Oxygen Saturation 98% 03/13/2020 6:00 PM EST Inhaled Oxygen Concentration - - Weight 81.6 kg (180 lb) 03/13/2020 1:27 PM EST Height 175.3 cm (5' 9 ) 03/13/2020 1:27 PM EST Body Mass Index 26.58 03/13/2020 1:27 PM EST Plan of Treatment Health Maintenance Due Date Last Done Comments LIPID PANEL 1973 DEPRESSION SCREENING 1985 HEPATITIS C SCREENING 06/18/1991 HIV ONE-TIME SCREENING (18-6 5 YEARS) 06/18/1991 PAP SMEAR 1994 MAMMOGRAM 2013 COLOGUARD 2018 COLONOSCOPY 2018 COLORECTAL CANCER SCREENING 2018 FIT TEST 2018 FOBT 2018 SIGMOIDOSCOPY 2018 VIRTUAL COLONOSCOPY 2018 PNEUMOCOCCAL VACCINES (50+ years) (1 of 1 - PCV) 06/18/2023 ZOSTER VACCINES (1 of 2) 06/18/2023 COVID-19 VACCINE (2 - 2023-2 5 season) 2023 05/23/2020 Adult Td,Tdap Booster 05/07/2026 05/07/2016 , 06/10/2012 SMOKING STATUS SCREENING (On ce After 26 Yrs) Completed 03/13/2020 HEPATITIS A VACCINES Aged Out No long er eligible based on patient's age to complete this topic HIB VACCINES Aged Out No longer eligi ble based on patient's age to complete this topic MENINGOCOCCAL VACCINES (ACWY) Aged Out No longer eligible based on patient's age to complete this topic MENINGOCOCCAL VACCINES (B) Aged Out N o longer eligible based on patient's age to complete this topic Medical Devices Not on file Insurance [facility] CARE MEDICARE REPLACEMENT MEDICARE REPLACEMENT MEDICARE REPLACEMENT MEDICARE REPLACEMENT [facility] CARE MEDICARE REPLACEMENT [facility] MEDICARE REPLACEMENT Care Teams Rn Infusion Relationship Specialty Start Date End Date Hillary Ruiz MD [address] [place] [address] [place] [address] PCP - General Internal Medicine 10/05/18 Additional Source Comments The information contained in this document represents components of the legal health record. It is not the complete legal health record.[facility]
--- OUTSIDE RECORDS SUMMARY | 2024-09-12 14:23 | XMS_ITS | Patient Health Record ---
Author Organization [facility] Address [address] [place] [address] Care Team Providers Care Game Protector Name Role Phone Hillary Ruiz Primary Care Provider UnavailHieu De Santiago Unavailable [phone] Allergies Allergen (clinical drug ingredient) Drug/Non Drug [...] DAILY. Oral for 90 Active potassium Active [place]-3 1000 MG ONE ORAL DAILY Oral for [...] Problem Status W/U Status Risk Notes Problem 5573686 Diverticulitis o f large intestine without perforation or abscess without bleeding (K57.32) Active confirmed Problem 238859433 Coburn's esophagus without dysplasia (K22.70) Active confirmed Problem 11917567 Heartburn (R12) Active confirmed Problem Gastroesophageal reflux disease (323703373) Gastroesophageal reflux disease (K21.9) Active confirmed Problem 744943713 Gastroesophageal reflux disease, esophagitis presence not specified (K21.9) Active confirmed Problem Hiatal hernia (41010100) Hiatal hernia (K44.9) Active confirmed Problem Reflux esophagitis (135373413) Reflux esophagitis (K21.0) Active confirmed Problem Coburn esophagus (730590721) Coburn esophagus (K22.70) Active confirmed Problem Coburn's esophagus (109129474) Coburn''s esophagus without dysplasia (K22.70) Active confirmed Problem 849073398 Gastroesophageal reflux disease with esophagitis without hemorrhage (K21.00) Active confirmed Plan Of Treatment Pending Test Test Name Order Date Pathology 05/05/2022 Future Test Test Name Order Date UPPER GI ENDOSCOPY 03/05/2017 UPPER GI ENDOSCOPY 03/21/2022 Insurance Providers Payer Name Payer Address Payer Phone Subscriber Number Group Number Insured Name Patient Relationship to Insured Coverage Start Date Coverage End Date [facility] [address] [place] [address] [id number] CLARISSA LORD Self - patient is the insured Medical (General) History Medical History History ICD Code Migraine headaches Asthma brought on by bronchitis Denies [place],DM,CVA,,renal disease GERD--EGD 02/2017 with small to mod-sized HH, mild esophagitis, and small areas of Barretts; gastric bx neg for Hpylori. She underwent an upper endoscopy in July of [address] Montejo at [facility] with the finding of a slightly [...]
--- OUTSIDE RECORDS SUMMARY | 2024-09-12 14:23 | XMS_ITS | Clinical Summary ---
Author Organization [facility] Address [address] [place] [phone] Phone Care Team Providers Care Table Games Shift Manager Name Role Phone Hillary Ruiz MD Primary Care Provider [phone] Allergies Active Allergy Reactions Criticality Noted Date [...] mouth 1 (one) time each day Active [place]idian 3 1200 MG capsule Take 1 capsule [...] Office Visit [facility] [address] [address] Yousuf Galeano MD [address] [address] Health Maintenance Due Date Last Done Comments Breast Cancer Screening 1973 Hepatitis B Vaccine (1 of 3 - 19+ 3-dose series) 1992 Pneumococcal Vaccine: 50+ Ye ars (1 of 2 - PCV) 1992 Colorectal Cancer Screening: Annual FOBT 2022 Colorectal Cancer Screening: Colonoscopy 2022 Colorectal Cancer Screening: Sigmoidoscopy 2022 Influenza Vaccine (#1) 2024 0, 11/23/2018, 10/14/2018, Additional history exists Insurance [facility] ([id number]) JENI MULLER [id number] [facility] ([id number]) [facility] ([id number]) Care Teams Table Games Shift Manager Relationship Specialty Start Date End Date Hillary Ruiz MD [facility] [address] PCP - General Internal Medicine 07/09/20
--- OUTSIDE RECORDS SUMMARY | 2024-09-12 14:23 | XMS_ITS | Clinical Summary ---
Author Organization [facility] Address [address] [place] [address] Care Team Providers Care Data Manager Name Role Phone Charmaine oSmers LUZ Primary Care Provider [phone] Surgical History Surgery Date Site/Laterality Comments OTHER SURGICAL HISTORY PROCEDURE: [place] LAPS SURG CHOLECYSTECTOMY W/CHOLANGIOGRAPHY OTHER SURGICAL HISTORY 2010 Right PROCEDURE: [place] CYSTO W/INSERT URETERAL STENT BACK SURGERY PROCEDURE: HISTORICAL BACK SURGERY OTHER SURGICAL HISTORY PROCEDURE: HISTORY OTHER; COMMENT: sinus surgery ESOPHAGOGASTRODUODENOSCOPY 08/03/2018 PROCEDURE: [place] ESOPHAGOGASTRODUODENOSCOPY TRANSORAL DIAGNOSTIC; COMMENT: small hiatal hernia reflux esophagitis, gastritis; no report ESOPHAGOGASTRODUODENOSCOPY 03/11/2017 PROCEDURE: [place] ESOPHAGOGASTRODUODENOSCOPY TRANSORAL DIAGNOSTIC; COMMENT: intestinal metaplasia sugg [...] Panel) 02/02/2022 Colorectal Cancer Screening: Colonoscopy 02/02/2022 HIV Screening 02/02/2022 Hepatitis C Screening 02/02/2022 Social Influencers of Health Screening 02/02/2022 Hypertension/CHF/CAD Annual BMP Blood Test 02/07/2022 Pneumococcal Vaccine: 50+ Years (1 of 1 - PCV) 06/18/2023 Zoster Vaccines (1 of 2) 06/18/2023 COVID-19 Vaccine (1 - 2023-2 5 season) 2023 Depression Screening 02/24/2024 Influenza Vaccine (#1) 2024 9, 10/17/2017 DTaP,Tdap,and [...] age to complete this topic Care Teams Data Manager Relationship Specialty Start Date End Date Charmaine Somers NP [address] [facility] [place] [address] PCP - General Internal Medicine 02/01/18
--- NOTE | 2024-09-12 14:31 | A.SPINEOV_ITS ---
Intake Visit Reasons: Follow up Intake Note: Ms. Johnson is here today for a F/u Trans Router Required: No Allergies Sulfa (Sulfonamide Antibiotics) Allergy (Intermediate, Verified 04/25/24 15:22) Hives sulfamethoxazole (From BACTRIM) Allergy (Intermediate, Verified 04/25/24 15:22) HIVES trimethoprim (From BACTRIM) Allergy (Intermediate, Verified 04/25/24 15:22) HIVES Assessment & Plan Assessment & Plan (1) Hand numbness: Code(s): R20.0 - Anesthesia of skin Category: Medical Plan Dilcia is a pleasant 49-year-old female who underwent C6-7 ACDF on 03/24/[address] Meeks. We last evaluated her in clinic for some continued posterior neck pain/left-sided shoulder pain, and completed insurance paperwork for her to obtain massage therapy. Today, she comes in for evaluation of right hand numbness/pain. She states that her hand numbness and pain worsen at night and with increased activity. She states she has had issues with her right hand for many years, and has previously been told that she likely has carpal tunnel syndrome. She is not using nocturnal braces as of yet. She does state that she seems to experience the numbness more frequently throughout the day than she has in the past, and most recently has been occasionally dropping things out of her hands such as cups when the numbness / tingling gets bad. She has not had an EMG test in the past, and inquired about this during our conversation today. She also reported some continued posterior neck / left shoulder pain. She has been continuing with massage therapy but is attempting to have it re-approved by her insurance company again. She inquired about a set of X-rays today as well to try and evaluate for any worsening arthritis / degenerative changes. She needs an updated X-ray report to submit to her insurance company. On examination today, the patient is well-appearing and in no acute distress. She ambulates well with a nonantalgic non spastic gait, and uses no assistive devices to ambulate. (+) Tinel's at the wrist right-sided. (+) Phalen's right- sided. I would like to send Dilcia for an EMG of her bilateral upper extremities to evaluate for any continued cervical spine compression given her continued neck / shoulder pain, and potentially diagnose median neuropathy. I will follow up with her after EMG is complete. Harvinder Meeks MD,PhD [facility] Orders: Orders XR cervical spine 4V Today M54.2 - Cervicalgia NE electromyogram (EMG) Today R20.0 - Anesthesia of skin Coding Level of Care Code Est Pt Level 2 (75131) Diagnoses Hand numbness R20.0
== END 2024-09-12 15:17 | disposition home or self-care (01) ==
LOC: HO.HNS 13:36
PROVIDERS: PCP Internal Medicine; Visit Provider Physician Assistant
DX: R20.0 Anesthesia of skin (principal)
CPT/HCPCS: 99212

== ENCOUNTER → 2024-09-12 14:59 | Outpatient (BNV) | payer OTHER, SELFPAY | PROVIDERS: PCP Internal Medicine; Visit Provider Radiology Diagnostic Radiology | DX: M54.2 Cervicalgia (principal) | CPT/HCPCS: 72050 ==

== ENCOUNTER 2024-10-31 16:18 | Outpatient (REF) | payer OTHER, SELFPAY ==
--- OUTSIDE RECORDS SUMMARY | 2024-04-06 06:30 | XMS_ITS ---
Author Organization Hieu Simmons III, MD Address [address] [facility] [place] [address] Care Team Providers Care Research Lab Assistant Name Role Phone Joseph CROOK, Hillary Primary Care Provider Hieu Mora Unavailable [phone] Allergies Allergen (clinical drug ingredient) Drug/Non Drug [...] Problem Status W/U Status Risk Notes Problem 91330279 Cervical radiculopathy due to degenerative joint disease of spine (M47.22) Active confirmed She had no complications from the surgery. The wound in the neck is well healed and requires no additional treatment at this time. Problem 529768347 Moderate obesity (E66.9) Active confirmed We reviewed her weight loss strategy today. We made a plan to lose wweight at a rate of one half of a pound per week. Problem 230181955 Mild intermittent asthma, unspecified whether complicated (J45.20) [...] Date Provider Diagnosis Hieu Simmons III, MD [address] [place] [address] [place] [address] 04/06/2024 Hieu Simmons Cervical radiculopat hy due [...] * Dilcia LORDDOB:1975 (3 0 yo F)Acc No.[id number]:04/06/2024 Progress Notes Patient: Dilcia JIMÉNEZ Provider: Justice Simmons MD :1975 A ge:48 Y S ex:Female Date:04/06/2024 Address:[address] [place], [place] [address] [id number] Pcp:Hillary Ruiz MD Subjective: * Chief Complaints: [...] MD Date: 0 04/06/2024 Generated for Dyllan mackenzie/Adam/Galileaitting on: 0 10/31/2024 06:47 PM EDT History and Physical Notes * HPI (History [...]
--- OUTSIDE RECORDS SUMMARY | 2024-10-31 18:48 | XMS_ITS | Encounter Summary ---
Author Organization [facility] Address [address] [facility] [address] [place] [address] Phone Care Team Providers Care Bridge Crew Member Name Role Phone Hillary Ruiz MD Primary Care Provider [phone] Reason for Visit * Reason Comments Med Refill Encounter Details Date Type Department Care Team (Late Contact Info) Description 07/20/2020 Refill [facility] [address] [facility] [address] [place] [phone] Yousuf Galeano MD [address] [facility] [address] [place] [phone] Social History Tobacco Use Types Packs/Day Years [...] Visit [facility] [address] [facility] [address] [place] [phone] Yousuf Galeano MD [address] [facility] [address] [place] [address] documented as of this encounter Visit Diagnoses Not on filedocumented in this encounter Care Teams Bridge Crew Member Relationship Specialty Start Date End Date Hillary Ruiz MD [address] [facility] [address] [place], [place] PCP - General Internal Medicine 07/09/20 documented as of this encounter
--- OUTSIDE RECORDS SUMMARY | 2024-10-31 18:48 | XMS_ITS | Encounter Summary ---
Author Organization [employer] Address [address] [place] [address] 7 [place] [address] Care Team Providers Care Insurance Billing Clerk Name Role Phone Unavailable Primary Care Provider Unavailabl e Encounter Details Date Type Department Care Team (Latest Contact Info) Description 07/08/2018 Abstract [facility] CONVERSIONS Dental, Provider, DDS Social History Tobacco [...] Description 01/10/2025 8:00 AM EST Office Visit [facility] [address] [place], [place] [phone] Kimi Mae [address] [place], [place] [phone] documented as of this encounter Visit Diagnoses Not on filedocumented in this encounter
--- OUTSIDE RECORDS SUMMARY | 2024-10-31 18:48 | XMS_ITS | Clinical Summary ---
Author Organization [facility] Address [address] [place] [address] Care Team Providers Care Door Repairman Name Role Phone Charmaine Somers LUZ Primary Care Provider [phone] Surgical History Surgery Date Site/Laterality Comments OTHER SURGICAL HISTORY PROCEDURE: CA LAPS SURG CHOLECYSTECTOMY W/CHOLANGIOGRAPHY OTHER SURGICAL HISTORY 2010 Right PROCEDURE: CA CYSTO W/INSERT URETERAL STENT BACK SURGERY PROCEDURE: HISTORICAL BACK SURGERY OTHER SURGICAL HISTORY PROCEDURE: HISTORY OTHER; COMMENT: sinus surgery ESOPHAGOGASTRODUODENOSCOPY 08/03/2018 PROCEDURE: CA ESOPHAGOGASTRODUODENOSCOPY TRANSORAL DIAGNOSTIC; COMMENT: small hiatal hernia reflux esophagitis, gastritis; no report ESOPHAGOGASTRODUODENOSCOPY 03/11/2017 PROCEDURE: CA ESOPHAGOGASTRODUODENOSCOPY TRANSORAL DIAGNOSTIC; COMMENT: intestinal metaplasia sugg [...] 06/18/2023 Zoster Vaccines (1 of 2) 06/18/2023 Depression Screening 02/24/2024 COVID-19 Vaccine (1 - 2023-2 5 season) 2024 Influenza Vaccine (#1) 2024 9, 10/17/2017 DTaP,Tdap,and [...] age to complete this topic Care Teams Door Repairman Relationship Specialty Start Date End Date Charmaine Somers NP [address] [facility] [place] [address] PCP - General Internal Medicine 02/01/18
--- OUTSIDE RECORDS SUMMARY | 2024-10-31 18:48 | XMS_ITS | Encounter Summary ---
Author Organization [facility], Address [address] [place] [address] Phone Care Team Providers Care System Controller Name Role Phone Hillary Ruiz MD Primary Care Provider [phone] Encounter Details Date Type Department Care Team (Late Contact Info) Description 01/01/2022 Documentation Only [facility], [address] [place] [phone] Shiva Paez MD [address] [facility] [address] [place] [phone] Social History Tobacco Use Types Packs/Day Years [...] Visit [facility] [address] [phone] Yousuf Galeano MD [address] [address] documented as of this encounter Visit Diagnoses Not on filedocumented in this encounter Care Teams System Controller Relationship Specialty Start Date End Date Hillary Ruiz MD [address] [facility] [address] [place], [place] PCP - General Internal Medicine 07/09/20 documented as of this encounter
--- OUTSIDE RECORDS SUMMARY | 2024-10-31 18:48 | XMS_ITS | Patient Health Record ---
Author Organization [facility] Address [address] [place] [address] Care Team Providers Care Battery Service Technician Name Role Phone Hillary Ruiz Primary Care Provider UnavailHieu De Santiago Unavailable [phone] Allergies Allergen (clinical drug ingredient) Drug/Non Drug [...] DAILY. Oral for 90 Active potassium Active [place]-3 1000 MG ONE ORAL DAILY Oral for [...] Problem Status W/U Status Risk Notes Problem 4114710 Diverticulitis o f large intestine without perforation or abscess without bleeding (K57.32) Active confirmed Problem 289376253 Coburn's esophagus without dysplasia (K22.70) Active confirmed Problem 65974336 Heartburn (R12) Active confirmed Problem Gastroesophageal reflux disease (663562737) Gastroesophageal reflux disease (K21.9) Active confirmed Problem 469139486 Gastroesophageal reflux disease, esophagitis presence not specified (K21.9) Active confirmed Problem Hiatal hernia (17904219) Hiatal hernia (K44.9) Active confirmed Problem Reflux esophagitis (376050018) Reflux esophagitis (K21.0) Active confirmed Problem Coburn esophagus (692223313) Coburn esophagus (K22.70) Active confirmed Problem Coburn's esophagus (008396617) Coburn''s esophagus without dysplasia (K22.70) Active confirmed Problem 785471809 Gastroesophageal reflux disease with esophagitis without hemorrhage (K21.00) Active confirmed Plan Of Treatment Pending Test Test Name Order Date Pathology 05/05/2022 Future Test Test Name Order Date UPPER GI ENDOSCOPY 03/05/2017 UPPER GI ENDOSCOPY 03/21/2022 Insurance Providers Payer Name Payer Address Payer Phone Subscriber Number Group Number Insured Name Patient Relationship to Insured Coverage Start Date Coverage End Date [facility] [address] [place] [address] [id number] CLARISSA LORD Self - patient is the insured Medical (General) History Medical History History ICD Code Migraine headaches Asthma brought on by bronchitis Denies ID,DM,CVA,,renal disease GERD--EGD 02/2017 with small to mod-sized HH, mild esophagitis, and small areas of Barretts; gastric bx neg for Hpylori. She underwent an upper endoscopy in July of [address] Montejo at [facility] with the finding of a slightly [...]
--- OUTSIDE RECORDS SUMMARY | 2024-10-31 18:48 | XMS_ITS | Clinical Summary ---
Author Organization [employer] Address [address] [facility] 7t [place] [address] Care Team Providers Care Heat Curer Name Role Phone Unavailable Primary Care Provider [...] 14 DAYS & THEN STOP 5 Active Social History Tobacco Use Types Packs/Day [...] Description 01/10/2025 8:00 AM EST Office Visit [facility] [address] [place] [phone] Kimi Mae [address] [place], [place] [phone] Health Maintenance Due Date Last Done Comments [...] 2013 Zoster Vaccines (1 of 2) 06/18/2023 Dental X-Ray: Bitewings 06/25/2024 06/25/2023, 04/22 COVID-19 Vaccine ( season) 2024 02/07/2022, 07/03/2020, 06/13/2020, Additional history exists Influenza Vaccine (#1) 2024 , 10/15/2022, 12/11/2021, [...] Associated Diagnosis Comments PROPHYLAXIS - ADULT Routine 07/05/2024 1 0:00 AM EDT PERIODIC ORAL EVALUATION - ESTABLISHED PATIENT Routine 07/05/2024 10:00 AM EDT BITEWINGS - 4 RADIOGRAPHIC IMAGES Routine 06/25/2023 10:00 AM EDT from Last 3 Months or Most Recently Relevant to Health Maintenance Insurance [facility]
--- OUTSIDE RECORDS SUMMARY | 2024-10-31 18:48 | XMS_ITS | Patient Health Record ---
Author Organization Hieu Simmons III, MD Address [address] [place] [address] Care Team Providers Care Restaurant Busser Name Role Phone Joseph CROOK, Hillary Primary Care Provider Hieu Mora Unavailable [phone] Allergies Allergen (clinical drug ingredient) Drug/Non Drug [...] Problem Status W/U Status Risk Notes Problem 23046603 Cervical radiculopathy due to degenerative joint disease of spine (M47.22) Active confirmed She had no complications from the surgery. The wound in the neck is well healed and requires no additional treatment at this time. Problem 995782696 Moderate obesity (E66.9) Active confirmed We reviewed her weight loss strategy today. We made a plan to lose wweight at a rate of one half of a pound per week. Problem 089875069 Mild intermittent asthma, unspecified whether complicated (J45.20) [...] Date Provider Diagnosis Hieu Simmons III, MD [address] [place] [address] [place] [address] 04/06/2024 Hieu Simmons Cervical radiculopat hy due [...] Insured Coverage Start Date Coverage End Date [facility] [address] ATTN CLAIMS JENI MULLER [id number] Dilcia Johnson Self - patient is the insured Medical (General) History Medical History History ICD Code Degenerative disc disease cervical spine Asthma Obesity Surgical History Surgery Date(Month/Year) 03/24/2024 C6-7 anterior discectomy
--- OUTSIDE RECORDS SUMMARY | 2024-10-31 18:48 | XMS_ITS | Clinical Summary ---
Author Organization [facility] Address [address] [place] [phone] Phone Care Team Providers Care Spanish Literature Professor Name Role Phone Hillary Ruiz MD Primary Care Provider [phone] Allergies Active Allergy Reactions Criticality Noted Date [...] mouth 1 (one) time each day Active Zamora 3 1200 MG capsule Take 1 capsule [...] Office Visit [facility] [address] [address] Yousuf Galeano MD [address] [address] Health Maintenance Due Date Last Done Comments Breast Cancer Screening 1973 Hepatitis B Vaccine (1 of 3 - 19+ 3-dose series) 1992 Pneumococcal Vaccine: 50+ Ye ars (1 of 2 - PCV) 1992 Colorectal Cancer Screening: Annual FOBT 2022 Colorectal Cancer Screening: Colonoscopy 2022 Colorectal Cancer Screening: Sigmoidoscopy 2022 Influenza Vaccine (#1) 2024 0, 11/23/2018, 10/14/2018, Additional history exists Insurance [facility] ([id number]) JENI MULLER [id number] [facility] ([id number]) [facility] ([id number]) Care Teams Spanish Literature Professor Relationship Specialty Start Date End Date Hillary Ruiz MD [facility] [address] PCP - General Internal Medicine 07/09/20
--- OUTSIDE RECORDS SUMMARY | 2024-10-31 18:48 | XMS_ITS | Clinical Summary ---
Author Organization Located [facility] Address [facility] [address] [address] Phone Care Team Providers Care Cabinet Abrasive Sandblaster Name Role Phone Hillary Ruiz MD Primary [...] 06/18/2023 ZOSTER VACCINES (1 of 2) 06/18/2023 INFLUENZA VACCINE (#1) 2024 9, 10/17/2017 COVID-19 VACCINE (2 - 2024-2 6 season) 2024 05/23/2020 Adult Td,Tdap Booster 05/07/2026 05/07/2016 , [...] topic Medical Devices Not on file Insurance [facility] MEDICARE REPLACEMENT MEDICARE REPLACEMENT MEDICARE REPLACEMENT [place] [address] [place] [address] [address] [place] [address] CARE MEDICARE REPLACEMENT Care Teams Cabinet Abrasive Sandblaster Relationship Specialty Start Date End Date Hillary Ruiz MD [address] [place] [address] [facility] [place] [address] PCP - General Internal Medicine 10/05/18 Additional Source Comments The information contained in this document represents components of the legal health record. It is not the complete legal health record.Located [facility]
--- OUTSIDE RECORDS SUMMARY | 2024-10-31 18:48 | XMS_ITS | Encounter Summary ---
Author Organization [facility] Address [address] [place] [address] Phone Care Team Providers Care Event Marketing Representative Name Role Phone Hillary Ruiz MD Primary Care Provider Encounter Details Date Type Department Care Team (Latest Contact Info) Description 10/05/2018 Transcribe Orders [facility] Laboratory [address] [place] [address] Sara Oropeza NP Schizo affective schizophrenia (Primary Dx) Social History Tobacco Use Types Packs/Day Years Used Date Smoking Tobacco: Never Assessed Comments Unknown Sex and Gender Information Value Date Recorded Sex Assigned at Female 03/13/2020 1:27 PM EST Legal Sex Female 9:31 PM EDT Gender Identity Female 03/13/2020 1:27 PM EST Sexual Orientation Choose not to disclose 2020 1:27 PM EST documented as of this encounter Plan of Treatment Not on file documented as of this encounter Results * Miscellaneous lab test (10/05/2018 11:44 AM EDT) TESTS REQUESTED [facility] SPECIMEN/TUBE TYPE LG RED TOP [facility] REQUEST RECEIVED Request received. A separate order for the requested test will be generated by the laboratory. [facility] Blood 10/05/2018 11:4 4 AM EDT 10/05/2018 11:49 AM EDT us Sara Oropeza NP LAB BLOOD ORDERABLES Final R esult [address] [address] * 25-OH vitamin D (10/05/2018 11:44 AM EDT) 25 [place] VIT D (TOTAL) 46 30 - 60 ng/mL [facility] Blood 10/05/2018 11:4 4 AM EDT 10/05/2018 11:48 AM EDT us Sara Oropeza NP LAB BLOOD ORDERABLES Final R esult Performing Organization Address City/[facility]/ZIP Co de Phone Number [address] [address] * (ABNORMAL) CBC and differential (10/05/2018 11:44 AM EDT) WBC 9.01 3.40 - 11.20 K/uL [facility] RBC 4.52 3.80 - 4.80 M/uL [facility] HGB 14.2 12.0 - 15.0 g/dL [facility] HCT 41.2 36.0 - 46.0 % [facility] PLT 284 130 - 400 K/uL [facility] MCV 91.2 79.0 - 98.0 [facility] MCH 31.4 27.0 - 34.8 pg [facility] MCHC 34.5 31.5 - 36.0 g/dL [facility] RDW 12.0 10.8 - 14.6 % [facility] MPV 9.6 9.4 - 12.4 [facility] NRBC 0.00 0.00 /100 WBCs [facility] ABSOLUTE NRBC 0.00 0.00 K/uL [facility] DIFF METHOD Auto [facility] NEUTS 64.1 45.30 - 77.70 % [facility] LYMPHS 24.9 12.30 - 39.70 % [facility] MONOS 7.8 4.10 - 12.80 % [facility] EOS 2.7 0 - 7.2 % [facility] BASOS 0.2 0 - 2.80 % [facility] Granulocytes, immature (%) 0.3 0.0 - 0.9 % [facility] ABSOLUTE NEUTS 5.78 1.40 - 7.70 K/uL [facility] ABSOLUTE LYMPHS 2.24 0.60 - 3.20 K/uL [facility] ABSOLUTE MONOS 0.70(H) 0.11 - 0.59 K/uL [facility] ABSOLUTE EOS 0.24 0.01 - 0.50 K/uL [facility] ABSOLUTE BASOS 0.02 0.00 - 0.08 K/uL [facility] Granulocytes, immature 0.03 0.00 - 0.05 K/uL [facility] Blood 10/05/2018 11:4 4 AM EDT 10/05/2018 11:48 AM EDT us Sara Oropeza NP LAB BLOOD ORDERABLES Final R esult Performing Organization Address City/State/[facility] Co de Phone Number [address] [address] * (ABNORMAL) Comprehensive metabolic panel (10/05/2018 11:44 AM EDT) SODIUM 138 133 - 146 mmol/L [facility] POTASSIUM 3.9 3.3 - 5.1 mmol/L [facility] CHLORIDE 107 96 - 108 mmol/L [facility] CO2 17(L) 21 - 35 mmol/L [facility] BUN 18 6 - 19 mg/dL [facility] CREATININE 1.10 0.5 - 1.5 mg/dL [facility] GLUCOSE 126(H) 70 - 99 mg/dL [facility] ALBUMIN 4.2 3.9 - 4.8 g/dL [facility] TOTAL PROTEIN 7.4 6.5 - 8.0 g/dL [facility] CALCIUM 8.9 8.4 - 10.3 mg/dL [facility] ALKALINE PHOSPHATASE 71 39 - 117 U/L [facility] TOTAL BILIRUBIN 0.2 0.0 - 1.2 mg/dL [facility] AST 15 0 - 37 U/L [facility] ALT 16 0 - 40 U/L [facility] GLOBULIN 3.2 1 - 4.8 g/dL [facility] EGFR 61 >59 mL/min/1.7 3m2 [facility] Comment:If patient is black, multiply result by 1.159. Estimated glomerular filtration rate calculated using the CKD-EPI equation. ANION GAP 18 10 - 20 mmol/L [facility] Blood 10/05/2018 11:4 4 AM EDT 10/05/2018 11:48 AM EDT us Sara Oropeza COLD ROLLING SUPERVISOR LAB BLOOD ORDERABLES Final R esult [facility] [address] [place] [address] documented in this encounter Visit Diagnoses Diagnosis Schizo affective schizophrenia- Primary Schizoaffective disorder, unspecified condition documented in this encounter Additional Health Concerns Infection Onset Date Last Indicated Resolved Time CoV-Risk 03/13/2020 03/13/2020 03/23/2020 1:24 AM EST documented as of this encounter Care Teams Event Marketing Representative Relationship Specialty Start Date End Date Hillary Ruiz MD [address] [place] [address] [place] [address] PCP - General Internal Medicine 10/05/18 documented as of this encounter Additional Source Comments The information contained in this document represents components of the legal health record. It is not the complete legal health record.[facility]
--- OUTSIDE RECORDS SUMMARY | 2024-10-31 18:48 | XMS_ITS | Encounter Summary ---
Author Organization [employer] Address [address] [place] [address] [address] [place] [address] Care Team Providers Care Rn Compliance Name Role Phone Unavailable Primary Care Provider Unavailabl e Encounter Details Date Type Department Care Team (Latest Contact Info) Description 10/14/2021 Abstract [facility] CONVERSIONS Dental, Provider, DDS Social [...] Office Visit [facility] [address] [place], [place] [phone] Kimi Mae [address] [place], [place] [phone] documented as of this encounter Visit Diagnoses Not on filedocumented in this encounter
== END 2024-10-31 16:19 | disposition home or self-care (01) ==
LOC: HO.LAB 16:18
PROVIDERS: PCP Internal Medicine; Visit Provider Internal Medicine
DX: N30.00 Acute cystitis without hematuria (principal); N39.3 Stress incontinence (female) (male)
CPT/HCPCS: 87086

== ENCOUNTER 2024-11-30 09:21 | Outpatient (REF) | payer OTHER, SELFPAY ==
--- NOTE | 2024-11-30 09:24 | EMG_ITS ---
Chief complaint: Right hand numbness, left shoulder pain, ACDF C6-7 03/24/2024 Reason for referral: Evaluate for Carpal Tunnel Syndrome Referred by: Harvinder NGO Procedure done: Bilateral upper extremities NCS/EMG Precautions and/or limitations: Previous cervical surgery The limb temperature was monitored continuously and remained between 32-36 degrees C during the performance of the NCS. Nerve Conduction Studies Anti Sensory Summary Table ?Stim Site NR Onset (ms) Norm Onset (ms) Peak (ms) Norm Peak (ms) O-P Amp (?V) Norm O-P Amp Site1 Site2 Delta-0 (ms) Dist (cm) Aurelio (m/s) Norm Aurelio (m/s) Left Median Anti Sensory (2nd Digit) Wrist ? 2.9 3.5 <3.6 26.1 >10 Wrist 2nd Digit 2.9 14.0 48 Right Median Anti Sensory (2nd Digit) Wrist ? 3.8 4.9 <3.6 1.3 >10 Wrist 2nd Digit 3.8 14.0 37 Right Radial Anti Sensory (Thumb) Forearm ? 1.3 1.9 <3.1 20.2 Forearm Thumb 1.3 0.0 Left Ulnar Anti Sensory (5th Digit) Wrist ? 2.1 2.8 <3.7 21.5 >15.0 Wrist 5th Digit 2.1 14.0 67 Right Ulnar Anti Sensory (5th Digit) Wrist ? 2.0 2.7 <3.7 13.7 >15.0 Wrist 5th Digit 2.0 14.0 70 Motor Summary Table ?Stim Site NR Onset (ms) Norm Onset (ms) O-P Amp (mV) Norm O-P Amp iAmp (mV) Amp (1st) (%) Site1 Site2 Delta-0 (ms) Dist (cm) Aurelio (m/s) Norm Aurelio (m/s) Left Median Motor (Abd Poll Brev) Wrist ? 3.8 <3.9 10.4 >4.5 13.3 100.0 Elbow Wrist 3.8 20.0 53 >45 Elbow ? 7.6 10.4 13.1 100.0 Right Median Motor (Abd Poll Brev) Wrist ? 4.6 <3.9 11.2 >4.5 14.9 100.0 Elbow Wrist 4.0 20.0 50 >45 Elbow ? 8.6 11.0 15.0 98.2 Left Ulnar Motor (Abd Dig Minimi) Wrist ? 2.7 <3.0 7.4 >5 9.6 100.0 B Elbow Wrist 3.4 19.0 56 >45 B Elbow ? 6.1 6.4 8.7 86.5 A Elbow B Elbow 1.7 10.0 59 >45 A Elbow ? 7.8 5.7 8.1 77.0 Right Ulnar Motor (Abd Dig Minimi) Wrist ? 2.7 <3.0 7.7 >5 10.6 100.0 B Elbow Wrist 3.5 19.5 56 >45 B Elbow ? 6.2 7.6 10.4 98.7 A Elbow B Elbow 1.5 10.0 67 >45 A Elbow ? 7.7 7.7 10.4 100.0 EMG ?Side Muscle Nerve Root Ins Act Fibs Psw Amp Dur Poly Recrt Int Pat Comment Right 1stDorInt Ulnar C8-T1 Nml Nml Nml Nml Nml 0 Nml Complete Right FlexCarRad Median C6-7 Nml Nml Nml Nml Nml 0 Nml Complete Right Biceps Musculocut C5-6 Nml Nml Nml Nml Nml 0 Nml Complete Right Triceps Radial C6-7-8 Nml Nml Nml Nml Nml 0 Nml Complete Right Deltoid Axillary C5-6 Nml Nml Nml Nml Nml 0 Nml Complete Left 1stDorInt Ulnar C8-T1 Nml Nml Nml Nml Nml 0 Nml Complete Left FlexCarRad Median C6-7 Nml Nml Nml Nml Nml 0 Nml Complete Left Biceps Musculocut C5-6 Nml Nml Nml Nml Nml 0 Nml Complete Left Triceps Radial C6-7-8 Nml Nml Nml Nml Nml 0 Nml Complete Left Deltoid Axillary C5-6 Nml Nml Nml Nml Nml 0 Nml Complete FINDINGS: Right median motor nerve showed prolonged distal latency, normal amplitude and normal conduction velocity. Right median sensory nerve showed small amplitude and prolonged peak latency. All other nerves tested were within normal. Concentric needle EMG was performed in selected muscles of the bilateral upper extremities. Study did not reveal signs of electric abnormalities as shown in the table above. IMPRESSION: 1. This is an abnormal study. 2. There is electrodiagnostic evidence for right moderate-severe median neuropathy at the wrist, consistent with carpal tunnel syndrome. 3. There is no electrodiagnostic evidence for ulnar neuropathy, brachial plexopathy, or cervical radiculopathy. 4. There is no electrodiagnostic evidence for median neuropathy on the left. Thank you for your kind referral. Asha Ruiz MD, MILAGROS Board Certified, [place] Board of [employer] and Rehabilitation (ABPMR) Board Certified, [place] Board of Electrodiagnostic Medicine (ABEM) CODIN [phone] x 2 MTDD
== END 2024-11-30 09:22 | disposition home or self-care (01) ==
LOC: HO.NEURO 09:21
PROVIDERS: PCP Internal Medicine; Visit Provider Physician Assistant
DX: R20.0 Anesthesia of skin (principal); M25.512 Pain in left shoulder
CPT/HCPCS: 95886; 95911

== ENCOUNTER → 2024-11-30 09:24 | Outpatient (BNV) | payer OTHER, SELFPAY | PROVIDERS: PCP Internal Medicine; Visit Provider Physical Medicine & Rehabilitation | DX: G62.89 Other specified polyneuropathies (principal) | CPT/HCPCS: 95886; 95911 ==

== ENCOUNTER 2024-12-19 09:00 | Outpatient (AMB) | payer OTHER, SELFPAY ==
--- NOTE | 2024-12-19 09:04 | A.SPINEOV_ITS ---
Intake Visit Reasons: EMG f/u possible carpal tunnel sx discussion Intake Note: Ms. Johnson is here today to F/u on the results to her EMG and Discuss Surgery. Staff Weapons Officer Required: No Allergies Sulfa (Sulfonamide Antibiotics) Allergy (Intermediate, Verified 12/19/24 09:04) Hives sulfamethoxazole (From BACTRIM) Allergy (Intermediate, Verified 12/19/24 09:04) HIVES trimethoprim (From BACTRIM) Allergy (Intermediate, Verified 12/19/24 09:04) HIVES Assessment & Plan Assessment & Plan (1) Median neuropathy: Code(s): G56.10 - Other lesions of median nerve, unspecified upper limb Category: Medical Plan Dilcia is a pleasant 49-year-old female who underwent C6-7 ACDF on 03/24/[address] Meeks. She comes in today for subsequent follow-up to discuss potential carpal tunnel release after her EMG results showed moderate-severe median neuropathy at the wrist. To recap during her last follow up visit she was reporting fairly severe right hand numbness/pain and reported that her hand numbness and pain worsened at night and with increased activity. We obtained EMG to rule out continued cervical nerve impingement and evaluate for median neuropathy. Today she continues to report worsening of these symptoms, and also states that she has been dropping objects out of her right hand more often. We extensively discussed right sided carpal tunnel release procedure during this visit. I answered all questions related to the surgery to the best of my ability. She reports that due to her worsening symptoms she would like the surgery scheduled as soon as possible. It does look like we have an opening 01/12/25 but I will need to confirm with our certified surgical first assistant who is out sick today. Once we are able to identify a date for surgery I will review the patients diagnostic results with my attending neurosurgeon Dr. Meeks who will ultimately make a decision regarding surgical intervention for this patient. We discussed the risks/benefits of surgery including continued pain, continued numbness, continued weakness of the hand. He understands there is risk of nerve/vasculature injury as a result of the surgery. He understands that all surgeries carry the risk of bleeding/infection. He also understands that his symptoms may worsen as a result of complications from the surgery, and wishes to proceed. At the conclusion of this visit the patient requested subsequent referral to massage therapy as she finds this extremely beneficial to help keep her symptoms somewhat manageable throughout the day. I informed her that I am not sure that they will cover massage therapy for this specific diagnosis but I am more than happy to forward her clinic evaluation/diagnostic information to her insurance company with a referral. Harvinder Meeks MD,PhD [facility] Orders: Referrals Massage Therapy Referral G56.10 - Other lesions of median nerve, unspecified upper limb Coding Level of Care Code Est Pt Level 3 (58120) Diagnoses Median neuropathy G56.10
--- OUTSIDE RECORDS SUMMARY | 2024-12-19 09:48 | XMS_ITS | Encounter Summary ---
Author Organization [facility] Address [address] [place] [address] Phone Care Team Providers Care Arts And Humanities Council Director Name Role Phone Hillary Ruiz MD Primary Care Provider Encounter Details Date Type Department Care Team (Latest Contact Info) Description 10/05/2018 Transcribe Orders [facility] [address] [place] [address] Sara Oropeza NP Schizo affective schizophrenia (Primary [...] (10/05/2018 11:44 AM EDT) TESTS REQUESTED FBUMT [facility] SPECIMEN/TUBE TYPE LG RED TOP [facility] REQUEST RECEIVED Request received. A separate order for the requested test will be generated by the laboratory. [facility] Blood 10/05/2018 11:4 4 AM EDT 10/05/2018 11:49 AM EDT Sara Oropeza NP LAB BLOOD ORDERABLES Final R esult [address] [address] * 25-OH vitamin D (10/05/2018 11:44 AM EDT) 25 [place] VIT D (TOTAL) 46 30 - 60 ng/mL [facility] Blood 10/05/2018 11:4 4 AM EDT 10/05/2018 11:48 AM EDT us Sara Oropeza NP LAB BLOOD ORDERABLES Final R esult Performing Organization Address City/[facility]/ZIP Co de Phone Number [address] [address] * (ABNORMAL) CBC and differential (10/05/2018 11:44 AM EDT) WBC 9.01 3.40 - 11.20 K/uL [facility] RBC 4.52 3.80 - 4.80 M/uL [facility] HGB 14.2 12.0 - 15.0 g/dL [facility] HCT 41.2 36.0 - 46.0 % [facility] PLT 284 130 - 400 K/uL [facility] MCV 91.2 79.0 - 98.0 [facility] MCH 31.4 27.0 - 34.8 pg [facility] MCHC 34.5 31.5 - 36.0 g/dL [facility] RDW 12.0 10.8 - 14.6 % [facility] MPV 9.6 9.4 - 12.4 [facility] NRBC 0.00 0.00 /100 WBCs [facility] ABSOLUTE NRBC 0.00 0.00 K/uL [facility] DIFF METHOD Auto [facility] NEUTS 64.1 45.30 - 77.70 % [facility] LYMPHS 24.9 12.30 - 39.70 % [facility] MONOS 7.8 4.10 - 12.80 % [facility] EOS 2.7 0 - 7.2 % [facility] BASOS 0.2 0 - 2.80 % [facility] Granulocytes, immature (%) 0.3 0.0 - 0.9 % [facility] ABSOLUTE NEUTS 5.78 1.40 - 7.70 K/uL [facility] ABSOLUTE LYMPHS 2.24 0.60 - 3.20 K/uL [facility] ABSOLUTE MONOS 0.70(H) 0.11 - 0.59 K/uL [facility] ABSOLUTE EOS 0.24 0.01 - 0.50 K/uL [facility] ABSOLUTE BASOS 0.02 0.00 - 0.08 K/uL [facility] Granulocytes, immature 0.03 0.00 - 0.05 K/uL [facility] Blood 10/05/2018 11:4 4 AM EDT 10/05/2018 11:48 AM EDT us Sara Oropeza NP LAB BLOOD ORDERABLES Final R esult Performing Organization Address City/State/[facility] Co de Phone Number [address] [address] * (ABNORMAL) Comprehensive metabolic panel (10/05/2018 11:44 AM EDT) SODIUM 138 133 - 146 mmol/L [facility] POTASSIUM 3.9 3.3 - 5.1 mmol/L [facility] CHLORIDE 107 96 - 108 mmol/L [facility] CO2 17(L) 21 - 35 mmol/L [facility] BUN 18 6 - 19 mg/dL [facility] CREATININE 1.10 0.5 - 1.5 mg/dL [facility] GLUCOSE 126(H) 70 - 99 mg/dL [facility] ALBUMIN 4.2 3.9 - 4.8 g/dL [facility] TOTAL PROTEIN 7.4 6.5 - 8.0 g/dL [facility] CALCIUM 8.9 8.4 - 10.3 mg/dL [facility] ALKALINE PHOSPHATASE 71 39 - 117 U/L [facility] TOTAL BILIRUBIN 0.2 0.0 - 1.2 mg/dL [facility] AST 15 0 - 37 U/L [facility] ALT 16 0 - 40 U/L [facility] GLOBULIN 3.2 1 - 4.8 g/dL [facility] EGFR 61 >59 mL/min/1.7 3m2 [facility] Comment:If patient is black, multiply result by 1.159. Estimated glomerular filtration rate calculated using the CKD-EPI equation. ANION GAP 18 10 - 20 mmol/L [facility] Blood 10/05/2018 11:4 4 AM EDT 10/05/2018 11:48 AM EDT us Sara Oropeza SAIL FINISHER MACHINE LAB BLOOD ORDERABLES Final R esult [facility] [address] [place] [address] documented in this encounter Visit Diagnoses Diagnosis Schizo affective schizophrenia- Primary Schizoaffective disorder, unspecified condition documented in this encounter Additional Health Concerns Infection Onset Date Last Indicated Resolved Time CoV-Risk 03/13/2020 03/13/2020 03/23/2020 1:24 AM EST documented as of this encounter Care Teams Arts [employer] Humanities Council Director Relationship Specialty Start Date End Date Hillary Ruiz MD [address] [place] [address] [place] [address] PCP - General Internal Medicine 10/05/18 documented as of this encounter Additional Source Comments The information contained in this document represents components of the legal health record. It is not the complete legal health record.[facility]
--- OUTSIDE RECORDS SUMMARY | 2024-12-19 09:48 | XMS_ITS | Clinical Summary ---
Author Organization [facility] Address [facility] [employer] [address] [address] Phone Care Team Providers Care Tar Heater Operator Name Role Phone Hillary Ruiz MD Primary [...] Adult Td,Tdap Booster 05/07/2026 05/07/2016 , 06/10/2012 RSV VACCINE (1 - 1-dose 75+ series) 2048 SMOKING STATUS SCREENING (On ce After 26 [...] topic Medical [place] [id number] [facility] MEDICARE REPLACEMENT CARE MEDICARE [place] [address] [address] [address] MEDICARE REPLACEMENT Care Teams Tar Heater Operator Relationship Specialty Start Date End Date Hillary Ruiz MD [address] [place] [address] [place] [phone] PCP - General Internal Medicine 10/05/18 Additional Source Comments The information contained in this document represents components of the legal health record. It is not the complete legal health record.[facility]
--- OUTSIDE RECORDS SUMMARY | 2024-12-19 09:49 | XMS_ITS | Clinical Summary ---
Author Organization [facility] Address [address] [place] [address] Care Team Providers Care Manager Golf Name Role Phone Charmaine Somers LUZ Primary Care Provider [phone] Surgical History Surgery Date Site/Laterality Comments OTHER SURGICAL HISTORY PROCEDURE: OR LAPS SURG CHOLECYSTECTOMY W/CHOLANGIOGRAPHY OTHER SURGICAL HISTORY 2010 Right PROCEDURE: OR CYSTO W/INSERT URETERAL STENT BACK SURGERY PROCEDURE: HISTORICAL BACK SURGERY OTHER SURGICAL HISTORY PROCEDURE: HISTORY OTHER; COMMENT: sinus surgery ESOPHAGOGASTRODUODENOSCOPY 08/03/2018 PROCEDURE: OR ESOPHAGOGASTRODUODENOSCOPY TRANSORAL DIAGNOSTIC; COMMENT: small hiatal hernia reflux esophagitis, gastritis; no report ESOPHAGOGASTRODUODENOSCOPY 03/11/2017 PROCEDURE: OR ESOPHAGOGASTRODUODENOSCOPY TRANSORAL DIAGNOSTIC; COMMENT: intestinal metaplasia sugg [...] Last Done Comments Breast Cancer Screening 1973 Colorectal Cancer Screening: Colonoscopy 1973 Hepatitis B Vaccines (1 of 3 - 19+ 3-dose series) 1992 Cervical Cancer Screening: P ap Smear 1994 Cholesterol Screening (Lipid Panel) 02/02/2022 HIV Screening 02/02/2022 Hepatitis C Screening [...] Td or Tdap) 05/07/2026 05/07/2016, 06/10/2012 RSV Immunization Adult Patients (1 - 1-dose 75+ series) 2048 HIB [...] age to complete this topic Care Teams Manager Golf Relationship Specialty Start Date End Date Charmaine Somers NP [address] [place] [address] PCP - General Internal Medicine 02/01/18
== END 2024-12-19 09:24 | disposition home or self-care (01) ==
LOC: HO.HNS 09:01
PROVIDERS: PCP Internal Medicine; Visit Provider Physician Assistant
DX: G56.10 Other lesions of median nerve, unspecified upper limb (principal)
CPT/HCPCS: 99213

== ENCOUNTER → 2024-12-19 09:00 | Outpatient (BNVA) | payer OTHER, SELFPAY | PROVIDERS: PCP Internal Medicine; Visit Provider Physician Assistant | DX: G56.11 Other lesions of median nerve, right upper limb (principal); Z98.1 Arthrodesis status | CPT/HCPCS: 99212 ==

== ENCOUNTER 2025-01-12 09:42 | Day surgery (SDC) | payer OTHER, SELFPAY ==
--- OUTSIDE RECORDS SUMMARY | 2024-04-06 05:30 | XMS_ITS ---
Author Organization Hieu Simmons III, MD Address [address] [facility] [address] Care Team Providers Care Scouring Machine Tender Name Role Phone Joseph CROOK, [facility] Primary Care Provider Dr. Hieu Mora III Unavailable Allergies Allergen (clinical drug ingredient) Drug/Non Drug Allergy documented on EMR Reaction Allergy Type Onset Date Status No Known Drug Allergy Unknown Drug Allergy Active REASON FOR VISIT 03/24/2024 C6-7 anterior discectomy, wound check, recent UTI Medications Medication SIG (Take, Route, Frequency, Duration) Notes Start Date End Date Status Docusate Sodium 100 MG TAKE 1 CAPSULE BY MOUTH TWICE A DAY Oral Active Albuterol Sulfate HFA 108 (90 Base) MCG/ACT Inhalation Active Fluticasone Propionate 50 MCG/ACT Nasal Active Montelukast Sodium 10 MG TAKE ONE TABLET ONCE DAILY AT BEDTIME Oral Active Social History Tobacco Use: Social History Observation Description Date Details (start date - stop date) Never Smoker NA - NA Sex Assigned At : Social History Observation Description Sex Assigned At Female Tobacco Control (Standard) Question Answer Notes Tobacco use: Nonsmoker AUDIT-C (Standard) Question Answer Notes Did you have a drink containing alcohol in the p ast year? No Points 0 Interpretation Negative Problems Problem Type SNOMED Code ICD Code Onset Dates Problem Status W/U Status Risk Notes Problem 49010263 Cervical radiculopathy due to degenerative joint disease of spine (M47.22) Active confirmed She had no complications from the surgery. The wound in the neck is well healed and requires no additional treatment at this time. Problem 030225509 Moderate obesity (E66.9) Active confirmed We reviewed her weight loss strategy today. We made a plan to lose wweight at a rate of one half of a pound per week. Problem 932331602 Mild intermittent asthma, unspecified whether complicated (J45.20) Active confirmed There was no wheezing today. She was continued on her usual regimen. Vital Signs Temperature 97.9 degrees Fahrenheit 04/06/19 25 Blood pressure systolic 123 mm Hg 04/06/19 25 Blood pressure diastolic 74 mm Hg 025 Heart Rate 80 /min 04/06/2024 Height 5'9 in 04/06/2024 Weight 205 lbs 04/06/2024 BMI 30.27 kg/m2 04/06/2024 Encounters Encounter Location Date Provider Diagnosis Hieu Simmons III, MD [address] [place] [address] [place] [address] 04/06/2024 Hieu Simmons Cervical radiculopat hy due to degenerative joint disease of spine M47.22 ; Moderate obesity E66.9 and Mild intermittent asthma, unspecified whether complicated J45.20 Assessments Encounter Date Diagnosis (ICD Code) Assessment Notes Treat ment Notes Treatment Clinical Notes 04/06/2024 Cervical radiculopathy due to degenerative joint disease of spine (ICD-10 - M47.22) She had no complications from the surgery. The wound in the neck is well healed and requires no additional treatment at this time. 04/06/2024 Moderate obesity (ICD-10 - E66.9) We reviewed her weight loss strategy today. We made a plan to lose wweight at a rate of one half of a pound per week. 04/06/2024 Mild intermittent asthma, unspecified whether complicated (ICD-10 - J45.20) There was no wheezing today. She was continued on her usual regimen. Plan Of Treatment Medication Medication Name Sig Start Date Stop Date Notes Docusate Sodium 100 MG TAKE 1 CAPSULE BY MOUTH TWICE A DAY Oral Albuterol Sulfate HFA 108 (9 0 Base) MCG/ACT Inhalation Fluticasone Propionate 50 MCG/ACT Nasal Montelukast Sodium 10 MG TAKE ONE TABLET ONCE DAILY AT BEDTIME Oral Next Appt Details Follow Up: If necessary, [place] son: Office visit Progress Notes * Dilcia LORDDOB:1975 (3 0 yo F)Acc No.[id number]:04/06/2024 Progress Notes Patient: Shady JANIEDilcia SANTILLAN Account Number: Provider: Justice Simmons MD :1975 A ge:48 Y S ex:Female Date:04/06/2024 Address:[address] [place], [place] [address] [id number] Pcp:Hillary Ruiz MD Subjective: * Chief Complaints: * 0 03/24/2024 C6-7 anterior discectomyWound checkrecent UTI * HPI: C OVID-19 Screening: She comes to the office today because she had a recent discectomy in her cervical spine. She had a recent urinary tract infection which was treated with an antibiotic. This is now resolved. We are covering for her primary care physician today.? The wound is healing well with no signs of infection. The surgical discomfort is rapidly resolving. Range of motion of her neck is normal. There was no sign of an infection today. No change was necessary in her regimen. She will see her primary care physician when available. Questions H ave you had any new onset fever, chills, cough, congestion, sore throat, shortness of breath, muscle aches? N o * ROS: G eneral/Constitutional: pain M ild pain surgical incision anterior neck, otherwise only normal aches and pains. C hills d enies. F atigue a dmits. F ever d enies. E NT: Decreased hearing d enies. R espiratory: Cough d enies. C ardiovascular: Chest pain with exertion d enies. D yspnea on exertion?denies. S hortness of breath d enies. G astrointestinal: Constipation o ccasional. D ecreased appetite d enies. D iarrhea d enies. H eartburn d enies. N ausea d enies. R ectal bleeding d enies. V omiting d enies. H ematology: bruising d enies. p etechiae d enies. S wollen glands n one have been noted. G enitourinary: Frequent urination d enies. M usculoskeletal: Muscle aches d enies. P ainful joints d enies. S ciatica d enies. W eakness d enies. S kin: Itching d enies. R chi d enies. S kin lesion(s)?denies. N eurologic: Difficulty speaking d enies. D izziness d enies.?Headache d enies. L ow back pain d enies. P sychiatric: Depressed mood d enies. * Medical History: * Surgical History: 0 03/24/2024 C6-7 anterior discectomy * Hospitalization/Major Diagno stic Procedure: D enies Past Hospitalization * Family History: N on-Contributory. * Social History: T obacco Use: T obacco Control (Standard) T obacco use: N onsmoker D rugs/Alcohol: D rugs H ave you used drugs other than those for medical reasons in the past 12 months? N o D rug/Alcohol: A JOSE-C (Standard) D id you have a drink containing alcohol in the past year? N o P oints 0 I nterpretation N egative * Medications: T akingAlbuterol Sulfate HFA 108 (90 Base) MCG/ACT Aerosol Solution Inhalation Docusate Sodium 100 MG Capsule TAKE 1 CAPSULE BY MOUTH TWICE A DAY Oral Montelukast Sodium 10 MG Tablet TAKE ONE TABLET ONCE DAILY AT BEDTIME Oral Fluticasone Propionate 50 MCG/ACT Suspension Nasal Medication List reviewed and reconciled with the patientTaking Albuterol Sulfate HFA 108 (90 Base) MCG/ACT Aerosol Solution Inhalation Taking Docusate Sodium 100 MG Capsule TAKE 1 CAPSULE BY MOUTH TWICE A DAY Oral Taking Montelukast Sodium 10 MG Tablet TAKE ONE TABLET ONCE DAILY AT BEDTIME Oral Taking Fluticasone Propionate 50 MCG/ACT Suspension Nasal Medication List reviewed and reconciled with the patient * Allergies: N o Known Drug Allergyno[Allergies Verified] Objective: * Vitals: H t: 5'9 , Wt: 205, BMI:30.27, BP: 123/74, HR: 80, Temp: 97.9, Ht-cm: 175.26, Wt- k.99. * Examination: G eneral Examination: GENERAL APPEARANCE: p leasant, well nourished, well developed, in no acute distress, calm and relaxed, obese, woman. HEAD: a traumatic, normocephalic. EYES: e tobin, perrla, anicteric, conjugate. EARS: n ormal. NOSE: s eptum intact. ORAL CAVITY: n ormal, unremarkable. NECK/THYROID: n o jugular venous distention, no carotid bruit, thyroid normal, Well healed surgical incision anterior midline to left. LYMPH NODES: n o enlarged lymph nodes,spleen normal. SKIN: n o suspicious lesions, anicteric. HEART: n o clicks, gallops, murmurs, or rubs, regular rhythm, S1, S2 normal, no s3, or vascular bruits. LUNGS: c lear to auscultation, no wheezes, rales, rhonchi.? BREASTS: N ot examined. ABDOMEN: b owel sounds normal, no ascites, no organomegaly, no mass, centripital obesity. RECTAL EXAM: n ot examined. MUSCULOSKELETAL: e xtremities unremarkable, no clubbing, cyanosis or edema. PERIPHERAL PULSES: n ormal. NEUROLOGIC: a lert and oriented, cranial nerves 2-12 grossly intact, deep tendon reflexes 2+ symmetrical, motor strength normal upper and lower extremities, sensory exam intact. PSYCH: a lert, oriented. Assessment: * Assessment: 1. C ervical radiculopathy due to degenerative joint disease of spine - M47.22 (Primary) ? N otes :She had no complications from the surgery. The wound in the neck is well healed and requires no additional treatment at this time. 2 . M oderate obesity - E66.9 N otes :We reviewed her weight loss strategy today. We made a plan to lose wweight at a rate of one half of a pound per week. 3 . M ild intermittent asthma, unspecified whether complicated - J45.20 ? N otes :There was no wheezing today. She was continued on her usual regimen. Plan: * Treatment: * Procedure Codes: * Preventive Medicine: Counseling: C are goal follow-up plan: Counseling for abnormal BMI given Y es Above Normal BMI Follow-up D ietary management education, guidance, and counseling, Dietary needs education, Exercise promotion: strength training, Exercise promotion: stretching, Feeding regime, Giving encouragement to exercise, Lifestyle education regarding diet, Nutrition / feeding management, Nutrition therapy, Prescribed activity/exercise education, Prescribed diet education, Prescribed dietary intake, Special diet education, Weight monitoring , Intervention, Order not done: Medical or Other reason not done * Follow Up: I f necessary (Reason: Office visit) * Images: * Sign off status: Completed true * Provider: Justice Simmons MD Date: 0 04/06/2024 Generated for Dyllan mackenzie/Adam/Romero on: 02/27/2024 03:48 PM EST History and Physical Notes * HPI (History of Present Illness) Category Sub-Category Detail Notes COVID-19 Screening Questions Have you had any new onset fever, chills, cough, congestion, sore throat, shortness of breath, muscle aches?: No Examination Category Sub-Category Detail Notes General Examination GENERAL APPEARANCE: pleasant , well nourished, well developed, in no acute distress, calm and relaxed, obese, woman HEAD: atraumatic, normocep halic EYES: eomi, perrla, anicte cassandra, conjugate EARS: normal NOSE: septum intact NECK/THYROID: no jugular venous di stention, no carotid bruit, thyroid normal, Well healed surgical incision anterior midline to left HEART: no clicks, gallops, murmurs, or rubs, regular rhythm, S1, S2 normal, no s3, or vascular bruits LUNGS: clear to auscultatio n, no wheezes, rales, rhonchi ABDOMEN: bowel sounds normal, no ascites, no organomegaly, no mass, centripital obesity NEUROLOGIC: alert and oriented, cranial nerves 2-12 grossly intact, deep tendon reflexes 2+ symmetrical, motor strength normal upper and lower extremities, sensory exam intact SKIN: no suspicious lesion s, anicteric PERIPHERAL PULSES: normal BREASTS: Not examined MUSCULOSKELETAL: extremities unremark able, no clubbing, cyanosis or edema LYMPH NODES: no enlarged lymph no patricia,spleen normal RECTAL EXAM: not examined PSYCH: alert, oriented ORAL CAVITY: normal, unremarkable
--- OUTSIDE RECORDS SUMMARY | 2024-12-27 18:08 | XMS_ITS | Encounter Summary ---
Author Organization [employer] Address [address] [place] [address] [address] [place] [address] Care Team Providers Care Partner Management Consultant Name Role Phone Unavailable Primary Care Provider Unavailabl e Encounter Details Date Type Department Care Team (Latest Contact Info) Description 10/14/[address] [facility] CONVERSIONS Dental, Provider, DDS Social [...] Description 01/10/2025 8:00 AM EST Office Visit [facility] [address], [place] [phone] Kimi Mae [address] [place], [place] [phone] documented as of this encounter Visit Diagnoses Not on filedocumented in this encounter
--- OUTSIDE RECORDS SUMMARY | 2024-12-27 18:08 | XMS_ITS | Clinical Summary ---
Author Organization [facility] Address [address] [place] [phone] Phone Care Team Providers Care Clinical Research Scientist Name Role Phone Hillary Ruiz MD Primary Care Provider [phone] Allergies Active Allergy Reactions Criticality Noted Date [...] mouth 1 (one) time each day Active Dandridge 3 1200 MG capsule Take 1 capsule [...] Care Team (Late st Contact Info) Description 12/30/2024 Orders Only [facility] [address] [address] Yousuf Galeano MD [address] [address] Chronic kidney disease stage 2; Hypertensive disorder; Hypokalemia; Renal mass; Renal stone; Vitamin D deficiency, not otherwise specified 01/02/2025 8:00 AM EST Office [facility] [address] [address] Yousuf Galeano MD [facility] [address] Health Maintenance Due Date Last Done Comments Breast Cancer Screening 1973 Hepatitis B Vaccine (1 of 3 - 19+ 3-dose series) 1992 Pneumococcal Vaccine: 50+ Ye ars (1 of 2 - PCV) 1992 Colorectal Cancer Screening: Annual FOBT 2022 Colorectal Cancer Screening: Colonoscopy 2022 Colorectal Cancer Screening: Sigmoidoscopy 2022 Influenza Vaccine (#1) 2024 0, 11/23/2018, 10/14/2018, Additional history exists Insurance [facility] ([id number]) [facility] ([id number]) [place] [address] ([id number]) Care Teams Clinical Research Scientist Relationship Specialty Start Date End Date Hillary Ruiz MD [address] [place] [address] PCP - General Internal Medicine 07/09/20
--- OUTSIDE RECORDS SUMMARY | 2024-12-27 18:08 | XMS_ITS | Encounter Summary ---
Author Organization [facility] Address [address] [facility] [address] [place] [address] Phone Care Team Providers Care Vp Scientific Affairs Name Role Phone Hillary Ruiz MD Primary Care Provider [phone] Reason for Visit * Reason Comments Med Refill Encounter Details Date Type Department Care Team (Late st Contact Info) Description 07/20/2020 Refill [facility] [address] [facility] [address] [place] [address] Yousuf Galeano MD [address] [facility] [address] [place] [address] Social History Tobacco Use Types Packs/Day Years [...] Department Care Team (Late Contact Info) Description 12/30/2024 Orders Only [facility] [address] [facility] [address] [place] [phone] Yousuf Galeano MD [address] [address] Chronic kidney disease stage 2; Hypertensive disorder; Hypokalemia; Renal mass; Renal stone; Vitamin D deficiency, not otherwise specified 01/02/2025 8:00 AM EST Office Visit [facility] [address] [address] Yousuf Galeano MD [facility] [phone] documented as of this encounter Visit Diagnoses Not on filedocumented in this encounter Care Teams Vp Scientific Affairs Relationship Specialty Start Date End Date Hillary Ruiz MD [address] [place] [address] PCP - General Internal Medicine 07/09/20 documented as of this encounter
--- OUTSIDE RECORDS SUMMARY | 2024-12-27 18:08 | XMS_ITS | Patient Health Record ---
Author Organization [facility] Address [address] [place] [address] Care Team Providers Care Semiautomatic Stitcher Operator Name Role Phone Hillary Ruiz Primary Care Provider Hieu Ordonez Unavailable [phone] Allergies Allergen (clinical drug ingredient) Drug/Non Drug [...] Active Topamax Active fluvoxaMINE Maleate 50 MG Oral; Duration: 90 Active Wellbutrin Active Nitrofurantoin Macrocrystal 100 MG TAKE 1 CAPSULE BY MOUTH DAILY. MUST ADMINISTER WITH A MEAL/FOOD Oral; Duration: 90 Active Montelukast Sodium 10 MG Oral; Duration: 90 Active Amoxicillin 875 MG 1 tablet Orally Twic e a day; Duration: 5 day(s) 03/21/2022 Active Dicyclomine HCl 20 MG 1 tablet Orally Th ree times a day; Duration: 30 day(s) 03/21/2022 Active Omeprazole Active Vitamin D Active Multivitamin Active Fish Oil Active Loratadine 10 MG ORAL TAKE (1) TABLET BY MOUTH DAILY. Oral; Duration: 90 Active potassium Active Hazel Green-3 1000 MG ONE ORAL DAILY Oral; Duration: 90 Active SUMAtriptan injections Active Topiramate 100 MG TAKE 1 TABLET BY EMILY TH EVERY DAY Oral; Duration: 90 Active Amerge Active Solifenacin Succinate 10 MG TAKE 1 TABLE T BY MOUTH DAILY FOR OAB Oral; Duration: 90 Active Immunizations Vaccine Route Administration Date [...] Problem Status W/U Status Risk Notes Problem Diverticulitis of colon (524320850) Diverticulitis of large intestine without perforation or abscess without bleeding (K57.32) Active confirmed Problem Coburn's esophagus (783630149) Coburn's esophagus without dysplasia (K22.70) Active confirmed Problem Heartburn (89689006) Heartburn (R12) Active confirmed Problem Gastroesophageal reflux disease (240902067) Gastroesophageal reflux disease (K21.9) Active confirmed Problem Gastroesophageal reflux disease (494371639) Gastroesophageal reflux disease, esophagitis presence not specified (K21.9) Active confirmed Problem Hiatal hernia (88874468) Hiatal hernia (K44.9) Active confirmed Problem Reflux esophagitis (197021628) Reflux esophagitis (K21.0) Active confirmed Problem Coburn esophagus (436251332) Coburn esophagus (K22.70) Active confirmed Problem Coburn's esophagus (155250016) Coburn''s esophagus without dysplasia (K22.70) Active confirmed Problem Gastroesophageal reflux disease with esophagitis (disorder) (804807752) Gastroesophageal reflux disease with esophagitis without hemorrhage (K21.00) Active confirmed Plan Of Treatment Pending Test Test Name Order Date Pathology 05/05/2022 Future Test Test Name Order Date UPPER GI ENDOSCOPY 03/05/2017 UPPER GI ENDOSCOPY 03/21/2022 Insurance Providers Payer Name Payer Address Payer Phone Subscriber Number Group Number Insured Name Patient Relationship to Insured Coverage Start Date Coverage End Date [facility] [address] [place] [address] [id number] CLARISSA LORD Self - patient is the insured Medical (General) History Medical History History ICD Code Migraine headaches Asthma brought on by bronchitis Denies [place],DM,CVA,,renal disease GERD--EGD 02/2017 with small to mod-sized HH, mild esophagitis, and small areas of Barretts; gastric bx neg for Hpylori. She underwent an upper endoscopy in July of [address] Montejo at [facility] with the finding of a slightly irregular EG junction but biopsies were negative for any sign of Coburn's esophagus at that time--there was no esophagitis Kidney stones-ESWL Schizophrenia/Depresssion/Anxiety Diverticulitis in 2021 and 2 023 involving the junction of the distal descending colon and sigmoid colon. She reports a negative colonoscopy with Dr. Montejo in approximately 2021 Surgical History Surgery Date(Month/Year) CC1996 Lower back surgery for sciatica 2006 Hospitalization History Reason Date(Month/Year)
--- OUTSIDE RECORDS SUMMARY | 2024-12-27 18:08 | XMS_ITS | Clinical Summary ---
Author Organization [email or web address] Address [address] [facility] [address] [place] [address] Care Team Providers Care Emblem Fuser Tender Name Role Phone Unavailable Primary Care Provider [...] Description 01/10/2025 8:00 AM EST Office Visit [facility] [address] [place] [phone] Kimi Mae [address] [place], [place] [phone] Health Maintenance Due Date Last Done Comments [...] Recently Relevant to Health Maintenance Insurance [facility]
--- OUTSIDE RECORDS SUMMARY | 2024-12-27 18:08 | XMS_ITS | Patient Health Record ---
Author Organization Hieu Simmons III, MD Address [address] [place] [address] [place] [address] Care Team Providers Care Meat Dresser Name Role Phone Joseph CROOK, Hillary Primary Care Provider Dr. Hieu Mora III Unavailable [phone] Allergies Allergen (clinical drug ingredient) Drug/Non Drug [...] Problem Status W/U Status Risk Notes Problem 30396794 Cervical radiculopathy due to degenerative joint disease of spine (M47.22) Active confirmed She had no complications from the surgery. The wound in the neck is well healed and requires no additional treatment at this time. Problem 542822725 Moderate obesity (E66.9) Active confirmed We reviewed her weight loss strategy today. We made a plan to lose wweight at a rate of one half of a pound per week. Problem [id number] Mild intermittent asthma, unspecified whether complicated (J45.20) [...] Date Provider Diagnosis Hieu Simmons III, MD [address] [place] [address] [place] [address] 04/06/2024 Hieu Simmons Cervical radiculopat hy due [...] Insured Coverage Start Date Coverage End Date [facility] [address] ATTN CLAIMS JENI MULLER [id number] Dilcia Johnson Self - patient is the insured Medical (General) History Medical History History ICD Code Degenerative disc disease cervical spine Asthma Obesity Surgical History Surgery Date(Month/Year) 03/24/2024 C6-7 anterior discectomy
--- OUTSIDE RECORDS SUMMARY | 2024-12-27 18:08 | XMS_ITS | Clinical Summary ---
Author Organization [facility] Address [facility] [address] [address] Phone Care Team Providers Care Employee Communications Specialist Name Role Phone Hillary Ruiz MD [...] [place] [id number] [facility] CARE MEDICARE REPLACEMENT CARE MEDICARE [place] [address] [place] [address] [place] [address] MEDICARE REPLACEMENT Care Teams Employee Communications Specialist Relationship Specialty Start Date End Date Hillary Ruiz MD [address] [place] [address] [place] [address] PCP - General Internal Medicine 10/05/18 Additional Source Comments The information contained in this document represents components of the legal health record. It is not the complete legal health record.[facility]
--- OUTSIDE RECORDS SUMMARY | 2024-12-27 18:08 | XMS_ITS | Clinical Summary ---
Author Organization [facility] Address [address] [place] [address] Care Team Providers Care Continuous Miner Operator Name Role Phone Charmaine Somers LUZ Primary Care Provider [phone] Surgical History Surgery Date Site/Laterality Comments OTHER SURGICAL HISTORY PROCEDURE: WI LAPS SURG CHOLECYSTECTOMY W/CHOLANGIOGRAPHY OTHER SURGICAL HISTORY 2010 Right PROCEDURE: WI CYSTO W/INSERT URETERAL STENT BACK SURGERY PROCEDURE: HISTORICAL BACK SURGERY OTHER SURGICAL HISTORY PROCEDURE: HISTORY OTHER; COMMENT: sinus surgery ESOPHAGOGASTRODUODENOSCOPY 08/03/2018 PROCEDURE: WI ESOPHAGOGASTRODUODENOSCOPY TRANSORAL DIAGNOSTIC; COMMENT: small hiatal hernia reflux esophagitis, gastritis; no report ESOPHAGOGASTRODUODENOSCOPY 03/11/2017 PROCEDURE: WI ESOPHAGOGASTRODUODENOSCOPY TRANSORAL DIAGNOSTIC; COMMENT: intestinal metaplasia sugg [...] age to complete this topic Care Teams Continuous Miner Operator Relationship Specialty Start Date End Date Charmaine Somers NP [address] [place] [address] PCP - General Internal Medicine 02/01/18
--- OUTSIDE RECORDS SUMMARY | 2024-12-27 18:08 | XMS_ITS | Encounter Summary ---
Author Organization [facility], Address [address] [place] [address] Phone Care Team Providers Care Solar Panel Installer Name Role Phone Hillary Ruiz MD Primary Care Provider [phone] Encounter Details Date Type Department Care Team (Late st Contact Info) Description 01/01/2022 Documentation Only [facility], [address] [place] [phone] Shiva Paez MD [address] [place] [phone] Social History Tobacco Use Types Packs/Day Years [...] Only [facility] [address] [address] Yousuf Galeano MD [address] [address] Chronic kidney disease stage 2; Hypertensive disorder; Hypokalemia; Renal mass; Renal stone; Vitamin D deficiency, not otherwise specified 01/02/2025 8:00 AM EST Office Visit [facility] [address] [facility] [address] [place] [address] Yousuf Galeano MD [facility] [phone] documented as of this encounter Visit Diagnoses Not on filedocumented in this encounter Care Teams Solar Panel Installer Relationship Specialty Start Date End Date Hillary Ruiz MD [address] [place] [address] PCP - General Internal Medicine 07/09/20 documented as of this encounter
--- OUTSIDE RECORDS SUMMARY | 2024-12-27 18:08 | XMS_ITS | Encounter Summary ---
Author Organization [facility] Address [facility] [employer] [address] [address] Phone Care Team Providers Care Precast Concrete Ironworker Name Role Phone Hillary Ruiz MD Primary Care Provider Encounter Details Date Type Department Care Team (Latest Contact Info) Description 10/05/2018 Transcribe Orders [facility] [address] [place] [address] Sara Oropeza, LUZ Schizo affective schizophrenia (Primary Dx) Social History [...] (10/05/2018 11:44 AM EDT) TESTS REQUESTED FBUMT [facility] SPECIMEN/TUBE TYPE LG RED TOP [facility] REQUEST RECEIVED Request received. A separate order for the requested test will be generated by the laboratory. [facility] Blood 10/05/2018 11:4 4 AM EDT 10/05/2018 11:49 AM EDT us Sara Oropeza NP LAB BLOOD ORDERABLES Final R esult [facility] [address] [place] [address] * 25-OH vitamin D (10/05/2018 11:44 AM EDT) 25 [place] VIT D (TOTAL) 46 30 - 60 ng/mL [facility] Blood 10/05/2018 11:4 4 AM EDT 10/05/2018 11:48 AM EDT us Sara Oropeza AIR TANK ASSEMBLER LAB BLOOD BKR ORDERABLES Fin al Result Performing Organization Address City/[facility]/ZIP Co de Phone Number [address] [address] * (ABNORMAL) CBC and differential (10/05/2018 11:44 AM EDT) WBC 9.01 3.40 - 11.20 K/uL [facility] RBC 4.52 3.80 - 4.80 M/uL [facility] HGB 14.2 12.0 - 15.0 g/dL [facility] HCT 41.2 36.0 - 46.0 % [facility] PLT 284 130 - 400 K/uL [facility] MCV 91.2 79.0 - 98.0 [facility] MCH 31.4 27.0 - 34.8 pg [facility] MCHC 34.5 31.5 - 36.0 g/dL [facility] RDW 12.0 10.8 - 14.6 % [facility] MPV 9.6 9.4 - 12.4 [facility] NRBC 0.00 0.00 /100 WBCs [facility] ABSOLUTE NRBC 0.00 0.00 K/uL [facility] DIFF METHOD Auto [facility] NEUTS 64.1 45.30 - 77.70 % [facility] LYMPHS 24.9 12.30 - 39.70 % [facility] MONOS 7.8 4.10 - 12.80 % [facility] EOS 2.7 0 - 7.2 % [facility] BASOS 0.2 0 - 2.80 % [facility] Granulocytes, immature (%) 0.3 0.0 - 0.9 % [facility] ABSOLUTE NEUTS 5.78 1.40 - 7.70 K/uL [facility] ABSOLUTE LYMPHS 2.24 0.60 - 3.20 K/uL [facility] ABSOLUTE MONOS 0.70(H) 0.11 - 0.59 K/uL [facility] ABSOLUTE EOS 0.24 0.01 - 0.50 K/uL [facility] ABSOLUTE BASOS 0.02 0.00 - 0.08 K/uL [facility] Granulocytes, immature 0.03 0.00 - 0.05 K/uL [facility] Blood 10/05/2018 11:4 4 AM EDT 10/05/2018 11:48 AM EDT us Sara Oropeza NP LAB BLOOD BKR ORDERABLES Fin al Result Performing Organization Address City/State/[facility] Co de Phone Number [address] [address] * (ABNORMAL) Comprehensive metabolic panel (10/05/2018 11:44 AM EDT) SODIUM 138 133 - 146 mmol/L [facility] POTASSIUM 3.9 3.3 - 5.1 mmol/L [facility] CHLORIDE 107 96 - 108 mmol/L [facility] CO2 17(L) 21 - 35 mmol/L [facility] BUN 18 6 - 19 mg/dL [facility] CREATININE 1.10 0.5 - 1.5 mg/dL [facility] GLUCOSE 126(H) 70 - 99 mg/dL [facility] ALBUMIN 4.2 3.9 - 4.8 g/dL [facility] TOTAL PROTEIN 7.4 6.5 - 8.0 g/dL [facility] CALCIUM 8.9 8.4 - 10.3 mg/dL [facility] ALKALINE PHOSPHATASE 71 39 - 117 U/L [facility] TOTAL BILIRUBIN 0.2 0.0 - 1.2 mg/dL [facility] AST 15 0 - 37 U/L [facility] ALT 16 0 - 40 U/L [facility] GLOBULIN 3.2 1 - 4.8 g/dL [facility] EGFR 61 >59 mL/min/1.7 3m2 [facility] Comment:If patient is black, multiply result by 1.159. Estimated glomerular filtration rate calculated using the CKD-EPI equation. ANION GAP 18 10 - 20 mmol/L [facility] Blood 10/05/2018 11:4 4 AM EDT 10/05/2018 11:48 AM EDT us Sara Oropeza AIR TANK ASSEMBLER LAB BLOOD BKR ORDERABLES Fin al Result [facility] [address] [place] [address] documented in this encounter Visit Diagnoses Diagnosis Schizo affective schizophrenia- Primary Schizoaffective disorder, unspecified condition documented in this encounter Additional Health Concerns Infection Onset Date Last Indicated Resolved Time CoV-Risk 03/13/2020 03/13/2020 03/23/2020 1:24 AM EST documented as of this encounter Care Teams Precast Concrete Ironworker Relationship Specialty Start Date End Date Hillary Ruiz MD [address] [place] [address] [place] [address] PCP - General Internal Medicine 10/05/18 documented as of this encounter Additional Source Comments The information contained in this document represents components of the legal health record. It is not the complete legal health record.[facility]
--- OUTSIDE RECORDS SUMMARY | 2024-12-27 18:08 | XMS_ITS | Encounter Summary ---
Author Organization [employer] Address [address] [place] [address] [address] [place] [address] Care Team Providers Care Brazer Controlled Atmospheric Furnace Name Role Phone Unavailable Primary Care Provider Unavailabl e Encounter Details Date Type Department Care Team (Latest Contact Info) Description 07/08/2018 Abstract [facility] CONVERSIONS Dental, Provider, DDS Social History [...] Description 01/10/2025 8:00 AM EST Office Visit [facility] [address] [place], [place] [phone] Kimi Mae [address] [place], [place] [phone] documented as of this encounter Visit Diagnoses Not on filedocumented in this encounter
--- NOTE | 2025-01-09 14:07 | HO.ANESPROP2 ---
Documented by User: Bel Lu NP 01/09/25 14:09 HPI - Anesthesia Eval Consult details Narrative: 49yo F for Right Carpal Tunnel Release, 01/12/25 s/p ACDF 02/2024 with GA-ETT 7 PMFSH Active Problems Active Problems: All Active Problems Median neuropathy (Acute) Hand numbness (Acute) Cervicalgia (Acute) S/P cervical spinal fusion (Acute) Cervical radiculopathy due to degenerative joint disease of spine (Acute) Cystitis (Acute) Urinary frequency (Acute) Recurrent UTI (Acute) Sleep disorder, unspecified (Acute) UTI (urinary tract infection) (Acute) History of diverticulitis (Acute) Rectal bleeding (Acute) Past Medical History Medical History Arthritis Bipolar disorder Mild asthma Undifferentiated schizophrenia GERD (gastroesophageal reflux disease) HTN (hypertension) Chronic renal insufficiency UTI (urinary tract infection) History of diverticulitis Rectal bleeding Kidney stones Migraines Anxiety Depression Family History Family History Father Acute leukemia Mother FH: kidney cancer FH: pancreatic cancer Paternal Uncle Acute leukemia Family history of problems with anesthesia: No Surgical History Surgical History Hx of fusion of cervical spine Hx of cystoscopy Hx of cholecystectomy H/O colonoscopy History of esophagogastroduodenoscopy (EGD) History of back surgery History of Problems with Anesthesia: No Social History Social History Are you a primary wound care technician to a significant other at home: No Do you presently have visiting nurse or other home services: No Alcohol intake: never Comment: patient states that best pain at home with medication treatment is a 7/ Patient Tobacco Use Status: Never used Tobacco Have you been hit, kicked, punched, or otherwise hurt by someone within the past year? If so, by whom?: No Are you DNR?: No Advance Directives: No Advance Directives Information Provided: Yes Patient : No Meds Allergies Allergy/AdvReac Type Severity Reaction Status Date / Time Sulfa (Sulfonamide Allergy Intermediate Hives Verified 12/19/24 09:04 Antibiotics) sulfamethoxazole (From Allergy Intermediate HIVES Verified 12/19/24 09:04 BACTRIM) trimethoprim (From BACTRIM) Allergy Intermediate HIVES Verified 12/19/24 09:04 Home Medications ?Medication ?Instructions ?Recorded ?Confirmed ?Last Taken ?Type famotidine 40 mg tablet 40 mg PO BEDTIME 11/26/19 01/10/25 01/12/25 History fluticasone propionate 50 2 spray intranasal BID 11/26/19 01/10/25 11/12/24 History mcg/actuation nasal spray,suspension naratriptan 2.5 mg tablet 2.5 mg PO DAILY PRN Migraine 11/26/19 01/10/25 Unknown History Headache omeprazole 20 mg capsule,delayed 20 mg PO DAILY 11/26/19 01/10/25 01/12/25 History release potassium citrate 10 mEq (1,080 20 meq PO TID 11/26/19 01/10/25 Unknown History mg) tablet,extended release topiramate 100 mg tablet 100 mg PO BEDTIME 11/26/19 01/10/25 Unknown History multivitamin 1 tab PO DAILY 05/30/20 01/10/25 Unknown History sumatriptan succinate 6 mg/0.5 mL 6 mg subcut ONCE PRN Migraine 07/03/20 01/10/25 Unknown History subcutaneous pen injector Headache fluoride (sodium) 1.1 % dental 1 appl PO DAILY 01/28/21 01/10/25 Unknown History paste omega-3 fatty acids 1,000 mg 0 mg PO BEDTIME 01/28/21 01/10/25 01/11/25 History capsule albuterol sulfate 90 mcg/actuation 2 puff inhalation Q2-4H PRN 06/04/21 01/10/25 11/12/24 History aerosol inhaler Shortness Of Breath Or Wheezing fluvoxamine 100 mg tablet 100 mg PO DAILY 06/04/21 01/10/25 Unknown History montelukast 10 mg tablet 10 mg PO BEDTIME 06/04/21 01/10/25 Unknown History atorvastatin 20 mg tablet 20 mg PO DAILY 03/09/24 01/10/25 01/12/25 History calcium carbonate 600 mg PO DAILY 03/09/24 01/10/25 01/11/25 History Assessment and Plan Assessment Anesthesia Assessment: Chart Reviewed Final Anesthetic Review Family History of Problems with Anesthesia: No History of Problems with Anesthesia: No Documented by User: Bj Love MD 01/12/25 11:16 PMFSH Past Medical History Medical History Arthritis Bipolar disorder Mild asthma Undifferentiated schizophrenia GERD (gastroesophageal reflux disease) HTN (hypertension) Chronic renal insufficiency UTI (urinary tract infection) History of diverticulitis Rectal bleeding Kidney stones Migraines Anxiety Depression Family History Family History Father Acute leukemia Mother FH: kidney cancer FH: pancreatic cancer Paternal Uncle Acute leukemia Surgical History Surgical History Hx of fusion of cervical spine Hx of cystoscopy Hx of cholecystectomy H/O colonoscopy History of esophagogastroduodenoscopy (EGD) History of back surgery Social History Social History Are you a primary wound care technician to a significant other at home: No Do you presently have visiting nurse or other home services: No Alcohol intake: never Comment: patient states that best pain at home with medication treatment is a 10 Patient Tobacco Use Status: Never used Tobacco Have you been hit, kicked, punched, or otherwise hurt by someone within the past year? If so, by whom?: No Are you DNR?: No Advance Directives: No Advance Directives Information Provided: Yes Patient : No Meds Allergies Allergy/AdvReac Type Severity Reaction Status Date / Time Sulfa (Sulfonamide Allergy Intermediate Hives Verified 12/19/24 09:04 Antibiotics) sulfamethoxazole (From Allergy Intermediate HIVES Verified 12/19/24 09:04 BACTRIM) trimethoprim (From BACTRIM) Allergy Intermediate HIVES Verified 12/19/24 09:04 Home Medications ?Medication ?Instructions ?Recorded ?Confirmed ?Last Taken ?Type famotidine 40 mg tablet 40 mg PO BEDTIME 11/26/19 01/10/25 01/12/25 History fluticasone propionate 50 2 spray intranasal BID 10/03/20 11/18/25 09/20/25 History mcg/actuation nasal spray,suspension naratriptan 2.5 mg tablet 2.5 mg PO DAILY PRN Migraine 11/26/19 01/10/25 Unknown History Headache omeprazole 20 mg capsule,delayed 20 mg PO DAILY 11/26/19 01/10/25 01/12/25 History release potassium citrate 10 mEq (1,080 20 meq PO TID 11/26/19 01/10/25 Unknown History mg) tablet,extended release topiramate 100 mg tablet 100 mg PO BEDTIME 11/26/19 01/10/25 Unknown History multivitamin 1 tab PO DAILY 05/30/20 01/10/25 Unknown History sumatriptan succinate 6 mg/0.5 mL 6 mg subcut ONCE PRN Migraine 07/03/20 01/10/25 Unknown History subcutaneous pen injector Headache fluoride (sodium) 1.1 % dental 1 appl PO DAILY 01/28/21 01/10/25 Unknown History paste omega-3 fatty acids 1,000 mg 0 mg PO BEDTIME 01/28/21 01/10/25 01/11/25 History capsule albuterol sulfate 90 mcg/actuation 2 puff inhalation Q2-4H PRN 06/04/21 01/10/25 11/12/24 History aerosol inhaler Shortness Of Breath Or Wheezing fluvoxamine 100 mg tablet 100 mg PO DAILY 06/04/21 01/10/25 Unknown History montelukast 10 mg tablet 10 mg PO BEDTIME 06/04/21 01/10/25 Unknown History atorvastatin 20 mg tablet 20 mg PO DAILY 03/09/24 01/10/25 01/12/25 History calcium carbonate 600 mg PO DAILY 03/09/24 01/10/25 01/11/25 History Exam Exam Date and Time: 01/12/25 Airway Mallampati Class: II TM Dist: >3cm Neck ROM: Full Heart: rrr Lungs: ctab vesicular Assessment and Plan Assessment Anesthesia Assessment: Anesthesia Plan Discussed and PAT Visit Final Anesthetic Review NPO: Yes ASA Class: II Final Preanesthetic Review: No Changes in Pt Med Stat, Meds/Allgs Chart Reviewed, Consent Obtained/Reviewed and Anes Risks/Benef Reviewed Patient Risk: Low Procedure Risk: Low Anesthetic Plan Anesthetic Plan: MAC: Disposition: Standard PACU
[2025-01-10 09:35] VITALS: BMI 30.1
[2025-01-12 09:57] VITALS: BP 136/94; PULSE 89; RESP 20; TEMP 36; O2SAT 96; BMI 29.4
[2025-01-12] MEDS: Lactated Ringers 1,000 ML 100 ML IVCONT (10:24)
--- NOTE | 2025-01-12 10:40 | MHC.SHP ---
Pre-Procedural Eval Section A - 24 Hr Update-Section A only Date of Service: 01/12/25 The patient is an INPATIENT: No Section B - Complete if H&P > 30 days Chief Complaint: Other lesions of median nerve, unspecified upper l Details of Present Illness: Right carpal tunnel syndrome Allergies: Allergies Allergy/AdvReac Type Severity Reaction Status Date / Time Sulfa (Sulfonamide Allergy Intermediate Hives Verified 12/19/24 09:04 Antibiotics) sulfamethoxazole (From Allergy Intermediate HIVES Verified 12/19/24 09:04 BACTRIM) trimethoprim (From BACTRIM) Allergy Intermediate HIVES Verified 12/19/24 09:04 Review of Systems Sugical H&P ROS: Negative: Constitution, Cardiovascular, Respiratory, Neurological, Psychiatric, Hem-Onc, Allergic/Immunologic, Gastrointestinal, Genitourinary, Musculoskeletal, Integumentary, Endocrine and Eyes/Ears/Nose/Throat Exam Surgical H&P Exam: Normal: HEENT, Normal: Heart, Normal: Lungs, Normal: Extremities, Normal: Abdomen, Normal: Skin and Normal: Neurological (Awake, alert) Plan Diagnosis/Plan: Unchanged I have reviewed the history and physical and performed a pertinent physical examination on my patient. No changes have occurred unless specified. Right carpal tunnel release Time Spent With Patient Time: Total time managing care of this patient today ____ minutes.
[2025-01-12 11:10] LABS: UPreg QC Valid YES
--- NOTE | 2025-01-12 12:11 | P.DS_ITS ---
DS: Providers Provider Date of Service: 01/12/25 Date of discharge: 01/12/25 Primary care physician: Hillary Ruiz MD Admitting clinician: Ras Meeks DS: Diagnosis Discharge Diagnosis (1) Median neuropathy: Status: Acute DS: Summary Time Attestation Discharge Coordination Time (in mins): 5 Quality: Safe Use of Opioids Does Pt have an Active Cancer Diagnosis on the Problem List?: No Quality: Stroke Does the patient have a stroke diagnosis?: No Physical Exam Vital Signs: Vital Signs: Last Vital Signs Temp 96.8 F 01/12/25 09:57 Pulse 89 01/12/25 09:57 Resp 20 01/12/25 09:57 BP 136/94 H 01/12/25 09:57 Pulse Ox 96 01/12/25 09:57 O2 Del Method Room Air 01/12/25 09:57 BMI result Body Mass Index 29.4 DS: Data Data Completed and Pending Labs on day of discharge: Laboratory Results - last 24 hr 01/12/25 10:25 Urine Test NEGATIVE Discharge Plan Discharge Patient Disposition: Home, Self-Care Referrals: Hillary Ruiz MD [Primary Care Provider, Internal Medicine] - 1 Week Discharge Medications: New tramadol 50 mg tablet 50 mg PO Q6H PRN (Reason: pain) Qty: 20 0RF Continued calcium carbonate 600 mg calcium (1,500 mg) Tablet 600 mg PO DAILY atorvastatin 20 mg tablet 20 mg PO DAILY omeprazole 20 mg capsule,delayed release(DR/EC) 20 mg PO DAILY naratriptan 2.5 mg tablet 2.5 mg PO DAILY PRN (Reason: Migraine Headache) famotidine 40 mg tablet 40 mg PO BEDTIME potassium citrate 10 mEq (1,080 mg) tablet extended release 20 meq PO TID fluticasone propionate 50 mcg/actuation spray,suspension 2 spray intranasal BID topiramate 100 mg tablet 100 mg PO BEDTIME sumatriptan succinate 6 mg/0.5 mL pen injector 6 mg subcut ONCE PRN (Reason: Migraine Headache) multivitamin Tablet 1 tab PO DAILY montelukast 10 mg tablet 10 mg PO BEDTIME albuterol sulfate 90 mcg/actuation HFA aerosol inhaler 2 puff inhalation Q2-4H PRN (Reason: Shortness Of Breath Or Wheezing) fluvoxamine 100 mg tablet 100 mg PO DAILY fluoride (sodium) 1.1 % paste 1 appl PO DAILY omega-3 fatty acids 1,000 mg capsule 0 mg PO BEDTIME Discharge Orders: Discharge Order (Routine); Ordered 01/12/25 Ordered By: Medardo Mayes Diet: Advance to usual diet Activity on Discharge: As tolerated Activity Restrictions/Additional Instructions: After your carpal tunnel surgery, please follow thse guidelines. You may remove your cody wrap on post op day 3, as well as the dressing underneath it There are sutures in your wound, and you will need these removed 10-14 days after surgery. Please call the office to arrange this visit, You can use your hand as much as you like, however, please avoid straining or heavy lifting It will help swelling in your hand to keep it elevated when you are not using it. You can shower on post op day 1, but please keep wound dry You can drive when you feel comfortable and are off narcotics If you experience any signs of infection such as fever, chills or redness/discharge from your wound,please call office right away Print Language: Mongolian
[2025-01-12 12:13] VITALS: BP 92/48; PULSE 75; RESP 8; TEMP 36.2; O2SAT 100
--- NOTE | 2025-01-12 12:14 | W.PM.OPN ---
Operative Note Operative Note Date of Service: 01/12/25 Narrative: Diagnosis: Right carpal tunnel syndrome Procedure: Right median nerve release Surgeon: Ras Meeks MD PhD Description procedure: This 49-year-old female is suffering from a right carpal tunnel syndrome. The patient was offered a decompression of the median nerve. The procedure complications were explained. The patient was consented. The patient was brought to the operating room, where moderate sedation was applied. Prepping and draping was done followed by time-out. Marcaine was injected into the mid volar region. A midvolar incision was made. The ligamentum carpi transversum was opened sharply until the median nerve became visible. A Metzenbaum scissor was used to decompress the median nerve proximally and distally over its trajectory. Significant compression was present. Hemostasis was done. The incision was closed with 3 interrupted sutures. A compressive CUCO wrap was used for hemostasis. All sponge and needle counts were correct. Patient was transported to the recovery room. Anesthesia: Moderate sedation and local anesthetic Blood loss: Minimal Complications: None Disposition: Discharge home
[2025-01-12 12:28] VITALS: BP 103/65; PULSE 71; RESP 11; O2SAT 100
[2025-01-12 12:43] VITALS: BP 132/85; PULSE 64; RESP 14; TEMP 36.1; O2SAT 98
== END 2025-01-12 13:50 | disposition home or self-care (01) ==
PROVIDERS: PCP Internal Medicine; Visit Provider Neurological Surgery
PROC: (CPT 64721; principal; 2025-01-12 11:30)
DX: G56.01 Carpal tunnel syndrome, right upper limb (principal); R20.0 Anesthesia of skin; M79.641 Pain in right hand; Z88.2 Allergy status to sulfonamides; Z98.890 Other specified postprocedural states
CPT/HCPCS: 64721; 81025; J0131; J0690; J2003; J2704; J3010

== ENCOUNTER → 2025-01-12 09:42 | Outpatient (BNV) | payer OTHER, SELFPAY | PROVIDERS: PCP Internal Medicine; Visit Provider Neurological Surgery | DX: G56.01 Carpal tunnel syndrome, right upper limb (principal) | CPT/HCPCS: 64721; 99499 ==

== ENCOUNTER 2025-01-20 09:16 | Emergency (ER) | payer OTHER, SELFPAY ==
[2025-01-20 09:17] VITALS: BP 151/77; PULSE 73; RESP 16; TEMP 37; O2SAT 100; BMI 29.7
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
--- OUTSIDE RECORDS SUMMARY | 2025-01-20 09:58 | XMS_ITS | Clinical Summary ---
Author Organization [facility] Address Formerly [facility] [email or web address] [address] [address] Phone Care Team Providers Care Yard Engineer Name Role Phone Hillary Ruiz MD [...] Medical [place] [address] [facility] ONE CARE MEDICARE REPLACEMENT CARE MEDICARE [place]AC[place] [address] [place] [address] [place] [place] [address] MEDICARE REPLACEMENT Care Teams Yard Engineer Relationship Specialty Start Date End Date Hillary Ruiz MD [address] [place] [address] [place] [address] PCP - General Internal Medicine 10/05/18 Additional Source Comments The information contained in this document represents components of the legal health record. It is not the complete legal health record.[facility]
--- OUTSIDE RECORDS SUMMARY | 2025-01-20 09:58 | XMS_ITS | Clinical Summary ---
Author Organization [facility] [address] [facility] Address [address] [place] [address] Phone Care Team Providers Care Roving Teller Name Role Phone Hillary Ruiz MD Primary Care Provider [phone] Encounters Date Type Department Care Team Description 01/18/2025 Telephone Gastroenterology [facility] 175 [facility] 175 [facility] [address] [place] [address] Vika Goodwin MD from Last 3 Months Surgical History Surgery Date Site/Laterality Comments OTHER SURGICAL HISTORY PROCEDURE: PA LAPS SURG CHOLECYSTECTOMY W/CHOLANGIOGRAPHY OTHER SURGICAL HISTORY 2009 Right PROCEDURE: PA CYSTO W/INSERT URETERAL STENT [...] on file Obstetrics History Plan of Treatment Upcoming Encounters Date Type Department Care Team (Late st Contact Info) Description 01/31/2025 2:40 PM EST Consult Gastroenterology - [address] [facility] [address] [place] [phone] Jennifer Uriarte, LUZ 299 [facility] [address] [place] [address] Health Maintenance Due Date Last Done Comments [...] Depression Screening 02/24/2024 COVID-19 Vaccine (1 - 2024-2 6 season) 2024 Influenza Vaccine (#1) 2024 9, [...] on patient's age to complete [place] [address] [facility] Member Subscriber Plan / Payer (Ef fective 2023-Present) Name:DILCIA LORD Relation to Subscriber:Self Name:Dilcia Lord Payer ID:[id number] Group ID:[id number] Type:Not on file Address: [place] [address] [address] [place] [phone] Care Teams Roving Teller Relationship Specialty Start Date End Date Hillary Ruiz MD [address] [place] [address] [place] [address] PCP - General Internal Medicine 01/18/25
--- OUTSIDE RECORDS SUMMARY | 2025-01-20 09:58 | XMS_ITS | Encounter Summary ---
Author Organization [facility] Address [address] [place] [phone] Care Team Providers Care Filter Cleaner Name Role Phone Hillary Ruiz MD Primary Care Provider [phone] Reason for Visit * Reason Onset Date Comments appointment 01/18/2025 Encounter Details Date Type Department Care Team (Late st Contact Info) Description 01/18/2025 Telephone Gastroenterology - [place] 175 [facility] 175 [facility] 200 [place] [phone] Vika Goodwin MD 299 [facility] [address] [place] [address] Social History Tobacco Use Types Packs/Day Years [...] on file documented as of this encounter Progress Notes * Shabana Rico - 01/18/2025 3:04 PM EST Pt booked for 01/31 * Ruby Bernard - 01/18/2025 10:00 AM EST Records received from Dr. Ruiz for rectal bleeding. Called patient & LM to schedule appt on 01/31 (ok'd by Mishel). Records scanned into patient's chart and form placed in CALLED accordion folder documented in this encounter Plan of Treatment Upcoming Encounters Date Type Department Care Team (Late st Contact Info) Description 01/31/2025 2:40 PM EST Consult Gastroenterology - [address] 299 [facility] [address] [place] [address] Jennifer Uriarte, LUZ 299 [facility] [address] [place] [address] documented as of this encounter Visit Diagnoses Not on filedocumented in this encounter Care Teams Filter Cleaner Relationship Specialty Start Date End Date Hillary Ruiz MD [address] [place] [address] [place] [address] PCP - General Internal Medicine 01/18/25 documented as of this encounter
--- OUTSIDE RECORDS SUMMARY | 2025-01-20 09:58 | XMS_ITS | Clinical Summary ---
Author Organization [facility] Address [address] [place] [phone] Phone Care Team Providers Care Weatherization Installer Name Role Phone Hillary Ruiz MD Primary Care Provider [phone] Allergies Active Allergy Reactions Criticality Noted Date [...] mouth 1 (one) time each day Active [place] 3 1200 MG capsule Take 1 capsule [...] Renal mass 03/04/2022 Vitamin D deficiency 07/15/2021 Coburn's esophagus 11/21/2020 Chronic kidney disease stage 2 04/11/2020 Hypokalemia 04/11/2020 Renal stone 04/11/2020 Nephrolithiasis 06/20/2019 Hypertensive disorder 06/20/2019 Schizoaffective disorder, bipolar type 0 Resolved Problems Problem Noted Date Diagnosed Date Resolved Date Anxiety 07/15/2021 07/15/2021 Constipation 07/15/2021 07/15/2021 Cyst of ovary 07/15/2021 07/15/2021 Depressive disorder 07/15/2021 07/16/19 Gastroesophageal reflux disease 07/15/2021 07/15/2021 Undifferentiated schizophrenia 07/15/2021 07/15/2021 Encounters Date Type Department Care Team Description 01/02/2025 Documentation Only [facility] [address] [phone] Yousuf Galeano MD 12/30/2024 Orders Only [facility] [address] [address] Yousuf Galeano MD Chronic kidney disease stage 2; Hypertensive disorder; Hypokalemia; Renal mass; Renal stone; Vitamin D deficiency, not otherwise specified from Last 3 Months Immunizations Immunization Administration Dates Next Due Influenza [...] Care Team (Late st Contact Info) Description 03/13/2025 11:20 AM EST Office Visit [facility] [address] [address] Yousuf Galeano MD [address] [phone] Health Maintenance Due Date Last Done Comments Breast Cancer Screening 1973 Hepatitis B Vaccine (1 of 3 - 19+ 3-dose series) 1992 Pneumococcal Vaccine: 50+ Ye ars (1 of 2 - PCV) 1992 Colorectal Cancer Screening: Annual FOBT 2022 Colorectal Cancer Screening: Colonoscopy 2022 Colorectal Cancer Screening: Sigmoidoscopy 2022 Influenza Vaccine (#1) 2024 0, 11/23/2018, 10/14/2018, Additional history exists Insurance [facility] ([id number]) [place] [address] ([id number]) [place] M[place] [phone] [place] [address] ([id number]) Care Teams Weatherization Installer Relationship Specialty Start Date End Date Hillary Ruiz MD [address] [place] [address] PCP - General Internal Medicine 07/09/20
--- OUTSIDE RECORDS SUMMARY | 2025-01-20 09:59 | XMS_ITS | Encounter Summary ---
Author Organization [facility], Address [address] [place] [address] Phone Care Team Providers Care Sandblast Or Shotblast Equipment Tender Name Role Phone Hillary Ruiz MD Primary Care Provider [phone] Encounter Details Date Type Department Care Team (Late Contact Info) Description 01/01/2022 Documentation Only [facility], [address] [facility] [address] [place] [phone] Shiva Paez MD [address] [facility] [place] [phone] Social History Tobacco Use Types Packs/Day Years [...] on file documented as of this encounter Functional Status documented as of this encounter Plan of Treatment Upcoming Encounters Date Type Department Care Team (Late Contact Info) Description 03/13/2025 11:20 AM EST Office Visit [facility] [address] [phone] Yousuf Galeano MD 2052 [facility] 204 [place] [address] documented as of this encounter Visit Diagnoses Not on filedocumented in this encounter Care Teams Sandblast Or Shotblast Equipment Tender Relationship Specialty Start Date End Date Hillary Ruiz MD 1221 [facility] 216 [place], [place] PCP - General Internal Medicine 07/09/20 documented as of this encounter
--- OUTSIDE RECORDS SUMMARY | 2025-01-20 09:59 | XMS_ITS | Clinical Summary ---
Author Organization [employer] Address [address] [facility] 7[address] [place] [address] Care Team Providers Care Cost Control Supervisor Name Role Phone Unavailable Primary Care [...] Care Team (Late st Contact Info) Description 02/21/2025 8:45 AM EST Office Visit [facility] [address] [place] [address] Malachi Carpio Health Maintenance Due Date Last Done Comments [...] Cancer Screening 06/18/2003 HPV/Cotest 06/18/2003 Mammogram 2013 RSV Patients and Patients Aged 60 years or older (1 - Risk 50-74 years 1-dose series) 06/18/2023 Zoster Vaccines (1 of 2) 06/18/2023 Dental X-Ray: Bitewings 06/25/2024 06/25/2023, 04/22 COVID-19 Vaccine ( season) 2024 02/07/2022, 07/03/2020, 06/13/2020, Additional history exists Dental Oral Exam 01/06/2025 07/05/2024, 08/2023, 10/22/2022, Additional history exists Dental Prophylaxis 01/06/2025 07/05/2024, 1 03/01/2023, 06/25/2023, Additional history exists Tobacco Screening 07/05/2025 07/05/2024 DTaP/Tdap/Td Vaccines (3 - Td or Tdap) 05/07/2026 05/07/2016, 06/10/2012 Influenza Vaccine Completed 10/04/2024, , 10/15/2022, Additional history exists HIB Vaccines Aged Out [...]
--- OUTSIDE RECORDS SUMMARY | 2025-01-20 09:59 | XMS_ITS | Encounter Summary ---
Author Organization [facility] Address [address] [email or web address] [address] [place] [address] Phone Care Team Providers Care Math And Science Instructor Name Role Phone Hillary Ruiz MD Primary Care Provider [phone] Reason for Visit * Reason Comments Med Refill Encounter Details Date Type Department Care Team (Late Contact Info) Description 07/20/2020 Refill [facility] [address] [facility] [[email or web address] [address] [place] [phone] Yousuf Galeano MD 5[address] [facility] [address] [place] [phone] Social History Tobacco Use Types Packs/Day Years [...] Visit [facility] 3550 [facility] [address] [place] [phone] Yousuf Galeano MD 3550 [facility] [address] [place] [address] documented as of this encounter Visit Diagnoses Not on filedocumented in this encounter Care Teams Math And Science Instructor Relationship Specialty Start Date End Date Hillary Ruiz MD 1221 [facility] 216 [place], [place] PCP - General Internal Medicine 07/09/20 documented as of this encounter
--- OUTSIDE RECORDS SUMMARY | 2025-01-20 09:59 | XMS_ITS | Encounter Summary ---
Author Organization [employer] Address [address] [place] [address] [address] [place] [address] Care Team Providers Care Cultured Marble Products Maker Name Role Phone Unavailable Primary Care Provider Unavailabl e Encounter Details Date Type Department Care Team (Latest Contact Info) Description 07/08/2018 Abstract [facility] CONVERSIONS Dental, Provider, DDS Social History [...] Description 02/21/2025 8:45 AM EST Office Visit [facility] [address] [place] [address] Malachi Carpio documented as of this encounter Visit Diagnoses Not on filedocumented in this encounter
--- OUTSIDE RECORDS SUMMARY | 2025-01-20 09:59 | XMS_ITS | Encounter Summary ---
Author Organization [employer] Address [address] [place] [address] [address] [place] [address] Care Team Providers Care Motor Lodge Clerk Name Role Phone Unavailable Primary Care Provider Unavailabl e Encounter Details Date Type Department Care Team (Latest Contact Info) Description 10/14/2021 Abstract [facility] CONVERSIONS Dental, Provider, DDS Social History [...] Office Visit [facility] [address] [place] [address] Malachi Carpio documented as of this encounter Visit Diagnoses Not on filedocumented in this encounter
--- OUTSIDE RECORDS SUMMARY | 2025-01-20 09:59 | XMS_ITS | Encounter Summary ---
Author Organization [facility] Address [facility] [address] [address] Phone Care Team Providers Care Jigman Name Role Phone Hillary Ruiz MD Primary Care Provider Encounter Details Date Type Department Care Team (Latest Contact Info) Description 10/05/2018 Transcribe Orders [facility] Phleb Main [address] [place] [address] Sara Oropeza, LUZ Schizo affective schizophrenia (Primary [...] (10/05/2018 11:44 AM EDT) TESTS REQUESTED FBUMT [facility] SPECIMEN/TUBE TYPE LG RED TOP [facility] REQUEST RECEIVED Request received. A separate order for the requested test will be generated by the laboratory. [facility] Blood 10/05/2018 11:4 4 AM EDT 10/05/2018 11:49 AM EDT us Sara Oropeza NP LAB BLOOD ORDERABLES Final R esult [facility] [address] [place] [address] * 25-OH vitamin D (10/05/2018 11:44 AM EDT) 25 [place] VIT D (TOTAL) 46 30 - 60 ng/mL [facility] Blood 10/05/2018 11:4 4 AM EDT 10/05/2018 11:48 AM EDT us Sara Oropeza RESIST COATER DEVELOPER LAB BLOOD BKR ORDERABLES Fin al Result Performing Organization Address City/[facility]/ZIP Co de Phone Number [address] [address] * (ABNORMAL) CBC and differential (10/05/2018 11:44 AM EDT) WBC 9.01 3.40 - 11.20 K/uL [facility] RBC 4.52 3.80 - 4.80 M/uL [facility] HGB 14.2 12.0 - 15.0 g/dL [facility] HCT 41.2 36.0 - 46.0 % [facility] PLT 284 130 - 400 K/uL [facility] MCV 91.2 79.0 - 98.0 [facility] MCH 31.4 27.0 - 34.8 pg [facility] MCHC 34.5 31.5 - 36.0 g/dL [facility] RDW 12.0 10.8 - 14.6 % [facility] MPV 9.6 9.4 - 12.4 [facility] NRBC 0.00 0.00 /100 WBCs [facility] ABSOLUTE NRBC 0.00 0.00 K/uL [facility] DIFF METHOD Auto [facility] NEUTS 64.1 45.30 - 77.70 % [facility] LYMPHS 24.9 12.30 - 39.70 % [facility] MONOS 7.8 4.10 - 12.80 % [facility] EOS 2.7 0 - 7.2 % [facility] BASOS 0.2 0 - 2.80 % [facility] Granulocytes, immature (%) 0.3 0.0 - 0.9 % [facility] ABSOLUTE NEUTS 5.78 1.40 - 7.70 K/uL [facility] ABSOLUTE LYMPHS 2.24 0.60 - 3.20 K/uL [facility] ABSOLUTE MONOS 0.70(H) 0.11 - 0.59 K/uL [facility] ABSOLUTE EOS 0.24 0.01 - 0.50 K/uL [facility] ABSOLUTE BASOS 0.02 0.00 - 0.08 K/uL [facility] Granulocytes, immature 0.03 0.00 - 0.05 K/uL [facility] Blood 10/05/2018 11:4 4 AM EDT 10/05/2018 11:48 AM EDT us Sara Oropeza NP LAB BLOOD BKR ORDERABLES Fin al Result Performing Organization Address City/State/[facility] Co de Phone Number [address] [address] * (ABNORMAL) Comprehensive metabolic panel (10/05/2018 11:44 AM EDT) SODIUM 138 133 - 146 mmol/L [facility] POTASSIUM 3.9 3.3 - 5.1 mmol/L [facility] CHLORIDE 107 96 - 108 mmol/L [facility] CO2 17(L) 21 - 35 mmol/L [facility] BUN 18 6 - 19 mg/dL [facility] CREATININE 1.10 0.5 - 1.5 mg/dL [facility] GLUCOSE 126(H) 70 - 99 mg/dL [facility] ALBUMIN 4.2 3.9 - 4.8 g/dL [facility] TOTAL PROTEIN 7.4 6.5 - 8.0 g/dL [facility] CALCIUM 8.9 8.4 - 10.3 mg/dL [facility] ALKALINE PHOSPHATASE 71 39 - 117 U/L [facility] TOTAL BILIRUBIN 0.2 0.0 - 1.2 mg/dL [facility] AST 15 0 - 37 U/L [facility] ALT 16 0 - 40 U/L [facility] GLOBULIN 3.2 1 - 4.8 g/dL [facility] EGFR 61 >59 mL/min/1.7 3m2 [facility] Comment:If patient is black, multiply result by 1.159. Estimated glomerular filtration rate calculated using the CKD-EPI equation. ANION GAP 18 10 - 20 mmol/L [facility] Blood 10/05/2018 11:4 4 AM EDT 10/05/2018 11:48 AM EDT us Sara Oropeza RESIST COATER DEVELOPER LAB BLOOD BKR ORDERABLES Fin al Result [facility] [address] [place] [address] documented in this encounter Visit Diagnoses Diagnosis Schizo affective schizophrenia- Primary Schizoaffective disorder, unspecified condition documented in this encounter Additional Health Concerns Infection Onset Date Last Indicated Resolved Time CoV-Risk 03/13/2020 03/13/2020 03/23/2020 1:24 AM EST documented as of this encounter Care Teams Jigman Relationship Specialty Start Date End Date Hillary Ruiz MD [address] [place] [address] [place] [address] PCP - General Internal Medicine 10/05/18 documented as of this encounter Additional Source Comments The information contained in this document represents components of the legal health record. It is not the complete legal health record.[facility]
[2025-01-20 10:12] LABS: MANUAL DIFF FLAG NO
[2025-01-20 10:15] LABS: Appearance Urine Clear; Glucose Urine UA Negative (Negative); PH 6.5 (5.0-9.0); Specific Gravity - Urine 1.010 (1.005-1.025)
[2025-01-20 10:16] LABS: UPreg QC Valid YES
[2025-01-20 10:25] LABS: Hematocrit 41.2 % (37.0-47.0); Hemoglobin 13.9 g/dl (12.0-16.0); Imm Gran Abs Auto 0.05 X10*3/uL (0.00-0.03); Imm Gran Pct Auto 0.5 % (0.0-0.4); Lymphocytes Absolute Auto 2.9 X10*3/uL (1.2-4.9); Mean Corpuscular HGB Conc 33.7 g/dl (31.0-35.0); Mean Corpuscular Hemoglobin 31.1 pg (27.0-33.0); Mean Corpuscular Volume 92.2 fL (80.0-98.0); NRBC Abs Auto 0.000 X10*3/uL (0.0-0.012); NRBC Pct Auto 0.0 /100WBC (0.0-0.2); Platelet Count 319 X10*3/uL (160-400); Red Blood Count 4.47 X10*6/uL (4.20-5.50); White Blood Count 9.3 X10*3/uL (4.8-10.8)
[2025-01-20 10:32] LABS: Alanine Aminotransferase 25 U/L (0-31); Albumin Level 4.8 g/dL (3.5-5.0); Alkaline Phosphatase 107 U/L (39-117); Anion Gap 13 (12-20); Aspartate Amino Transferase 20 U/L (5-31); Blood Urea Nitrogen 21 mg/dL (9-16); Calcium 9.7 mg/dL (8.4-10.2); Carbon Dioxide 25 mmol/L (22-29); Chloride 110 mmol/L (96-108); Creatinine Clr Calc Pharmacy 61.1; Estimated Glomerular Filt Rate 43; Potassium 3.8 mmol/L (3.3-5.1); Sodium 144 mmol/L (135-145); Total Protein 7.7 g/dL (6.5-8.0)
[2025-01-20 11:43] VITALS: BP 123/67; PULSE 76; RESP 16; TEMP 36.8; O2SAT 100
== END 2025-01-20 11:50 | disposition home or self-care (01) ==
PROVIDERS: Emergency Provider Emergency Medicine; PCP Internal Medicine
DX: R35.0 Frequency of micturition (principal); K62.5 Hemorrhage of anus and rectum
CPT/HCPCS: 36415; 80053; 81001; 81025; 85025; 99282; 99283

== ENCOUNTER 2025-01-23 09:58 | Outpatient (AMB) | payer OTHER, SELFPAY ==
--- NOTE | 2025-01-23 10:03 | HO.SPINEOV ---
Intake Visit Reasons: suture removal Intake Note: Ms. Johnson is here today to have her suture's removed. Manager Online Required: No Allergies Sulfa (Sulfonamide Antibiotics) Allergy (Intermediate, Verified 01/20/25 09:17) Hives sulfamethoxazole (From BACTRIM) Allergy (Intermediate, Verified 01/20/25 09:17) HIVES trimethoprim (From BACTRIM) Allergy (Intermediate, Verified 01/20/25 09:17) HIVES Assessment & Plan Assessment & Plan (1) S/P carpal tunnel release: Code(s): Z98.890 - Other specified postprocedural states Category: Surgical Plan Procedure: Right median nerve release Dilcia is a pleasant 49 year old female who underwent right median nerve release with Dr. Meeks about 2 weeks ago. She comes in today for suture removal. She reports good relief of her hand numbness and hand pain since her surgery. No issues using the hand aside from some limited range of motion due to mild swelling around incision site. She reports that overall she is doing well. No new neurological deficits. The patient is able to curl her fingertips to the distal palmar crease without issue. Her incision is closed and well healed. I removed 3 interrupted sutures from the volar surface of her wrist. She tolerated this well. I would like to follow up with Dilcia again in 6 weeks for her 2nd postoperative visit. Harvinder Meeks MD,PhD [facility] Coding Level of Care Code Global (11858) Diagnoses S/P carpal tunnel release Z98.890
--- OUTSIDE RECORDS SUMMARY | 2025-01-23 12:08 | XMS_ITS | Encounter Summary ---
Author Organization [facility], Address [address] [place] [address] Phone Care Team Providers Care Venue Attendant Name Role Phone Hillary Ruiz MD Primary Care Provider [phone] Encounter Details Date Type Department Care Team (Late Contact Info) Description 01/01/2022 Documentation Only [facility], [address] [place] [phone] Shiva Paez MD [address] [place] [phone] Social History Tobacco Use Types Packs/Day Years [...] Visit [facility] [address] [phone] Yousuf Galeano MD 0950 [facility] 204 [place] [address] documented as of this encounter Visit Diagnoses Not on filedocumented in this encounter Care Teams Venue Attendant Relationship Specialty Start Date End Date Hillary Ruiz MD 1221 [facility] 216 [place], [place] PCP - General Internal Medicine 07/09/20 documented as of this encounter
--- OUTSIDE RECORDS SUMMARY | 2025-01-23 12:08 | XMS_ITS | Clinical Summary ---
Author Organization [facility] 299 [facility] Address 299 [place] [address] Phone Care Team Providers Care Ball Points Inspector Name Role Phone Hillary Ruiz MD Primary Care Provider [phone] Encounters Date Type Department Care Team Description 01/18/2025 Telephone Gastroenterology [facility] 175 [facility] 175 [facility] [address] [place] [address] Vika Goodwin MD from Last 3 Months Surgical History Surgery Date Site/Laterality Comments OTHER SURGICAL HISTORY PROCEDURE: CO LAPS SURG CHOLECYSTECTOMY W/CHOLANGIOGRAPHY OTHER SURGICAL HISTORY 2009 Right PROCEDURE: CO CYSTO W/INSERT URETERAL STENT BACK SURGERY PROCEDURE: HISTORICAL BACK SURGERY OTHER SURGICAL HISTORY PROCEDURE: HISTORY OTHER; COMMENT: sinus surgery ESOPHAGOGASTRODUODENOSCOPY 08/03/2018 PROCEDURE: CO ESOPHAGOGASTRODUODENOSCOPY TRANSORAL DIAGNOSTIC; COMMENT: small hiatal hernia reflux esophagitis, gastritis; no report ESOPHAGOGASTRODUODENOSCOPY 03/11/2017 PROCEDURE: CO ESOPHAGOGASTRODUODENOSCOPY TRANSORAL DIAGNOSTIC; COMMENT: intestinal metaplasia sugg [...] 299 [facility] [address] [place] [phone] Jennifer Uriarte, LUZ [address] [facility] [address] [place] [address] Health Maintenance Due Date Last Done Comments [...] patient's age to complete [place] [address] [facility] Member Subscriber Plan / Payer (Ef fective 2023-Present) Name:DILCIA LORD Relation to Subscriber:Self Name:Dilcia Lord Payer ID:[id number] Group ID:[id number] Type:Not on file Address: [place] [address] [address] [place] [phone] Care Teams Ball Points Inspector Relationship Specialty Start Date End Date Hillary Ruiz MD [address] [place] [address] [place] [address] PCP - General Internal Medicine 01/18/25
--- OUTSIDE RECORDS SUMMARY | 2025-01-23 12:08 | XMS_ITS | Encounter Summary ---
Author Organization [facility] Address [address] [place] [address] Care Team Providers Care Welding Machine Operator Helper Arc Name Role Phone Hillary Ruiz MD Primary Care Provider [phone] Reason for Visit * Reason Onset Date Comments appointment 01/18/2025 Encounter Details Date Type Department Care Team (Late st Contact Info) Description 01/18/2025 Telephone Gastroenterology - [place] 175 [facility] 175 [facility] 200 [place] [phone] Vika Goodwin MD 299 [facility] 419 [place] [address] Social History Tobacco Use Types Packs/Day Years [...] EST Consult Gastroenterology - [address] [place] 299 [facility] [address] [place] [address] Jennifer Uriarte, LUZ 299 [facility] 419 [place] [address] documented as of this encounter Visit Diagnoses Not on filedocumented in this encounter Care Teams Welding Machine Operator Helper Arc Relationship Specialty Start Date End Date Hillary Ruiz MD [address] [place] [address] [place] [address] PCP - General Internal Medicine 01/18/25 documented as of this encounter
--- OUTSIDE RECORDS SUMMARY | 2025-01-23 12:08 | XMS_ITS | Encounter Summary ---
Author Organization [employer] Address [address] [place] [address] [address] [place] [address] Care Team Providers Care Barrel Raiser Helper Name Role Phone Unavailable Primary Care Provider Unavailabl e Encounter Details Date Type Department Care Team (Latest Contact Info) Description 10/14/2021 Abstract [facility] Dental, Provider, DDS Social History Tobacco [...] Description 02/21/2025 8:45 AM EST Office Visit [facility] [address] [place] [address] Malachi Carpio documented as of this encounter Visit Diagnoses Not on filedocumented in this encounter
--- OUTSIDE RECORDS SUMMARY | 2025-01-23 12:08 | XMS_ITS | Encounter Summary ---
Author Organization [facility] Address [address] [facility] 200 [place] [address] Phone Care Team Providers Care Promotions Coordinator Name Role Phone Hillary Ruiz MD Primary Care Provider [phone] Reason for Visit * Reason Comments Med Refill Encounter Details Date Type Department Care Team (Late Contact Info) Description 07/20/2020 Refill [facility] [address] [facility] 200 [place] [phone] Yousuf Galeano MD 4528 [facility] 204 [place] [phone] Social History Tobacco Use Types Packs/Day Years [...] [facility] 3550 [facility] 204 [place] [phone] Yousuf Galeano MD 3550 [facility] 204 [place] [address] documented as of this encounter Visit Diagnoses Not on filedocumented in this encounter Care Teams Promotions Coordinator Relationship Specialty Start Date End Date Hillary Ruiz MD 1221 [facility] 216 [place], [place] PCP - General Internal Medicine 07/09/20 documented as of this encounter
--- OUTSIDE RECORDS SUMMARY | 2025-01-23 12:08 | XMS_ITS | Clinical Summary ---
Author Organization [employer] Address [address] [place] [address] Care Team Providers Care Documentation Designer Name Role Phone Unavailable Primary Care [...] Description 02/21/2025 8:45 AM EST Office Visit [facility] [address] [place] [address] Malachi Carpio Health Maintenance Due Date Last [...]
--- OUTSIDE RECORDS SUMMARY | 2025-01-23 12:08 | XMS_ITS | Encounter Summary ---
Author Organization [facility] Address [facility] [employer] [address] [address] Phone Care Team Providers Care Clinical Data Research Name Role Phone Hillary Ruiz MD Primary Care Provider Encounter Details Date Type Department Care Team (Latest Contact Info) Description 10/05/2018 Transcribe Orders [facility] Phleb Main [address] [place] [address] Sara Oropeza, LUZ Schizo affective schizophrenia (Primary [...] (10/05/2018 11:44 AM EDT) TESTS REQUESTED FBUMT [facility] SPECIMEN/TUBE TYPE LG RED TOP [facility] REQUEST RECEIVED Request received. A separate order for the requested test will be generated by the laboratory. [facility] Blood 10/05/2018 11:4 4 AM EDT 10/05/2018 11:49 AM EDT us Sara Oropeza NP LAB BLOOD ORDERABLES Final R esult [facility] [address] [place] [address] * 25-OH vitamin D (10/05/2018 11:44 AM EDT) 25 OH VIT D (TOTAL) 46 30 - 60 ng/mL [facility] Blood 10/05/2018 11:4 4 AM EDT 10/05/2018 11:48 AM EDT us Sara Oropeza TELEPHONE CLERK TELEGRAPH OFFICE LAB BLOOD BKR ORDERABLES Fin al Result Performing Organization Address City/[facility]/ZIP Co de Phone Number [address] [address] * (ABNORMAL) CBC and differential (10/05/2018 11:44 AM EDT) WBC 9.01 3.40 - 11.20 K/uL [facility] RBC 4.52 3.80 - 4.80 M/uL [facility] HGB 14.2 12.0 - 15.0 g/dL [facility] HCT 41.2 36.0 - 46.0 % [facility] PLT 284 130 - 400 K/uL [facility] MCV 91.2 79.0 - 98.0 [facility] MCH 31.4 27.0 - 34.8 pg [facility] MCHC 34.5 31.5 - 36.0 g/dL [facility] RDW 12.0 10.8 - 14.6 % [facility] MPV 9.6 9.4 - 12.4 [facility] NRBC 0.00 0.00 /100 WBCs [facility] ABSOLUTE NRBC 0.00 0.00 K/uL [facility] DIFF METHOD Auto [facility] NEUTS 64.1 45.30 - 77.70 % [facility] LYMPHS 24.9 12.30 - 39.70 % [facility] MONOS 7.8 4.10 - 12.80 % [facility] EOS 2.7 0 - 7.2 % [facility] BASOS 0.2 0 - 2.80 % [facility] Granulocytes, immature (%) 0.3 0.0 - 0.9 % [facility] ABSOLUTE NEUTS 5.78 1.40 - 7.70 K/uL [facility] ABSOLUTE LYMPHS 2.24 0.60 - 3.20 K/uL [facility] ABSOLUTE MONOS 0.70(H) 0.11 - 0.59 K/uL [facility] ABSOLUTE EOS 0.24 0.01 - 0.50 K/uL [facility] ABSOLUTE BASOS 0.02 0.00 - 0.08 K/uL [facility] Granulocytes, immature 0.03 0.00 - 0.05 K/uL [facility] Blood 10/05/2018 11:4 4 AM EDT 10/05/2018 11:48 AM EDT us Sara Oropeza NP LAB BLOOD BKR ORDERABLES Fin al Result Performing Organization Address City/State/[facility] Co de Phone Number [address] [address] * (ABNORMAL) Comprehensive metabolic panel (10/05/2018 11:44 AM EDT) SODIUM 138 133 - 146 mmol/L [facility] POTASSIUM 3.9 3.3 - 5.1 mmol/L [facility] CHLORIDE 107 96 - 108 mmol/L [facility] CO2 17(L) 21 - 35 mmol/L [facility] BUN 18 6 - 19 mg/dL [facility] CREATININE 1.10 0.5 - 1.5 mg/dL [facility] GLUCOSE 126(H) 70 - 99 mg/dL [facility] ALBUMIN 4.2 3.9 - 4.8 g/dL [facility] TOTAL PROTEIN 7.4 6.5 - 8.0 g/dL [facility] CALCIUM 8.9 8.4 - 10.3 mg/dL [facility] ALKALINE PHOSPHATASE 71 39 - 117 U/L [facility] TOTAL BILIRUBIN 0.2 0.0 - 1.2 mg/dL [facility] AST 15 0 - 37 U/L [facility] ALT 16 0 - 40 U/L [facility] GLOBULIN 3.2 1 - 4.8 g/dL [facility] EGFR 61 >59 mL/min/1.7 3m2 [facility] Comment:If patient is black, multiply result by 1.159. Estimated glomerular filtration rate calculated using the CKD-EPI equation. ANION GAP 18 10 - 20 mmol/L [facility] Blood 10/05/2018 11:4 4 AM EDT 10/05/2018 11:48 AM EDT us Sara Oropeza TELEPHONE CLERK TELEGRAPH OFFICE LAB BLOOD BKR ORDERABLES Fin al Result [facility] [address] [place] [address] documented in this encounter Visit Diagnoses Diagnosis Schizo affective schizophrenia- Primary Schizoaffective disorder, unspecified condition documented in this encounter Additional Health Concerns Infection Onset Date Last Indicated Resolved Time CoV-Risk 03/13/2020 03/13/2020 03/23/2020 1:24 AM EST documented as of this encounter Care Teams Clinical Data Research Relationship Specialty Start Date End Date Hillary Ruiz MD [address] [place] [address] [place] [phone] PCP - General Internal Medicine 10/05/18 documented as of this encounter Additional Source Comments The information contained in this document represents components of the legal health record. It is not the complete legal health record.[facility]
--- OUTSIDE RECORDS SUMMARY | 2025-01-23 12:08 | XMS_ITS | Clinical Summary ---
Author Organization [facility] Address [facility] Seen [address] [address] Phone Care Team Providers Care Milled Rubber Tender Name Role Phone Hillary Ruiz MD [...] Medical [place] [address] [facility] ONE CARE MEDICARE REPLACEMENT CARE MEDICARE [place] [address] [place] [address] [place] [place] [address] MEDICARE REPLACEMENT Care Teams Milled Rubber Tender Relationship Specialty Start Date End Date Hillary Ruiz MD [address] [place] [address] [place] [address] PCP - General Internal Medicine 10/05/18 Additional Source Comments The information contained in this document represents components of the legal health record. It is not the complete legal health record.[facility]
--- OUTSIDE RECORDS SUMMARY | 2025-01-23 12:08 | XMS_ITS | Clinical Summary ---
Author Organization [facility] Address [address] [place] [phone] Phone Care Team Providers Care Office Clerk Assistant Name Role Phone Hillary Ruiz MD Primary Care Provider [phone] Allergies Active Allergy Reactions Criticality Noted Date [...] mouth 1 (one) time each day Active Baker 3 1200 MG capsule Take 1 capsule [...] Documentation Only [facility] [address] [address] Yousuf Galeano MD 12/30/2024 Orders Only [facility] [address] [phone] Yousuf Galeano MD Chronic kidney disease stage [...] Office Visit [facility] [address] [address] Yousuf Galeano MD [address] [phone] Health Maintenance Due Date Last Done Comments Breast Cancer Screening 1973 Hepatitis B Vaccine (1 of 3 - 19+ 3-dose series) 1992 Pneumococcal Vaccine: 50+ Ye ars (1 of 2 - PCV) 1992 Colorectal Cancer Screening: Annual FOBT 2022 Colorectal Cancer Screening: Colonoscopy 2022 Colorectal Cancer Screening: Sigmoidoscopy 2022 Influenza Vaccine (#1) 2024 0, 11/23/2018, 10/14/2018, Additional history exists Insurance [facility] ([id number]) [place] [address] ([id number]) JENI MULLER [phone] [place] [address] ([id number]) Care Teams Office Clerk Assistant Relationship Specialty Start Date End Date Hillary Ruiz MD [address] [place] [address] PCP - General Internal Medicine 07/09/20
--- OUTSIDE RECORDS SUMMARY | 2025-01-23 12:08 | XMS_ITS | Encounter Summary ---
Author Organization [employer] Address [address] [place] [address] [address] [place] [address] Care Team Providers Care Conservation Educator Name Role Phone Unavailable Primary Care Provider [...] Description 02/21/2025 8:45 AM EST Office Visit [facility] [address] [place] [address] Malachi Carpio documented as of this encounter Visit Diagnoses Not on filedocumented in this encounter
== END 2025-01-23 10:15 | disposition home or self-care (01) ==
LOC: HO.HNS 09:59
PROVIDERS: PCP Internal Medicine; Visit Provider Physician Assistant
DX: Z98.890 Other specified postprocedural states (principal)
CPT/HCPCS: 99024

== ENCOUNTER → 2025-01-23 09:58 | Outpatient (BNVA) | payer OTHER, SELFPAY | PROVIDERS: PCP Internal Medicine; Visit Provider Physician Assistant | DX: Z48.02 Encounter for removal of sutures (principal); Z98.890 Other specified postprocedural states | CPT/HCPCS: 99212 ==

== ENCOUNTER 2025-02-14 14:39 | Outpatient (AMB) | payer OTHER, SELFPAY ==
--- OUTSIDE RECORDS SUMMARY | 2024-04-06 05:30 | XMS_ITS ---
Author Organization Hieu Simmons III, MD Address [address] [facility] [place] [address] Care Team Providers Care Remedial Masseur Name Role Phone Joseph CROOK, [facility] Primary Care Provider Dr. Hieu Mora III Unavailable [phone] Allergies Allergen (clinical drug ingredient) Drug/Non Drug [...] Problem Status W/U Status Risk Notes Problem 72072374 Cervical radiculopathy due to degenerative joint disease of spine (M47.22) Active confirmed She had no complications from the surgery. The wound in the neck is well healed and requires no additional treatment at this time. Problem 480369562 Moderate obesity (E66.9) Active confirmed We reviewed her weight loss strategy today. We made a plan to lose wweight at a rate of one half of a pound per week. Problem 063505494 Mild intermittent asthma, unspecified whether complicated (J45.20) [...] Date Provider Diagnosis Hieu Simmons III, MD [address] [place] [address] [place] [address] 04/06/2024 Hieu Simmons Cervical radiculopat hy due [...] * Dilcia LORDDOB:1975 (3 0 yo F)Acc No.[id number]:04/06/2024 Progress Notes Patient: Shady JANIEDilcia SANTILLAN Account Number: Provider: Justice Simmons MD :1975 A ge:48 Y S ex:Female Date:04/06/2024 Address:[address] [place], [place] [address] [id number] Pcp:Hillary Ruiz MD Subjective: * Chief Complaints: [...] 0 04/06/2024 Generated for Dyllan mackenzie/Adam/Romero on: 04/17/2024 03:59 PM EST History and Physical Notes * [...]
--- NOTE | 2025-02-14 13:40 | HO.SPINEOV ---
Intake Visit Reasons: thumb pain Intake Note: Ms. Johnson is here today c/o Thumb pain. Educational Paraprofessional Required: No Allergies Sulfa (Sulfonamide Antibiotics) Allergy (Intermediate, Verified 01/20/25 09:17) Hives sulfamethoxazole (From BACTRIM) Allergy (Intermediate, Verified 01/20/25 09:17) HIVES trimethoprim (From BACTRIM) Allergy (Intermediate, Verified 01/20/25 09:17) HIVES Assessment & Plan Assessment & Plan (1) Right hand pain: Code(s): M79.641 - Pain in right hand Category: Medical Plan Procedure: Right median nerve release Dilcia is a pleasant 49 year old female who underwent right median nerve release with Dr. Meeks on 01/12/25. She comes in today as an acute add on visit as she called the clinic reporting worsening right thumb pain since she last saw us. She reports that overall she has been doing well since her surgery, however reports some increased swelling and pain near right thumb since she began using her hands more. She reports that primarily with attempting to type on the computer she feels increased right-sided hand pain. She denies any issues with wound healing or increased redness / pain near the actual incision site. No drainage reported from incision site. No chills / fever at home. No new neurological deficits. The patient is able to curl her fingertips to the distal palmar crease without issue. Her incision is closed and well healed. She does have slight edema near base of R thumb compared to left. No pain to direct palpation of area. I believe she is most likely suffering from some increased edema/pain as a result of increased use of the hand since surgery. I advised her to try and utilize 15-20 minute ice baths 3 times daily for the right hand as her incision site appears to be well healed and approximated with a light scar forming. No areas of scabbing with low likelihood of dehiscence from submersion in water / ice. I would like to follow up with Dilcia again for her 2nd postoperative visit on 03/06/25. Harvinder Meeks MD,PhD [facility] Coding Level of Care Code Global (34025) Diagnoses Right hand pain M79.641
--- OUTSIDE RECORDS SUMMARY | 2025-02-14 15:59 | XMS_ITS | Patient Health Record ---
Author Organization Hieu Simmons III, MD Address [address] [place] [address] [place] [address] Care Team Providers Care Buyer Liaison Name Role Phone Joseph CROOK, Hillary Primary [...] Problem Status W/U Status Risk Notes Problem 08115472 Cervical radiculopathy due to degenerative joint disease of spine (M47.22) Active confirmed She had no complications from the surgery. The wound in the neck is well healed and requires no additional treatment at this time. Problem 805033232 Moderate obesity (E66.9) Active confirmed We reviewed her weight loss strategy today. We made a plan to lose wweight at a rate of one half of a pound per week. Problem 206303166 Mild intermittent asthma, unspecified whether complicated (J45.20) [...] Date Provider Diagnosis Hieu Simmons III, MD [address] [place] [address] [place] [address] 04/06/2024 Hieu Simmons Cervical radiculopat hy due [...] Insured Coverage Start Date Coverage End Date [facility] [address] ATTN CLAIMS JENI MULLER [id number] Dilcia Johnson Self - patient is the insured Medical (General) History Medical History History ICD Code Degenerative disc disease cervical spine Asthma Obesity Surgical History Surgery Date(Month/Year) 03/24/2024 C6-7 anterior discectomy
--- OUTSIDE RECORDS SUMMARY | 2025-02-14 15:59 | XMS_ITS | Encounter Summary ---
Author Organization [facility], Address [address] [place] [address] Phone Care Team Providers Care Casing Finisher And Stuffer Name Role Phone Hillary Ruiz MD Primary Care Provider [phone] Encounter Details Date Type Department Care Team (Late Contact Info) Description 01/01/2022 Documentation Only [facility], [address] [place] [phone] Shiva Paez MD [address] [place] [phone] Social History Tobacco Use Types Packs/Day Years [...] Visit [facility] [address] [phone] Yousuf Galeano MD [address] [address] documented as of this encounter Visit Diagnoses Not on filedocumented in this encounter Care Teams Casing Finisher And Stuffer Relationship Specialty Start Date End Date Hillary Ruiz MD [address] [facility] [address] [place], [place] PCP - General Internal Medicine 07/09/20 documented as of this encounter
--- OUTSIDE RECORDS SUMMARY | 2025-02-14 15:59 | XMS_ITS | Clinical Summary ---
Author Organization [facility] Address [facility] [employer] [address] [address] Phone Care Team Providers Care Field Nurse Name Role Phone Hillary Ruiz MD Primary [...] Medical [place] [address] [facility] ONE CARE MEDICARE REPLACEMENT CARE MEDICARE [place] [address] [address] [place] [address] MEDICARE REPLACEMENT Care Teams Field Nurse Relationship Specialty Start Date End Date Hillary Ruiz MD [address] [place] [address] [place] [address] PCP - General Internal Medicine 10/05/18 Additional Source Comments The information contained in this document represents components of the legal health record. It is not the complete legal health record.[facility]
--- OUTSIDE RECORDS SUMMARY | 2025-02-14 15:59 | XMS_ITS | Encounter Summary ---
Author Organization [facility] Address [facility] [employer] [address] [address] Phone Care Team Providers Care Rhinestone Setter Name Role Phone Hillary Ruiz MD Primary Care Provider Encounter Details Date Type Department Care Team (Latest Contact Info) Description 10/05/2018 Transcribe Orders [facility] Phleb Main [address] [place] [address] Sara Oropeza, LUZ Schizo affective schizophrenia (Primary [...] (10/05/2018 11:44 AM EDT) TESTS REQUESTED FBUMT [facility] SPECIMEN/TUBE TYPE LG RED TOP [facility] REQUEST RECEIVED Request received. A separate order for the requested test will be generated by the laboratory. [facility] Blood 10/05/2018 11:4 4 AM EDT 10/05/2018 11:49 AM EDT us Sara Oropeza NP LAB BLOOD ORDERABLES Final R esult [facility] [address] [place] [address] * 25-OH vitamin D (10/05/2018 11:44 AM EDT) 25 [place] VIT D (TOTAL) 46 30 - 60 ng/mL [facility] Blood 10/05/2018 11:4 4 AM EDT 10/05/2018 11:48 AM EDT us Sara Oropeza NITRIC ACID CONCENTRATOR OPERATOR LAB BLOOD BKR ORDERABLES Fin al Result Performing Organization Address City/[facility]/ZIP Co de Phone Number [address] [address] * (ABNORMAL) CBC and differential (10/05/2018 11:44 AM EDT) WBC 9.01 3.40 - 11.20 K/uL [facility] RBC 4.52 3.80 - 4.80 M/uL [facility] HGB 14.2 12.0 - 15.0 g/dL [facility] HCT 41.2 36.0 - 46.0 % [facility] PLT 284 130 - 400 K/uL [facility] MCV 91.2 79.0 - 98.0 [facility] MCH 31.4 27.0 - 34.8 pg [facility] MCHC 34.5 31.5 - 36.0 g/dL [facility] RDW 12.0 10.8 - 14.6 % [facility] MPV 9.6 9.4 - 12.4 [facility] NRBC 0.00 0.00 /100 WBCs [facility] ABSOLUTE NRBC 0.00 0.00 K/uL [facility] DIFF METHOD Auto [facility] NEUTS 64.1 45.30 - 77.70 % [facility] LYMPHS 24.9 12.30 - 39.70 % [facility] MONOS 7.8 4.10 - 12.80 % [facility] EOS 2.7 0 - 7.2 % [facility] BASOS 0.2 0 - 2.80 % [facility] Granulocytes, immature (%) 0.3 0.0 - 0.9 % [facility] ABSOLUTE NEUTS 5.78 1.40 - 7.70 K/uL [facility] ABSOLUTE LYMPHS 2.24 0.60 - 3.20 K/uL [facility] ABSOLUTE MONOS 0.70(H) 0.11 - 0.59 K/uL [facility] ABSOLUTE EOS 0.24 0.01 - 0.50 K/uL [facility] ABSOLUTE BASOS 0.02 0.00 - 0.08 K/uL [facility] Granulocytes, immature 0.03 0.00 - 0.05 K/uL [facility] Blood 10/05/2018 11:4 4 AM EDT 10/05/2018 11:48 AM EDT us Sara Oropeza NP LAB BLOOD BKR ORDERABLES Fin al Result Performing Organization Address City/State/[facility] Co de Phone Number [address] [address] * (ABNORMAL) Comprehensive metabolic panel (10/05/2018 11:44 AM EDT) SODIUM 138 133 - 146 mmol/L [facility] POTASSIUM 3.9 3.3 - 5.1 mmol/L [facility] CHLORIDE 107 96 - 108 mmol/L [facility] CO2 17(L) 21 - 35 mmol/L [facility] BUN 18 6 - 19 mg/dL [facility] CREATININE 1.10 0.5 - 1.5 mg/dL [facility] GLUCOSE 126(H) 70 - 99 mg/dL [facility] ALBUMIN 4.2 3.9 - 4.8 g/dL [facility] TOTAL PROTEIN 7.4 6.5 - 8.0 g/dL [facility] CALCIUM 8.9 8.4 - 10.3 mg/dL [facility] ALKALINE PHOSPHATASE 71 39 - 117 U/L [facility] TOTAL BILIRUBIN 0.2 0.0 - 1.2 mg/dL [facility] AST 15 0 - 37 U/L [facility] ALT 16 0 - 40 U/L [facility] GLOBULIN 3.2 1 - 4.8 g/dL [facility] EGFR 61 >59 mL/min/1.7 3m2 [facility] Comment:If patient is black, multiply result by 1.159. Estimated glomerular filtration rate calculated using the CKD-EPI equation. ANION GAP 18 10 - 20 mmol/L [facility] Blood 10/05/2018 11:4 4 AM EDT 10/05/2018 11:48 AM EDT us Sara Oropeza NITRIC ACID CONCENTRATOR OPERATOR LAB BLOOD BKR ORDERABLES Fin al Result [facility] [address] [place] [address] documented in this encounter Visit Diagnoses Diagnosis Schizo affective schizophrenia- Primary Schizoaffective disorder, unspecified condition documented in this encounter Additional Health Concerns Infection Onset Date Last Indicated Resolved Time CoV-Risk 03/13/2020 03/13/2020 03/23/2020 1:24 AM EST documented as of this encounter Care Teams Rhinestone Setter Relationship Specialty Start Date End Date Hillary Ruiz MD [address] [place] [address] [place] [address] PCP - General Internal Medicine 10/05/18 documented as of this encounter Additional Source Comments The information contained in this document represents components of the legal health record. It is not the complete legal health record.[facility]
--- OUTSIDE RECORDS SUMMARY | 2025-02-14 15:59 | XMS_ITS | Clinical Summary ---
Author Organization [employer] Address [address] [facility] 7[address] [place] [address] Care Team Providers Care Computer Numerical Control Operator Name Role Phone Unavailable Primary Care [...] Description 02/21/2025 8:45 AM EST Office Visit [facility] ADULT D[facility]AL [address] [place] [address] Malachi Carpio Health Maintenance Due Date Last Done Comments CT Colonography 1973 Dental X-Ray: Full Mouth 1973 Depression [...] - Td or Tdap) 05/07/2026 05/07/2016, 06/10/2012 Colonoscopy 02/02/2035 02/02/2025, 02/02/2025 Colorectal Cancer Screening 02/02/2035 Influenza Vaccine Completed 10/04/2024, , 10/15/2022, Additional [...] Relevant to Health Maintenance Insurance [facility]AL - [facility]
--- OUTSIDE RECORDS SUMMARY | 2025-02-14 15:59 | XMS_ITS | Clinical Summary ---
Author Organization [facility] Address [address] [place] [phone] Phone Care Team Providers Care Lusterer Name Role Phone Hillary Ruiz MD Primary Care Provider [phone] Allergies Active Allergy Reactions Criticality Noted Date [...] mouth 1 (one) time each day Active Nome 3 1200 MG capsule Take 1 capsule [...] Documentation Only [facility] [address] [address] Yousuf Galeano MD 12/30/2024 Orders Only [facility] [address] [address] Yousuf Galeano MD Chronic kidney disease stage [...] Office Visit [facility] [address] [address] Yousuf Galeano MD [address] [phone] Health Maintenance Due Date Last Done Comments Breast Cancer Screening 1973 Hepatitis B Vaccine (1 of 3 - 19+ 3-dose series) 1992 Pneumococcal Vaccine: 50+ Ye ars (1 of 2 - PCV) 1992 Colorectal Cancer Screening: Annual FOBT 2022 Colorectal Cancer Screening: Colonoscopy 2022 Colorectal Cancer Screening: Sigmoidoscopy 2022 Influenza Vaccine (#1) 2024 0, 11/23/2018, 10/14/2018, Additional history exists Insurance [facility] ([id number]) [place] [address] ([id number]) JENI MULLER [id number] [place] [address] ([id number]) Care Teams Lusterer Relationship Specialty Start Date End Date Hillary Ruiz MD [address] [place] [address] PCP - General Internal Medicine 07/09/20
--- OUTSIDE RECORDS SUMMARY | 2025-02-14 16:00 | XMS_ITS | Patient Health Record ---
Author Organization [facility] Address [address] [place] [address] Care Team Providers Care Post Anesthesia Room Nurse Name Role Phone Hillary Ruiz Primary Care Provider Hieu Ordonez Unavailable [phone] Allergies Allergen (clinical drug ingredient) Drug/Non Drug [...] Active Topamax Active fluvoxaMINE Maleate 50 MG Tablet Oral; Duration: 90 Active Wellbutrin Active Nitrofurantoin Macrocrystal 100 MG Capsule TAKE 1 CAPSULE BY MOUTH DAILY. MUST ADMINISTER WITH A MEAL/FOOD Oral; Duration: 90 Active Montelukast Sodium 10 MG Tablet Oral; Duration: 90 Active Amoxicillin 875 MG Tablet 1 tablet Orall y Twice a day; Duration: 5 day(s) 03/21/2022 Active Dicyclomine HCl 20 MG Tablet 1 tablet Orally Three times a day; Duration: 30 day(s) 03/21/2022 Active Omeprazole Active Vitamin D Active Multivitamin Active Fish Oil Active Loratadine 10 MG Tablet ORAL TAKE (1) TA BLET BY MOUTH DAILY. Oral; Duration: 90 Active potassium Active Belmar-3 1000 MG Capsule ONE ORAL DAILY O ral; Duration: 90 Active SUMAtriptan Solution injections Active Topiramate 100 MG Tablet TAKE 1 TABLET B Y MOUTH EVERY DAY Oral; Duration: 90 Active Amerge Active Solifenacin Succinate 10 MG Tablet TAKE 1 TABLET BY MOUTH DAILY FOR OAB Oral; Duration: 90 Active Immunizations Vaccine Route Administration Date Status Comme nts Influenza Unknown 12/06/2019 Administered Influenza Unknown 12/11/2021 Administered Social History Tobacco Use: Social History Observation Description Date Details (start date - stop date) Never Smoker NA - NA Social History Drugs/Alcohol: Social Info Question Answer Notes Alcohol Screen Did you have a drink containing alcohol in the past year? No Points 0 Interpretation Negative Tobacco Use: Social Info Question Answer Notes Tobacco Use/Smoking Patient is a nonsmoker Additional Details Category Social Info Options Details Miscellaneous: Marital status: Single Occupation: Disabled from [employer] Section Notes: Nonsmoker; no alcohol Nonsmoker; no alcohol Nonsmoker; no alcohol Problems Problem Type SNOMED Code ICD Code Onset Dates Problem Status W/U Status Risk Notes Problem Diverticulitis of colon (144200395) Diverticulitis of large intestine without perforation or abscess without bleeding (K57.32) Active confirmed Problem Coburn's esophagus (302403115) Coburn's esophagus without dysplasia (K22.70) Active confirmed Problem Heartburn (87701713) Heartburn (R12) Active confirmed Problem Gastroesophageal reflux disease (007329372) Gastroesophageal reflux disease (K21.9) Active confirmed Problem Gastroesophageal reflux disease (611489191) Gastroesophageal reflux disease, esophagitis presence not specified (K21.9) Active confirmed Problem Hiatal hernia (76029195) Hiatal hernia (K44.9) Active confirmed Problem Reflux esophagitis (355317561) Reflux esophagitis (K21.0) Active confirmed Problem Coburn esophagus (718630681) Coburn esophagus (K22.70) Active confirmed Problem Coburn's esophagus (593186835) Coburn''s esophagus without dysplasia (K22.70) Active confirmed Problem Gastroesophageal reflux disease with esophagitis (disorder) (079118005) Gastroesophageal reflux disease with esophagitis without hemorrhage (K21.00) Active confirmed Plan Of Treatment Pending Test Test Name Order Date Pathology 05/05/2022 Future Test Test Name Order Date UPPER GI ENDOSCOPY 03/05/2017 UPPER GI ENDOSCOPY 03/21/2022 Insurance Providers Payer Name Payer Address Payer Phone Subscriber Number Group Number Insured Name Patient Relationship to Insured Coverage Start Date Coverage End Date [facility] [address] [place] [address] [id number] RISA CLARISSA Self - patient is the insured Medical (General) History Medical History History ICD Code Migraine headaches Asthma brought on by bronchitis Denies KS,DM,CVA,,renal disease GERD--EGD 02/2017 with small to mod-sized HH, mild esophagitis, and small areas of Barretts; gastric bx neg for Hpylori. She underwent an upper endoscopy in July of [address] Montejo at [facility] with the finding of a [...]
--- OUTSIDE RECORDS SUMMARY | 2025-02-14 16:00 | XMS_ITS | Encounter Summary ---
Author Organization [facility] Address [address] [facility] [address] [place] [address] Phone Care Team Providers Care Ladler Name Role Phone Hillary Ruiz MD Primary Care Provider [phone] Reason for Visit * Reason Comments Med Refill Encounter Details Date Type Department Care Team (Late Contact Info) Description 07/20/2020 Refill [facility] [address] [facility] [address] [place] [phone] Yousuf Galeano MD [address] [facility] [address] [place] [phone] Social History Tobacco Use Types Packs/Day Years [...] [facility] [address] [facility] [address] [place] [phone] Yousuf Galeano MD [address] [facility] [address] [place] [address] documented as of this encounter Visit Diagnoses Not on filedocumented in this encounter Care Teams Ladler Relationship Specialty Start Date End Date Hillary Ruiz MD [address] [facility] [address] [place], [place] PCP - General Internal Medicine 07/09/20 documented as of this encounter
--- OUTSIDE RECORDS SUMMARY | 2025-02-14 16:00 | XMS_ITS | Encounter Summary ---
Author Organization [employer] Address [address] [facility] [address] [place] [address] Care Team Providers Care Bid Clerk Name Role Phone Unavailable Primary Care Provider Unavailabl e Encounter Details Date Type Department Care Team (Latest Contact Info) Description 07/08/2018 Abstract [facility] CONVERSIONS Dental, Provider, DDS Social History [...] Description 02/21/2025 8:45 AM EST Office Visit [facility] ADULT [facility] [address] [place] [address] Malachi Carpio documented as of this encounter Visit Diagnoses Not on filedocumented in this encounter
--- OUTSIDE RECORDS SUMMARY | 2025-02-14 16:00 | XMS_ITS | Encounter Summary ---
Author Organization [facility] Address [address] [place] [address] Care Team Providers Care Assisted Living Executive Director Name Role Phone Hillary Ruiz MD Primary Care Provider [phone] Encounter Details Date Type Department Care Team ([facility] st Contact Info) Description 02/07/2025 Results Follow-Up Gastroenterology - [address] [address] Laura Montejo MD [address] [address] Social History Tobacco Use Types Packs/Day Years Used Date Smoking Tobacco: Never Smokeless Tobacco: Never Alcohol Use Standard Drinks/Week Comments No 0 (1 standard drink = 0.6 oz pur e alcohol) Interpersonal Safety Answer Date Record ed Physical Abuse Unrecognized value 02/02/2025 Verbal Abuse Unrecognized value 02/02/2025 Comments Unknown Sex and Gender Information Value Date Recorded Sex Assigned at Not on file Legal Sex Female 9:37 AM EST Gender Identity Not on file Sexual Orientation Not on file documented as of this encounter Progress Notes * Laura Montejo MD - 02/07/2025 9:04 AM EST Dilcia, Your esophagus biopsies did not show any evidence of precancerous changes or Coburn's esophagus. You had some mild inflammation from reflux. Continue your omeprazole. 6 of your 7 colon polyps were precancerous in nature. For this reason I would recommend repeat colonoscopy in 3 years time. Happy holidays! Dr. Montejo documented in this encounter Plan of Treatment Not on file documented as of this encounter Goals Goal Patient Goal Type Associated Problems Recent Progress Patient-Stated? Author Autogenerat ed Goal Care Plan Autogenerated Problem No Tj Mahan documented as of this encounter Visit Diagnoses Not on filedocumented in this encounter Additional Health Concerns Active Problems Noted Date Diagnosed Date Autogenerated Problem 02/01/2025 documented as of this encounter Care Teams Assisted Living Executive Director Relationship Specialty Start Date End Date Hillary Ruiz MD [address] [place] [address] [place] [address] PCP - General Internal Medicine 01/18/25 documented as of this encounter
--- OUTSIDE RECORDS SUMMARY | 2025-02-14 16:00 | XMS_ITS | Clinical Summary ---
Author Organization [facility] [address] [facility] Address [address] [place] [address] Phone Care Team Providers Care [employer] Supervisor Name Role Phone Hillary Ruiz MD Primary Care Provider [phone] Allergies Active Allergy Reactions Criticality Noted Date Comments Galcanezumab-Gnlm 04/21/2019 EMGALITY- Pins and needles in legs; difficulty walking Sulfamethoxazole-Trimetho prim Rash 10/13/2013 Other reaction(s): Unknown Medications buPROPion XL (WELLBUTRIN XL) 300 mg 24 hr tablet Take 1 tablet (300 mg total) by mouth 1 (one) time each day. Active atorvastatin (LIPITOR) 20 mg tablet Take 1 tablet (20 mg total) by mouth 1 (one) time each day. 5 Active topiramate (TOPAMAX) 200 mg tablet Take 1 tablet (200 mg total) by mouth at bedtime. Active topiramate (TOPAMAX) 100 mg tablet Take 1 tablet (100 mg total) by mouth 2 (two) times a day. 9 Active SUMAtriptan (IMITREX) 6 mg/0.5 mL subcutaneous solution pen Inject 0.5 mL (6 mg total) under the skin 1 (one) time if needed for migraine. 5 Active potassium citrate (UROCIT-K) 10 mEq (1,080 mg) CR tablet Take 2 tablets (20 mEq total) by mouth 3 (three) times a day with meals. Active omeprazole (PriLOSEC) [address] capsule Take 1 capsule (40 mg total) by mouth 1 (one) time each day. 5 Active fish oil concentrate (OMEGA-3) 300-1,000 mg capsule Take 1 capsule (300 mg total) by mouth 1 (one) time each day. 5 Active montelukast (SINGULAIR) 10 mg tablet Take 1 tablet (10 mg total) by mouth at bedtime. Active losartan (COZAAR) 50 mg tablet Take 1 tablet (50 mg total) by mouth 1 (one) time each day. 5 Active fluvoxaMINE (LUVOX) 100 mg tablet Take 1 tablet (100 mg total) by mouth 1 (one) time each day. Active famotidine (PEPCID) 40 mg tablet Take 1 tablet (40 mg total) by mouth 1 (one) time each day. Active sodium,potassium ,mag sulfates (Suprep Bowel Prep Kit) 17.5-3.13-1.6 gram recon soln bowel prep kit oral solution Take 177ML by mouth for 2 doses. SEE INSTRUCTIONS PROVIDED BY OFFICE. 1 kit 5 Active Active Problems Problem Noted Date Diagnosed Date Anxiety 11/21/2020 Coburn's esophagus 11/21/2020 Essential hypertension 11/21/2020 Degenerative joint disease (DJD) of hip 04/21/19 20 Overview (01/26/2025): bilateral Migraine headache 04/21/2019 Patellofemoral disorder, right 04/21/2019 Stress incontinence of urine 04/21/2019 GERD (gastroesophageal reflux disease) 0 Hypothyroidism 04/07/2019 Schizoaffective disorder, bipolar type 0 Nephrolithiasis 03/19/2018 Encounters Date Type Department Care Team Description 02/07/2025 Results Follow-Up Gastroenterology - [address] [facility] [address] [phone] Laura Montejo MD 02/02/2025 8:31 AM EST Anesthesia Event [facility] [address] [place] [phone] Nasim Kelsey MD 02/02/2025 7:36 AM EST - 02/02/2025 11:59 PM EST Hospital Encounter [facility] [address] [place] [phone] Laura Montejo MD Gomes, Sheldon B, MD Steele, Matthew G, NEVAEH Rectal bleeding; History of Coburn's esophagus Discharge Disposition: Home or Self Care 01/31/2025 2:40 PM EST Consult Gastroenterology - [address] [facility] 299 [facility] [address] [place] [phone] Jennifer Uriarte NP Rectal bleeding (Primary Dx); History of Coburn's esophagus; Diverticulosis of colon; History of colonic polyps 01/31/2025 Telephone Gastroenterology - [address] [facility] 299 [facility] [address] [place] [address] Jennifer Uriarte NP 01/18/2025 Telephone Gastroenterology [facility] [address] [facility] 175 [facility] [address] [place] [address] Vika Goodwin MD from Last 3 Months Surgical History Surgery Date Site/Laterality Comments OTHER SURGICAL HISTORY PROCEDURE: DE LAPS SURG CHOLECYSTECTOMY W/CHOLANGIOGRAPHY OTHER SURGICAL HISTORY 2009 Right PROCEDURE: DE CYSTO W/INSERT URETERAL STENT BACK SURGERY PROCEDURE: HISTORICAL BACK SURGERY OTHER SURGICAL HISTORY PROCEDURE: HISTORY OTHER; COMMENT: sinus surgery ESOPHAGOGASTRODUODENOSCOPY 08/03/2018 PROCEDURE: DE ESOPHAGOGASTRODUODENOSCOPY TRANSORAL DIAGNOSTIC; COMMENT: small hiatal hernia reflux esophagitis, gastritis; no report ESOPHAGOGASTRODUODENOSCOPY 03/11/2017 PROCEDURE: DE ESOPHAGOGASTRODUODENOSCOPY TRANSORAL DIAGNOSTIC; COMMENT: intestinal metaplasia sugg of Coburn's, no dysplasia; irritation gastritis; no report Medical History Medical History Date Comments Schizoaffective disorder, bi polar type ([facility] V24, [facility] V28) 04/07/2019 DX:Schizoaffective disorder , bipolar type [...] Sign Reading Time Taken Comments Blood Pressure 115/76 02/02/2025 9:21 AM EST Pulse 69 02/02/2025 9:21 AM EST Temperature 36.1 C (97 F) 02/02/2025 9:01 AM EST Respiratory Rate 14 02/02/2025 9:21 AM EST Oxygen Saturation 99% 02/02/2025 9:21 AM EST Inhaled Oxygen Concentration - - Weight 91.6 kg (202 lb) 01/31/2025 2:49 PM EST Height 172.7 cm (5' 8 ) 01/31/2025 2:49 PM EST Body Mass Index 30.71 01/31/2025 2:49 PM EST Plan of Treatment Health Maintenance Due Date Last Done Comments Breast Cancer Screening 1975 Hepatitis B Vaccines (1 of 3 - 19+ 3-dose series) 1992 Pneumococcal Vaccine: 50+ Years (1 of 2 - PCV) 1992 Cervical Cancer Screening: Pap Smear 1994 Cholesterol Screening (Lipid Panel) 02/02/2022 HIV Screening 02/02/2022 Hepatitis C Screening 02/02/2022 Social Influencers of Health Screening 02/02/2022 Hypertension/CHF/CAD Annual BMP Blood Test 02/07/2022 10/05/2018 RSV Immunization Adult Patients (1 - Risk 50-74 years 1-dose series) 06/18/2023 Zoster Vaccines (1 of 2) 06/18/2023 Depression Screening 02/24/2024 COVID-19 Vaccine ( - season) 2024 02/07/2022, 07/03/2020, 06/13/2020, Additional history exists DTaP,Tdap,and Td Vaccines (3 - Td or Tdap) 05/07/2026 05/07/2016, 06/10/2012 Colorectal Cancer Screening: Colonoscopy 02/02/2035 02/02/2025 Influenza Vaccine Completed 10/04/2024, , 10/15/2022, Additional [...] 20 months Aged Out No longer eligible based on patient's age to complete this topic Varicella Vaccines Aged Out No longer eligible based on patient's age to complete this topic Goals Goal Patient Goal Type Associated Problems Recent Progress Patient-Stated? Author Autogenerat ed Goal Care Plan Autogenerated Problem No Tj Mahan Procedures Procedure Name Priority Date/Time Associated Diagnosis Comments EGD Routine 02/02/2025 9:00 AM EST History of Coburn's esophagus COLONOSCOPY Routine 02/02/2025 9:00 AM EST Rectal bleeding TISSUE EXAM Routine 02/02/2025 8:36 AM EST Rectal bleeding History of Coburn's esophagus POC PREGANCY, URINE NO CHARGE SCREENING MANUALLY RESULTED Routine 02/02/2025 8:08 AM EST from Last 3 Months Results * COLONOSCOPY Anesthesia - MAC; [facility] ENDOSCOPY (02/02/2025 9:00 AM EST) Anatomical Region Laterality Modality Endoscopy 02/02/2025 8:41 AM EST Impressions 02/02/2025 9:02 AM EST - The examined portion of the ileum was normal. - One 1 mm polyp in the cecum, removed with a cold biopsy forceps. Resected and retrieved. - Two 2 to 4 mm polyps in the ascending colon, removed with a cold snare. Resected and retrieved. - Two 3 mm polyps in the transverse colon, removed with a cold snare. Resected and retrieved. - Two 3 to 4 mm polyps in the descending colon, removed with a cold snare. Resected and retrieved. - Diverticulosis in the sigmoid colon. - Internal hemorrhoids. Recommendation: - Await pathology results. - Repeat colonoscopy for surveillance based on pathology results. Narrative 02/02/2025 9:[address] [facility] GI Patient Name: Dilcia Lord Procedure Date: 02/02/2025 8:41 AM Date of : 1975 Age: 49 Gender: Female Note Status: Finalized Attending MD: Laura Montejo MD, Procedure Date No Time: 02/02/2025 Procedure: Colonoscopy Indications: Rectal bleeding Providers: Laura Montejo MD Referring MD: Hillary Ruiz MD Medicines: Propofol per Anesthesia Complications: No immediate complications. Estimated Blood Loss: Estimated blood loss: none. Procedure: Pre-Anesthesia Assessment: - ASA Grade Assessment: II - A patient with mild systemic disease. After I obtained informed consent, the scope was passed under direct vision. Throughout the procedure, the patient's blood pressure, pulse, and oxygen saturations were monitored continuously.The Olympus Pediatric Colonoscope was introduced through the anus and advanced to the terminal ileum. The colonoscopy was performed without difficulty. The patient tolerated the procedure well. The quality of the bowel preparation was excellent. Findings: The perianal and digital rectal examinations were normal. The terminal ileum appeared normal. A 1 mm polyp was found in the cecum. The polyp was sessile. The polyp was removed with a cold biopsy forceps. Resection and retrieval were complete. Two sessile polyps were found in the ascending colon. The polyps were 2 to 4 mm in size. These polyps were removed with a cold snare. Resection and retrieval were complete. Two sessile polyps were found in the transverse colon. The polyps were 3 mm in size. These polyps were removed with a cold snare. Resection and retrieval were complete. Two sessile polyps were found in the descending colon. The polyps were 3 to 4 mm in size. These polyps were removed with a cold snare. Resection and retrieval were complete. A few small-mouthed diverticula were found in the sigmoid colon. Internal hemorrhoids were found during retroflexion. The hemorrhoids were Grade I (internal hemorrhoids that do not prolapse). Procedure Code(s): --- Professional --- 96267, Colonoscopy, flexible; with removal of tumor(s), polyp(s), or other lesion(s) by snare technique 84733, 59, Colonoscopy, flexible; with biopsy, single or multiple Diagnosis Code(s): --- Professional --- D12.0, Benign neoplasm of cecum D12.2, Benign neoplasm of ascending colon D12.3, Benign neoplasm of transverse colon (hepatic flexure or splenic flexure) D12.4, Benign neoplasm of descending colon K62.5, Hemorrhage of anus and rectum CPT copyright 202 [employer]. All rights reserved. The codes documented in this report are preliminary and upon marine oil terminal superintendent review may be revised to meet current compliance requirements. Laura Montejo MD 02/02/2025 9:02:13 AM This report has been signed electronically.Laura Montejo MD Number of Addenda: 0 Note Initiated On: 02/02/2025 8:41 AM Scope In: Scope Out: Endoscopy Department at [facility] - [address] [place] [phone] Procedure Note Laura Montejo MD - 02/02/2025 [facility] GI Patient Name: Dilcia Lord Procedure Date: 02/02/2025 8:41 AM Date of : 1975 Age: 49 Gender: Female Note Status: Finalized Attending MD: Laura Montejo MD, Procedure Date No Time: 02/02/2025 Procedure: Colonoscopy Indications: Rectal bleeding Providers: Laura Montejo MD Referring MD: Hillary Ruiz MD Medicines: Propofol per Anesthesia Complications: No immediate complications. Estimated Blood Loss: Estimated blood loss: none. Procedure: Pre-Anesthesia Assessment: - ASA Grade Assessment: II - A patient with mild systemic disease. After I obtained informed consent, the scope was passed under direct vision. Throughout theprocedure, the patient's blood pressure, pulse, and oxygen saturations were monitored continuously.The Olympus Pediatric Colonoscope was introduced through theanus and advanced to the terminal ileum. The colonoscopy was performed without difficulty. The patient tolerated the procedure well. The quality of thebowel preparation was excellent. Findings: The perianal and digital rectal examinations were normal. The terminal ileum appeared normal. A 1 mm polyp was found in the cecum. The polyp was sessile. The polyp was removed with a cold biopsy forceps. Resection and retrieval were complete. Two sessile polyps were found in the ascendingcolon. The polyps were 2 to 4 mm in size. These polypswere removed with a cold snare. Resection and retrieval were complete. Two sessile polyps were found in the transversecolon. The polyps were 3 mm in size. These polyps were removed with a cold snare. Resection and retrieval were complete. Two sessile polyps were found in the descendingcolon. The polyps were 3 to 4 mm in size. These polypswere removed with a cold snare. Resection and retrieval were complete. A few small-mouthed diverticula were found in the sigmoid colon. Internal hemorrhoids were found duringretroflexion. The hemorrhoids were Grade I (internal hemorrhoids that do not prolapse). Procedure Code(s): --- Professional --- 42755, Colonoscopy, flexible; with removal of tumor(s), polyp(s), or other lesion(s) by snare technique 56432, 59, Colonoscopy, flexible; with biopsy,single or multiple Diagnosis Code(s): --- Professional --- D12.0, Benign neoplasm of cecum D12.2, Benign neoplasm of ascending colon D12.3, Benign neoplasm of transverse colon (hepatic flexure or splenic flexure) D12.4, Benign neoplasm of descending colon K62.5, Hemorrhage of anus and rectum CPT copyright 2020 [employer]. All rights reserved. The codes documented in this report are preliminary and upon marine oil terminal superintendent reviewmay be revised to meet current compliance requirements. Laura Montejo MD 02/02/2025 9:02:13 AM This report has been signed electronically.Laura Montejo MD Number of Addenda: 0 Note Initiated On: 02/02/2025 8:41 AM Scope In: Scope Out: Endoscopy Department at [facility] - [address] [place] [phone] IMPRESSION: - The examined portion of the ileum was normal. - One 1 mm polyp in the cecum, removed with a cold biopsy forceps. Resected and retrieved. - Two 2 to 4 mm polyps in the ascending colon,removed with a cold snare. Resected and retrieved. - Two 3 mm polyps in the transverse colon, removed with a cold snare. Resected and retrieved. - Two 3 to 4 mm polyps in the descending colon, removed with a cold snare. Resected andretrieved. - Diverticulosis in the sigmoid colon. - Internal hemorrhoids. Recommendation: - Await pathology results. - Repeat colonoscopy for surveillance based on pathology results. Laura Montejo MD GI~PROCEDURE ORDERABLES Final Result * EGD Anesthesia - MAC; [facility] ENDOSCOPY (02/02/2025 9:00 AM EST) Anatomical Region Laterality Modality Endoscopy 02/02/2025 8:33 AM EST Impressions 02/02/2025 8:41 AM EST - Medium-sized hiatal hernia. - Z-line irregular, at the gastroesophageal junction. Biopsied. - Normal stomach. - Normal examined duodenum. Recommendation: - Await pathology results. - Continue present medications. Narrative 02/02/2025 8:[address] [facility] Patient Name: Dilcia Lord Procedure Date: 02/02/2025 8:33 AM Date of : 1975 Age: 49 Gender: Female Note Status: Finalized Attending MD: Laura Montejo MD, Procedure Date No Time: 02/02/2025 Procedure: Upper GI endoscopy Indications: Follow-up of Coburn's esophagus Providers: Laura Montejo MD Referring MD: Hillary Ruiz MD Medicines: Propofol per Anesthesia Complications: No immediate complications. Estimated Blood Loss: Estimated blood loss: none. Procedure: Pre-Anesthesia Assessment: - ASA Grade Assessment: II - A patient with mild systemic disease. After obtaining informed consent, the endoscope was passed under direct vision. Throughout the procedure, the patient's blood pressure, pulse, and oxygen saturations were monitored continuously.The Endoscope was introduced through the mouth, and advanced to the second part of duodenum. The upper GI endoscopy was accomplished without difficulty. The patient tolerated the procedure well. Findings: A medium-sized hiatal hernia was present. The Z-line was irregular and was found at the gastroesophageal junction. Biopsies were taken with a cold forceps for histology. The stomach was normal. The examined duodenum was normal. Procedure Code(s): --- Professional --- 88919, Esophagogastroduodenoscopy, flexible, transoral; with biopsy, single or multiple Diagnosis Code(s): --- Professional --- K44.9, Diaphragmatic hernia without obstruction or gangrene K22.89, Other specified disease of esophagus K22.70, Coburn's esophagus without dysplasia CPT copyright 2020 [employer]. All rights reserved. The codes documented in this report are preliminary and upon marine oil terminal superintendent review may be revised to meet current compliance requirements. Laura Montejo MD 02/02/2025 8:41:04 AM This report has been signed electronically.Laura Montejo MD Number of Addenda: 0 Note Initiated On: 02/02/2025 8:33 AM Scope In: Scope Out: Endoscopy Department at [facility] - [address] [place] [phone] Procedure Note Laura Montejo MD - 02/02/2025 [facility] GI Patient Name: Dilcia Lord Procedure Date: 02/02/2025 8:33 AM Date of : 1975 Age: 49 Gender: Female Note Status: Finalized Attending MD: Laura Montejo MD, Procedure Date No Time: 02/02/2025 Procedure: Upper GI endoscopy Indications: Follow-up of Coburn's esophagus Providers: Laura Montejo MD Referring MD: Hillary Ruiz MD Medicines: Propofol per Anesthesia Complications: No immediate complications. Estimated Blood Loss: Estimated blood loss: none. Procedure: Pre-Anesthesia Assessment: - ASA Grade Assessment: II - A patient with mild systemic disease. After obtaining informed consent, the endoscope was passed under direct vision. Throughout theprocedure, the patient's blood pressure, pulse, and oxygen saturations were monitored continuously.TheEndoscope was introduced through the mouth, and advanced tothe second part of duodenum. The upper GI endoscopy was accomplished without difficulty. The patienttolerated the procedure well. Findings: A medium-sized hiatal hernia was present. The Z-line was irregular and was found at the gastroesophageal junction. Biopsies were taken witha cold forceps for histology. The stomach was normal. The examined duodenum was normal. Procedure Code(s): --- Professional --- 99944, Esophagogastroduodenoscopy, flexible, transoral; with biopsy, single or multiple Diagnosis Code(s): --- Professional --- K44.9, Diaphragmatic hernia without obstruction or gangrene K22.89, Other specified disease of esophagus K22.70, Coburn's esophagus without dysplasia CPT copyright 2020 [employer]. All rights reserved. The codes documented in this report are preliminary and upon marine oil terminal superintendent reviewmay be revised to meet current compliance requirements. Laura Montejo MD 02/02/2025 8:41:04 AM This report has been signed electronically.Laura Montejo MD Number of Addenda: 0 Note Initiated On: 02/02/2025 8:33 AM Scope In: Scope Out: Endoscopy Department at [facility] - [address] [place] [phone] IMPRESSION: - Medium-sized hiatal hernia. - Z-line irregular, at the gastroesophagealjunction. Biopsied. - Normal stomach. - Normal examined duodenum. Recommendation: - Await pathology results. - Continue present medications. us Laura Montejo MD GI~PROCEDURE ORDERABLES Final Result * Tissue exam (02/02/2025 8:36 AM EST) Final Diagnosis A. Esophagus, distal esophagus biopsies: - Esophageal squamocolumnar junction mucosa with focal acute inflammation and rare intraepithelial eosinophils (up to 2 eosinophils per hpf), compatible with reflux esophagitis. - Negative for intestinal metaplasia. B. Large Intestine, Cecum, polyp x1: - Tubular adenoma. C. Large Intestine, Right/Ascending Colon, polyps x2: - Tubular adenoma. - Sessile serrated lesion (polyp). D. Large Intestine, Transverse Colon, polyps x2: - Tubular adenoma. - Hyperplastic polyp. E. Large Intestine, Left/Descending Colon, polyps x2: - Tubular adenoma(s). 02/03/2025 8:29 AM EST [facility] ([facility]) [facility] at 0829 EST Gross Description A. Esophagus, distal esophagus biopsies: Labeled distal esophagus . Received in formalin, are four irregular soft to rubbery, white-pink to red, tissue fragments, approximately ranging from 0.25 cm to 0.6 cm in greatest diameters, which are wrapped in paper and submitted in toto in one cassette, four pieces, multiple levels. Please note: Small tissue fragments may not survive processing. B. Large Intestine, Cecum, polyp x 1: Labeled colon, cecum polyp x 1 . Received in formalin, is an approximately 0.55 cm in greatest diameter soft to rubbery, tsang-pink, tissue fragment, inked green at the margin, which is wrapped in paper and submitted in toto in one cassette, one piece, multiple levels. C. Large Intestine, Right/Ascending Colon, polyp x 2: Labeled ascend colon polyp x 2 . Received in formalin, are five irregular soft to rubbery, tsang-pink, polypoid tissue fragments, approximately ranging from 0.4 cm to 1.5 cm in greatest diameters, three of the polypoid tissue fragments are inked green at the margin, and admixed with fecal/food debris. The specimen is wrapped in paper and submitted in toto in two cassettes, five pieces, multiple levels. 1-smaller polypoid tissue fragments (four pieces) 2-larger polypoid tissue fragment (one piece) D. Large Intestine, Transverse Colon, polyp x 2: Labeled trans colon polyp x 2 . Received in formalin are two soft to rubbery, tsang-pink, polypoid tissue fragments, approximately measuring 0.3 cm and 0.65 cm in greatest diameters, both are inked green at the margin, and admixed with fecal/food debris. The specimen is wrapped in paper and submitted in toto in one cassette, two pieces, multiple levels. E. Large Intestine, Left/Descending Colon, polyp x 2: Labeled desc colon polyp x 2 . Received in formalin, are three irregular soft to rubbery, tsang-pink, polypoid tissue fragments, approximately ranging from 0.25 cm to 0.55 cm in greatest diameters, two of the polypoid tissue fragments are inked green at the margin, and admixed with fecal/food debris. The specimen is wrapped in paper and submitted in toto in one cassette, three pieces, multiple levels. Please note: Small tissue fragments may not survive processing. hs/DG 02/03/2025 8:29 AM EST [facility] Disclaimer Unless otherwise specified, all tissue is 10% NB formalin fixed and paraffin embedded. 02/03/2025 8:29 AM EST [facility] Tissue Esophageal structure / Unknown 02/02/2025 8:36 AM EST 02/02/2025 10:08 AM EST Tissue specimen (specimen) Cecum structure / Unknown 02/02/2025 8:47 AM EST 02/02/2025 10:08 AM EST Tissue specimen (specimen) Ascending colon structure / Unknown 02/02/2025 8:49 AM EST 02/02/2025 10:08 AM EST Tissue specimen (specimen) Transverse colon structure / Unknown 02/02/2025 8:51 AM EST 02/02/2025 10:08 AM EST Tissue specimen (specimen) Descending colon structure / Unknown 02/02/2025 8:53 AM EST 02/02/2025 10:08 AM EST us Laura Montejo MD LAB PATHOLOGY ORDERABLES Final Result [facility] [address] [place] [address], * POC , urine NO CHARGE screening manually resulted (02/02/2025 8:08 AM EST) HCG, Ur POC Negative Negative POC hCG Int QC Pass? Yes Yes Urine Urine specimen obtained by clean catch procedure / Unknown 02/02/2025 8:08 AM EST us Nasim Kelsey MD POINT OF CARE TEST ENTER/EDIT ORDERABLES Final Result from Last 3 Months Additional Health Concerns Active Problems Noted Date Diagnosed Date Autogenerated Problem 02/01/[address] [place] [id number] [facility] Member Subscriber Plan / Payer (Ef fective 2023-Present) Name:DILCIA LORD Relation to Subscriber:Self Name:Dilcia Lord Payer ID:[id number] Group ID:[id number] Type:Not on file Address: [place] [address] [address] [id number] Care Teams [employer] Supervisor Relationship Specialty Start Date End Date Hillary Ruiz MD [address] [place] [address] [place] [address] PCP - General Internal Medicine 01/18/25
--- OUTSIDE RECORDS SUMMARY | 2025-02-14 16:00 | XMS_ITS | Encounter Summary ---
Author Organization [employer] Address [address] [place] [address] Care Team Providers Care Outreach Representative Name Role Phone Unavailable Primary Care Provider Unavailabl e Encounter Details Date Type Department Care Team (Latest Contact Info) Description 10/14/2021 Abstract [facility] CONVERSIONS Dental, Provider, DDS Social History [...] Description 02/21/2025 8:45 AM EST Office Visit [facility] [address] [place] [address] Malachi Carpio documented as of this encounter Visit Diagnoses Not on filedocumented in this encounter
== END 2025-02-14 15:01 | disposition home or self-care (01) ==
LOC: HO.HNS 14:40
PROVIDERS: PCP Internal Medicine; Visit Provider Physician Assistant
DX: M79.641 Pain in right hand (principal)
CPT/HCPCS: 99024

== ENCOUNTER → 2025-02-14 14:39 | Outpatient (BNVA) | payer OTHER, SELFPAY | PROVIDERS: PCP Internal Medicine; Visit Provider Physician Assistant | DX: M79.641 Pain in right hand (principal) | CPT/HCPCS: 99212 ==